=== PATIENT | female | born 1955 | race Caucasian/White ===

== ENCOUNTER 2017-03-05 11:36 | Emergency (ER) | payer OTHER ==
[2017-03-05 11:50] VITALS: BP 152/78; PULSE 91; TEMP 98.4; BMI 32.9
--- NOTE | 2017-03-05 11:51 | PDOC ---
Attending Attestation - Resident Resident Name: CaceresFei - ED Attending Attestation I have performed the following: I have examined & evaluated the patient, The case was reviewed & discussed with the resident, I agree w/resident's findings & plan, Exceptions are as noted - HPI HPI: 03/05/17 12:54 Painful sebaceous cyst in the mid back. Present several months but became inflamed the last few days. The patient has attempted to squeeze the cyst but it has not resolved. - Physicial Exam PE: 03/05/17 12:55 2 cm infected sebaceous cyst mid back, minimal erythema surrounding the cyst, also approximately 2 cm in diameter. Fluctuant. - Medical Decision Making 03/05/17 12:55 Impression is inflamed sebaceous cyst Resident performed I&D with 1% Xylocaine as local anesthesia. Patient tolerated the procedure well. A copious amount of cheesy white material was expressed from the cyst, the fluctuance resolved and the skin was flat after drainage. Iodoform gauze was inserted. Wound was dressed and wound care was discussed with the patient and her daughter.
[2017-03-05] MEDS ORDERED: LIDOCAINE HCL 1%, 10 MG/ML (20ML VIAL) ONE (12:12)
--- NOTE | 2017-03-05 12:59 | PDOC ---
History of Present Illness - General Chief Complaint: Pain, Acute Stated Complaint: PAINFUL CYST TO MID/LOWER BACK Time Seen by Provider: 03/05/17 12:09 History Source: Patient Exam Limitations: No Limitations - History of Present Illness Initial Comments: 03/05/17 12:54 61F with pmh of Dm2, HTN and HLC present with a cyst on the lower back for the past month. The cyst has been increasing in size and she tried to put ice on it and repeatedly tried to squeeze it but it made the pain worse. First time this happens.. No other lesions, Past History - Past Medical History Allergies/Adverse Reactions: Allergies Allergy/AdvReac Type Severity Reaction Status Date / Time Penicillins Allergy Verified 03/05/17 11:39 Home Medications: Ambulatory Orders Albuterol Sulfate Inhaler - [Ventolin Hfa Inhaler -] 1 - 2 inh PO QID PRN Enalapril Maleate 5 mg PO DAILY 04/06/16 Lovastatin 40 mg PO DAILY 04/06/16 Metformin HCl [Metformin HCl ER] 1,000 mg PO BID 04/06/16 Cholecalciferol (Vitamin D3) [Vitamin D3] 5,000 unit PO WEEKLY 03/05/17 Loratadine 10 mg PO DAILY 03/05/17 Salmeterol/Fluticasone [Advair 250Mcg/50Mcg -] 1 inhaler DAILY 03/05/17 Asthma: Yes COPD: (Emphysema) Diabetes: Yes HTN: Yes Hypercholesterolemia: Yes - Family Disease History Family Disease History: Diabetes: Mother - Immunization History Immunization Up to Date: Yes - Psycho/Social/Smoking Cessation Hx Anxiety: No Suicidal Ideation: No Smoking History: Never smoked Have you smoked in the past 12 months: No Information on smoking cessation initiated: No Hx Alcohol Use: Yes (SOCIAL) Drug/Substance Use Hx: No Substance Use Type: Alcohol *Physical Exam - Vital Signs Last Vital Signs Temp Pulse Resp BP Pulse Ox 98.4 F 91 H 16 152/78 99 03/05/17 11:38 03/05/17 11:38 03/05/17 11:38 03/05/17 11:38 03/05/17 11:38 *DC/Admit/Observation/Transfer Diagnosis at time of Disposition: Cyst - Discharge Dispostion Disposition: HOME Condition at time of disposition: Stable Admit: No - Patient Instructions Printed Discharge Instructions: DI for Epidermal Cyst Additional Instructions: Remove packing tomorrow by just pulling on it. Cover with gauze and tape. Come back if cyst comes back or if pain persists, or redness arounf incision gets larger. Acetaminophen or Ibuprofen for pain as needed.
[2017-03-05] MEDS ORDERED: LIDOCAINE HCL 1%, 10 MG/ML (50 mL VIAL) SQ ONE (13:10)
== END 2017-03-05 13:13 | disposition home or self-care (01) ==
LOC: FER 11:36
PROC: 0H96XZZ Drainage of Back Skin, External Approach (ICD-10-PCS; principal; 2017-03-05)
DX: L02.212 Cutaneous abscess of back [any part, except buttock and flank] (principal); E11.9 Type 2 diabetes mellitus without complications; I10 Essential (primary) hypertension; E78.00 Pure hypercholesterolemia, unspecified; J44.9 Chronic obstructive pulmonary disease, unspecified
CPT/HCPCS: 10060; 87070; 87205; 99281-25

== ENCOUNTER 2017-08-06 12:31 | Emergency (ER) | payer OTHER ==
[2017-08-06 12:38] VITALS: TEMP 98; BMI 32.9
[2017-08-06] MEDS ORDERED: ALBUTEROL SO4 2.5/IPRATROPIUM 0.5 INH SOL 3 ML VIAL.NEB. NEB ONE ×2 (13:40→14:37)
[2017-08-06] MEDS ORDERED: predniSONE 20 MG TABLET (UD) PO ONE (13:40)
[2017-08-06] MEDS ORDERED: AZITHROMYCIN 250 MG TABLET PO ONE (13:40)
[2017-08-06] MEDS ORDERED: predniSONE 20 MG TABLET (UD) ONE (13:45)
[2017-08-06] MEDS ORDERED: AZITHROMYCIN 250 MG TABLET ONE (13:46)
--- NOTE | 2017-08-06 13:51 | PDOC ---
Attending Attestation - Resident Resident Name: Fei Caceres - ED Attending Attestation I have performed the following: I have examined & evaluated the patient, The case was reviewed & discussed with the resident, I agree w/resident's findings & plan, Exceptions are as noted - HPI HPI: 08/06/17 13:48 61-year-old female with history of hypertension, diabetes, hyperlipidemia, asthma presents with 3 weeks of cough. The patient reports that she was developing a cough and wheeze though she was treated with prednisone several weeks ago. However, the patient's symptoms had improved but never resolved. Last 2 weeks, the patient's symptoms had persisted she was wheezing despite taking albuterol. States she is in having persistent cough but denies shortness of breath. States that she's been developing bilateral rib pains with coughing. 5 days ago, the patient had one-time temperature 100.4 degrees but the fever had broken sent. Patient has not been on steroids or antibiotics at this time. Came to the ED for further evaluation. - Physicial Exam PE: 08/06/17 13:48 GENERAL: Awake, alert, and fully oriented, in no acute distress. HEAD: No signs of trauma EYES: PERRLA, EOMI, sclera anicteric, conjunctiva clear ENT: Auricles normal inspection, hearing grossly normal, nares patent, oropharynx clear without exudates. NECK: Normal ROM, supple, no lymphadenopathy, JVD, or masses LUNGS: Expiratory wheezing bilaterally HEART: Regular rate and rhythm, normal S1 and S2, no murmurs, rubs or gallops ABDOMEN: Soft, nontender, normoactive bowel sounds. No guarding, no rebound. No masses EXTREMITIES: Normal range of motion, no edema. No clubbing or cyanosis. No cords, erythema, or tenderness NEUROLOGICAL: Cranial nerves II through XII grossly intact. Normal speech, normal gait SKIN: Warm, Dry, normal turgor, no rashes or lesions noted. - Medical Decision Making 08/06/17 13:48 Vital Signs Temp Pulse Resp BP Pulse Ox 98.0 F 98 H 20 170/106 98 08/06/17 12:34 08/06/17 12:34 08/06/17 12:34 08/06/17 12:34 08/06/17 12:34 The patient is mostly having asthma exacerbation. However, obtain a chest x-ray rule out pneumonia. I suspect that the very least, the patient has bronchitis. We'll initiate dual nebs, steroids and azithromycin. Given her fever 104 several days ago but now broke, we'll obtain blood work and blood cultures. If the patient is feeling better and her symptoms have improved, the patient is eligible for discharge.
[2017-08-06 14:09] LABS: EOS % 1.5 % (0-4.5); HEMATOCRIT 39.7 % (32.4-45.2); HEMOGLOBIN 12.6 GM/dL (10.7-15.3); MCH 27.4 pg (25.7-33.7); MCHC 31.9 g/dl (32.0-36.0); MEAN CELL VOLUME 86.1 fl (80-96); MEAN PLT VOLUME 7.1 fl (7.5-11.1); MONO % 5.6 % (3.8-10.2); NEUT % 58.9 % (42.8-82.8); PLATELET COUNT 451 K/MM3 (134-434); RBC 4.61 M/mm3 (3.60-5.2); RDW 13.4 % (11.6-15.6); WHITE BLOOD COUNT 7.7 K/mm3 (4.0-10.0)
[2017-08-06 14:37] LABS: ALBUMIN 3.4 g/dl (3.4-5.0); ALK PHOS 106 U/L (45-117); ANION GAP 9 (8-16); BILIRUBIN,TOTAL 0.3 mg/dL (0.2-1.0); BLOOD UREA NITROGEN 13 mg/dL (7-18); CALCIUM 9.1 mg/dL (8.5-10.1); CHLORIDE 104 mmol/L (98-107); CO2 31 mmol/L (21-32); CREATININE 0.7 mg/dL (0.55-1.02); GLUCOSE,RANDOM 97 mg/dL (74-106); MAGNESIUM 1.8 mg/dL (1.8-2.4); PHOSPHOROUS 3.6 mg/dL (2.5-4.9); POTASSIUM 3.9 mmol/L (3.5-5.1); SGOT/AST 15 U/L (15-37); SGPT/ALT 27 U/L (12-78); SODIUM 144 mmol/L (136-145); TOT PROT 7.2 g/dl (6.4-8.2)
--- NOTE | 2017-08-06 14:38 | PDOC ---
History of Present Illness - General Chief Complaint: Lightheaded Stated Complaint: ASTHMA/COUGHING Time Seen by Provider: 08/06/17 12:47 - History of Present Illness Initial Comments: 08/06/17 14:33 61F with h/o asthma presenting with 3 weeks on/off cold symptoms with increasing difficulty breathing last night to the point were she couldn't sleep. State she had a fever of 104 last tuesday that resolved. Asthma exacerbations around once a year. Never was intubated. Not on steroid for her asthma. 08/06/17 14:36 Past History - Past Medical History Allergies/Adverse Reactions: Allergies Allergy/AdvReac Type Severity Reaction Status Date / Time Penicillins Allergy Verified 08/06/17 12:38 Home Medications: Ambulatory Orders Albuterol Sulfate Inhaler - [Ventolin Hfa Inhaler -] 1 - 2 inh PO QID PRN Enalapril Maleate 5 mg PO DAILY 04/06/16 Lovastatin 40 mg PO DAILY 04/06/16 Metformin HCl [Metformin HCl ER] 1,000 mg PO BID 04/06/16 Cholecalciferol (Vitamin D3) [Vitamin D3] 5,000 unit PO WEEKLY 03/05/17 Loratadine 10 mg PO DAILY 03/05/17 Salmeterol/Fluticasone [Advair 250Mcg/50Mcg -] 1 inhaler DAILY 03/05/17 Albuterol 0.083% Nebulizer Peyton [Ventolin 0.083% Nebulizer Soln -] 1 neb NEB Q4H PRN #20 vial 08/06/17 Azithromycin 250 mg PO DAILY #4 tablet 08/06/17 Prednisone [Deltasone -] 60 mg PO DAILY #12 tablet 08/06/17 Asthma: Yes COPD: Yes (Emphysema) Diabetes: Yes HTN: Yes Hypercholesterolemia: Yes - Family Disease History Family Disease History: Diabetes: Mother - Immunization History Immunization Up to Date: Yes - Suicide/Smoking/Psychosocial Hx Smoking History: Former smoker Have you smoked in the past 12 months: No If you are a former smoker, when did you quit?: 14 YRS Information on smoking cessation initiated: No Hx Alcohol Use: No Drug/Substance Use Hx: No Substance Use Type: None Review of Systems - Review of Systems Is the patient limited Maldivian proficient: No Constitutional: Yes: Fever HEENTM: No: Symptoms Reported Respiratory: Yes: See HPI Cardiac (ROS): No: Symptoms Reported ABD/GI: No: Symptoms Reported : No: Symptoms Reported Musculoskeletal: No: Symptoms Reported Integumentary: No: Symptoms Reported Neurological: No: Symptoms reported All Other Systems: Reviewed and Negative *Physical Exam - Vital Signs Last Vital Signs Temp Pulse Resp BP Pulse Ox 98.0 F 98 H 20 170/106 98 08/06/17 12:34 08/06/17 12:34 08/06/17 12:34 08/06/17 12:34 08/06/17 12:34 - Physical Exam General Appearance: Yes: Moderate Distress HEENT: positive: Nasal Congestion Respiratory/Chest: positive: Wheezing (on expiration). negative: Chest Tender, Respiratory Distress Cardiovascular: positive: Regular Rhythm, Regular Rate, S1, S2 Gastrointestinal/Abdominal: positive: Normal Bowel Sounds ED Treatment Course - LABORATORY CBC & Chemistry Diagram: 08/06/17 13:44 08/06/17 13:44 - ADDITIONAL ORDERS Additional order review: Laboratory Results 08/06/17 13:44 Sodium 144 Potassium 3.9 Chloride 104 Carbon Dioxide 31 Anion Gap 9 BUN 13 Creatinine 0.7 Creat Clearance w eGFR > 60 Random Glucose 97 Calcium 9.1 Phosphorus 3.6 Magnesium 1.8 Total Bilirubin 0.3 AST 15 ALT 27 Alkaline Phosphatase 106 Total Protein 7.2 Albumin 3.4 08/06/17 13:44 Influenza Types A,B Antigen (YOVANA) - Final Nasopharyngeal Swab - Final 08/06/17 13:44 RBC 4.61 MCV 86.1 MCHC 31.9 L RDW 13.4 MPV 7.1 L Neutrophils % 58.9 Lymphocytes % 33.0 Monocytes % 5.6 Eosinophils % 1.5 Basophils % 1.0 - RADIOLOGY Radiology Studies Ordered: Category Date Time Status CHEST PA & LAT [RAD] Stat Radiology 08/06/17 13:08 Completed - Medications Given in the ED: ED Medications Discontinued Medications Generic Name Dose Route Start Last Admin Trade Name Freq PRN Reason Stop Dose Admin Albuterol/Ipratropium 1 amp 08/06/17 13:40 08/06/17 13:44 Duoneb - NEB 08/06/17 13:41 1 amp ONCE ONE Administration Albuterol/Ipratropium 1 amp 08/06/17 14:37 08/06/17 14:41 Duoneb - NEB 08/06/17 14:38 1 amp ONCE ONE Administration Azithromycin 500 mg 08/06/17 13:40 08/06/17 13:48 Zithromax - PO 08/06/17 13:41 500 mg ONCE ONE Administration Prednisone 60 mg 08/06/17 13:40 08/06/17 13:48 Deltasone - PO 08/06/17 13:41 60 mg ONCE ONE Administration Medical Decision Making - Medical Decision Making 08/06/17 14:38 Likely asthma exacerbation Duonebs 08/06/17 14:39 CXR no acute path. Flu swab negative 08/06/17 14:54 Repeat duoneb treatment and discharge *DC/Admit/Observation/Transfer Diagnosis at time of Disposition: Asthma exacerbation - Prescriptions Prescriptions: Albuterol 0.083% Nebulizer Peyton [Ventolin 0.083% Nebulizer Soln -] 1 neb NEB Q4H PRN #20 vial PRN Reason: Wheezing Azithromycin 250 mg PO DAILY #4 tablet Prednisone [Deltasone -] 60 mg PO DAILY #12 tablet - Referrals Referrals: Roseline Jackson MD [Primary Care Provider] - - Patient Instructions - Post Discharge Activity
--- NOTE | 2017-08-06 14:55 | PDOC ---
History of Present Illness - General Chief Complaint: Lightheaded Stated Complaint: ASTHMA/COUGHING Time Seen by Provider: 08/06/17 12:47 Past History - Past Medical History Allergies/Adverse Reactions: Allergies Allergy/AdvReac Type Severity Reaction Status Date / Time Penicillins Allergy Verified 08/06/17 12:38 Home Medications: Ambulatory Orders Albuterol Sulfate Inhaler - [Ventolin Hfa Inhaler -] 1 - 2 inh PO QID PRN Enalapril Maleate 5 mg PO DAILY 04/06/16 Lovastatin 40 mg PO DAILY 04/06/16 Metformin HCl [Metformin HCl ER] 1,000 mg PO BID 04/06/16 Cholecalciferol (Vitamin D3) [Vitamin D3] 5,000 unit PO WEEKLY 03/05/17 Loratadine 10 mg PO DAILY 03/05/17 Salmeterol/Fluticasone [Advair 250Mcg/50Mcg -] 1 inhaler DAILY 03/05/17 Albuterol 0.083% Nebulizer Peyton [Ventolin 0.083% Nebulizer Soln -] 1 neb NEB Q4H PRN #20 vial 08/06/17 Azithromycin 250 mg PO DAILY #4 tablet 08/06/17 Prednisone [Deltasone -] 60 mg PO DAILY #12 tablet 08/06/17 Asthma: Yes COPD: Yes (Emphysema) Diabetes: Yes HTN: Yes Hypercholesterolemia: Yes - Family Disease History Family Disease History: Diabetes: Mother - Immunization History Immunization Up to Date: Yes - Suicide/Smoking/Psychosocial Hx Smoking History: Former smoker Have you smoked in the past 12 months: No If you are a former smoker, when did you quit?: 14 YRS Information on smoking cessation initiated: No Hx Alcohol Use: No Drug/Substance Use Hx: No Substance Use Type: None Review of Systems - Review of Systems Is the patient limited Bhutanese proficient: No *Physical Exam - Vital Signs Last Vital Signs Temp Pulse Resp BP Pulse Ox 98.0 F 98 H 20 170/106 98 08/06/17 12:34 08/06/17 12:34 08/06/17 12:34 08/06/17 12:34 08/06/17 12:34 ED Treatment Course - LABORATORY CBC & Chemistry Diagram: 08/06/17 13:44 08/06/17 13:44 - ADDITIONAL ORDERS Additional order review: Laboratory Results 08/06/17 13:44 Sodium 144 Potassium 3.9 Chloride 104 Carbon Dioxide 31 Anion Gap 9 BUN 13 Creatinine 0.7 Creat Clearance w eGFR > 60 Random Glucose 97 Calcium 9.1 Phosphorus 3.6 Magnesium 1.8 Total Bilirubin 0.3 AST 15 ALT 27 Alkaline Phosphatase 106 Total Protein 7.2 Albumin 3.4 08/06/17 13:44 Influenza Types A,B Antigen (YOVANA) - Final Nasopharyngeal Swab - Final 08/06/17 13:44 RBC 4.61 MCV 86.1 MCHC 31.9 L RDW 13.4 MPV 7.1 L Neutrophils % 58.9 Lymphocytes % 33.0 Monocytes % 5.6 Eosinophils % 1.5 Basophils % 1.0 - Medications Given in the ED: ED Medications Discontinued Medications Generic Name Dose Route Start Last Admin Trade Name Freq PRN Reason Stop Dose Admin Albuterol/Ipratropium 1 amp 08/06/17 13:40 08/06/17 13:44 Duoneb - NEB 08/06/17 13:41 1 amp ONCE ONE Administration Albuterol/Ipratropium 1 amp 08/06/17 14:37 08/06/17 14:41 Duoneb - NEB 08/06/17 14:38 1 amp ONCE ONE Administration Azithromycin 500 mg 08/06/17 13:40 08/06/17 13:48 Zithromax - PO 08/06/17 13:41 500 mg ONCE ONE Administration Prednisone 60 mg 08/06/17 13:40 08/06/17 13:48 Deltasone - PO 08/06/17 13:41 60 mg ONCE ONE Administration Medical Decision Making - Medical Decision Making 08/06/17 14:51 CBC, BMP 08/06/17 13:44 08/06/17 13:44 CMP Sodium 144 mmol/L (136-145) 08/06/17 13:44 Potassium 3.9 mmol/L (3.5-5.1) 08/06/17 13:44 Chloride 104 mmol/L (98-107) 08/06/17 13:44 Carbon Dioxide 31 mmol/L (21-32) 08/06/17 13:44 Anion Gap 9 (8-16) 08/06/17 13:44 BUN 13 mg/dL (7-18) 08/06/17 13:44 Creatinine 0.7 mg/dL (0.55-1.02) 08/06/17 13:44 Creat Clearance w eGFR > 60 (>60) 08/06/17 13:44 Random Glucose 97 mg/dL (74-106) 08/06/17 13:44 Calcium 9.1 mg/dL (8.5-10.1) 08/06/17 13:44 Phosphorus 3.6 mg/dL (2.5-4.9) 08/06/17 13:44 Magnesium 1.8 mg/dL (1.8-2.4) 08/06/17 13:44 Total Bilirubin 0.3 mg/dL (0.2-1.0) 08/06/17 13:44 AST 15 U/L (15-37) 08/06/17 13:44 ALT 27 U/L (12-78) 08/06/17 13:44 Alkaline Phosphatase 106 U/L (45-117) 08/06/17 13:44 Total Protein 7.2 g/dl (6.4-8.2) 08/06/17 13:44 Albumin 3.4 g/dl (3.4-5.0) 08/06/17 13:44 Chest xray reviewed, no acute infiltrates. Patient is feeling better after treatment. I suspect this is asthma with bronchitis. We'll discharge with albuterol, prednisone and azithromycin. I discussed the physical exam findings, ancillary test results and final diagnoses with the patient. I answered all of the patient's questions. The patient was satisfied with the care received and felt comfortable with the discharge plan and treatment plan. The patient will call their primary care physician within 24 hours to arrange follow-up and will return to the Emergency Department with any new, persistant or worsening symptoms. *DC/Admit/Observation/Transfer Diagnosis at time of Disposition: Asthma exacerbation Qualifiers: Asthma severity: unspecified severity Asthma persistence: intermittent Qualified Code(s): J45.21 - Mild intermittent asthma with (acute) exacerbation - Discharge Dispostion Disposition: HOME Condition at time of disposition: Improved - Prescriptions Prescriptions: Albuterol 0.083% Nebulizer Peyton [Ventolin 0.083% Nebulizer Soln -] 1 neb NEB Q4H PRN #20 vial PRN Reason: Wheezing Azithromycin 250 mg PO DAILY #4 tablet Prednisone [Deltasone -] 60 mg PO DAILY #12 tablet - Referrals Referrals: Roseline Jackson MD [Primary Care Provider] - - Patient Instructions Printed Discharge Instructions: DI for Asthma -- Adult, DI for Acute Bronchitis Additional Instructions: Your chest xray and blood work is unremarkable. Please take the nebulizer, prednisone, and azithromycin (antibiotic) as prescribed. Follow up with your doctor. - Post Discharge Activity
[2017-08-06 15:08] VITALS: BP 134/78; PULSE 70
== END 2017-08-06 15:11 | disposition home or self-care (01) ==
LOC: JER 12:31
PROC: 3E0F7GC Introduction of Other Therapeutic Substance into Respiratory Tract, Via Natural or Artificial Opening (ICD-10-PCS; principal; 2017-08-06)
PROC: 3E0F7GC Introduction of Other Therapeutic Substance into Respiratory Tract, Via Natural or Artificial Opening (ICD-10-PCS; 2017-08-06)
DX: J45.901 Unspecified asthma with (acute) exacerbation (principal); I10 Essential (primary) hypertension; E78.00 Pure hypercholesterolemia, unspecified; E11.9 Type 2 diabetes mellitus without complications; Z79.84 Long term (current) use of oral hypoglycemic drugs; J43.8 Other emphysema
CPT/HCPCS: 36415; 71046-TC; 80053; 83735; 84100; 85025; 87040; 87804; 94640; 99283-25

== ENCOUNTER 2017-12-20 10:22 | Emergency (ER) | payer OTHER ==
[2017-12-20 10:46] VITALS: TEMP 98.5; BMI 31.8
--- NOTE | 2017-12-20 10:47 | PDOC ---
History of Present Illness - General History Source: Patient Exam Limitations: No Limitations - History of Present Illness Initial Comments: 12/20/17 11:08 The patient is a 62 year old female, with a significant PMH of hypertension, hyperlipidemia, diabetes and asthma who presents to the emergency department for evaluation s/p slip and fall. The patient presents complaining of left shoulder pain and left ankle pain. The patient states her left shoulder pain is made worse with movement. The patient denies any head strike/ injury or loss of consciousness. She denies any numbness, weakness or loss of sensation. She denies any neck or back pain. The patient denies chest pain, shortness of breath, headache and dizziness. Denies fever, chills, nausea, vomit, diarrhea and constipation. Denies dysuria, frequency, urgency and hematuria. Allergies: Penicillins <Jesus Alberto Wynne - Last Filed: 12/20/17 14:19> <Sheila Constantino - Last Filed: 12/20/17 14:28> - General Chief Complaint: Injury Stated Complaint: FALL Time Seen by Provider: 12/20/17 10:46 Past History <Jesus Alberto Wynne - Last Filed: 12/20/17 14:19> - Past Medical History Asthma: Yes COPD: Yes (Emphysema) Diabetes: Yes HTN: Yes Hypercholesterolemia: Yes - Family Disease History Family Disease History: Diabetes: Mother - Immunization History Immunization Up to Date: Yes - Suicide/Smoking/Psychosocial Hx Smoking History: Former smoker Have you smoked in the past 12 months: No If you are a former smoker, when did you quit?: 14 YRS Information on smoking cessation initiated: No Hx Alcohol Use: No Drug/Substance Use Hx: No Substance Use Type: None <Sheila Constantino - Last Filed: 12/20/17 14:28> - Past Medical History Allergies/Adverse Reactions: Allergies Allergy/AdvReac Type Severity Reaction Status Date / Time Penicillins Allergy Verified 08/06/17 12:38 Home Medications: Ambulatory Orders Albuterol Sulfate Inhaler - [Ventolin Hfa Inhaler -] 1 - 2 inh PO QID PRN Enalapril Maleate 5 mg PO DAILY 04/06/16 Metformin HCl [Metformin HCl ER] 1,000 mg PO BID 04/06/16 Salmeterol/Fluticasone [Advair 250Mcg/50Mcg -] 1 inhaler IH BID 03/05/17 Atorvastatin Ca [Lipitor] 0 mg PO HS 12/20/17 Review of Systems - Review of Systems Comments:: 12/20/17 11:11 GENERAL/CONSTITUTIONAL: No fever or chills. No weakness. HEAD, EYES, EARS, NOSE AND THROAT: No change in vision. No ear pain or discharge. No sore throat. CARDIOVASCULAR: No chest pain or shortness of breath. RESPIRATORY: No cough, wheezing, or hemoptysis. GASTROINTESTINAL: No nausea, vomiting, diarrhea or constipation. GENITOURINARY: No dysuria, frequency, or change in urination. MUSCULOSKELETAL: (+) Left shoulder pain. (+) Left ankle pain. No neck or back pain. SKIN: No rash NEUROLOGIC: No headache, vertigo, loss of consciousness, or change in strength/ sensation. ENDOCRINE: No increased thirst. No abnormal weight change. HEMATOLOGIC/LYMPHATIC: No anemia, easy bleeding, or history of blood clots. ALLERGIC/IMMUNOLOGIC: No hives or skin allergy. <Jesus Alberto Wynne - Last Filed: 12/20/17 14:19> *Physical Exam - Vital Signs Last Vital Signs Temp Pulse Resp BP Pulse Ox 98.5 F 94 H 20 150/100 96 12/20/17 10:43 12/20/17 10:43 12/20/17 10:43 12/20/17 10:43 12/20/17 10:43 - Physical Exam Comments: 12/20/17 11:11 GENERAL: Awake, alert, and fully oriented, in no acute distress HEAD: No signs of trauma EYES: PERRLA, EOMI, sclera anicteric, conjunctiva clear ENT: Auricles normal inspection, hearing grossly normal, nares patent, oropharynx clear without exudates. Moist mucosa NECK: No tenderness of the spinous processes. Normal ROM, supple, no lymphadenopathy, JVD, or masses LUNGS: Breath sounds equal, clear to auscultation bilaterally. No wheezes, and no crackles HEART: Regular rate and rhythm, normal S1 and S2, no murmurs, rubs or gallops ABDOMEN: Soft, nontender, normoactive bowel sounds. No guarding, no rebound. No masses EXTREMITIES: (+) Left shoulder deformity and tenderness with severely limited ROM. Intact radial pulses. Sensation intact throughout. Intact finger extension. (+) Left ankle tenderness over the lateral malleolus without deformity. Full range of motion. 2+ distal pulses throughout. NEUROLOGICAL: Cranial nerves II through XII grossly intact. Normal speech. SKIN: Warm, Dry, normal turgor, no rashes or lesions noted. <Jesus Alberto Wynne - Last Filed: 12/20/17 14:19> - Vital Signs Last Vital Signs Temp Pulse Resp BP Pulse Ox 98.5 F 94 H 20 150/100 96 12/20/17 10:43 12/20/17 10:43 12/20/17 10:43 12/20/17 10:43 12/20/17 10:43 <Sheila Constantino - Last Filed: 12/20/17 14:28> ED Treatment Course - RADIOLOGY Radiograph Interpretation: 12/20/17 14:19 EXAM#: TYPE/EXAM: RESULT: [id number] RAD/ANKLE FOOT-LEFT* HISTORY PROVIDED: Fall AP, oblique and lateral projections of the left foot and ankle reveals no evidence of fracture, dislocation or acute bone or joint abnormalities. Mild degenerative changes are noted about the small joints of the foot, most marked at the first metatarsophalangeal joint. There is also a small along the plantar surface of the calcaneus. IMPRESSION: Mild degenerative arthritis with no fracture or acute bone or joint abnormalities. Reported By: Aron Thorpe MD 12/20/17 14:20 EXAM#: TYPE/EXAM: RESULT: [id number] RAD/SHOULDER-LEFT HISTORY PROVIDED: Fall Internal/external rotation projections of the left shoulder reveals no evidence of fracture, dislocation or acute bone or joint abnormalities. Mild degenerative changes are noted about the acromioclavicular joint. IMPRESSION: Mild degenerative arthritis with no fracture or acute bone or joint abnormalities. Reported By: Aron Thorpe MD - Medications Given in the ED: ED Medications Discontinued Medications Generic Name Dose Route Start Last Admin Trade Name Freq PRN Reason Stop Dose Admin Oxycodone/Acetaminophen 2 combo 12/20/17 10:52 12/20/17 11:01 Percocet 5/325 - PO 12/20/17 10:53 2 combo ONCE ONE Administration <Jesus Alberto Wynne - Last Filed: 12/20/17 14:19> Medical Decision Making - Medical Decision Making 12/20/17 14:07 Pt presents to the ED complaining of L shoulder pain and L ankle pain after mechanical trip and fall. Denies LOC. Very limited ROM of shoulder, although patient is neurologically intact. Will check xrays of the foot, ankle and shoulder to rule out fx. <Sheila Constantino - Last Filed: 12/20/17 14:28> *DC/Admit/Observation/Transfer - Attestations Scribe Attestion: 12/20/17 11:58 Documentation prepared by Jesus Alberto Wynne, acting as medical esthetician for Sheila Constantino MD. <Jesus Alberto Wynne - Last Filed: 12/20/17 14:19> - Discharge Dispostion Decision to Admit order: No <Sheila Constantino - Last Filed: 12/20/17 14:28> Diagnosis at time of Disposition: Shoulder pain Qualifiers: Chronicity: acute Laterality: left Qualified Code(s): M25.512 - Pain in left shoulder Ankle sprain Qualifiers: Encounter type: initial encounter Involved ligament of ankle: unspecified ligament Laterality: left Qualified Code(s): S93.402A - Sprain of unspecified ligament of left ankle, initial encounter - Discharge Dispostion Disposition: HOME Condition at time of disposition: Good - Referrals Referrals: Roseline Jackson MD [Primary Care Provider] - - Patient Instructions Printed Discharge Instructions: DI for Ankle Sprain, DI for Shoulder Pain Additional Instructions: return to the ED for severe pain and swelling, other new or worsening symptoms. Make sure that you follow up with your doctor within three days. Take the motrin every 8 hours for the first three days, then take it as needed. Try to stay off of your ankle for the next three days. Keep it elevated and use ice. return for severely worsening pain or swelling or other new complaints. - Post Discharge Activity Forms/Work/School Notes: Back to Work
[2017-12-20 13:51] VITALS: BP 120/83; PULSE 79
[2017-12-20] MEDS ORDERED: IBUPROFEN 400 MG TABLET (FP) PO ONE ×2 (14:34→14:51)
== END 2017-12-20 15:58 | disposition home or self-care (01) ==
LOC: JER 10:22
DX: S93.402A Sprain of unspecified ligament of left ankle, initial encounter (principal); M25.512 Pain in left shoulder; W18.39XA Other fall on same level, initial encounter; Y93.89 Activity, other specified; Y92.69 Other specified industrial and construction area as the place of occurrence of the external cause; Y99.0 Civilian activity done for income or pay; I10 Essential (primary) hypertension; E78.5 Hyperlipidemia, unspecified; E11.9 Type 2 diabetes mellitus without complications; Z79.84 Long term (current) use of oral hypoglycemic drugs; J45.909 Unspecified asthma, uncomplicated; J43.8 Other emphysema
CPT/HCPCS: 73030-TC-LT-FY; 73060-TC-LT-FY; 73610-TC-LT-FY; 73630-TC-LT; 99281-25

== ENCOUNTER 2018-05-24 06:06 | Day surgery (SDC) | payer OTHER ==
[2018-05-22 16:04] VITALS: BMI 31.1
[2018-05-24] MEDS ORDERED: SUCCINYLCHOLINE CHLORIDE 200 MG/10 ML VIAL ONE (07:22)
[2018-05-24] MEDS ORDERED: PROPOFOL 20 ML ONE ×2 (07:22)
[2018-05-24] MEDS ORDERED: MIDAZOLAM HCL 2 MG/2 ML SINGLE DOSE VIAL ONE ×3 (07:22→07:33)
[2018-05-24] MEDS ORDERED: SODIUM CHLORIDE 0.9% P/F 10 ML VIAL IJ ONE ×2 (07:25→07:26)
[2018-05-24] MEDS ORDERED: ceFAZolin SODIUM 1 GM VIAL ONE (07:25)
[2018-05-24] MEDS ORDERED: ePHEDrine SULFATE 50 MG/1 ML AMPULE ONE (07:26)
[2018-05-24] MEDS ORDERED: ROPIVACAINE HCL 0.5% 30ML VIAL ONE (07:35)
--- NOTE | 2018-05-24 08:10 | HP ---
Satellite [facility] - Chief Complaint Chief Complaint: LEFT SHOULDER PAIN History Source: Patient - Past Medical History Allergies/Adverse Reactions: Allergies Allergy/AdvReac Type Severity Reaction Status Date / Time Penicillins Allergy Verified 05/24/18 06:30 - Current Medications Current Medications: Home Medications Medication Instructions Recorded Albuterol Sulfate Inhaler - 1 - 2 inh PO QID PRN 04/06/16 [Ventolin Hfa Inhaler -] Enalapril Maleate 10 mg PO DAILY 04/06/16 Metformin HCl [Metformin HCl ER] 1,000 mg PO BID 04/06/16 Atorvastatin Ca [Lipitor] 20 mg PO HS 12/20/17 Satellite Physical Exam - Physical Examination Vital Signs: Vital Signs Period Temp Pulse Resp BP Sys/Mason Pulse Ox Last 24 Hr 97.7 F 82 18 119/67 98 Extremities: Other (+ WEAKNESS WITH TDA) Satellite Impression/Plan - Impression/Plan Impression: LEFT RC TEAR Operative Procedure: LEFT RC REPAIR Date to be Performed: 05/24/18
[2018-05-24] MEDS ORDERED: ceFAZolin SODIUM 1 GM VIAL IVPB ONE ×2 (08:41)
[2018-05-24] MEDS ORDERED: ONDANSETRON 4 MG/2 ML VIAL IVPUSH PRN (09:39)
[2018-05-24] MEDS ORDERED: oxyCODONE HCL 5 MG TABLET PO PRN ×2 (09:39)
--- NOTE | 2018-05-24 09:42 | OP ---
Operative Note - Note: Operative Date: 05/24/18 ([facility]) Pre-Operative Diagnosis: left shoulder rct Operation: left shoulder arthroscopy with RCR Implants: arthrex speedbridge, 1 swivelock Post-Operative Diagnosis: Same as Pre-op Surgeon: Luis Menendez Typecasting Machine Operator: Luis Carlos Willson Anesthesiologist/DIRECTOR DATA ANALYTICS: Hardik Echeverria Anesthesia: Local, MAC Specimens Removed: shavings Estimated Blood Loss (mls): 5 Operative Report Dictated: Yes
[2018-05-24] MEDS ORDERED: LACTATED RINGERS SOLUTION 1,000 ML IV SCH (09:45)
--- NOTE | 2018-05-24 10:01 | OP ---
DATE OF OPERATION: 05/24/2018 PREOPERATIVE DIAGNOSIS: Left rotator cuff tear, acute on chronic. POSTOPERATIVE DIAGNOSIS: Left rotator cuff tear, acute on chronic. PROCEDURE: Arthroscopy, left shoulder, with subacromial debridement and arthroscopic rotator cuff repair. SURGICAL ATTENDING: Luis Menendez MD PROCUREMENT SERVICES MANAGER: JONATHAN Her ANESTHESIA: Regional and general. CLOSURE: SpeedBridge and a SwiveLock from [employer] and 3-0 nylon for skin. ESTIMATED BLOOD LOSS: Negligible. COMPLICATIONS: None. CONDITION: To recovery room in stable condition. DESCRIPTION OF OPERATIVE PROCEDURE: Patient taken to the operating room on May 24, 2018. Regional anesthesia was administered by the anesthesiologist. IV Kefzol was administered prophylactically prior to the case. Patient was placed in the beach-chair position with all prominences well padded. The left shoulder area was prepped and draped in the usual sterile fashion. The posterior portal was made 2 fingerbreadths below the acromion first with a 15 blade followed by a blunt trocar. Exam of the glenohumeral joint revealed the following: Intact glenoid and humeral head articular cartilage, intact labrum circumferentially. The biceps tendon was nowhere to be seen. No loose bodies in the axillary pouch. The subscapularis was intact to its insertion. Looking superior there was a large rotator cuff tear that was clearly visualized. The fluid was drained from the shoulder. The trocar was removed. The posterior trocar was redirected in the subacromial space. Accessory anterior and lateral portals were made with a 15 blade followed by a blunt trocar. The lateral portal was the working portal. We used that to introduce an ArthroCare device and a shaver to clean out all fibrous tissue in and around the undersurface of the acromion. This exposed the rotator cuff tear and the displacement and the exposed greater tuberosity. There was no real subacromial spur. There was plenty of space. This area was just cleaned and smoothened with the shaver and the bur. The greater tuberosity landing area was also stimulated to remove all fibrous tissue and to have a good bleeding surface for reimplantation. As suspected the most superior part of the supraspinatus was not fixable and was displaced posteriorly medially and had no excursion. However, the posterior part of the rotator cuff was able to be mobilized and with the graspers was able to be reduced to the greater tuberosity. Two medial row anchors with preloaded FiberTape suture were malleted in the articular margin, 1 more anteriorly and 1 more posteriorly. They were placed in a fanned-out position of all 4 limbs through the rotator cuff. Each stitch was docked anteriorly. We then pulled 1 limb of the anterior and 1 limb of the posterior anchor through the lateral portal. These sutures were placed through the eyelet holes of the lateral row anchor. The rotator cuff was reduced and then it was malleted into place in the greater tuberosity and screwed home. This was then repeated with the remaining 2 limbs in the more anterior position achieving excellent reduction of the rotator cuff to the greater tuberosity with no undue stress. There was some anterior tissue that was also to be repaired. This was grasped with the [employer] device and horizontal mattress suture through an independent SwiveLock was used to repair that portion of the rotator cuff/subscapularis tendon. This left a bare area somewhat at around the supraspinatus region that was not repaired, but there was no exposed articular cartilage. I did not use an augmentation device at this time. The shoulder was taken through a range of motion and found to have good stability of the repair with excellent clearance. Fluid was drained from the shoulder. The trocars were removed. Portals were closed using 3-0 nylon. A sterile pressure dressing was applied followed by a shoulder immobilizer. Patient awakened from anesthesia and transferred to recovery in stable condition. No complications. Estimated blood loss negligible. Ching [id number]
[2018-05-24 12:28] VITALS: BP 114/62; PULSE 84; TEMP 98
--- NOTE | 2018-05-25 16:24 | PATH ---
Surgical Pathology Report Patient Name: MAVIS ANDRES Med. Rec. #: [id number] /Age/Gender: 1955 (Age: 62) / F Account: [id number] Location: [facility] Taken: 05/24/2018 Received: 05/24/2018 Reported: 05/25/2018 Physicians: Luis Menendez M.D. Specimen(s) Received LEFT SHOULDER SHAVINGS Clinical History Left shoulder tear Final Diagnosis LEFT SHOULDER SHAVINGS: FIBROCARTILAGINOUS AND SYNOVIAL TISSUE WITH REACTIVE AND DEGENERATIVE CHANGE. SEPARATE SKELETAL MUSCLE WITH NO DIAGNOSTIC ABNORMALITIES. Electronically Signed Corazon Connell M.D. Gross Description Received in formalin labeled "left shoulder shavings", is a 1.5 x 1.5 x 0.3 cm aggregate of lew-yellow soft tissue fragments. Software Installer tissue submitted in one cassette. BUDDY/05/24/2018 rufina/05/24/2018
== END 2018-05-24 12:25 | disposition home or self-care (01) ==
LOC: JASU-SURG 06:06
PROVIDERS: ATTEND Orthopaedic Surgery
PROC: 0LQ24ZZ Repair Left Shoulder Tendon, Percutaneous Endoscopic Approach (ICD-10-PCS; 2018-05-24)
PROC: 0RBK4ZZ Excision of Left Shoulder Joint, Percutaneous Endoscopic Approach (ICD-10-PCS; principal; 2018-05-24 08:00)
DX: M75.102 Unspecified rotator cuff tear or rupture of left shoulder, not specified as traumatic (principal)
CPT/HCPCS: 82962; 94760

== ENCOUNTER 2018-09-16 13:15 | Emergency (ER) | payer OTHER ==
--- NOTE | 2018-09-16 13:31 | PDOC ---
History of Present Illness - General Chief Complaint: Pain Stated Complaint: RIGHT KNEE PAIN Time Seen by Provider: 09/16/18 13:29 History Source: Patient Exam Limitations: No Limitations - History of Present Illness Initial Comments: 09/16/18 13:31 The patient is a 62 year old female, with a significant PMH of hypertension, hyperlipidemia, diabetes and asthma who presents to the emergency department for evaluation of right knee pain. Pt denies any recent trauma She has noted several weeks of right knee pain which was bearable Over the past 3 days, she noted increasing pain No fevers or chills No knee redness (+) knee swelling Pt is ambulatory but this is painful Pain located in the medial knee, and now radiates to the calf. Pain rated 8/10 with walking Pt did not take any pain medications today for her pain No prior history of gout PMH: HTN, HLD, DM, Asthma PSH: Left shoulder surgery Meds: please see MAR ALL: PCN --> ? Social: denies drug or tobacco use FH: non contributory ROS: GENERAL/CONSTITUTIONAL: No: fever, chills HEAD, EYES, EARS, NOSE AND THROAT: No: change in vision, ear pain, discharge, sore throat, throat swelling. CARDIOVASCULAR: No: chest pain, lightheadedness, palpitations, syncope RESPIRATORY: No: cough, shortness of breath, wheezing, hemoptysis, stridor. GASTROINTESTINAL: No: nausea, vomiting, diarrhea, abdominal pain GENITOURINARY: No: dysuria, hematuria, MUSCULOSKELETAL: YES: right knee pain, Chronic Left should pain No: back pain, neck pain SKIN AND BREASTS: No: lesions, pallor, rash or easy bruising. NEUROLOGIC: No: weakness ENDOCRINE: No: unexplained weight gain or loss PE: GENERAL: The patient is in no acute distress. HEAD: Normal EYES: PERRLA, EOMI, sclera anicteric, conjunctiva clear. ENT: Ears normal, nares patent, oropharynx clear without exudates. Moist mucous membranes. NECK: Normal range of motion, supple no midline tenderness to palpation LUNGS: Breath sounds equal, clear to auscultation bilaterally. No wheezes, and no crackles. HEART:Regular rate and rhythm, normal S1 and S2 without murmur, rub or gallop. ABDOMEN: Soft, nontender, normoactive bowel sounds. EXTREMITIES: Normal range of motion, no edema. NEUROLOGICAL: Cranial nerves II through XII grossly intact. Normal speech. The patient is awake, alert, oriented x3. Gross motor and sensory exam is found to be intact. Sensation of distal lower extremities intact. MUSCULOSKELETAL: No deformities, ecchymosis of the lower extremities bilaterally. Skin is NOT red, NOT warm Tenderness noted with flexion of the right knee Tenderness to palpation of the medial knee joint, proximal tibia, calf Range of motion limited by pain with flexion No laxity of the MCL, LCL, ACL, PCL appreciated bilaterally. Patient limited ability to bear weight. Antalgic gait Dorsalis pedis and posterior tibialis pulses 2+ and equal bilaterally. Capillary refill less than 2 seconds bilaterally. SKIN: NO erythema, no wounds, no drainage 09/16/18 13:39 09/16/18 13:52 Timing/Duration: unsure Past History - Past Medical History Allergies/Adverse Reactions: Allergies Allergy/AdvReac Type Severity Reaction Status Date / Time Penicillins Allergy Verified 05/24/18 06:30 Home Medications: Ambulatory Orders Albuterol Sulfate Inhaler - [Ventolin HFA Inhaler -] 1 - 2 inh PO QID PRN Enalapril Maleate 10 mg PO DAILY 04/06/16 metFORMIN HCL [Metformin ER Osmotic] 1,000 mg PO BID 04/06/16 Atorvastatin Ca [Lipitor] 20 mg PO HS 12/20/17 Fluticasone Prop 0.05% Nasal [Flonase -] 1 - 2 spray NS BID 09/16/18 Lidocaine 5% Patch [Lidoderm Patch -] 1 patch TP DAILY PRN #30 patch 09/16/18 Loratadine [Claritin] 10 mg PO DAILY 09/16/18 Montelukast Sodium [Singulair] 10 mg PO HS 09/16/18 Naproxen Sodium 220 mg PO BID PRN #30 tablet 09/16/18 traMADol HCL [Ultram] 50 mg PO BID #6 tablet MDD 2 09/16/18 Asthma: Yes COPD: Yes (Emphysema) Diabetes: Yes HTN: Yes Hypercholesterolemia: Yes - Family Disease History Family Disease History: Diabetes: Mother - Immunization History Immunization Up to Date: Yes - Suicide/Smoking/Psychosocial Hx Smoking History: Former smoker Have you smoked in the past 12 months: No If you are a former smoker, when did you quit?: 2002 Hx Alcohol Use: No Drug/Substance Use Hx: No Substance Use Type: None Medical Decision Making - Medical Decision Making 09/16/18 13:57 Knee pain likely the result of arthritis possible meniscus tear, joint effusion Will do X ray to r/o fracture Unlikely gout Unlikely septic joint (no erythema, pt able to flex) Will do duplex to r/o Serna's cyst Will give motrin for pain 09/16/18 15:48 Xray negative Duplex negative Will: Piyush wrap Give cane Follow up with Ortho *DC/Admit/Observation/Transfer Diagnosis at time of Disposition: Knee pain, right Qualifiers: Chronicity: acute Qualified Code(s): M25.561 - Pain in right knee - Discharge Dispostion Disposition: HOME Condition at time of disposition: Stable Decision to Admit order: No - Prescriptions Prescriptions: Lidocaine 5% Patch [Lidoderm Patch -] 1 patch TP DAILY PRN #30 patch PRN Reason: Pain Naproxen Sodium 220 mg PO BID PRN #30 tablet PRN Reason: Pain traMADol HCL [Ultram] 50 mg PO BID #6 tablet MDD 2 - Referrals Referrals: Roseline Jacksno MD [Primary Care Provider] - Tommy Dominique MD [Staff Physician] - Hardik Persaud MD [Staff Physician] - - Patient Instructions Printed Discharge Instructions: DI for Knee Pain Additional Instructions: Ms Bui Thank you for coming in to the ER today Please review your xray and ultrasound results. Return to the emergency department immediately with ANY new, persistent or worsening symptoms. Continue any medications as previously prescribed by your physician. Please take medications as prescribed today You can use an piyush wrap or any over the counter knee brace that is comfortable for you. Please avoid re traumatizing your knee. You should follow up with an orthopedist as soon as possible regarding today's emergency department visit. Please make sure your doctor reviews the results of your emergency evaluation. Thank you for coming to the [facility] today for your care. It was a pleasure to see you today. Please note that your evaluation is INCOMPLETE until you follow-up with your doctor. - Post Discharge Activity Forms/Work/School Notes: Back to Work
[2018-09-16 13:36] VITALS: BP 152/47; PULSE 89; TEMP 98.3; BMI 31.1
[2018-09-16] MEDS ORDERED: IBUPROFEN 600 MG TABLET (FP) PO ONE ×2 (13:38→13:42)
== END 2018-09-16 16:03 | disposition home or self-care (01) ==
LOC: FER 13:15
DX: M25.561 Pain in right knee (principal); Z87.891 Personal history of nicotine dependence; I10 Essential (primary) hypertension; E78.5 Hyperlipidemia, unspecified; E11.9 Type 2 diabetes mellitus without complications; J45.909 Unspecified asthma, uncomplicated
CPT/HCPCS: 73562-TC-RT-FY; 93971-TC; 99282-25

== ENCOUNTER 2018-11-22 09:18 | Day surgery (SDC) | payer OTHER ==
[2018-11-21 09:03] VITALS: BMI 31.1
[2018-11-22 10:30] LABS: EPI CELLS 1.7 /HPF (0-5/HPF); URINE APPEARANCE CLEAR; URINE BACTERIA 1.9 /hpf (NEGATIVE); URINE BILIRUBIN NEGATIVE (NEGATIVE); URINE CASTS 2 /lpf (0-8); URINE COLOR YELLOW; URINE GLUCOSE (UA) NEGATIVE (NEGATIVE); URINE KETONE NEGATIVE (NEGATIVE); URINE LEUK ESTERASE NEGATIVE (NEGATIVE); URINE NITRITE NEGATIVE (NEGATIVE); URINE PROTEIN NEGATIVE (NEGATIVE); URINE RBC 5 /hpf (0-4); URINE UROBILINOGEN 0.2 mg/dL (0.2-1.0); URINE WBC 1 /hpf (0-5)
[2018-11-22] MEDS ORDERED: BUPIVACAINE LIPOSOME/PF (EXPAREL) 266 MG/20 ML VIAL ONE (10:46)
[2018-11-22] MEDS ORDERED: BUPIVACAINE HCL/PF 0.5% (5MG/ML) 10 ML VIAL ONE (10:46)
[2018-11-22 10:49] VITALS: BP 133/75; PULSE 87; TEMP 97.9
== END 2018-11-22 11:30 | disposition home or self-care (01) ==
LOC: UNDOADMIN 09:18 → JSAMEDAYSX 09:18 → JASUSAT 09:18 → EDSTATUS 09:30 → UNDODISIN 11:30 → JASUSAT 11:30
PROVIDERS: ATTEND Orthopaedic Surgery
DX: Z53.8 Procedure and treatment not carried out for other reasons (principal)
CPT/HCPCS: 81003

== ENCOUNTER 2018-12-06 09:13 | Inpatient (IN) | payer OTHER ==
[2018-12-05 14:51] VITALS: BMI 31.1
--- NOTE | 2018-12-06 09:23 | HP ---
Satellite H - Chief Complaint Chief Complaint: left shoulder pain - Past Medical History Allergies/Adverse Reactions: Allergies Allergy/AdvReac Type Severity Reaction Status Date / Time Penicillins Allergy "mother Verified 12/05/18 14:59 told as a child" - Current Medications Current Medications: Home Medications Medication Instructions Recorded Albuterol Sulfate Inhaler - 1 - 2 inh PO QID PRN 04/06/16 [Ventolin HFA Inhaler -] metFORMIN HCL [Metformin ER 1,000 mg PO BID 04/06/16 Osmotic] Atorvastatin Ca [Lipitor] 20 mg PO HS 12/20/17 Montelukast Sodium [Singulair] 10 mg PO HS 09/16/18 Aspirin 81 mg PO DAILY 11/22/18 Lisinopril 10 mg PO DAILY 12/05/18 Hydrocodone/Acetaminophen 1 each PO Q6H #40 tablet MDD 4 12/06/18 [Hydrocodone-Acetamin 5-325 mg] Satellite Physical Exam - Physical Examination General Appearance: Well Nourished, Well Developed, Alert & Oriented x3 ENT: Clear Lung: Normal air movement Heart: Regular rate & rhythm Extremities: Other (left shoulder- + ttp, decr rom, nvi, MRI + chronic RC arthropathy, GH djd) Neurological: Intact, Alert, Oriented Satellite Impression/Plan - Impression/Plan Impression: left shoulder chronic RC arthropathy Operative Procedure: left reverse TSA Date to be Performed: 12/06/18
[2018-12-06 09:46] LABS: EPI CELLS 2.7 /HPF (0-5/HPF); PH,URINE 5.5 (5.0-8.0); URINE APPEARANCE CLEAR; URINE BACTERIA 1.9 /hpf (NEGATIVE); URINE BILIRUBIN NEGATIVE (NEGATIVE); URINE CASTS 3 /lpf (0-8); URINE COLOR YELLOW; URINE GLUCOSE (UA) NEGATIVE (NEGATIVE); URINE KETONE NEGATIVE (NEGATIVE); URINE LEUK ESTERASE TRACE (NEGATIVE); URINE NITRITE NEGATIVE (NEGATIVE); URINE PROTEIN NEGATIVE (NEGATIVE); URINE RBC 2 /hpf (0-4); URINE UROBILINOGEN 0.2 mg/dL (0.2-1.0); URINE WBC 2 /hpf (0-5)
[2018-12-06] MEDS ORDERED: PATIENT'S OWN MEDICATION (NON-FORMULARY) (Metformin Hcl [Metformin Er Osmotic] 1,000 MG) PO SCH (10:00)
[2018-12-06] MEDS ORDERED: BUPIVACAINE HCL/PF 0.5% (5MG/ML) 10 ML VIAL ONE (10:23)
[2018-12-06] MEDS ORDERED: MIDAZOLAM HCL 2 MG/2 ML SINGLE DOSE VIAL ONE ×2 (10:24)
[2018-12-06] MEDS ORDERED: BUPIVACAINE LIPOSOME/PF (EXPAREL) 266 MG/20 ML VIAL ONE (10:33)
[2018-12-06] MEDS ORDERED: ceFAZolin SODIUM 1 GM VIAL IVPB ONE (12:35)
--- NOTE | 2018-12-06 14:25 | OP ---
Operative Note - Note: Operative Date: 12/06/18 ([facility]) Pre-Operative Diagnosis: left shoulder chronic rotator cuff arthropathy Operation: left reverse TSA Post-Operative Diagnosis: Same as Pre-op Surgeon: Milind Buchanan Photographic Reproduction Technician: Luis Carlos Willson Anesthesiologist/FIBRE CEMENT MOULDER: Rik Borjas Anesthesia: General, Local Specimens Removed: humeral head Estimated Blood Loss (mls): 50 Operative Report Dictated: Yes
[2018-12-06] MEDS ORDERED: oxyCODONE HCL 5 MG TABLET PO PRN ×2 (14:57)
--- NOTE | 2018-12-06 17:12 | CON.CARD ---
Consult Consult Specialty:: Cardiologu Referred by:: Dr. Menendez/Dewayne Reason for Consultation:: Post op chest pain - History of Present Illness Chief Complaint: substernal CP History of Present Illness: 62F DM, HTN, HLD and COPD s/p Left shoulder replacement. Post op in PACU c/o left shoulder and substernal chest pain. Sharp, no associated SOB. No N/V or diaphoresis. Denies palpitations, PND, orthopnea or syncope. No prior NM or cardiac hx. Reports having normal nuclear stress 3 years ago at [facility]. Apart from chronic mild BOB, no exertional CP or anginal sx. ECG done in PACU reviewed and compared to previous: No acute ST changes, slight decrease in R wave progression which may be due to lead position. She is in no distress with O2 sat of 100% on RA - History Source History Provided By: Patient Limitations to Obtaining History: No Limitations - Past Medical History PATIENT RELATIONS LIAISON: No: Alzheimer's, CVA, Dementia, Migraine, Multiple Sclerosis, Peripheral Neuropathy, Parkinson's, Seizure, Syncope, TIA, Vertigo, Other Cardio/Vascular: Yes: HTN, Hyperlipdemia Pulmonary: Yes: COPD Gastrointestinal: No: Ascites, Cancer, Constipation, Crohn's Disease, Diverticulitis, Diverticulosis, Esophageal Varices, Gastritis, GERD, GI Bleed, Hemorrhoids, Hiatal Hernia, Inflamatory Bowel Disease, Irritable Bowel Disease, Pancreatitis, Peptic Ulcer Disease, Ulcerative Colitis, Other Hepatobiliary: No: Cirrhosis, Cholelithiasis, Cholecystitis, Choledocholithiasis , Hepatitis A, Hepatitis B, Hepatitis C, Other Renal/: No: Renal Failure, Renal Inusuff, BPH, Cancer, Hematuria, Hemodialysis , Neurogenic Bladder, Renal Calculi, UTI, Other Reproductive: No: Ectopic , Endometriosis, Fibroids, PID, Polycystic Ovary Syndrome, Postmenopausal, Other Heme/Onc: No: Anemia, B12 Deficiency, Bleeding Disorder, Cancer, Current Chemotherapy, Current Radiation Therapy, Hemochromatosis, Hypercoaguable State, Myeloproliferative Synd, Sickle Cell Disease, Sickle Cell Trait, Thrombocytopenia, Other Infectious Disease: No: AIDS, C-Diff, Herpes Zoster, HIV, MRSA, STD's, Tuberculosis, VREF, Other Psych: No: Addictions, Anxiety, Bipolar, Depression, Panic, Psychosis, Schizophrenia, Other Musculoskeletal: No: Bursitis, Chronic low back pain, Hemiparesis, Hemiplegia, Osteoarthritis, Paraplegia, Other Rheumatology: No: Fibromyalgia, Gout, Lupus, Rheumatoid Arthritis, Sarcoidosis, Vasculitis, Other ENT: No: Allergic Rhinitis, Sinusitis, Other Endocrine: Yes: Diabetes Mellitus Dermatology: No: Basal Cell, Cellulitis, Eczema, Melanoma, Psoriasis, Squamous Cell, Other - Alcohol/Substance Use Hx Alcohol Use: Yes (socially) - Smoking History Smoking history: Former smoker Have you smoked in the past 12 months: No If you are a former smoker, when did you quit?: 2002 - Social History History of Recent Travel: No Home Medications - Allergies Allergies/Adverse Reactions: Allergies Allergy/AdvReac Type Severity Reaction Status Date / Time Penicillins Allergy "mother Verified 12/06/18 10:01 told as a child" - Home Medications Home Medications: Ambulatory Orders Albuterol Sulfate Inhaler - [Ventolin HFA Inhaler -] 1 - 2 inh PO QID PRN metFORMIN HCL [Metformin ER Osmotic] 1,000 mg PO BID 04/06/16 Atorvastatin Ca [Lipitor] 20 mg PO HS 12/20/17 Montelukast Sodium [Singulair] 10 mg PO HS 09/16/18 Aspirin 81 mg PO DAILY 11/22/18 Lisinopril 10 mg PO DAILY 12/05/18 Hydrocodone/Acetaminophen [Hydrocodone-Acetamin 5-325 mg] 1 each PO Q6H #40 tablet MDD 4 12/06/18 Family Disease History - Family Disease History Family History: Unremarkable (not pertinent to this presentation) Review of Systems Findings/Remarks: see HPI - Review of Systems Constitutional: denies: No Symptoms, Chills, Diaphoresis, Fever, Lethargy, Loss of Appetite, Malaise, Night Sweats, Unintentional Wgt. Loss, Weakness, Other Eyes: denies: No Symptoms, Blind Spots, Blurred Vision, Double Vision, Eye Pain , Floaters, Photophobia, Recent Change in Vision, Other HENT: denies: No Symptoms, Difficult Swallowing, Ear Discharge, Ear Pain, Epistaxis, Gingival Bleeding, Hearing Loss, Mouth Swelling, Nasal Congestion, Ocular Prosthesis, Throat Pain, Toothache, Ringing in Ears, Other Neck: denies: No Symptoms, Decreased ROM, Lumps, Pain on Movement, Stiffness, Swollen Glands, Tenderness, Other Cardiovascular: reports: Chest Pain Respiratory: reports: SOB on Exertion (chronic) Gastrointestinal: denies: No Symptoms, Abdominal Pain, Bloating, Constipation, Diarrhea, Dysphagia, Indigestion, Melena, Nausea, Rectal Bleeding, Vomiting, Vomiting Blood, Other Genitourinary: denies: No Symptoms, Burning, Discharge, Dysuria, Flank Pain, Frequency, Hematuria, Incontinence, Lesions, Menses, Pain, Testicular Mass, Testicular Pain, Testicular Swelling, Urgency, Vaginal Bleeding, Other Breasts: denies: No Symptoms Reported, See HPI, Breast Implants, Discharge from Nipple, Lumps, Pain, Skin Changes, Other Musculoskeletal: denies: No Symptoms, Back Pain, Crepitus, Decreased ROM, Extremity Pain, Joint Pain, Joint Swelling, Muscle Pain, Muscle Cramps, Muscle Weakness, Other Integumentary: denies: No Symptoms, Blister, Bruising, Change in Color, Eczema, Erythema, Incision, Lesions, Lump, Pallor, Pruritis, Rash, Wound, Other Neurological: denies: No Symptoms, Change in LOC, Change in Speech, Confusion, Dizziness, Headache, Incoordination, Numbness, Parasthesia, Pre-Existing Deficit , Seizure, Syncope, Tremors, Unsteady Gait, Weakness, Other Endocrine: denies: No Symptoms, Excessive Sweating, Flushing, Increased Hunger, Increased Thirst, Intolerance to Cold, Intolerance to Heat, Unexplained Weight Gain, Unexplained Weight Loss, Other Hematology/Lymphatic: denies: No Symptoms, Easily Bruised, Excessive Bleeding, Swollen Glands, Other Psychiatric: denies: No Symptoms, Altered Sleep Pattern, Anxiety, Depression, Hallucinations, Panic, Paranoia, Suicidal, Other - Risk Factors Known Risk Factors: Yes: Diabetes Mellitus, Hypercholesterolemia, Hypertension, Smoking Vital Signs: Vital Signs Temperature 97.6 F 12/06/18 14:32 Pulse Rate 76 12/06/18 15:15 Respiratory Rate 18 12/06/18 15:15 Blood Pressure 131/83 12/06/18 15:15 O2 Sat by Pulse Oximetry (%) 98 12/06/18 15:15 Constitutional: Yes: No Distress, Calm Eyes: Yes: Conjunctiva Clear, EOM Intact HENT: Yes: Atraumatic, Normocephalic Neck: Yes: Supple, Trachea Midline Respiratory: Yes: CTA Bilaterally Gastrointestinal: Yes: Soft, Abdomen, Obese Cardiovascular: Yes: Regular Rate and Rhythm JVD: No Carotid Bruit: No PMI: Non-Displaced Heart Sounds: Yes: S1, S2 (RRR, No M/R/G) Edema: No Peripheral Pulses WNL: Yes Neurological: Yes: Alert, Oriented ...Motor Strength: WNL Psychiatric: Yes: WNL - Other Data NSR with poor R wave progression could be due to lead position or body habitus. No sig ST changes c/w preop ECG in chart Echo: Pending Imaging - Results EKG: Image Reviewed Assessment/Plan IMP: 1. S/p left shoulder replacement 2. Atypical CP, likely musculoskeletal and related to surgical procedure 3. H/o DM 4. H/o HTN 5. H/o HLD 6. Chronic mild COPD 7. Abnl ECG: poor R wave progression likely due to body habitus/ lead position REC: 1. Serial cardiac enzymes on tele observation 2. Echo in AM 3. If enzymes ok, ECG stable and echo wnl, can plan for d/c home tomorrow with outpatient cardiac f/u for outpt stress test. 4. Continue home meds in AM Thank you. Will follow.
[2018-12-06 17:14] LABS: BASO % 0.1 % (0-2.0); EOS % 0.2 % (0-4.5); HEMATOCRIT 40.3 % (32.4-45.2); HEMOGLOBIN 12.7 GM/dL (10.7-15.3); LYMPH % 8.1 % (8-40); MCH 28.1 pg (25.7-33.7); MCHC 31.6 g/dl (32.0-36.0); MEAN CELL VOLUME 88.9 fl (80-96); MEAN PLT VOLUME 7.6 fl (7.5-11.1); MONO % 1.1 % (3.8-10.2); NEUT % 90.5 % (42.8-82.8); PLATELET COUNT 333 K/MM3 (134-434); RBC 4.53 M/mm3 (3.60-5.2); RDW 14.8 % (11.6-15.6); WHITE BLOOD COUNT 10.1 K/mm3 (4.0-10.0)
[2018-12-06 17:34] LABS: ALBUMIN 3.3 g/dl (3.4-5.0); ALK PHOS 107 U/L (45-117); ANION GAP 4 MMOL/L (8-16); BILIRUBIN,TOTAL 0.2 mg/dL (0.2-1); BLOOD UREA NITROGEN 13 mg/dL (7-18); CALCIUM 8.7 mg/dL (8.5-10.1); CHLORIDE 102 mmol/L (98-107); CO2 33 mmol/L (21-32); CREATININE 0.7 mg/dL (0.55-1.3); GLUCOSE,RANDOM 177 mg/dL (74-106); POTASSIUM 4.9 mmol/L (3.5-5.1); SGOT/AST 14 U/L (15-37); SGPT/ALT 25 U/L (13-61); SODIUM 140 mmol/L (136-145); TOT PROT 6.4 g/dl (6.4-8.2)
[2018-12-06] MEDS: LACTATED RINGERS SOLUTION 1,000 ML IV SCH (18:20)
--- NOTE | 2018-12-06 20:12 | OP ---
DATE OF OPERATION: 12/06/2018 PREOPERATIVE DIAGNOSIS: Left shoulder glenohumeral osteoarthritis/rotator cuff arthropathy. POSTOPERATIVE DIAGNOSIS: Left shoulder glenohumeral osteoarthritis/rotator cuff arthropathy. PROCEDURE: Left reverse total shoulder replacement. SURGEON: Milind Buchanan M.D. SYRUP MAKER COOK: Gloria Her ANESTHESIOLOGIST: Rik Borjas CRNA ANESTHESIA: Left interscalene block with LMA anesthesia. DRAINS: None. COMPLICATIONS: None. BLOOD LOSS: 100 mL. BLOOD GIVEN: None. FLUID REPLACEMENT: 1000 mL Plasmalyte. TOTAL OPERATIVE TIME: 1 hour and 10 minutes. INDICATION: This patient is a 62-year-old female with a preoperative diagnosis of left shoulder rotator cuff and glenohumeral osteoarthritis. After understanding the potential risks, complications, alternatives, benefits to surgery versus nonsurgical treatment, the patient elected to undergo this procedure. Specifically, the patient understands she may never be able to lift above 90 degrees/the plane of the shoulder she may have pain and she certainly is not expected to regain full function. DESCRIPTION OF PROCEDURE: A left interscalene block was performed. LMA anesthesia was induced. She was placed into the beach-chair position with ample padding throughout. The left upper extremity was prepped and draped in a sterile fashion. A deltopectoral approach incision was marked out using the coracoid and mid aspect of the proximal humerus as landmarks. The incision was made with the No. 15 scalpel blade. Subcutaneous hemostasis was achieved with a Bovie cautery. Dissection was done through the superficial fascia. Blunt dissection was done with my finger in the deltopectoral interval. The cephalic vein was retracted medially. The Gelpi self-retaining retractors were placed into the wound. I found the conjoined tendon off the coracoid and used the Bovie to incise lateral to it. I was then able to cut down to bone and preserve the medial and lateral capsular flaps. The rotator cuff subscapularis was very deficient. I then peeled the soft tissues, including the anterior aspect of the deltoid insertion off the humerus. The biceps tendon was seen to be frayed, degenerated out of its groove, and therefore I did a biceps tenolysis. Appropriate Fukuda and pickle-fork retractors were placed into the wound, exposing the proximal humerus. I was able to easily dislocate it anteriorly. It was extremely arthritic. Next, using the external guide and a broach, I used the oscillating saw to do a cut at the articular margin. Osteophytes were removed with the rongeur. Some soft tissue was removed with the Bovie. I was able to expose the proximal humerus quite well. Next, using the standard technique, using the [employer]test Reverse Total Shoulder Replacement System, we used first the starting awl and then the sequential hand broaches until we had cortical chatter. Then we used the humeral stem-shape broaches and mallet. We eventually seated a 9-mm stem that had excellent cortical contact and was very stable throughout. We did not need to use the calcar reamer as the humeral cut was at the left angle. Next, our attention was turned to the glenoid. The Bovie was used to remove soft tissue, including some capsular attachments and the labrum. Retractors were placed into the wound to retract the humerus and expose the glenoid. With excellent direct visualization, we then put on the glenoid glenosphere, lining it up appropriately and put in the 3.2-mm guidewire. We went through 2 cortices. We then used the guidewire to do the glenoid reamer. We were able to ream the glenoid until we got bleeding subchondral bone. More bone was taken inferiorly than superiorly, but it was concentric. The guidewire was then removed, and we put on the actual 28-mm glenoid baseplate, held it in place with a 28-mm central screw. Then using the typical standard technique, we put in superior, inferior, and posterior screws, which were 28, 28, and 16 mm in length, respectively. We had excellent compression of the glenoid baseplate against the glenoid and overall concentric fit. Next, we put on a 32-mm glenosphere plus 2. This was the actual implant, impacted in place, and it was quite stable. Next, our attention was turned to the humerus. We cleaned up the humeral shaft, put in an actual size-9 humeral press-fit porous-coated stem and used the mallet to put it down to the appropriate level. We then trialed the size of the humeral glenosphere, and it ended up being a 32-mm implant. It was extremely stable. In fact, it was very difficult to dislocate. Next, this trial was removed, and the actual 32-mm humeral glenosphere plus 2 was placed on, it was reduced, and was extremely stable throughout. The area was copiously irrigated and washed out. The capsule was closed anteriorly with several No. 1 Ti-Cron sutures, the deep fascial layer closed with No. 1 Ti-Cron, and the superficial deltoid fascia closed with 0 Vicryl suture. A 2-0 Vicryl was used to close the deep dermal layer, and final skin reapproximation was done with a running subcuticular 3-0 V-Loc suture. The area was then washed and dried, covered with a 10-inch Aquacel dressing. The patient was extubated. There was total blood loss of 75 mL. There were no complications during the case. The shoulder immobilizer was placed in the operating room, and she was brought to the regular recovery room in stable condition. Ching [id number]
[2018-12-06] MEDS: ASPIRIN 81 MG CHEWABLE TABLETS PO SCH (21:05)
[2018-12-06] MEDS: INSULIN SLIDING SCALE (NOVOLOG) 1 VIAL SQ SCH ×3 (21:05→21:30)
[2018-12-06] MEDS: LISINOPRIL 10 MG TABLET (FP) PO SCH (21:05)
[2018-12-06] MEDS: ACETAMINOPHEN 325 MG TABLET (FP) PO SCH ×2 (21:06→21:32)
[2018-12-06] MEDS ORDERED: INSULIN SLIDING SCALE (NOVOLOG) 1 VIAL SQ ONE (21:09)
[2018-12-06] MEDS: CEFAZOLIN 2 GM/D5W 2 GM/50 ML ML IVPB SCH (21:27)
[2018-12-06] MEDS: ATORVASTATIN CA 20 MG TABLET (FP) PO SCH (21:31)
[2018-12-06] MEDS: MONTELUKAST NA 10 MG TABLET PO SCH (21:31)
[2018-12-06] MEDS: oxyCODONE HCL 10 MG SUSTAINED ACTING TABLET PO SCH (21:33)
[2018-12-07] MEDS: ONDANSETRON 4 MG/2 ML VIAL IVPUSH PRN ×2 (01:25→08:58)
[2018-12-07] MEDS: ACETAMINOPHEN 325 MG TABLET (FP) PO SCH ×4 (02:32→21:24)
[2018-12-07] MEDS: LACTATED RINGERS SOLUTION 1,000 ML IV SCH ×2 (02:33→16:43)
[2018-12-07] MEDS: CEFAZOLIN 2 GM/D5W 2 GM/50 ML ML IVPB SCH ×2 (06:53→12:16)
[2018-12-07] MEDS: INSULIN SLIDING SCALE (NOVOLOG) 1 VIAL SQ SCH ×4 (06:53→21:29)
[2018-12-07] MEDS ORDERED: PT OWN MED DRAWER 7, Y5N ONE (10:31)
[2018-12-07] MEDS: ASPIRIN 81 MG CHEWABLE TABLETS PO SCH (10:34)
[2018-12-07] MEDS: LISINOPRIL 10 MG TABLET (FP) PO SCH (10:34)
[2018-12-07] MEDS: oxyCODONE HCL 10 MG SUSTAINED ACTING TABLET PO SCH ×2 (10:34→21:23)
[2018-12-07] MEDS: ALBUTEROL SO4 8 GM HFA INHALER IH PRN (10:36)
--- NOTE | 2018-12-07 11:36 | PN ---
Progress Note (short form) - Note Progress Note: s: no cp sob palps dizzy o: Vital Signs Period Temp Pulse Resp BP Sys/Mason Pulse Ox Last 24 Hr 97.6 F-97.8 F 71-95 16-18 109-154/51-87 96-100 Constitutional: Yes: No Distress, Calm Eyes: Yes: Conjunctiva Clear Neck: Yes: Supple, Trachea Midline Respiratory: Yes: CTA Bilaterally Gastrointestinal: Yes: Soft, Abdomen, Obese Cardiovascular: Yes: Regular Rate and Rhythm JVD: No Heart Sounds: Yes: S1, S2 (RRR, No M/R/G) Edema: No Peripheral Pulses WNL: Yes Neurological: Yes: Alert, Oriented no jaundice diaphoresis Current Medications Generic Name Dose Route Start Last Admin Trade Name Freq PRN Reason Stop Dose Admin Acetaminophen 650 mg 12/06/18 15:00 12/07/18 10:33 Tylenol - PO 12/09/18 14:59 650 mg Q6H KATHIE Administration Albuterol Sulfate 2 puff 12/06/18 09:17 12/07/18 10:36 Ventolin Hfa Inhaler - IH 2 puff QID PRN Administration ASTHMA Aspirin 81 mg 12/06/18 10:00 12/07/18 10:34 Asa - PO 81 mg DAILY KATHIE Administration Atorvastatin Calcium 20 mg 12/06/18 22:00 12/06/18 21:31 Lipitor - PO 20 mg HS KATHIE Administration Cefazolin Sodium/Dextrose 2 gm in 50 mls @ 200 mls/hr 12/06/18 21:00 06:53 Ancef 2 Gm Premixed Ivpb - IVPB 12/07/18 20:59 200 mls/hr Q8H KATHIE Administration Lactated Ringer's 1,000 mls @ 125 mls/hr 12/06/18 15:00 12/07/18 02:33 Lactated Ringers Solution IV 125 mls/hr ASDIR KATHIE Administration Insulin Aspart 0 vial 12/06/18 11:00 12/07/18 11:23 Novolog Vial Sliding Scale - SQ Not Given ACHS KATHIE Protocol Lisinopril 10 mg 12/06/18 10:00 12/07/18 10:34 Prinivil PO 10 mg DAILY KATHIE Administration Montelukast Sodium 10 mg 12/06/18 22:00 12/06/18 21:31 Singulair - PO 10 mg HS KATHIE Administration Non-Formulary Medication 1,000 mg 12/06/18 10:00 Metformin Hcl [Metformin Er Osmotic] PO BID KATHIE Oxycodone HCl 5 mg 12/06/18 14:57 Roxicodone - PO Q3H PRN PAIN LEVEL 1-5 Oxycodone HCl 10 mg 12/06/18 14:57 Roxicodone - PO Q3H PRN PAIN LEVEL 6-10 Oxycodone HCl 10 mg 12/06/18 22:00 12/07/18 10:34 Oxycontin - PO 12/09/18 14:58 10 mg BID KATHIE Administration Laboratory Last Values WBC 10.1 K/mm3 (4.0-10.0) H 12/06/18 16:35 RBC 4.53 M/mm3 (3.60-5.2) 12/06/18 16:35 Hgb 12.7 GM/dL (10.7-15.3) 12/06/18 16:35 Hct 40.3 % (32.4-45.2) 12/06/18 16:35 MCV 88.9 fl (80-96) 12/06/18 16:35 MCH 28.1 pg (25.7-33.7) 12/06/18 16:35 MCHC 31.6 g/dl (32.0-36.0) L 12/06/18 16:35 RDW 14.8 % (11.6-15.6) D 12/06/18 16:35 Plt Count 333 K/MM3 (134-434) D 12/06/18 16:35 MPV 7.6 fl (7.5-11.1) 12/06/18 16:35 Absolute Neuts (auto) 9.1 K/mm3 (1.5-8.0) H 12/06/18 16:35 Neutrophils % 90.5 % (42.8-82.8) H 12/06/18 16:35 Lymphocytes % 8.1 % (8-40) D 12/06/18 16:35 Monocytes % 1.1 % (3.8-10.2) L D 12/06/18 16:35 Eosinophils % 0.2 % (0-4.5) D 12/06/18 16:35 Basophils % 0.1 % (0-2.0) 05/15/19 16:35 Nucleated RBC % 0 % (0-0) 12/06/18 16:35 PTT (Actin FS) 30.5 SECONDS (25.2-36.5) 12/06/18 16:35 Sodium 140 mmol/L (136-145) 12/06/18 16:35 Potassium 4.9 mmol/L (3.5-5.1) 12/06/18 16:35 Chloride 102 mmol/L (98-107) 12/06/18 16:35 Carbon Dioxide 33 mmol/L (21-32) H 12/06/18 16:35 Anion Gap 4 MMOL/L (8-16) L 12/06/18 16:35 BUN 13 mg/dL (7-18) 12/06/18 16:35 Creatinine 0.7 mg/dL (0.55-1.3) 12/06/18 16:35 Est GFR (CKD-EPI)AfAm 106.12 12/06/18 16:35 Est GFR (CKD-EPI)NonAf 91.56 12/06/18 16:35 POC Glucometer 147 UNITS (80-120) 12/07/18 11:05 Random Glucose 177 mg/dL (74-106) H 12/06/18 16:35 Calcium 8.7 mg/dL (8.5-10.1) 12/06/18 16:35 Total Bilirubin 0.2 mg/dL (0.2-1) 12/06/18 16:35 AST 14 U/L (15-37) L 12/06/18 16:35 ALT 25 U/L (13-61) 12/06/18 16:35 Alkaline Phosphatase 107 U/L (45-117) 12/06/18 16:35 Creatine Kinase 423 U/L (26-192) H 12/07/18 08:05 Creatine Kinase Index 1.5 % (0.0-5.0) 12/07/18 08:05 CK-MB (CK-2) 6.5 ng/mL (0.5-3.6) H 12/07/18 08:05 Troponin I < 0.02 ng/ml (0.00-0.05) 12/07/18 08:05 Total Protein 6.4 g/dl (6.4-8.2) 12/06/18 16:35 Albumin 3.3 g/dl (3.4-5.0) L 12/06/18 16:35 Urine Color Yellow 12/06/18 09:25 Urine Appearance Clear 12/06/18 09:25 Urine pH 5.5 (5.0-8.0) 12/06/18 09:25 Ur Specific [place] 1.018 (1.010-1.035) 12/06/18 09:25 Urine Protein Negative (NEGATIVE) 12/06/18 09:25 Urine Glucose (UA) Negative (NEGATIVE) 12/06/18 09:25 Urine Ketones Negative (NEGATIVE) 12/06/18 09:25 Urine Blood Trace (NEGATIVE) 12/06/18 09:25 Urine Nitrite Negative (NEGATIVE) 12/06/18 09:25 Urine Bilirubin Negative (NEGATIVE) 12/06/18 09:25 Urine Urobilinogen 0.2 mg/dL (0.2-1.0) 12/06/18 09:25 Ur Leukocyte Esterase Trace (NEGATIVE) 12/06/18 09:25 Urine WBC (Auto) 2 /hpf (0-5) 12/06/18 09:25 Urine RBC (Auto) 2 /hpf (0-4) 12/06/18 09:25 Urine Casts (Auto) 3 /lpf (0-8) 12/06/18 09:25 U Epithel Cells (Auto) 2.7 /HPF (0-5/HPF) 12/06/18 09:25 Urine Bacteria (Auto) 1.9 /hpf (NEGATIVE) 12/06/18 09:25 NSR with poor R wave progression could be due to lead position or body habitus. No sig ST changes c/w preop ECG in chart tele: sr, sinus tachy Imaging - Results EKG: Image Reviewed Assessment/Plan IMP: 1. S/p left shoulder replacement 2. Atypical CP, likely musculoskeletal and related to surgical procedure 3. H/o DM 4. H/o HTN 5. H/o HLD 6. Chronic mild COPD 7. Abnl ECG: poor R wave progression likely due to body habitus/ lead position REC: 1. Trops neg x3. Tele benign 2. Echo pending. 3. If echo benign, ok for dc from cardia pov with outpatient cardiac f/u for outpt stress test. 4. Continue home meds.
--- NOTE | 2018-12-07 14:25 | EKG ---
Test Reason : Blood Pressure : / mmHG Vent. Rate : 072 BPM Atrial Rate : 072 BPM P-R Int : 148 ms QRS Dur : 074 ms QT Int : 386 ms P-R-T Axes : 058 009 030 degrees QTc Int : 422 ms POOR DATA QUALITY, INTERPRETATION MAY BE ADVERSELY AFFECTED NORMAL SINUS RHYTHM MINIMAL VOLTAGE CRITERIA FOR LVH, MAY BE NORMAL VARIANT CANNOT RULE OUT ANTERIOR INFARCT , AGE UNDETERMINED ABNORMAL ECG WHEN COMPARED WITH ECG OF 06-APR-2016 12:09, NO SIGNIFICANT CHANGE WAS FOUND Confirmed by WAI RAMESH MD ([id number]) on 12/07/2018 2:25:00 PM Referred By: Milind Buchanan Confirmed By:WAI RAMESH MD
--- NOTE | 2018-12-07 15:35 | ECHO ---
Name: MAVIS ADNRES Exam:Adult Echocardiogram Study Date: 12/07/2018 11:29 AM Age: 62 yrs Reason For Study: Chest pain Height: 62 in Weight: 170 lb BSA: 1.8 m2 MMode/2D Measurements & Calculations IVSd: 0.91 cm Ao root diam: 2.4 cm LVIDd: 4.2 cm LA dimension: 3.9 cm LVIDs: 3.0 cm LVPWd: 0.78 cm EDV(Teich): 77.8 ml LVOT diam: 2.0 cm ESV(Teich): 34.2 ml Doppler Measurements & Calculations MV E max homer: 103.0 cm/sec Ao V2 max: 234.8 cm/sec MV A max homer: 134.5 cm/sec Ao max P.1 mmHg MV E/A: 0.77 Ao V2 mean: 164.2 cm/sec MV dec time: 0.18 sec Ao mean P.3 mmHg Ao V2 VTI: 43.9 cm FRANNY(V,D): 1.7 cm2 LV V1 max P.8 mmHg TR max homer: 264.6 cm/sec LV V1 max: 130.5 cm/sec TR max P.2 mmHg Med Peak E' Homer: 12.5 cm/sec Med E/e': 8.2 Lat Peak E' Homer: 10.4 cm/sec Lat E/e': 9.9 Procedure A complete two-dimensional transthoracic echocardiogram was performed (2D, M-mode, Doppler and color flow Doppler). Left Ventricle The left ventricular size, thickness and function are normal. The left ventricular ejection fraction is normal. Ejection Fraction = 60-65%. The left ventricular wall motion is normal. Right Ventricle The right ventricle is normal in size and function. Atria Normal left and right atrial size and function. Mitral Valve There is no mitral regurgitation noted. Tricuspid Valve There is trace tricuspid regurgitation. Right ventricular systolic pressure is normal. Aortic Valve Mild valvular aortic stenosis. No aortic regurgitation is present. Pulmonic Valve There is no pulmonic valvular regurgitation. Great Vessels The aortic root is normal size. Pericardium/Pleura There is no pericardial effusion. Interpretation Summary The left ventricular size, thickness and function are normal The right ventricle is normal in size and function. There is trace tricuspid regurgitation. Mild valvular aortic stenosis. MD Dheeraj Darling 12/07/2018 03:35 PM
--- NOTE | 2018-12-07 18:25 | PN ---
Progress Note, Physician Chief Complaint: s/p total shoulder replacement under general anesthesia and PNB post op day one - Current Medication List Current Medications: Active Medications Acetaminophen (Tylenol -) 650 mg PO Q6H [facility] Stop: 12/09/18 14:59 Last Admin: 12/07/18 15:20 Dose: 650 mg Albuterol Sulfate (Ventolin Hfa Inhaler -) 2 puff IH QID PRN PRN Reason: ASTHMA Last Admin: 12/07/18 10:36 Dose: 2 puff Aspirin (Asa -) 81 mg PO DAILY [facility] Last Admin: 12/07/18 10:34 Dose: 81 mg Atorvastatin Calcium (Lipitor -) 20 mg PO [facility] Last Admin: 12/06/18 21:31 Dose: 20 mg Cefazolin Sodium/Dextrose (Ancef 2 Gm Premixed Ivpb -) 2 gm in 50 mls @ 200 mls /hr IVPB Q8H [facility] Stop: 12/07/18 20:59 Last Admin: 12/07/18 12:16 Dose: 200 mls/hr Lactated Ringer's (Lactated Ringers Solution) 1,000 mls @ 125 mls/hr IV ASDIR [facility] Last Admin: 12/07/18 16:43 Dose: Not Given Insulin Aspart (Novolog Vial Sliding Scale -) 1 vial SQ ACHS [facility]; Protocol Last Admin: 12/07/18 16:30 Dose: 4 unit Lisinopril (Prinivil) 10 mg PO DAILY [facility] Last Admin: 12/07/18 10:34 Dose: 10 mg Montelukast Sodium (Singulair -) 10 mg PO [facility] Last Admin: 12/06/18 21:31 Dose: 10 mg Non-Formulary Medication (Metformin Hcl [Metformin Er Osmotic]) 1,000 mg PO BID [facility] Oxycodone HCl (Roxicodone -) 5 mg PO Q3H PRN PRN Reason: PAIN LEVEL 1-5 Oxycodone HCl (Roxicodone -) 10 mg PO Q3H PRN PRN Reason: PAIN LEVEL 6-10 Oxycodone HCl (Oxycontin -) 10 mg PO BID [facility] Stop: 12/09/18 14:58 Last Admin: 12/07/18 10:34 Dose: 10 mg - Objective Vital Signs: Vital Signs Temperature 98 F 12/07/18 17:33 Pulse Rate 86 12/07/18 17:33 Respiratory Rate 18 12/07/18 17:33 Blood Pressure 120/66 12/07/18 17:33 O2 Sat by Pulse Oximetry (%) 96 12/07/18 09:00 Constitutional: Yes: Well Nourished, Mild Distress Cardiovascular: Yes: WNL Respiratory: Yes: WNL Gastrointestinal: Yes: WNL Labs: CBC, BMP 12/06/18 16:35 12/06/18 16:35 Assessment/Plan Pain controlled overnight, patient in mild pain currently, advised to ask for pain medication. no adverse effects, will sign off care at this time
[2018-12-07] MEDS ORDERED: ONDANSETRON 4 MG/2 ML VIAL IVPUSH PRN (20:28)
[2018-12-07] MEDS ORDERED: morphine CARPU-JECT 4 MG/1 ML DISP.SYRIN IVPUSH PRN (20:30)
[2018-12-07] MEDS ORDERED: morphine SULFATE 4 MG/ML VIAL IVPUSH PRN (20:31)
[2018-12-07] MEDS: ATORVASTATIN CA 20 MG TABLET (FP) PO SCH (21:23)
[2018-12-07] MEDS: MONTELUKAST NA 10 MG TABLET PO SCH (21:24)
[2018-12-07] MEDS: metFORMIN HCL 500 MG TABLET (FP) PO SCH (21:25)
[2018-12-08] MEDS ORDERED: KETOROLAC TROMETHAMINE 30 MG/1 ML VIAL IM ONE (01:42)
[2018-12-08] MEDS: ACETAMINOPHEN 325 MG TABLET (FP) PO SCH ×2 (03:24→08:59)
[2018-12-08] MEDS: ALBUTEROL SO4 8 GM HFA INHALER IH PRN (05:40)
[2018-12-08] MEDS: INSULIN SLIDING SCALE (NOVOLOG) 1 VIAL SQ SCH ×2 (06:24→11:35)
[2018-12-08] MEDS: ASPIRIN 81 MG CHEWABLE TABLETS PO SCH (08:59)
[2018-12-08] MEDS: oxyCODONE HCL 10 MG SUSTAINED ACTING TABLET PO SCH ×2 (09:00→12:29)
[2018-12-08] MEDS: LISINOPRIL 10 MG TABLET (FP) PO SCH (09:00)
[2018-12-08] MEDS: metFORMIN HCL 500 MG TABLET (FP) PO SCH (09:00)
--- NOTE | 2018-12-08 10:12 | PN ---
Progress Note, Physician Chief Complaint: no distress TELE: NSR - Current Medication List Current Medications: Active Medications Acetaminophen (Tylenol -) 650 mg PO Q6H [facility] Stop: 12/09/18 14:59 Last Admin: 12/08/18 08:59 Dose: 650 mg Albuterol Sulfate (Ventolin Hfa Inhaler -) 2 puff IH QID PRN PRN Reason: ASTHMA Last Admin: 12/08/18 05:40 Dose: 2 puff Aspirin (Asa -) 81 mg PO DAILY [facility] Last Admin: 12/08/18 08:59 Dose: 81 mg Atorvastatin Calcium (Lipitor -) 20 mg PO HS [facility] Last Admin: 12/07/18 21:23 Dose: 20 mg Lactated Ringer's (Lactated Ringers Solution) 1,000 mls @ 125 mls/hr IV ASDIR [facility] Last Admin: 12/07/18 16:43 Dose: Not Given Insulin Aspart (Novolog Vial Sliding Scale -) 1 vial SQ [facility]; Protocol Last Admin: 12/08/18 06:24 Dose: Not Given Lisinopril (Prinivil) 10 mg PO DAILY [facility] Last Admin: 12/08/18 09:00 Dose: 10 mg Metformin HCl (Glucophage -) 1,000 mg PO BID [facility] Last Admin: 12/08/18 09:00 Dose: 1,000 mg Montelukast Sodium (Singulair -) 10 mg PO [facility] Last Admin: 12/07/18 21:24 Dose: 10 mg Morphine Sulfate (Morphine Sulfate) 4 mg IVPUSH Q4H PRN PRN Reason: PAIN LEVEL 6-10 Last Admin: 12/07/18 22:34 Dose: 4 mg Ondansetron HCl (Zofran Injection) 4 mg IVPUSH Q8H PRN PRN Reason: NAUSEA AND/OR VOMITING Last Admin: 12/07/18 21:25 Dose: 4 mg Oxycodone HCl (Oxycontin -) 10 mg PO BID [facility] Stop: 12/09/18 14:58 Last Admin: 12/08/18 09:00 Dose: Not Given - Objective Vital Signs: Vital Signs Temperature 98.2 F 12/08/18 06:10 Pulse Rate 69 12/08/18 06:10 Respiratory Rate 18 12/08/18 06:10 Blood Pressure 138/55 L 12/08/18 06:10 O2 Sat by Pulse Oximetry (%) 95 12/07/18 21:00 Constitutional: Yes: Calm Cardiovascular: Yes: Regular Rate and Rhythm Respiratory: Yes: CTA Bilaterally Gastrointestinal: Yes: Soft Edema: No Neurological: Yes: Alert, Oriented Labs: CBC, BMP 12/06/18 16:35 12/06/18 16:35 - ....Imaging EKG: Image Reviewed Assessment/Plan IMP: 1. S/p left shoulder replacement 2. Atypical CP, likely musculoskeletal and related to surgical procedure 3. H/o DM 4. H/o HTN 5. H/o HLD 6. Chronic mild COPD 7. Abnl ECG: poor R wave progression likely due to body habitus/ lead position REC: 1. Trops neg x3. Tele benign 2. Echo w/ nl LV fx and mild can be followed as outpatient. 3. D/ C tele 4. Continue home meds.
--- NOTE | 2018-12-08 11:00 | PN ---
Progress Note (short form) - Note Progress Note: Ortho Pt seen and examined s/p left reverse TSA pod #2- improving- N/V much better Selected Entries 12/08/18 06:10 Temperature 98.2 F Pulse Rate 69 Respiratory 18 Rate Blood Pressure 138/55 L Laboratory Tests 12/06/18 16:35 WBC 10.1 H Hgb 12.7 Hct 40.3 Plt Count 333 D aquacel c/d/i, good ROM of elbow wrist and hand, nvi a/p Cardio work-up neg ok to d/c home today f/u next week in the office call for appt
--- NOTE | 2018-12-08 11:01 | DS ---
Physical Examination Vital Signs: Vital Signs Temperature 98.2 F 12/08/18 06:10 Pulse Rate 69 12/08/18 06:10 Respiratory Rate 18 12/08/18 06:10 Blood Pressure 138/55 L 12/08/18 06:10 O2 Sat by Pulse Oximetry (%) 95 12/07/18 21:00 Labs: CBC, BMP 12/06/18 16:35 12/06/18 16:35 Discharge Summary Reason For Visit: TEAR/OSTEOARTHRITIS Procedures: Principal: left reverse TSA Hospital Course: admitted for elective left reverse TSA, had chest pain s/p procedure, cardiology was consulted, full work-up was neg, cleared for d/c from cardio, stable for d/c Condition: Good - Instructions Diet, Activity, Other Instructions: Post -op Instruction Sheet - Shoulder Surgery - Sling/Immobilizer : You have been placed in a sling or shoulder immobilizer. As long as you are wearing this, your shoulder is well protected. You may come out of the sling to dress , or do exercises as directed. You may bend and straighten the elbow, and move your wrist and fingers, but DO NOT use your own muscles to move your elbow away from your side until directed to do so. Please sleep with the sling on. You may find it more comfortable to sleep with a small pillow behind your elbow, or in a recliner. To wash your armpit, you may lean slightly forward and let your arm dangle slightly away from your side and wash with a washcloth. - Use an ice bag/pack on the shoulder for 15 minutes every 2 hours. - Pain medication was sent to your Pharmacy. - Keep your dressing clean and dry. Please call the office to make an appointment for 1 week after surgery. Your dressing will be removed at that time. - No Lifting. - Starting 1-2 days after surgery, you may take your arm out of the sling 3 times a day to bend and straighten your elbow and wrist to prevent stiffness. If only an arthroscopy was performed and NO repairs, you may move your shoulder as tolerated. If a rotator cuff/labral repair was performed, DO NOT move your shoulder until instructed by surgeon. - Please call the office at [phone] if there are any questions or concerns. Referrals: Milind Buchanan MD [Staff Physician] - Disposition: HOME - Home Medications Comprehensive Discharge Medication List: Ambulatory Orders Albuterol Sulfate Inhaler - [Ventolin HFA Inhaler -] 1 - 2 inh PO QID PRN metFORMIN HCL [Metformin ER Osmotic] 1,000 mg PO BID 04/06/16 Atorvastatin Ca [Lipitor] 20 mg PO HS 12/20/17 Montelukast Sodium [Singulair] 10 mg PO HS 09/16/18 Aspirin 81 mg PO DAILY 11/22/18 Lisinopril 10 mg PO DAILY 12/05/18 Hydrocodone/Acetaminophen [Hydrocodone-Acetamin 5-325 mg] 1 each PO Q6H #40 tablet MDD 4 12/06/18
[2018-12-08 14:54] VITALS: BP 134/61; PULSE 95; TEMP 97.6
[2018-12-08] MEDS ORDERED: PT OWN MED DRAWER 7, Y5N ONE (15:12)
--- NOTE | 2018-12-11 19:10 | PATH ---
Surgical Pathology Report Patient Name: MAVIS ANDRES [facility] [place]. Rec. #: [id number] /Age/Gender: 1955 (Age: 62) / F Account: [id number] Location: [facility] PEDS/ADOL Taken: 12/06/2018 Received: 12/07/2018 Reported: 12/11/2018 Physicians: Milind Buchanan M.D. Specimen(s) Received HUMERAL HEAD, LEFT Clinical History Left shoulder tear/osteoarthritis Final Diagnosis HUMERAL HEAD, LEFT, REVERSE TOTAL SHOULDER REPLACEMENT: BONE WITH DEGENERATIVE JOINT DISEASE. Electronically Signed Debby Holder M.D. Gross Description Received in formalin, labeled "humeral head, left" is a 4.5 x 4 x 2 cm humeral head. The articular surface is granular and shows areas of eburnation. The resection margin appears ragged. Also received are two additional portions of bone each up to 4.0 cm in greatest dimension. Treater tissue is submitted in one cassette after decalcification. AE/12/08/2018 ebram/12/08/2018
== END 2018-12-08 18:02 | disposition home or self-care (01) | DRG 315 ==
LOC: JSAMEDAYSX 09:13 → J4S 17:55
PROVIDERS: ADMIT Orthopaedic Surgery; ATTEND Orthopaedic Surgery
PROC: 0RRK00Z Replacement of Left Shoulder Joint with Reverse Ball and Socket Synthetic Substitute, Open Approach (ICD-10-PCS; principal; 2018-12-06 12:00)
DX: M19.012 Primary osteoarthritis, left shoulder (principal); I10 Essential (primary) hypertension; R07.89 Other chest pain; E78.5 Hyperlipidemia, unspecified; J44.9 Chronic obstructive pulmonary disease, unspecified; Z87.891 Personal history of nicotine dependence; E11.9 Type 2 diabetes mellitus without complications; Z79.84 Long term (current) use of oral hypoglycemic drugs
CPT/HCPCS: 36415; 80053; 81003; 82550; 82553; 82962; 84484; 85025; 85730; 88304-TC; 88311-TC; 93005; 93010; 93306-TC; 94760

== ENCOUNTER 2019-03-10 10:55 | Inpatient (IN) | payer OTHER ==
[2019-03-10] MEDS ORDERED: ALBUTEROL SO4 2.5/IPRATROPIUM 0.5 INH SOL 3 ML VIAL.NEB. NEB ONE ×2 (11:03→11:09)
--- NOTE | 2019-03-10 11:08 | PDOC ---
History of Present Illness - General Chief Complaint: Shortness of Breath Stated Complaint: ASTHMA Time Seen by Provider: 03/10/19 11:06 - History of Present Illness Initial Comments: 03/10/19 12:14 The patient is a 63 year old female with a history of HTN, HLD, DM, Asthma, Emphasyma who presents for evaluation of shortness of breath. The patient reports a 6 day history of progressively worsening shortness of breath typical of her asthma exacerbations. She noted worsening symptoms today despite her home albuterol prompting her presentation to the ED for further evaluation. She notes an associated non-productive cough as well, but otherwise denies fevers, chills, chest pain, nausea, vomiting, abdominal pain, or changes with urination or bowel movements. Past History - Past Medical History Allergies/Adverse Reactions: Allergies Allergy/AdvReac Type Severity Reaction Status Date / Time Penicillins Allergy "mother Verified 03/10/19 10:57 told as a child" Home Medications: Ambulatory Orders Albuterol Sulfate Inhaler - [Ventolin HFA Inhaler -] 1 - 2 inh PO QID PRN metFORMIN HCL [Metformin ER Osmotic] 1,000 mg PO BID 04/06/16 Atorvastatin Ca [Lipitor] 20 mg PO HS 12/20/17 Montelukast Sodium [Singulair] 10 mg PO HS 09/16/18 Aspirin 81 mg PO DAILY 11/22/18 Lisinopril 10 mg PO DAILY 12/05/18 Clindamycin [Cleocin -] 600 mg PO Q6H 03/10/19 Fluticasone Prop 0.05% Nasal [Flonase -] 1 - 2 spray NS DAILY 03/10/19 Loratadine [Claritin -] 10 mg PO DAILY 03/10/19 Anemia: No Asthma: Yes ("no recent attack") Cancer: No Cardiac Disorders: No CVA: No COPD: Yes (Emphysema) CHF: No Dementia: No Diabetes: Yes GI Disorders: No Disorders: No HTN: Yes Hypercholesterolemia: Yes Liver Disease: No Seizures: No Thyroid Disease: No - Surgical History Orthopedic Surgery: Yes (left shoulder pins) - Family Disease History Family Disease History: Diabetes: Mother - Immunization History Immunization Up to Date: Yes - Suicide/Smoking/Psychosocial Hx Smoking History: Former smoker Have you smoked in the past 12 months: No If you are a former smoker, when did you quit?: 2002 Information on smoking cessation initiated: No Hx Alcohol Use: No Drug/Substance Use Hx: No Substance Use Type: Alcohol Hx Substance Use Treatment: No Review of Systems - Review of Systems Comments:: 03/10/19 12:16 Constitutional: No fevers, chills, fatigue, malaise HEENT: No Rhinorrhea, nasal congestion, visual changes Cardiovascular: No chest pain, syncope, palpitations, lightheadedness Respiratory: Cough, SOB. No Hemoptysis, Gastrointestinal: No Abdominal pain, Nausea, Vomiting, Constipation, Diarrhea, Melena Genitourinary: No Dysuria, Frequency, Urgency, Hesitancy, Hematuria, Flank pain Musculoskeletal: No Myalgia, arthralgia Skin: No rashes, itching, bruising, pallor Neurologic: No Headache, Dizziness, Numbness, Weakness, or Tingling Psychiatric: No Hallucinations. No SI or HI *Physical Exam - Vital Signs Last Vital Signs Temp Pulse Resp BP Pulse Ox 99.0 F 101 H 30 H 160/99 98 03/10/19 10:55 03/10/19 10:55 03/10/19 10:55 03/10/19 10:55 03/10/19 10:55 - Physical Exam Comments: 03/10/19 12:17 General Appearance: Nourished. Diaphoretic In Moderate Apparent Distress HEENT: No Pharyngeal Erythema, Tonsillar Exudate, Tonsillar Erythema Neck: No Cervical Lymphadenopathy Respiratory/Chest:Course breath sounds bilaterally with inspiratory and expiratory wheezing on exam. Tachypenic. No Crackles, Rales, Rhonchi, Cardiovascular: Regular Rhythm, Regular Rate. No Murmur, Gallops, Rubs Gastrointestinal/Abdominal: Normal Bowel Sounds, Soft. No Guarding, Rebound, Tenderness Musculoskeletal: No CVA Tenderness Extremity: Normal Capillary Refill Integumentary: Normal Color, Dry, Warm Neurologic: Fully Oriented, Alert, Normal Mood/Affect, Normal Response, Heart Score/ECG Review #1 ECG reviewed & interpreted by me at: 12:18 03/10/19 12:18 HR 82 TN 140 QRS 72 QTc 425 Normal Sinus Rhythm Normal Intervals No Acute ST changes ED Treatment Course - LABORATORY CBC & Chemistry Diagram: 03/13/19 07:41 03/13/19 07:41 Medical Decision Making - Medical Decision Making 03/10/19 12:19 The patient is a 63 year old female with a history of HTN, HLD, DM, Asthma, Emphasyma who presents for evaluation of shortness of breath. Differential includes but is not limited to: Asthma Exacerbation, COPD exacerbation, ACS, Infectious, Metabolic Derangement. Given the patient's history and physical exam, we will obtain a cbc, cmp, troponin, bnp, ekg, chest plain film to evaluate further. We will treat with solumedrol, duonebs and continue to monitor and reassess while here in the ED. 03/10/19 19:38 CBC, cmp, troponin, bnp are unremarkable. Chest plain film is unremarkable as read by our radiologist. The patient continues to remain symptomatic on exam. We believe he requires admission for further monitoring and management. We discussed the case with the admitting team who accepted the patient for admission. *DC/Admit/Observation/Transfer Diagnosis at time of Disposition: Asthma exacerbation, COPD exacerbation - Discharge Dispostion Condition at time of disposition: Stable Decision to Admit order: Yes - Referrals - Patient Instructions - Post Discharge Activity
[2019-03-10] MEDS ORDERED: methylPREDNISolone NA SUCC 125 MG/2 ML VIAL IVPUSH ONE (11:09)
[2019-03-10] MEDS ORDERED: methylPREDNISolone NA SUCC 125 MG/2 ML VIAL ONE (11:16)
--- NOTE | 2019-03-10 11:27 | PDOC ---
Attending Attestation - Resident Resident Name: Andriy Zavala - ED Attending Attestation I have performed the following: I have examined & evaluated the patient, The case was reviewed & discussed with the resident, I agree w/resident's findings & plan, Exceptions are as noted - HPI HPI: 03/10/19 11:24 63y F hx of asthma (no intubations/last hospitalization ~5 yr ago), copd, dm, htn, hl, presents with cough and sob. Pt endorses having increased cough productive of yellowish sputum since last tuesday, and her brething/sob has gotten worse. pt has been using her home neb and albuterol w/o significant improvement. pt endorses b/l cp when she coughs alot. denies any fever/chills, hemoptysis, leg swelling, abd pain, back pain. PMD: Dr. Baird - Physicial Exam PE: 03/10/19 11:25 GENERAL: The patient is awake, alert, in moderate respiratory distress HEAD: Normocephalic, atraumatic. EYES: extraocular movements intact, sclera anicteric, conjunctiva clear. ENT: Normal voice, Moist mucous membranes. NECK: Normal range of motion, supple LUNGS: wheezing diffusely, moderate distress, speaking in short segments, tachypneic HEART: Regular rate and rhythm, normal S1 and S2 without murmur, rub or gallop. ABDOMEN: Soft, nontender, No guarding, no rebound. No CVA tenderness EXTREMITIES: Normal range of motion, no edema. No calf tenderness NEUROLOGICAL: No facial assymetry, Normal speech, PSYCH: Normal mood, normal affect. SKIN: Warm, Dry, normal turgor, - Medical Decision Making 03/10/19 11:27 suspect asthma exacerbation will r/o pna, will obtain ekg to screen for card etiology duo nebs, solumedrol will erassess low threshold for admission based on pts resp distress Heart Score/ECG Review - ECG Impressions Comment:: 03/10/19 11:39 Twelve-lead EKG was performed and reviewed by me. There is normal sinus rhythm with a normal rate. rate of 82 normal axis abnormal r wave pgroession
[2019-03-10 11:34] LABS: BASO % 0.8 % (0-2.0); EOS % 2.8 % (0-4.5); HEMATOCRIT 42.2 % (32.4-45.2); HEMOGLOBIN 13.8 GM/dL (10.7-15.3); LYMPH % 38.1 % (8-40); MCH 28.2 pg (25.7-33.7); MCHC 32.7 g/dl (32.0-36.0); MEAN PLT VOLUME 7.5 fl (7.5-11.1); MONO % 8.4 % (3.8-10.2); NEUT % 49.9 % (42.8-82.8); PLATELET COUNT 420 K/MM3 (134-434); RBC 4.91 M/mm3 (3.60-5.2); RDW 15.6 % (11.6-15.6); WHITE BLOOD COUNT 5.7 K/mm3 (4.0-10.0)
[2019-03-10] MEDS ORDERED: ALBUTEROL SO4 0.083% IH SOL 2.5 MG/3 ML VIAL.NEB. NEB ONE ×2 (11:45→11:46)
[2019-03-10 12:05] LABS: ALBUMIN 3.8 g/dl (3.4-5.0); BILIRUBIN,TOTAL 0.4 mg/dL (0.2-1); BLOOD UREA NITROGEN 12.4 mg/dL (7-18); CALCIUM 9.4 mg/dL (8.5-10.1); CREATININE 0.7 mg/dL (0.55-1.3); N-TERMINAL BNP 36.3 pg/ml (5-125); POTASSIUM 4.1 mmol/L (3.5-5.1); TOT PROT 7.3 g/dl (6.4-8.2)
[2019-03-10] MEDS ORDERED: MAGNESIUM SULF 50% (8.12 MEQ/2 ML-1 GM VIAL) IVPB ONE (12:23)
[2019-03-10] MEDS ORDERED: MAGNESIUM SULF 50% (8.12 MEQ/2 ML-1 GM VIAL) ONE (12:30)
[2019-03-10] MEDS ORDERED: ACETAMINOPHEN 1000 MG/100 ML VIAL (NON FORMULARY) IVPB ONE ×2 (13:03→16:40)
[2019-03-10] MEDS ORDERED: ACETAMINOPHEN INJECTION 100 ML IVPB ONE (13:03)
--- NOTE | 2019-03-10 13:28 | HP ---
Admitting History and Physical - Primary Care Physician PCP: Jason Agee - Admission History of Present Illness: 63y F hx of asthma (no intubations/last hospitalization ~5 yr ago), COPD, DM,HTN , HLD presents with cough and SOB Pt endorses having increased cough productive of yellowish sputum since last tuesday, and her breathing /sob has gotten wors. pt has been using her home neb and albuterol w/o significant improvement. pt endorses b/l cp when she coughs alot. denies any fever/chills, hemoptysis, leg swelling, abd pain, back pain. History Source: Patient Limitations to Obtaining History: No Limitations - Past Medical History Cardiovascular: Yes: HTN, Hyperlipdemia Pulmonary: Yes: Asthma, COPD Endocrine: Yes: Diabetes Mellitus - Past Surgical History Past Surgical History: Yes: Joint Replacement Additional Past Surgical History: TSR 12/10 - Smoking History Smoking history: Former smoker Have you smoked in the past 12 months: No If you are a former smoker, when did you quit?: 2002 - Alcohol/Substance Use Hx Alcohol Use: No - Social History Usual Living Arrangement: Yes: Other (with sister) Occupation: high school social studies teacher-on disability History of Recent Travel: No Home Medications - Allergies Allergies/Adverse Reactions: Allergies Allergy/AdvReac Type Severity Reaction Status Date / Time Penicillins Allergy "mother Verified 03/10/19 10:57 told as a child" - Home Medications Home Medications: Ambulatory Orders Albuterol Sulfate Inhaler - [Ventolin HFA Inhaler -] 1 - 2 inh PO QID PRN metFORMIN HCL [Metformin ER Osmotic] 1,000 mg PO BID 04/06/16 Atorvastatin Ca [Lipitor] 20 mg PO HS 12/20/17 Montelukast Sodium [Singulair] 10 mg PO HS 09/16/18 Aspirin 81 mg PO DAILY 11/22/18 Lisinopril 10 mg PO DAILY 12/05/18 Clindamycin [Cleocin -] 600 mg PO Q6H 03/10/19 Fluticasone Prop 0.05% Nasal [Flonase -] 1 - 2 spray NS DAILY 03/10/19 Loratadine [Claritin -] 10 mg PO DAILY 03/10/19 Family Disease History - Family Disease History Family History: Unremarkable Review of Systems - Review of Systems Constitutional: reports: No Symptoms Eyes: reports: No Symptoms HENT: reports: No Symptoms, Difficult Swallowing Neck: reports: No Symptoms Cardiovascular: reports: Shortness of Breath Respiratory: reports: Cough, Exercise Intolerance, SOB on Exertion, Wheezing Gastrointestinal: reports: Bloating, Indigestion Breasts: reports: Other (frequent fungal/mositure related rash) Musculoskeletal: reports: Joint Pain (left shoulder), Other Neurological: reports: No Symptoms Endocrine: reports: Flushing Hematology/Lymphatic: reports: No Symptoms Psychiatric: reports: No Symptoms Physical Examination Vital Signs: Vital Signs Temperature 98 F 03/10/19 13:11 Pulse Rate 90 03/10/19 13:11 Respiratory Rate 22 H 03/10/19 13:11 Blood Pressure 150/89 03/10/19 13:11 O2 Sat by Pulse Oximetry (%) 95 03/10/19 13:11 Constitutional: Yes: Well Nourished, No Distress, Calm Eyes: Yes: WNL, Conjunctiva Clear, EOM Intact HENT: Yes: WNL, Atraumatic, Normocephalic Neck: Yes: WNL, Supple, Trachea Midline Cardiovascular: Yes: WNL, Regular Rate and Rhythm Respiratory: Yes: Regular, Poor Air Entry, Wheezes Gastrointestinal: Yes: WNL, Normal Bowel Sounds, Soft ...Rectal Exam: Yes: Deferred Renal/: Yes: WNL Breast(s): Yes: WNL Musculoskeletal: Yes: Other (pain to left shoulder) Edema: No Peripheral Pulses WNL: Yes Integumentary: Yes: Other (fungal rash under breast/right underarm) Neurological: Yes: WNL, Alert, Oriented ...Motor Strength: WNL Psychiatric: Yes: WNL, Alert, Oriented Labs: CBC, BMP 03/10/19 11:18 03/10/19 11:18 Imaging - Results Chest X-ray: Report Reviewed, Image Reviewed (no effusions/infiltartes) EKG: Report Reviewed, Image Reviewed (03/10/19 12:18 HR 82 SD 140 QRS 72 QTc 425 Normal Sinus Rhythm Normal Intervals No Acute ST changes) Problem List - Problems (1) COPD exacerbation Assessment/Plan: soleumedrol 125mg given in ED will c/w solumedrol 40mg q6h pulmonary consult in am requested maintain O2% > 92% supplemental O2 As needed Code(s): J44.1 - CHRONIC OBSTRUCTIVE PULMONARY DISEASE W (ACUTE) EXACERBATION (2) Diabetes Assessment/Plan: BGM AC/HS with novolog sliding scale hold metformin until discharge may need increase sliding scale given steroids will send HgbA1C in am Code(s): E11.9 - TYPE 2 DIABETES MELLITUS WITHOUT COMPLICATIONS (3) HLD (hyperlipidemia) Assessment/Plan: c/w atrovastatin Code(s): E78.5 - HYPERLIPIDEMIA, UNSPECIFIED (4) HTN (hypertension) Assessment/Plan: hertensive at this time c/w lisinipril with dose now Code(s): I10 - ESSENTIAL (PRIMARY) HYPERTENSION (5) Prophylactic measure Assessment/Plan: FEN diabetic diet monitor electrolytes K>4, Mg >2.0 no additional IVF needed DVT heparin sq Dispo admit to med surg bed full code discharge planning Code(s): Z29.9 - ENCOUNTER FOR PROPHYLACTIC MEASURES, UNSPECIFIED (6) Shoulder pain Assessment/Plan: s/p reverse TSR pt stating left shoulder with decreased ROm and pain shoulder xray requested will consult Ortho if any abnormal findingd tylenol prn pain Code(s): M25.519 - PAIN IN UNSPECIFIED SHOULDER Qualifiers: Chronicity: acute Laterality: left Qualified Code(s): M25.512 - Pain in left shoulder Visit type - Emergency Visit Emergency Visit: Yes ED Registration Date: 03/10/19 Care time: The patient presented to the Emergency Department on the above date and was hospitalized for further evaluation of their emergent condition. - New Patient This patient is new to me today: Yes Date on this admission: 03/10/19 - Critical Care Critical Care patient: No
[2019-03-10] MEDS ORDERED: methylPREDNISolone NA SUCC 40 MG/1 ML VIAL IVPUSH SCH (15:00)
[2019-03-10] MEDS ORDERED: ALBUTEROL SO4 2.5/IPRATROPIUM 0.5 INH SOL 3 ML VIAL.NEB. NEB PRN (16:39)
[2019-03-10] MEDS ORDERED: ATORVASTATIN CA 20 MG TABLET (FP) PO ONE (16:59)
[2019-03-10] MEDS ORDERED: LISINOPRIL 10 MG TABLET (FP) PO ONE (16:59)
[2019-03-10] MEDS ORDERED: ASPIRIN 81 MG CHEWABLE TABLETS PO ONE (17:00)
[2019-03-10] MEDS ORDERED: ONDANSETRON 4 MG/2 ML VIAL IVPUSH ONE (17:02)
[2019-03-10] MEDS ORDERED: PANTOPRAZOLE 40 MG TABLET (FP) PO ONE (17:04)
[2019-03-10] MEDS: INSULIN SLIDING SCALE (NOVOLOG) 1 VIAL SQ SCH ×2 (17:21→23:22)
[2019-03-10] MEDS: methylPREDNISolone NA SUCC 40 MG/1 ML VIAL IVPUSH SCH ×2 (18:32→21:45)
[2019-03-10] MEDS: HEPARIN NA (PORCINE) 5,000 UNITS/ML 1ML VIAL SQ SCH (21:45)
[2019-03-10] MEDS: NYSTATIN 100000 UNIT/GM TOPICAL OINTMENT 15 GM TUBE TP SCH (21:46)
[2019-03-11] MEDS ORDERED: ONDANSETRON 4 MG/2 ML VIAL IVPUSH ONE (02:51)
[2019-03-11] MEDS: methylPREDNISolone NA SUCC 40 MG/1 ML VIAL IVPUSH SCH ×4 (03:34→22:08)
[2019-03-11] MEDS: INSULIN SLIDING SCALE (NOVOLOG) 1 VIAL SQ SCH ×4 (06:37→22:08)
[2019-03-11] MEDS: ACETAMINOPHEN 325 MG TABLET (FP) PO PRN ×2 (06:37→15:27)
[2019-03-11] MEDS: NYSTATIN 100000 UNIT/GM TOPICAL OINTMENT 15 GM TUBE TP SCH (09:05)
[2019-03-11] MEDS: HEPARIN NA (PORCINE) 5,000 UNITS/ML 1ML VIAL SQ SCH ×2 (09:05→22:08)
[2019-03-11] MEDS: LISINOPRIL 10 MG TABLET (FP) PO SCH (09:05)
[2019-03-11] MEDS: PANTOPRAZOLE 40 MG TABLET (FP) PO SCH (09:05)
[2019-03-11] MEDS: ASPIRIN 81 MG CHEWABLE TABLETS PO SCH (09:06)
[2019-03-11 09:31] LABS: BASO % 0.1 % (0-2.0); HEMATOCRIT 41.5 % (32.4-45.2); HEMOGLOBIN 13.5 GM/dL (10.7-15.3); LYMPH % 13.4 % (8-40); MCH 27.9 pg (25.7-33.7); MCHC 32.6 g/dl (32.0-36.0); MEAN CELL VOLUME 85.7 fl (80-96); MEAN PLT VOLUME 7.5 fl (7.5-11.1); MONO % 3.1 % (3.8-10.2); NEUT % 83.4 % (42.8-82.8); PLATELET COUNT 470 K/MM3 (134-434); RBC 4.84 M/mm3 (3.60-5.2); RDW 15.7 % (11.6-15.6); WHITE BLOOD COUNT 8.4 K/mm3 (4.0-10.0)
[2019-03-11 10:02] LABS: ALBUMIN 3.8 g/dl (3.4-5.0); BILIRUBIN,TOTAL 0.3 mg/dL (0.2-1); BLOOD UREA NITROGEN 15.4 mg/dL (7-18); CALCIUM 9.8 mg/dL (8.5-10.1); CREATININE 0.7 mg/dL (0.55-1.3); MAGNESIUM 2.4 mg/dL (1.8-2.4); TOT PROT 7.4 g/dl (6.4-8.2)
[2019-03-11] MEDS ORDERED: MAG HYDROX/AL HYDROX/SIMETH 30 ML UNIT-DOSE CUP PO PRN (11:25)
--- NOTE | 2019-03-11 11:31 | PN ---
Physical Exam: SUBJECTIVE: Patient seen and examined she is better today and has less wheezing but still have it no fever or chills she is c/o more heart villarreal even she is on protonox her shoulder pain is better and x rays are ok OBJECTIVE: Vital Signs Period Temp Pulse Resp BP Sys/Mason Pulse Ox Last 24 Hr 97.9 F-98.7 F 77-104 22-26 147-160/69-89 92-95 GENERAL: The patient is awake, alert, and fully oriented, in no acute distress. HEAD: Normal with no signs of trauma. EYES: PERRL, extraocular movements intact, sclera anicteric, conjunctiva clear. No ptosis. ENT: Ears normal, nares patent, oropharynx clear without exudates, moist mucous membranes. NECK: Trachea midline, full range of motion, supple. LUNGS: sudhakar wheezing exp and inspi HEART: Regular rate and rhythm, S1, S2 without murmur, rub or gallop. ABDOMEN: Soft, nontender, nondistended, normoactive bowel sounds, no guarding, no rebound, no hepatosplenomegaly, no masses. EXTREMITIES: 2+ pulses, warm, well-perfused, no edema. NEUROLOGICAL: Cranial nerves II through XII grossly intact. Normal speech, gait not observed. PSYCH: Normal mood, normal affect. SKIN: Warm, dry, normal turgor, no rashes or lesions noted Laboratory Results - last 24 hr 03/10/19 03/10/19 03/10/19 11:18 11:18 11:18 WBC 5.7 RBC 4.91 Hgb 13.8 Hct 42.2 MCV 86.0 MCH 28.2 MCHC 32.7 RDW 15.6 Plt Count 420 D MPV 7.5 Absolute Neuts (auto) 2.9 Neutrophils % 49.9 D Lymphocytes % 38.1 D Monocytes % 8.4 D Eosinophils % 2.8 D Basophils % 0.8 D Nucleated RBC % 0 Sodium 141 Potassium 4.1 Chloride 104 Carbon Dioxide 32 Anion Gap 5 L BUN 12.4 Creatinine 0.7 Est GFR (CKD-EPI)AfAm 105.38 Est GFR (CKD-EPI)NonAf 90.92 POC Glucometer Random Glucose 119 H Hemoglobin A1c % Calcium 9.4 Magnesium Total Bilirubin 0.4 AST 33 ALT 47 Alkaline Phosphatase 129 H Creatine Kinase 164 Creatine Kinase Index 1.7 CK-MB (CK-2) 2.8 Troponin I < 0.02 B-Natriuretic Peptide 36.3 Total Protein 7.3 Albumin 3.8 03/10/19 03/10/19 03/11/19 17:19 23:21 06:35 WBC RBC Hgb Hct MCV MCH MCHC RDW Plt Count MPV Absolute Neuts (auto) Neutrophils % Lymphocytes % Monocytes % Eosinophils % Basophils % Nucleated RBC % Sodium Potassium Chloride Carbon Dioxide Anion Gap BUN Creatinine Est GFR (CKD-EPI)AfAm Est GFR (CKD-EPI)NonAf POC Glucometer 282 239 207 Random Glucose Hemoglobin A1c % Calcium Magnesium Total Bilirubin AST ALT Alkaline Phosphatase Creatine Kinase Creatine Kinase Index CK-MB (CK-2) Troponin I B-Natriuretic Peptide Total Protein Albumin 03/11/19 03/11/19 03/11/19 08:47 08:47 08:47 WBC 8.4 RBC 4.84 Hgb 13.5 Hct 41.5 MCV 85.7 MCH 27.9 MCHC 32.6 RDW 15.7 H Plt Count 470 H MPV 7.5 Absolute Neuts (auto) 7.0 Neutrophils % 83.4 H D Lymphocytes % 13.4 D Monocytes % 3.1 L Eosinophils % 0.0 D Basophils % 0.1 Nucleated RBC % 0 Sodium 140 Potassium 5.0 Chloride 103 Carbon Dioxide 30 Anion Gap 7 L BUN 15.4 Creatinine 0.7 Est GFR (CKD-EPI)AfAm 105.38 Est GFR (CKD-EPI)NonAf 90.92 POC Glucometer Random Glucose 157 H Hemoglobin A1c % 7.0 H Calcium 9.8 Magnesium 2.4 Total Bilirubin 0.3 AST 23 ALT 42 Alkaline Phosphatase 125 H Creatine Kinase Creatine Kinase Index CK-MB (CK-2) Troponin I B-Natriuretic Peptide Total Protein 7.4 Albumin 3.8 Active Medications Generic Name Dose Route Start Last Admin Trade Name Freq PRN Reason Stop Dose Admin Acetaminophen 650 mg 03/10/19 19:36 03/11/19 06:37 Tylenol - PO 650 mg Q6H PRN Administration Fever Or Pain Al Hydroxide/Mg Hydroxide 30 ml 03/11/19 11:25 Mylanta Oral Suspension - PO Q6H PRN DYSPEPSIA Albuterol/Ipratropium 1 amp 03/10/19 16:39 Duoneb - NEB Q4H PRN SHORTNESS OF BREATH Aspirin 81 mg 03/11/19 10:00 03/11/19 09:06 Asa - PO 81 mg DAILY KATHIE Administration Atorvastatin Calcium 20 mg 03/11/19 22:00 Lipitor - PO HS KATHIE Heparin Sodium (Porcine) 5,000 unit 03/10/19 22:00 03/11/19 09:05 Heparin - SQ 5,000 unit BID KATHIE Administration Insulin Aspart 1 vial 03/10/19 16:30 03/11/19 06:37 Novolog Vial Sliding Scale - SQ 4 units ACHS KATHIE Administration Protocol Lisinopril 10 mg 03/11/19 10:00 03/11/19 09:05 Prinivil PO 10 mg DAILY KATHIE Administration Methylprednisolone Sodium Succinate 40 mg 03/10/19 18:00 03/11/19 09:05 Solu-Medrol - IVPUSH 40 mg Q6H-IV KATHIE Administration Nystatin 1 applic 03/10/19 22:00 03/11/19 09:05 Mycostatin Ointment - TP 1 applic BID KATHIE Administration Pantoprazole Sodium 40 mg 03/11/19 10:00 03/11/19 09:05 Protonix - PO 40 mg DAILY KATHIE Administration ASSESSMENT/PLAN: 63y F hx of asthma (no intubations/last hospitalization ~5 yr ago), COPD, DM,HTN , HLD presents with cough and SOB Pt endorses having increased cough productive of yellowish sputum since last tuesday, and her breathing /sob has gotten wors. pt has been using her home neb and albuterol w/o significant improvement. pt endorses b/l cp when she coughs alot. denies any fever/chills, hemoptysis, leg swelling, abd pain, back pain. 1 Acute copd and asthma continue solumderol and nebulizer and oxygen pulmonary consult ambulation, 2 gerd she is already on protonox and will add maalox prn 3 dm she is on sliding scale and her sugar is better at this time. 4 htn stable continue lisinopril 5 highlipids atorvastatin 5 shoulder pains her x rays are ok and continue prn tylenol activity as tolerated and she may shower . Problem List - Problems (1) Asthma exacerbation Code(s): J45.901 - UNSPECIFIED ASTHMA WITH (ACUTE) EXACERBATION (2) COPD exacerbation Code(s): J44.1 - CHRONIC OBSTRUCTIVE PULMONARY DISEASE W (ACUTE) EXACERBATION (3) Diabetes Code(s): E11.9 - TYPE 2 DIABETES MELLITUS WITHOUT COMPLICATIONS (4) HLD (hyperlipidemia) Code(s): E78.5 - HYPERLIPIDEMIA, UNSPECIFIED (5) HTN (hypertension) Code(s): I10 - ESSENTIAL (PRIMARY) HYPERTENSION (6) Shoulder pain Code(s): M25.519 - PAIN IN UNSPECIFIED SHOULDER Qualifiers: Chronicity: acute Laterality: left Qualified Code(s): M25.512 - Pain in left shoulder Visit type - Emergency Visit Emergency Visit: Yes ED Registration Date: 03/10/19 Care time: The patient presented to the Emergency Department on the above date and was hospitalized for further evaluation of their emergent condition. - New Patient This patient is new to me today: Yes Date on this admission: 03/11/19 - Critical Care Critical Care patient: No - Discharge Referral Referred to [facility] No
--- NOTE | 2019-03-11 11:36 | EKG ---
Test Reason : Blood Pressure : / mmHG Vent. Rate : 082 BPM Atrial Rate : 082 BPM P-R Int : 140 ms QRS Dur : 072 ms QT Int : 364 ms P-R-T Axes : 054 022 047 degrees QTc Int : 425 ms NORMAL SINUS RHYTHM CANNOT RULE OUT ANTERIOR INFARCT (CITED ON OR BEFORE 06-DEC-2018) ABNORMAL ECG WHEN COMPARED WITH ECG OF 06-DEC-2018 16:12, NO SIGNIFICANT CHANGE WAS FOUND Confirmed by JAILYN SABILLON MD ([id number]) on 03/11/2019 11:36:07 AM Referred By: Confirmed By:JAILYN SABILLON MD
--- NOTE | 2019-03-11 13:30 | CON.PULM ---
Consult Consult Specialty:: PULM/CCM Referred by:: Hospitalist Reason for Consultation:: SOB - History of Present Illness Chief Complaint: SOB History of Present Illness: 63 F,previous smoker, quit about 15 years ago. Has been diagnosed with "Mild" emphysema by her PMD (likely with Spirometry). No previous screening chest CT imaging. No history of intubations or being steroid dependent. Additional history of DM, HTN, and HLD. Partner is at the bedside that confirms snoring and witnessed apneas. Admitted via the ER due to progressive cough productive of yellowish sputum and SOB for the past 1 week. No travel history or sick contacts. No hemoptysis or night sweats. CXR: No acute process. - History Source History Provided By: Patient Limitations to Obtaining History: No Limitations - Past Medical History Cardio/Vascular: Yes: HTN, Hyperlipdemia Pulmonary: Yes: Asthma, Bronchitis, COPD, Pneumonia. No: O2 Dependent, Previously Intubated, Pulmonary Embolus, Pulmonary Fibrosis, Sleep Apnea ...: No Endocrine: Yes: Diabetes Mellitus - Past Surgical History Past Surgical History: Yes: Joint Replacement - Alcohol/Substance Use Hx Alcohol Use: No - Smoking History Smoking history: Former smoker Have you smoked in the past 12 months: No Aproximately how many cigarettes per day: 10 If you are a former smoker, when did you quit?: 2002 - Social History Occupation: middle school resource teacher-on disability History of Recent Travel: No Home Medications - Allergies Allergies/Adverse Reactions: Allergies Allergy/AdvReac Type Severity Reaction Status Date / Time Penicillins Allergy "mother Verified 03/10/19 10:57 told as a child" - Home Medications Home Medications: Ambulatory Orders Albuterol Sulfate Inhaler - [Ventolin HFA Inhaler -] 1 - 2 inh PO QID PRN metFORMIN HCL [Metformin ER Osmotic] 1,000 mg PO BID 04/06/16 Atorvastatin Ca [Lipitor] 20 mg PO HS 12/20/17 Montelukast Sodium [Singulair] 10 mg PO HS 09/16/18 Aspirin 81 mg PO DAILY 11/22/18 Lisinopril 10 mg PO DAILY 12/05/18 Clindamycin [Cleocin -] 600 mg PO Q6H 03/10/19 Fluticasone Prop 0.05% Nasal [Flonase -] 1 - 2 spray NS DAILY 03/10/19 Loratadine [Claritin -] 10 mg PO DAILY 03/10/19 Review of Systems - Review of Systems Constitutional: reports: Loss of Appetite, Malaise. denies: Chills, Fever, Night Sweats Eyes: reports: No Symptoms HENT: reports: No Symptoms Neck: reports: No Symptoms Cardiovascular: reports: Shortness of Breath. denies: Chest Pain, Edema, Palpitations Respiratory: reports: Cough, Orthopnea, Snoring, SOB, SOB on Exertion, Wheezing. denies: Hemoptysis Gastrointestinal: reports: No Symptoms Genitourinary: reports: No Symptoms Breasts: reports: No Symptoms Reported Musculoskeletal: reports: No Symptoms Integumentary: reports: No Symptoms Neurological: reports: No Symptoms Endocrine: reports: No Symptoms Hematology/Lymphatic: reports: No Symptoms Psychiatric: reports: No Symptoms Physical Exam Vital Sings: Vital Signs Temperature 98.1 F 03/11/19 09:00 Pulse Rate 88 03/11/19 09:00 Respiratory Rate 18 03/11/19 09:00 Blood Pressure 163/96 03/11/19 09:00 O2 Sat by Pulse Oximetry (%) 94 L 03/11/19 09:01 Constitutional: Yes: No Distress, Obese Eyes: Yes: WNL, Conjunctiva Clear, EOM Intact HENT: Yes: Atraumatic, Normocephalic Neck: Yes: Supple, Trachea Midline Cardiovascular: Yes: Regular Rate and Rhythm Respiratory: Yes: Cough, Diminished, On Nasal O2, Poor Air Entry, Rhonchi, SOB, SOB on Exertion, Tachypnea, Wheezes. No: Accessory Muscle Use, Rales, Stridor ...Inspection: Yes: WNL ...Clubbing: No Gastrointestinal: Yes: Normal Bowel Sounds, Soft, Abdomen, Obese Renal/: Yes: WNL Musculoskeletal: Yes: WNL Extremities: Yes: WNL Edema: No Peripheral Pulses WNL: Yes Integumentary: Yes: WNL Neurological: Yes: WNL, Alert, Oriented ...Motor Strength: WNL Psychiatric: Yes: WNL, Alert, Oriented Labs: CBC, BMP 03/11/19 08:47 03/11/19 08:47 Imaging - Results Chest X-ray: Report Reviewed, Image Reviewed Problem List - Problems (1) Asthma exacerbation Code(s): J45.901 - UNSPECIFIED ASTHMA WITH (ACUTE) EXACERBATION (2) COPD exacerbation Code(s): J44.1 - CHRONIC OBSTRUCTIVE PULMONARY DISEASE W (ACUTE) EXACERBATION (3) Diabetes Code(s): E11.9 - TYPE 2 DIABETES MELLITUS WITHOUT COMPLICATIONS (4) HLD (hyperlipidemia) Code(s): E78.5 - HYPERLIPIDEMIA, UNSPECIFIED (5) HTN (hypertension) Code(s): I10 - ESSENTIAL (PRIMARY) HYPERTENSION (6) Shoulder pain Code(s): M25.519 - PAIN IN UNSPECIFIED SHOULDER Qualifiers: Chronicity: acute Laterality: left Qualified Code(s): M25.512 - Pain in left shoulder Assessment/Plan Medrol BD TX standing an PRN Will need OSAS screening after discharge Will need LDCT chest after discharge Continued smoking abstinence discussed O2 as needed VTE prophylaxis Continue Singulair Check IgE after discharge Monitor off ABX Will follow Thank you. Dr Tran
[2019-03-11] MEDS ORDERED: ALBUTEROL SO4 0.083% IH SOL 2.5 MG/3 ML VIAL.NEB. NEB PRN (13:35)
[2019-03-11] MEDS: oxyCODONE HCL 5 MG TABLET PO PRN (15:26)
[2019-03-11] MEDS: ALBUTEROL SO4 2.5/IPRATROPIUM 0.5 INH SOL 3 ML VIAL.NEB. NEB SCH ×2 (15:26→20:35)
[2019-03-11] MEDS ORDERED: oxyCODONE/APAP 1 EACH - MUST ORDER COMBO PRODUCT NR ONE (18:25)
[2019-03-11] MEDS ORDERED: ACETAMINOPHEN 325 MG TABLET (FP) PO ONE (18:30)
[2019-03-11] MEDS ORDERED: oxyCODONE HCL 5 MG TABLET PO ONE (18:30)
[2019-03-11] MEDS: ATORVASTATIN CA 20 MG TABLET (FP) PO SCH (22:08)
[2019-03-11] MEDS: MONTELUKAST NA 10 MG TABLET PO SCH (22:09)
[2019-03-12] MEDS: NYSTATIN 100000 UNIT/GM TOPICAL OINTMENT 15 GM TUBE TP SCH ×3 (02:31→22:40)
[2019-03-12] MEDS: methylPREDNISolone NA SUCC 40 MG/1 ML VIAL IVPUSH SCH ×3 (02:32→22:24)
[2019-03-12] MEDS: oxyCODONE HCL 5 MG TABLET PO PRN ×2 (06:57→22:25)
[2019-03-12] MEDS: INSULIN SLIDING SCALE (NOVOLOG) 1 VIAL SQ SCH ×4 (06:58→22:40)
[2019-03-12 07:19] LABS: BASO % 0.5 % (0-2.0); HEMATOCRIT 42.1 % (32.4-45.2); HEMOGLOBIN 13.6 GM/dL (10.7-15.3); LYMPH % 10.7 % (8-40); MCH 28.1 pg (25.7-33.7); MCHC 32.3 g/dl (32.0-36.0); MEAN CELL VOLUME 87.1 fl (80-96); MEAN PLT VOLUME 7.6 fl (7.5-11.1); MONO % 1.7 % (3.8-10.2); NEUT % 87.1 % (42.8-82.8); PLATELET COUNT 462 K/MM3 (134-434); RBC 4.83 M/mm3 (3.60-5.2); RDW 15.7 % (11.6-15.6); WHITE BLOOD COUNT 11.6 K/mm3 (4.0-10.0)
[2019-03-12] MEDS: ALBUTEROL SO4 2.5/IPRATROPIUM 0.5 INH SOL 3 ML VIAL.NEB. NEB SCH ×4 (07:20→20:15)
--- NOTE | 2019-03-12 07:47 | PN ---
Progress Note, Physician Chief Complaint: cough, SOB History of Present Illness: 63y F hx of asthma (no intubations/last hospitalization ~5 yr ago), COPD, DM,HTN , HLD presents with cough and SOB Pt endorses having increased cough productive of yellowish sputum since last tuesday, and her breathing /sob has gotten wors. pt has been using her home neb and albuterol w/o significant improvement. pt endorses b/l cp when she coughs alot. denies any fever/chills, hemoptysis, leg swelling, abd pain, back pain. - Current Medication List Current Medications: Active Medications Acetaminophen (Tylenol -) 650 mg PO Q6H PRN PRN Reason: Fever Or Pain Last Admin: 03/12/19 00:00 Dose: 650 mg Acetaminophen (Tylenol -) 325 mg PO Q12H PRN PRN Reason: PAIN 6-10 Last Admin: 03/11/19 15:27 Dose: 325 mg Al Hydroxide/Mg Hydroxide (Mylanta Oral Suspension -) 30 ml PO Q6H PRN PRN Reason: DYSPEPSIA Last Admin: 03/11/19 15:26 Dose: 30 ml Albuterol Sulfate (Ventolin 0.083% Nebulizer Soln -) 1 amp NEB Q4H PRN PRN Reason: SHORT OF BREATH/WHEEZING Albuterol/Ipratropium (Duoneb -) 1 amp NEB RQID [facility] Last Admin: 03/11/19 20:35 Dose: 1 amp Aspirin (Asa -) 81 mg PO DAILY [facility] Last Admin: 03/11/19 09:06 Dose: 81 mg Atorvastatin Calcium (Lipitor -) 20 mg PO HS [facility] Last Admin: 03/11/19 22:08 Dose: 20 mg Heparin Sodium (Porcine) (Heparin -) 5,000 unit SQ BID [facility] Last Admin: 03/11/19 22:08 Dose: 5,000 unit Insulin Aspart (Novolog Vial Sliding Scale -) 1 vial SQ ACHS [facility]; Protocol Last Admin: 03/12/19 06:58 Dose: 2 units Lisinopril (Prinivil) 10 mg PO DAILY [facility] Last Admin: 03/11/19 09:05 Dose: 10 mg Methylprednisolone Sodium Succinate (Solu-Medrol -) 40 mg IVPUSH Q6H-IV [facility] Last Admin: 03/12/19 02:32 Dose: 40 mg Montelukast Sodium (Singulair -) 10 mg PO HS [facility] Last Admin: 03/11/19 22:09 Dose: 10 mg Nystatin (Mycostatin Ointment -) 1 applic TP BID [facility] Last Admin: 03/12/19 02:31 Dose: 1 applic Oxycodone HCl (Roxicodone -) 5 mg PO Q12H PRN PRN Reason: PAIN 6-10 Last Admin: 03/12/19 06:57 Dose: 5 mg Pantoprazole Sodium (Protonix -) 40 mg PO DAILY [facility] Last Admin: 03/11/19 09:05 Dose: 40 mg - Objective Vital Signs: Vital Signs Temperature 97.5 F L 03/12/19 02:00 Pulse Rate 67 03/12/19 02:00 Respiratory Rate 20 03/12/19 02:00 Blood Pressure 136/74 03/12/19 02:00 O2 Sat by Pulse Oximetry (%) 96 03/11/19 21:00 Constitutional: Yes: Well Nourished, No Distress, Calm Eyes: Yes: WNL, Conjunctiva Clear, EOM Intact HENT: Yes: WNL, Atraumatic, Normocephalic Neck: Yes: WNL, Supple, Trachea Midline Cardiovascular: Yes: WNL, Regular Rate and Rhythm Respiratory: Yes: WNL, Regular, CTA Bilaterally Gastrointestinal: Yes: WNL, Normal Bowel Sounds, Soft ...Rectal Exam: Yes: Deferred Genitourinary: Yes: WNL Breast(s): Yes: Other (fungral rash remain unrder breasts BL) Musculoskeletal: Yes: Joint Stiffness, Joint Swelling, Muscle Pain, Other (s/p left TSR, pain upon adbuction of shoulder, sling in place) Extremities: Yes: WNL Edema: No Peripheral Pulses WNL: Yes Integumentary: Yes: Other (fungal rash under breast/right underarm-less than on admission) Neurological: Yes: WNL, Alert, Oriented ...Motor Strength: LUE (limited ROM, sling in place) Psychiatric: Yes: WNL, Alert, Oriented Problem List - Problems (1) COPD exacerbation Assessment/Plan: soleumedrol 125mg given in ED start to taper solumedrol, BID today pulmonary consultation appreciated maintain O2% > 92% supplemental O2 As needed c/w duonebs Code(s): J44.1 - CHRONIC OBSTRUCTIVE PULMONARY DISEASE W (ACUTE) EXACERBATION (2) Diabetes Assessment/Plan: BGM AC/HS with novolog sliding scale hold metformin until discharge c/w sliding scale Hgb A1C 7.0 Code(s): E11.9 - TYPE 2 DIABETES MELLITUS WITHOUT COMPLICATIONS (3) HLD (hyperlipidemia) Assessment/Plan: c/w atrovastatin Code(s): E78.5 - HYPERLIPIDEMIA, UNSPECIFIED (4) HTN (hypertension) Assessment/Plan: remains hypertensive r/t pain of left shoulder c/w lisinipril with dose now Code(s): I10 - ESSENTIAL (PRIMARY) HYPERTENSION (5) Shoulder pain Assessment/Plan: s/p reverse TSR left shoulder with decreased ROm and pain remains, sling applied shoulder xray shows intact hardware Dr Menendez/Dewayne to see patient tramadol prn pain Code(s): M25.519 - PAIN IN UNSPECIFIED SHOULDER Qualifiers: Chronicity: acute Laterality: left Qualified Code(s): M25.512 - Pain in left shoulder (6) Prophylactic measure Assessment/Plan: FEN diabetic diet monitor electrolytes K>4, Mg >2.0 no additional IVF needed DVT heparin sq Dispo maintain med surg bed full code discharge planning Code(s): Z29.9 - ENCOUNTER FOR PROPHYLACTIC MEASURES, UNSPECIFIED (7) Dysphagia Assessment/Plan: seen by speech therapist As per therapist Angi-->Pt reports food sticking in her throat x 25 years, needing to drink to clear it. No cough response/vomiting/ but reports reflux. No overt signs of aspiration. will recommend patient nilesjoannas with her GI upon dc (colonscopy done last year & was negative, doesnt recall Upper endoscopy) Code(s): R13.10 - DYSPHAGIA, UNSPECIFIED Visit type - Emergency Visit Emergency Visit: Yes ED Registration Date: 03/10/19 Care time: The patient presented to the Emergency Department on the above date and was hospitalized for further evaluation of their emergent condition. - New Patient This patient is new to me today: No - Critical Care Critical Care patient: No - Discharge Referral Referred to [facility] No
[2019-03-12 07:48] LABS: ALBUMIN 3.9 g/dl (3.4-5.0); BILIRUBIN,TOTAL 0.3 mg/dL (0.2-1); BLOOD UREA NITROGEN 18.8 mg/dL (7-18); CALCIUM 9.4 mg/dL (8.5-10.1); CREATININE 0.6 mg/dL (0.55-1.3); MAGNESIUM 2.4 mg/dL (1.8-2.4); POTASSIUM 5.1 mmol/L (3.5-5.1); TOT PROT 7.6 g/dl (6.4-8.2)
[2019-03-12] MEDS: ACETAMINOPHEN 325 MG TABLET (FP) PO PRN ×3 (10:27→22:25)
[2019-03-12] MEDS: LISINOPRIL 10 MG TABLET (FP) PO SCH (10:28)
[2019-03-12] MEDS: PANTOPRAZOLE 40 MG TABLET (FP) PO SCH (10:28)
[2019-03-12] MEDS: ASPIRIN 81 MG CHEWABLE TABLETS PO SCH (10:28)
[2019-03-12] MEDS: HEPARIN NA (PORCINE) 5,000 UNITS/ML 1ML VIAL SQ SCH ×2 (10:28→22:24)
[2019-03-12] MEDS ORDERED: traMADol HCL 50 MG TABLET PO PRN (10:30)
[2019-03-12] MEDS ORDERED: POLYETHYLENE GLYCOL 3350 119 GM BTL PO ONE (10:46)
--- NOTE | 2019-03-12 11:28 | CON.ORTH ---
Consult Reason for Consultation:: left shoulder pain - Past Medical History Cardio/Vascular: Yes: HTN, Hyperlipdemia Pulmonary: Yes: Asthma, Bronchitis, COPD, Pneumonia. 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 History of Recent Travel: No Home Medications - Allergies Allergies/Adverse Reactions: Allergies Allergy/AdvReac Type Severity Reaction Status Date / Time Penicillins Allergy "mother Verified 03/10/19 10:57 told as a child" - Home Medications Home Medications: Ambulatory Orders Albuterol Sulfate Inhaler - [Ventolin HFA Inhaler -] 1 - 2 inh PO QID PRN metFORMIN HCL [Metformin ER Osmotic] 1,000 mg PO BID 04/06/16 Atorvastatin Ca [Lipitor] 20 mg PO HS 12/20/17 Montelukast Sodium [Singulair] 10 mg PO HS 09/16/18 Aspirin 81 mg PO DAILY 11/22/18 Lisinopril 10 mg PO DAILY 12/05/18 Clindamycin [Cleocin -] 600 mg PO Q6H 03/10/19 Fluticasone Prop 0.05% Nasal [Flonase -] 1 - 2 spray NS DAILY 03/10/19 Loratadine [Claritin -] 10 mg PO DAILY 03/10/19 Physical Exam for Ortho Vital Signs: Vital Signs Temperature 98.4 F 03/12/19 10:00 Pulse Rate 78 03/12/19 10:00 Respiratory Rate 22 H 03/12/19 10:00 Blood Pressure 159/80 03/12/19 10:00 O2 Sat by Pulse Oximetry (%) 96 03/11/19 21:00 Labs: CBC, BMP 03/12/19 06:43 03/12/19 06:43 - Upper Extremity Shoulder: Yes: Left, Other (well healed incision, + ttp, no deformity, rom ff- 30, er- 5, minimal IR, nvi) Imaging - Results X-ray: Report Reviewed, Image Reviewed Assessment/Plan 63y F hx of asthma (no intubations/last hospitalization ~5 yr ago), COPD, DM,HTN , HLD presents with cough and SOB Pt endorses having increased cough productive of yellowish sputum since last tuesday, and her breathing /sob has gotten worse. She is also 3 months s/p left reverse TSA. She had been doing well but she fels that during PT they were too aggressive and since then has been having more pain. Xrays were neg. Denies any numbness/tingling. a/p- 3 months s/p left reverse TSA PT for gentle ROM receiving steroids for pulmonary issue which will help shoulder as well pain control will follow d/w Dr. Menendez
--- NOTE | 2019-03-12 11:49 | CONSULT ---
Admitting History and Physical - Primary Care Physician PCP: Nghia Trujillo - Admission History of Present Illness: 63y F hx of asthma (no intubations/last hospitalization ~5 yr ago), copd, dm, htn, hl, presents with cough and sob. Selected Entries 03/10/19 03/10/19 03/10/19 10:55 13:11 14:16 Breakfast Lunch Supper Temperature 99.0 F 98 F 97.9 F 03/10/19 03/10/19 03/11/19 18:29 21:44 02:00 Breakfast Lunch Supper 100% Temperature 98.0 F 98.7 F 98.5 F 03/11/19 03/11/19 03/11/19 06:33 09:00 15:08 Breakfast 25% Lunch 50% Supper Temperature 98.0 F 98.1 F 98.1 F 03/11/19 03/11/19 03/11/19 18:32 18:33 22:00 Breakfast Lunch Supper 50% Temperature 97.7 F 97.4 F L 03/12/19 03/12/19 03/12/19 02:00 06:00 10:00 Breakfast Lunch Supper Temperature 97.5 F L 97.8 F 98.4 F Laboratory Tests 03/10/19 03/11/19 03/12/19 11:18 08:47 06:43 WBC 5.7 8.4 11.6 H History Source: Patient, Medical Record Limitations to Obtaining History: No Limitations - Past Medical History Cardiovascular: Yes: HTN, Hyperlipdemia Pulmonary: Yes: Asthma, Bronchitis, COPD, Pneumonia. No: O2 Dependent, Previously Intubated, Pulmonary Embolus, Pulmonary Fibrosis, Sleep Apnea ...: No Endocrine: Yes: Diabetes Mellitus - Past Surgical History Past Surgical History: Yes: Joint Replacement Additional Past Surgical History: TSR 12/10 - Smoking History Smoking history: Former smoker Have you smoked in the past 12 months: No Aproximately how many cigarettes per day: 10 If you are a former smoker, when did you quit?: 2002 - Alcohol/Substance Use Hx Alcohol Use: No - Social History Occupation: preschool special education teacher-on disability History of Recent Travel: No History - Admission Reason For Visit: EXACERBATION OF ASTHMA/OBSTRUCTIVE CHRONIC - Diagnostics X-ray: Report Reviewed - General Mental Status: Alert and Oriented, Awake and Alert, Able to Follow Commands Attention: Intact Ability to Follow Directions: Excellent Head/Neck Control: WFL - Hearing Hearing: Normal Hearing Aide: No With Patient: No Speech Evaluation - Communication Primary Language: SWISS Secondary Language: ITALIAN (fluent) Communication: Yes: Within Normal Limits Oral Expression Ability: Yes: No Impairment - Speech Production Able to Make Needs Known: Yes: WNL Intelligibility: Yes: WNL - Speech Characteristics Voice Loudness: Normal Voice Pitch: Yes: Normal Voice Phonatory-based Quality: Yes: Normal Speech Pattern: Normal Speech Clarity: < 100% Nasal Resonance: Normal Articulation: Yes: Precise - Language/Auditory Comprehension Follows: Yes: 2 Stage Simple Commands - Language/Verbal Expression Able to Respond to Simple Queries: Yes: WNL Able to Communicate Wants and Needs: Yes: WNL Functional Communication Status: Yes: WNL - 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 Memory: Yes: WNL Short Term Memory: Yes: WNL - Swallow Evaluation/Bedside Assessment Current Nutritional Intake: Regular, Thin Liquids Oral Secretions: Yes: WFL Facial Symmetry at Rest: Symmetrical Facial Symmetry on Retraction: Symmetrical Against Resistance Opening: Normal Against Resistance Closing: Normal Pucker Lips: Normal Smile: Normal Lingual Movement: Normal, Symmetric Lingual Speed of Movement: Normal Lingual Movement Strgth Against Opposition: Normal Lingual Movement Characteristics: Normal Velopharyngeal Movement: Normal Laryngeal Elevation: WFL Laryngeal Movement: Able to Palpate Rate of Intake: WFL Bolus Size: WFL Labial Seal: WFL Chewing: WFL Oral Prep Time: WFL A-P Transit: WFL Pocketing: None Timing of Swallow: WFL Coughing/Throat Clear: No Change in Voice: No Recommendations - Speech Evaluation, Impression/Plan Impression: Pt reports food sticking in her throat x 25 years, needing to drink to clear it. No cough response/vomiting/ but reports reflux. No overt signs of aspiration. Pt would benefit from GI consult and out pt ENT to r/o GERD/LPR. Upon review, pt does not recline after eating but enjoys caffienated coffee/tea/ spicy foods/tomatoes, etc. - Dysphagia Impressions/Plan *Silent aspiration: cannot be R/O at bedside Dysphagia Treatment Plan: OOB for meals, OOB for 1 h. after meals, Other (GERD/ LPR precautions) Recommendations: MBS w Esophagus (can be done as out pt.)
--- NOTE | 2019-03-12 12:45 | PN ---
Progress Note, Physician History of Present Illness: PULMONARY ALERT,SITTING UP IN BED,LESS DYSPNEIC,LESS COUGH - Current Medication List Current Medications: Active Medications Acetaminophen (Tylenol -) 650 mg PO Q6H PRN PRN Reason: Fever Or Pain Last Admin: 03/12/19 10:27 Dose: 650 mg Acetaminophen (Tylenol -) 325 mg PO Q12H PRN PRN Reason: PAIN 6-10 Last Admin: 03/11/19 15:27 Dose: 325 mg Al Hydroxide/Mg Hydroxide (Mylanta Oral Suspension -) 30 ml PO Q6H PRN PRN Reason: DYSPEPSIA Last Admin: 03/11/19 15:26 Dose: 30 ml Albuterol Sulfate (Ventolin 0.083% Nebulizer Soln -) 1 amp NEB Q4H PRN PRN Reason: SHORT OF BREATH/WHEEZING Albuterol/Ipratropium (Duoneb -) 1 amp NEB RQID [facility] Last Admin: 03/12/19 11:05 Dose: 1 amp Aspirin (Asa -) 81 mg PO DAILY [facility] Last Admin: 03/12/19 10:28 Dose: 81 mg Atorvastatin Calcium (Lipitor -) 20 mg PO HS [facility] Last Admin: 03/11/19 22:08 Dose: 20 mg Heparin Sodium (Porcine) (Heparin -) 5,000 unit SQ BID [facility] Last Admin: 03/12/19 10:28 Dose: 5,000 unit Insulin Aspart (Novolog Vial Sliding Scale -) 1 vial SQ [facility]; Protocol Last Admin: 03/12/19 06:58 Dose: 2 units Lisinopril (Prinivil) 10 mg PO DAILY [facility] Last Admin: 03/12/19 10:28 Dose: 10 mg Methylprednisolone Sodium Succinate (Solu-Medrol -) 40 mg IVPUSH BID [facility] Montelukast Sodium (Singulair -) 10 mg PO HS [facility] Last Admin: 03/11/19 22:09 Dose: 10 mg Nystatin (Mycostatin Ointment -) 1 applic TP BID [facility] Last Admin: 03/12/19 10:29 Dose: 1 applic Oxycodone HCl (Roxicodone -) 5 mg PO Q12H PRN PRN Reason: PAIN LEVEL 7 - 10 Pantoprazole Sodium (Protonix -) 40 mg PO DAILY [facility] Last Admin: 03/12/19 10:28 Dose: 40 mg Polyethylene Glycol (Miralax (For Daily Use) -) 17 gm PO DAILY [facility] Tramadol HCl (Ultram -) 50 mg PO Q6H PRN PRN Reason: PAIN LEVEL 4 - 6 - Objective Vital Signs: Vital Signs Temperature 98.4 F 03/12/19 10:00 Pulse Rate 78 03/12/19 10:00 Respiratory Rate 22 H 03/12/19 10:00 Blood Pressure 159/80 03/12/19 10:00 O2 Sat by Pulse Oximetry (%) 96 03/11/19 21:00 Constitutional: Yes: Well Nourished, Calm Eyes: Yes: WNL HENT: Yes: WNL Neck: Yes: WNL Cardiovascular: Yes: Regular Rate and Rhythm, S1, S2 Respiratory: Yes: Rhonchi (FEW SCATTERED RHONCHI) Gastrointestinal: Yes: Normal Bowel Sounds, Soft Extremities: Yes: WNL Edema: No Labs: CBC, BMP 03/12/19 06:43 03/12/19 06:43 Assessment/Plan Problem List - Problems (1) Asthma exacerbation Code(s): J45.901 - UNSPECIFIED ASTHMA WITH (ACUTE) EXACERBATION (2) COPD exacerbation Code(s): J44.1 - CHRONIC OBSTRUCTIVE PULMONARY DISEASE W (ACUTE) EXACERBATION (3) Diabetes Code(s): E11.9 - TYPE 2 DIABETES MELLITUS WITHOUT COMPLICATIONS (4) HLD (hyperlipidemia) Code(s): E78.5 - HYPERLIPIDEMIA, UNSPECIFIED (5) HTN (hypertension) Code(s): I10 - ESSENTIAL (PRIMARY) HYPERTENSION (6) Shoulder pain Code(s): M25.519 - PAIN IN UNSPECIFIED SHOULDER Qualifiers: Chronicity: acute Laterality: left Qualified Code(s): M25.512 - Pain in left shoulder Assessment/Plan Medrol taper BD TX standing an PRN sleep screen Will need LDCT chest after discharge O2 as needed VTE prophylaxis Continue Singulair Check IgE, Alplha -1-Antitrypsin level after discharge Pfts outpatient DR HAYES
[2019-03-12] MEDS: traMADol HCL 50 MG TABLET PO PRN (16:30)
[2019-03-12] MEDS: ATORVASTATIN CA 20 MG TABLET (FP) PO SCH (22:24)
[2019-03-12] MEDS: MONTELUKAST NA 10 MG TABLET PO SCH (22:24)
[2019-03-13] MEDS: INSULIN SLIDING SCALE (NOVOLOG) 1 VIAL SQ SCH ×4 (06:27→21:39)
[2019-03-13] MEDS: traMADol HCL 50 MG TABLET PO PRN ×2 (06:27→12:54)
[2019-03-13] MEDS: ALBUTEROL SO4 2.5/IPRATROPIUM 0.5 INH SOL 3 ML VIAL.NEB. NEB SCH ×4 (08:00→20:30)
[2019-03-13 08:07] LABS: BASO % 0.1 % (0-2.0); HEMATOCRIT 37.1 % (32.4-45.2); HEMOGLOBIN 12.3 GM/dL (10.7-15.3); MCH 28.4 pg (25.7-33.7); MCHC 33.2 g/dl (32.0-36.0); MEAN CELL VOLUME 85.5 fl (80-96); MEAN PLT VOLUME 7.4 fl (7.5-11.1); MONO % 4.6 % (3.8-10.2); NEUT % 73.3 % (42.8-82.8); PLATELET COUNT 402 K/MM3 (134-434); RBC 4.33 M/mm3 (3.60-5.2); RDW 15.6 % (11.6-15.6); WHITE BLOOD COUNT 8.3 K/mm3 (4.0-10.0)
[2019-03-13 08:34] LABS: ALBUMIN 3.3 g/dl (3.4-5.0); BILIRUBIN,TOTAL 0.3 mg/dL (0.2-1); BLOOD UREA NITROGEN 20.7 mg/dL (7-18); CALCIUM 8.9 mg/dL (8.5-10.1); CREATININE 0.7 mg/dL (0.55-1.3); MAGNESIUM 2.1 mg/dL (1.8-2.4); POTASSIUM 4.7 mmol/L (3.5-5.1); TOT PROT 6.3 g/dl (6.4-8.2)
[2019-03-13] MEDS: ASPIRIN 81 MG CHEWABLE TABLETS PO SCH (09:05)
[2019-03-13] MEDS: PANTOPRAZOLE 40 MG TABLET (FP) PO SCH (09:05)
[2019-03-13] MEDS: HEPARIN NA (PORCINE) 5,000 UNITS/ML 1ML VIAL SQ SCH ×2 (09:05→21:22)
[2019-03-13] MEDS: LISINOPRIL 10 MG TABLET (FP) PO SCH (09:05)
[2019-03-13] MEDS: methylPREDNISolone NA SUCC 40 MG/1 ML VIAL IVPUSH SCH ×2 (09:06→21:22)
[2019-03-13] MEDS: POLYETHYLENE GLYCOL 3350 119 GM BTL PO SCH (09:07)
[2019-03-13] MEDS: NYSTATIN 100000 UNIT/GM TOPICAL OINTMENT 15 GM TUBE TP SCH ×2 (09:08→21:23)
[2019-03-13] MEDS: oxyCODONE HCL 5 MG TABLET PO PRN ×2 (09:18→15:57)
--- NOTE | 2019-03-13 09:50 | PN ---
Progress Note (short form) - Note Progress Note: Pt stable from an orthopedic point of view. She is refusing to wear the shoulder sling. I would prefer her to use it but it is not absolutely necessary. I reviewed the left shoulder x-rays done recently. They look good, the reverse total shoulder prosthesis is in a good position. No evidence of loosening. NTD orthopedically. Will follow.
--- NOTE | 2019-03-13 12:05 | PN ---
Progress Note, Physician Chief Complaint: left shoulder pain, coughing breathing still not at baseline. History of Present Illness: Patient is a 63 year old female with a significant past medical history of diabetes, asthma COPD, DM, HTN, HLD presents with cough and SOB Pt endorses having increased cough productive of yellowish sputum since last Tuesday. Admitted for acute COPD exacerbation. - Current Medication List Current Medications: Active Medications Acetaminophen (Tylenol -) 650 mg PO Q6H PRN PRN Reason: Fever Or Pain Last Admin: 03/12/19 22:25 Dose: 650 mg Acetaminophen (Tylenol -) 325 mg PO Q12H PRN PRN Reason: PAIN 6-10 Last Admin: 03/11/19 15:27 Dose: 325 mg Al Hydroxide/Mg Hydroxide (Mylanta Oral Suspension -) 30 ml PO Q6H PRN PRN Reason: DYSPEPSIA Last Admin: 03/11/19 15:26 Dose: 30 ml Albuterol Sulfate (Ventolin 0.083% Nebulizer Soln -) 1 amp NEB Q4H PRN PRN Reason: SHORT OF BREATH/WHEEZING Albuterol/Ipratropium (Duoneb -) 1 amp NEB RQID [facility] Last Admin: 03/13/19 11:44 Dose: 1 amp Aspirin (Asa -) 81 mg PO DAILY [facility] Last Admin: 03/13/19 09:05 Dose: 81 mg Atorvastatin Calcium (Lipitor -) 20 mg PO HS [facility] Last Admin: 03/12/19 22:24 Dose: 20 mg Heparin Sodium (Porcine) (Heparin -) 5,000 unit SQ BID [facility] Last Admin: 03/13/19 09:05 Dose: 5,000 unit Insulin Aspart (Novolog Vial Sliding Scale -) 1 vial SQ ACHS [facility]; Protocol Last Admin: 03/13/19 06:27 Dose: 4 units Lisinopril (Prinivil) 10 mg PO DAILY [facility] Last Admin: 03/13/19 09:05 Dose: 10 mg Methylprednisolone Sodium Succinate (Solu-Medrol -) 40 mg IVPUSH BID [facility] Last Admin: 03/13/19 09:06 Dose: 40 mg Montelukast Sodium (Singulair -) 10 mg PO HS [facility] Last Admin: 03/12/19 22:24 Dose: 10 mg Nystatin (Mycostatin Ointment -) 1 applic TP BID [facility] Last Admin: 03/13/19 09:08 Dose: 1 applic Oxycodone HCl (Roxicodone -) 5 mg PO Q12H PRN PRN Reason: PAIN LEVEL 7 - 10 Last Admin: 03/13/19 09:18 Dose: 5 mg Pantoprazole Sodium (Protonix -) 40 mg PO DAILY [facility] Last Admin: 03/13/19 09:05 Dose: 40 mg Polyethylene Glycol (Miralax (For Daily Use) -) 17 gm PO DAILY [facility] Last Admin: 03/13/19 09:07 Dose: 17 gm Tramadol HCl (Ultram -) 50 mg PO Q6H PRN PRN Reason: PAIN LEVEL 4 - 6 Last Admin: 03/13/19 06:27 Dose: 50 mg - Objective Vital Signs: Vital Signs Temperature 98.7 F 03/13/19 10:00 Pulse Rate 82 03/13/19 10:00 Respiratory Rate 20 03/13/19 10:00 Blood Pressure 150/83 03/13/19 10:00 O2 Sat by Pulse Oximetry (%) 97 03/13/19 09:00 Constitutional: Yes: Calm Eyes: Yes: WNL HENT: Yes: Atraumatic Neck: Yes: Supple Cardiovascular: Yes: Regular Rate and Rhythm Respiratory: Yes: Accessory Muscle Use, Cough, On Nasal O2, Poor Air Entry, Rales, SOB, SOB on Exertion, Tachypnea Gastrointestinal: Yes: Normal Bowel Sounds, Soft ...Rectal Exam: Yes: Deferred Labs: CBC, BMP 03/13/19 07:41 03/13/19 07:41 Problem List - Problems (1) COPD exacerbation Assessment/Plan: on solumedrol taper pulmonary following improving with stable oxygen saturations Code(s): J44.1 - CHRONIC OBSTRUCTIVE PULMONARY DISEASE W (ACUTE) EXACERBATION (2) Dysphagia Assessment/Plan: seen by speech therapist No overt signs of aspiration. patient to follow with her GI upon dc Code(s): R13.10 - DYSPHAGIA, UNSPECIFIED (3) Diabetes Code(s): E11.9 - TYPE 2 DIABETES MELLITUS WITHOUT COMPLICATIONS (4) HLD (hyperlipidemia) Assessment/Plan: on statin therapy Code(s): E78.5 - HYPERLIPIDEMIA, UNSPECIFIED (5) HTN (hypertension) Assessment/Plan: controlled Code(s): I10 - ESSENTIAL (PRIMARY) HYPERTENSION (6) Shoulder pain Assessment/Plan: followed by ortho, on a sling pain managed with oxycodone Code(s): M25.519 - PAIN IN UNSPECIFIED SHOULDER Qualifiers: Chronicity: acute Laterality: left Qualified Code(s): M25.512 - Pain in left shoulder (7) Prophylactic measure Assessment/Plan: fen tolerating po monitor electrolytes ambulation protonix Code(s): Z29.9 - ENCOUNTER FOR PROPHYLACTIC MEASURES, UNSPECIFIED Visit type - Emergency Visit Emergency Visit: Yes ED Registration Date: 03/10/19 Care time: The patient presented to the Emergency Department on the above date and was hospitalized for further evaluation of their emergent condition. - New Patient This patient is new to me today: Yes Date on this admission: 03/13/19 - Critical Care Critical Care patient: No - Discharge Referral Referred to [facility] No
[2019-03-13] MEDS: LIDOCAINE 5% TOPICAL PATCH TP SCH (12:55)
[2019-03-13] MEDS: FLUTICASONE PROP 0.05% 16 GM NASAL SPRAY NS SCH ×2 (14:04→21:23)
--- NOTE | 2019-03-13 16:16 | PN ---
Progress Note, Physician History of Present Illness: pulmonary alert,less dyspneic c/o back and shoulder pain - Current Medication List Current Medications: Active Medications Acetaminophen (Tylenol -) 650 mg PO Q6H PRN PRN Reason: Fever Or Pain Last Admin: 03/12/19 22:25 Dose: 650 mg Acetaminophen (Tylenol -) 325 mg PO Q12H PRN PRN Reason: PAIN 6-10 Last Admin: 03/11/19 15:27 Dose: 325 mg Al Hydroxide/Mg Hydroxide (Mylanta Oral Suspension -) 30 ml PO Q6H PRN PRN Reason: DYSPEPSIA Last Admin: 03/11/19 15:26 Dose: 30 ml Albuterol Sulfate (Ventolin 0.083% Nebulizer Soln -) 1 amp NEB Q4H PRN PRN Reason: SHORT OF BREATH/WHEEZING Albuterol/Ipratropium (Duoneb -) 1 amp NEB RQID [facility] Last Admin: 03/13/19 16:09 Dose: 1 amp Aspirin (Asa -) 81 mg PO DAILY [facility] Last Admin: 03/13/19 09:05 Dose: 81 mg Atorvastatin Calcium (Lipitor -) 20 mg PO HS [facility] Last Admin: 03/12/19 22:24 Dose: 20 mg Fluticasone Propionate (Flonase -) 1 spray NS BID [facility] Last Admin: 03/13/19 14:04 Dose: 1 spray Heparin Sodium (Porcine) (Heparin -) 5,000 unit SQ BID [facility] Last Admin: 03/13/19 09:05 Dose: 5,000 unit Insulin Aspart (Novolog Vial Sliding Scale -) 1 vial SQ [facility]; Protocol Last Admin: 03/13/19 12:18 Dose: 4 units Insulin Detemir (Levemir Vial) 5 units SQ [facility] Lidocaine (Lidoderm Patch -) 1 patch TP DAILY [facility] Last Admin: 03/13/19 12:55 Dose: 1 patch Lisinopril (Prinivil) 10 mg PO DAILY [facility] Last Admin: 03/13/19 09:05 Dose: 10 mg Methylprednisolone Sodium Succinate (Solu-Medrol -) 40 mg IVPUSH BID [facility] Last Admin: 03/13/19 09:06 Dose: 40 mg Miscellaneous (Lidoderm Patch Removal) 1 each MC DAILY@2200 [facility] Montelukast Sodium (Singulair -) 10 mg PO [facility] Last Admin: 03/12/19 22:24 Dose: 10 mg Nystatin (Mycostatin Ointment -) 1 applic TP BID [facility] Last Admin: 03/13/19 09:08 Dose: 1 applic Oxycodone HCl (Roxicodone -) 10 mg PO Q12H PRN PRN Reason: PAIN LEVEL 7 - 10 Last Admin: 03/13/19 15:57 Dose: 10 mg Pantoprazole Sodium (Protonix -) 40 mg PO DAILY [facility] Last Admin: 03/13/19 09:05 Dose: 40 mg Polyethylene Glycol (Miralax (For Daily Use) -) 17 gm PO DAILY [facility] Last Admin: 03/13/19 09:07 Dose: 17 gm Tramadol HCl (Ultram -) 50 mg PO Q6H PRN PRN Reason: PAIN LEVEL 4 - 6 Last Admin: 03/13/19 12:54 Dose: 50 mg - Objective Vital Signs: Vital Signs Temperature 97.8 F 03/13/19 14:19 Pulse Rate 85 03/13/19 14:19 Respiratory Rate 20 03/13/19 14:19 Blood Pressure 161/97 03/13/19 14:19 O2 Sat by Pulse Oximetry (%) 97 03/13/19 09:00 Constitutional: Yes: Well Nourished, Mild Distress (mild distress secondary pain ) Eyes: Yes: WNL HENT: Yes: WNL Neck: Yes: WNL Cardiovascular: Yes: Regular Rate and Rhythm, S1, S2 Respiratory: Yes: Wheezes (scattered sudhakar wheezes) Gastrointestinal: Yes: Normal Bowel Sounds, Soft Extremities: Yes: WNL Edema: No Labs: CBC, BMP 03/13/19 07:41 03/13/19 07:41 Assessment/Plan Problem List - Problems (1) Asthma exacerbation Code(s): J45.901 - UNSPECIFIED ASTHMA WITH (ACUTE) EXACERBATION (2) COPD exacerbation Code(s): J44.1 - CHRONIC OBSTRUCTIVE PULMONARY DISEASE W (ACUTE) EXACERBATION (3) Diabetes Code(s): E11.9 - TYPE 2 DIABETES MELLITUS WITHOUT COMPLICATIONS (4) HLD (hyperlipidemia) Code(s): E78.5 - HYPERLIPIDEMIA, UNSPECIFIED (5) HTN (hypertension) Code(s): I10 - ESSENTIAL (PRIMARY) HYPERTENSION (6) Shoulder pain Code(s): M25.519 - PAIN IN UNSPECIFIED SHOULDER Qualifiers: Chronicity: acute Laterality: left Qualified Code(s): M25.512 - Pain in left shoulder Assessment/Plan Medrol same dose BD TX standing an PRN sleep screen Will need LDCT chest after discharge O2 as needed VTE prophylaxis Singulair Check IgE, Alplha -1-Antitrypsin level after discharge Pfts outpatient analgesics for back and shoulder pain DR HAYES
[2019-03-13] MEDS ORDERED: INSULIN (NOVOLOG) ASPART 100 UNITS/ML 10ML VIAL ONE (20:48)
[2019-03-13] MEDS: ATORVASTATIN CA 20 MG TABLET (FP) PO SCH (21:22)
[2019-03-13] MEDS: MONTELUKAST NA 10 MG TABLET PO SCH (21:22)
[2019-03-13] MEDS: LIDOCAINE PATCH REMOVAL MC SCH (21:23)
[2019-03-13] MEDS: INSULIN (LEVEMIR) 100 UNITS/ML UNITS SQ SCH (21:24)
[2019-03-14] MEDS: oxyCODONE HCL 5 MG TABLET PO PRN ×2 (05:51→21:50)
[2019-03-14] MEDS: INSULIN SLIDING SCALE (NOVOLOG) 1 VIAL SQ SCH ×4 (06:12→21:42)
[2019-03-14] MEDS: ALBUTEROL SO4 2.5/IPRATROPIUM 0.5 INH SOL 3 ML VIAL.NEB. NEB SCH ×4 (08:00→20:17)
[2019-03-14] MEDS: ACETAMINOPHEN 325 MG TABLET (FP) PO PRN ×2 (08:50→21:52)
[2019-03-14] MEDS ORDERED: PT OWN MED DRAWER 7, Y5N ONE (09:20)
[2019-03-14 09:30] LABS: BASO % 0.3 % (0-2.0); HEMATOCRIT 41.6 % (32.4-45.2); HEMOGLOBIN 13.3 GM/dL (10.7-15.3); LYMPH % 30.7 % (8-40); MCH 27.6 pg (25.7-33.7); MCHC 31.9 g/dl (32.0-36.0); MEAN CELL VOLUME 86.6 fl (80-96); MEAN PLT VOLUME 7.4 fl (7.5-11.1); MONO % 6.4 % (3.8-10.2); NEUT % 62.6 % (42.8-82.8); PLATELET COUNT 442 K/MM3 (134-434); RBC 4.81 M/mm3 (3.60-5.2); RDW 15.5 % (11.6-15.6); WHITE BLOOD COUNT 9.5 K/mm3 (4.0-10.0)
[2019-03-14] MEDS: methylPREDNISolone NA SUCC 40 MG/1 ML VIAL IVPUSH SCH ×2 (09:33→22:05)
[2019-03-14] MEDS: LISINOPRIL 10 MG TABLET (FP) PO SCH (09:33)
[2019-03-14] MEDS: ASPIRIN 81 MG CHEWABLE TABLETS PO SCH (09:33)
[2019-03-14] MEDS: HEPARIN NA (PORCINE) 5,000 UNITS/ML 1ML VIAL SQ SCH ×2 (09:33→21:41)
[2019-03-14] MEDS: LIDOCAINE 5% TOPICAL PATCH TP SCH (09:34)
[2019-03-14] MEDS: POLYETHYLENE GLYCOL 3350 119 GM BTL PO SCH (09:35)
[2019-03-14] MEDS: FLUTICASONE PROP 0.05% 16 GM NASAL SPRAY NS SCH ×2 (09:35→21:41)
[2019-03-14] MEDS: NYSTATIN 100000 UNIT/GM TOPICAL OINTMENT 15 GM TUBE TP SCH ×2 (09:36→21:44)
[2019-03-14 09:56] LABS: ALBUMIN 3.7 g/dl (3.4-5.0); BILIRUBIN,TOTAL 0.4 mg/dL (0.2-1); BLOOD UREA NITROGEN 19.2 mg/dL (7-18); CALCIUM 9.5 mg/dL (8.5-10.1); CREATININE 0.6 mg/dL (0.55-1.3); MAGNESIUM 2.3 mg/dL (1.8-2.4); POTASSIUM 4.7 mmol/L (3.5-5.1); TOT PROT 6.7 g/dl (6.4-8.2)
--- NOTE | 2019-03-14 10:46 | PN ---
Progress Note, Physician Chief Complaint: left shoulder pain, coughing - now with green sputum breathing still not at baseline, but improved from yesterday start levaquin PO History of Present Illness: Patient is a 63 year old female with a significant past medical history of diabetes, asthma COPD, DM, HTN, HLD presents with cough and SOB Pt endorses having increased cough productive of yellowish sputum since last Tuesday. Admitted for acute COPD exacerbation. - Current Medication List Current Medications: Active Medications Acetaminophen (Tylenol -) 650 mg PO Q6H PRN PRN Reason: Fever Or Pain Last Admin: 03/14/19 08:50 Dose: 650 mg Acetaminophen (Tylenol -) 325 mg PO Q12H PRN PRN Reason: PAIN 6-10 Last Admin: 03/11/19 15:27 Dose: 325 mg Al Hydroxide/Mg Hydroxide (Mylanta Oral Suspension -) 30 ml PO Q6H PRN PRN Reason: DYSPEPSIA Last Admin: 03/11/19 15:26 Dose: 30 ml Albuterol Sulfate (Ventolin 0.083% Nebulizer Soln -) 1 amp NEB Q4H PRN PRN Reason: SHORT OF BREATH/WHEEZING Albuterol/Ipratropium (Duoneb -) 1 amp NEB RQID [facility] Last Admin: 03/14/19 08:00 Dose: 1 amp Aspirin (Asa -) 81 mg PO DAILY [facility] Last Admin: 03/14/19 09:33 Dose: 81 mg Atorvastatin Calcium (Lipitor -) 20 mg PO HS [facility] Last Admin: 03/13/19 21:22 Dose: 20 mg Fluticasone Propionate (Flonase -) 1 spray NS BID [facility] Last Admin: 03/14/19 09:35 Dose: 1 spray Heparin Sodium (Porcine) (Heparin -) 5,000 unit SQ BID [facility] Last Admin: 03/14/19 09:33 Dose: 5,000 unit Insulin Aspart (Novolog Vial Sliding Scale -) 1 vial SQ ACHS [facility]; Protocol Last Admin: 03/14/19 06:12 Dose: 2 units Insulin Detemir (Levemir Vial) 5 units SQ HS [facility] Last Admin: 03/13/19 21:24 Dose: 5 units Lidocaine (Lidoderm Patch -) 1 patch TP DAILY [facility] Last Admin: 03/14/19 09:34 Dose: 1 patch Lisinopril (Prinivil) 10 mg PO DAILY [facility] Last Admin: 03/14/19 09:33 Dose: 10 mg Methylprednisolone Sodium Succinate (Solu-Medrol -) 40 mg IVPUSH BID [facility] Last Admin: 03/14/19 09:33 Dose: 40 mg Miscellaneous (Lidoderm Patch Removal) 1 each MC DAILY@2200 [facility] Last Admin: 03/13/19 21:23 Dose: 1 each Montelukast Sodium (Singulair -) 10 mg PO HS [facility] Last Admin: 03/13/19 21:22 Dose: 10 mg Nystatin (Mycostatin Ointment -) 1 applic TP BID [facility] Last Admin: 03/14/19 09:36 Dose: 1 applic Oxycodone HCl (Roxicodone -) 10 mg PO Q12H PRN PRN Reason: PAIN LEVEL 7 - 10 Last Admin: 03/14/19 05:51 Dose: 10 mg Pantoprazole Sodium (Protonix -) 40 mg PO DAILY [facility] Last Admin: 03/13/19 09:05 Dose: 40 mg Polyethylene Glycol (Miralax (For Daily Use) -) 17 gm PO DAILY [facility] Last Admin: 03/14/19 09:35 Dose: 17 gm Tramadol HCl (Ultram -) 50 mg PO Q6H PRN PRN Reason: PAIN LEVEL 4 - 6 Last Admin: 03/13/19 12:54 Dose: 50 mg - Objective Vital Signs: Vital Signs Temperature 98.3 F 03/14/19 06:00 Pulse Rate 75 03/14/19 06:00 Respiratory Rate 20 03/14/19 06:00 Blood Pressure 142/75 03/14/19 06:00 O2 Sat by Pulse Oximetry (%) 97 03/13/19 21:00 Constitutional: Yes: Well Nourished, No Distress HENT: Yes: WNL Neck: Yes: WNL Cardiovascular: Yes: Regular Rate and Rhythm Respiratory: Yes: Accessory Muscle Use, On Nasal O2, Orthopnea, Poor Air Entry, SOB, SOB on Exertion Gastrointestinal: Yes: Normal Bowel Sounds ...Rectal Exam: Yes: Deferred Edema: No Labs: CBC, BMP 03/14/19 09:08 03/14/19 09:08 Problem List - Problems (1) COPD exacerbation Assessment/Plan: on solumedrol taper pulmonary following improving with stable oxygen saturations, but still on nasal cannula support at 2 liters. having some green sputum will send sputum culture start on levaquin 500 Code(s): J44.1 - CHRONIC OBSTRUCTIVE PULMONARY DISEASE W (ACUTE) EXACERBATION (2) Dysphagia Assessment/Plan: seen by speech therapist No overt signs of aspiration. patient to follow with her GI upon dc Code(s): R13.10 - DYSPHAGIA, UNSPECIFIED (3) Diabetes Assessment/Plan: novolog ss, bgms ac/hs Code(s): E11.9 - TYPE 2 DIABETES MELLITUS WITHOUT COMPLICATIONS (4) HLD (hyperlipidemia) Assessment/Plan: on statin therapy Code(s): E78.5 - HYPERLIPIDEMIA, UNSPECIFIED (5) HTN (hypertension) Assessment/Plan: controlled Code(s): I10 - ESSENTIAL (PRIMARY) HYPERTENSION (6) Shoulder pain Assessment/Plan: followed by ortho, on a sling pain managed with oxycodone Code(s): M25.519 - PAIN IN UNSPECIFIED SHOULDER Qualifiers: Chronicity: acute Laterality: left Qualified Code(s): M25.512 - Pain in left shoulder (7) Prophylactic measure Assessment/Plan: fen tolerating po monitor electrolytes ambulation protonix Code(s): Z29.9 - ENCOUNTER FOR PROPHYLACTIC MEASURES, UNSPECIFIED Visit type - Emergency Visit Emergency Visit: Yes ED Registration Date: 03/10/19 Care time: The patient presented to the Emergency Department on the above date and was hospitalized for further evaluation of their emergent condition. - New Patient This patient is new to me today: No - Critical Care Critical Care patient: No - Discharge Referral Referred to [facility] No
[2019-03-14] MEDS ORDERED: INSULIN (NOVOLOG) ASPART 100 UNITS/ML 10ML VIAL ONE ×2 (11:48→21:31)
[2019-03-14] MEDS: PANTOPRAZOLE 40 MG TABLET (FP) PO SCH (11:50)
--- NOTE | 2019-03-14 12:39 | PN ---
Progress Note, Physician History of Present Illness: pulmonary alert,feeling better,less dyspneic,less cough - Current Medication List Current Medications: Active Medications Acetaminophen (Tylenol -) 650 mg PO Q6H PRN PRN Reason: Fever Or Pain Last Admin: 03/14/19 08:50 Dose: 650 mg Acetaminophen (Tylenol -) 325 mg PO Q12H PRN PRN Reason: PAIN 6-10 Last Admin: 03/11/19 15:27 Dose: 325 mg Al Hydroxide/Mg Hydroxide (Mylanta Oral Suspension -) 30 ml PO Q6H PRN PRN Reason: DYSPEPSIA Last Admin: 03/11/19 15:26 Dose: 30 ml Albuterol Sulfate (Ventolin 0.083% Nebulizer Soln -) 1 amp NEB Q4H PRN PRN Reason: SHORT OF BREATH/WHEEZING Albuterol/Ipratropium (Duoneb -) 1 amp NEB RQID [facility] Last Admin: 03/14/19 08:00 Dose: 1 amp Aspirin (Asa -) 81 mg PO DAILY [facility] Last Admin: 03/14/19 09:33 Dose: 81 mg Atorvastatin Calcium (Lipitor -) 20 mg PO HS [facility] Last Admin: 03/13/19 21:22 Dose: 20 mg Fluticasone Propionate (Flonase -) 1 spray NS BID [facility] Last Admin: 03/14/19 09:35 Dose: 1 spray Heparin Sodium (Porcine) (Heparin -) 5,000 unit SQ BID [facility] Last Admin: 03/14/19 09:33 Dose: 5,000 unit Insulin Aspart (Novolog Vial Sliding Scale -) 1 vial SQ [facility]; Protocol Last Admin: 03/14/19 11:50 Dose: 10 units Insulin Detemir (Levemir Vial) 5 units SQ [facility] Last Admin: 03/13/19 21:24 Dose: 5 units Levofloxacin (Levaquin -) 500 mg PO DAILY@0600 [facility] Last Admin: 03/14/19 11:51 Dose: 500 mg Lidocaine (Lidoderm Patch -) 1 patch TP DAILY [facility] Last Admin: 03/14/19 09:34 Dose: 1 patch Lisinopril (Prinivil) 10 mg PO DAILY [facility] Last Admin: 03/14/19 09:33 Dose: 10 mg Methylprednisolone Sodium Succinate (Solu-Medrol -) 40 mg IVPUSH BID [facility] Last Admin: 03/14/19 09:33 Dose: 40 mg Miscellaneous (Lidoderm Patch Removal) 1 each MC DAILY@2200 [facility] Last Admin: 03/13/19 21:23 Dose: 1 each Montelukast Sodium (Singulair -) 10 mg PO HS [facility] Last Admin: 03/13/19 21:22 Dose: 10 mg Nystatin (Mycostatin Ointment -) 1 applic TP BID [facility] Last Admin: 03/14/19 09:36 Dose: 1 applic Oxycodone HCl (Roxicodone -) 10 mg PO Q12H PRN PRN Reason: PAIN LEVEL 7 - 10 Last Admin: 03/14/19 05:51 Dose: 10 mg Pantoprazole Sodium (Protonix -) 40 mg PO DAILY [facility] Last Admin: 03/14/19 11:50 Dose: 40 mg Polyethylene Glycol (Miralax (For Daily Use) -) 17 gm PO DAILY [facility] Last Admin: 03/14/19 09:35 Dose: 17 gm Tramadol HCl (Ultram -) 50 mg PO Q6H PRN PRN Reason: PAIN LEVEL 4 - 6 Last Admin: 03/13/19 12:54 Dose: 50 mg - Objective Vital Signs: Vital Signs Temperature 98.3 F 03/14/19 06:00 Pulse Rate 75 03/14/19 06:00 Respiratory Rate 20 03/14/19 06:00 Blood Pressure 142/75 03/14/19 06:00 O2 Sat by Pulse Oximetry (%) 97 03/13/19 21:00 Constitutional: Yes: Well Nourished, Calm Eyes: Yes: WNL HENT: Yes: WNL Neck: Yes: WNL Cardiovascular: Yes: Regular Rate and Rhythm, S1, S2 Respiratory: Yes: Wheezes (scattered sudhakar wheezes) Gastrointestinal: Yes: Normal Bowel Sounds, Soft Extremities: Yes: WNL Edema: No Labs: CBC, BMP 03/14/19 09:08 03/14/19 09:08 Assessment/Plan Problem List - Problems (1) Asthma exacerbation Code(s): J45.901 - UNSPECIFIED ASTHMA WITH (ACUTE) EXACERBATION (2) COPD exacerbation Code(s): J44.1 - CHRONIC OBSTRUCTIVE PULMONARY DISEASE W (ACUTE) EXACERBATION (3) Diabetes Code(s): E11.9 - TYPE 2 DIABETES MELLITUS WITHOUT COMPLICATIONS (4) HLD (hyperlipidemia) Code(s): E78.5 - HYPERLIPIDEMIA, UNSPECIFIED (5) HTN (hypertension) Code(s): I10 - ESSENTIAL (PRIMARY) HYPERTENSION (6) Shoulder pain Code(s): M25.519 - PAIN IN UNSPECIFIED SHOULDER Qualifiers: Chronicity: acute Laterality: left Qualified Code(s): M25.512 - Pain in left shoulder Assessment/Plan continue Medrol same dose BD TX standing an PRN sleep screen Will need chest after discharge O2 as needed VTE prophylaxis Singulair Check IgE, Alplha -1-Antitrypsin level after discharge Pfts outpatient analgesics for back and shoulder pain DR HAYES
[2019-03-14] MEDS: traMADol HCL 50 MG TABLET PO PRN (16:38)
[2019-03-14] MEDS: INSULIN (LEVEMIR) 100 UNITS/ML UNITS SQ SCH (21:40)
[2019-03-14] MEDS: LIDOCAINE PATCH REMOVAL MC SCH (21:41)
[2019-03-14] MEDS: ATORVASTATIN CA 20 MG TABLET (FP) PO SCH (21:42)
[2019-03-14] MEDS: MONTELUKAST NA 10 MG TABLET PO SCH (21:42)
[2019-03-15] MEDS: traMADol HCL 50 MG TABLET PO PRN (05:10)
[2019-03-15] MEDS ORDERED: INSULIN (NOVOLOG) ASPART 100 UNITS/ML 10ML VIAL ONE ×2 (06:39→07:00)
[2019-03-15] MEDS: INSULIN SLIDING SCALE (NOVOLOG) 1 VIAL SQ SCH ×4 (06:40→21:39)
[2019-03-15] MEDS: ALBUTEROL SO4 2.5/IPRATROPIUM 0.5 INH SOL 3 ML VIAL.NEB. NEB SCH ×4 (08:30→21:36)
[2019-03-15 08:58] LABS: BASO % 0.2 % (0-2.0); HEMATOCRIT 41.6 % (32.4-45.2); HEMOGLOBIN 13.6 GM/dL (10.7-15.3); LYMPH % 31.3 % (8-40); MCH 27.9 pg (25.7-33.7); MCHC 32.6 g/dl (32.0-36.0); MEAN CELL VOLUME 85.7 fl (80-96); MEAN PLT VOLUME 7.8 fl (7.5-11.1); MONO % 5.1 % (3.8-10.2); NEUT % 63.4 % (42.8-82.8); PLATELET COUNT 470 K/MM3 (134-434); RBC 4.86 M/mm3 (3.60-5.2); RDW 15.8 % (11.6-15.6)
[2019-03-15 09:30] LABS: ALBUMIN 3.7 g/dl (3.4-5.0); BILIRUBIN,TOTAL 0.3 mg/dL (0.2-1); BLOOD UREA NITROGEN 18.7 mg/dL (7-18); CALCIUM 9.4 mg/dL (8.5-10.1); CREATININE 0.7 mg/dL (0.55-1.3); MAGNESIUM 2.4 mg/dL (1.8-2.4); POTASSIUM 4.8 mmol/L (3.5-5.1); TOT PROT 6.8 g/dl (6.4-8.2)
[2019-03-15] MEDS: ASPIRIN 81 MG CHEWABLE TABLETS PO SCH (09:45)
[2019-03-15] MEDS: PANTOPRAZOLE 40 MG TABLET (FP) PO SCH (09:46)
[2019-03-15] MEDS: LISINOPRIL 10 MG TABLET (FP) PO SCH (09:46)
[2019-03-15] MEDS: methylPREDNISolone NA SUCC 40 MG/1 ML VIAL IVPUSH SCH ×2 (09:46→21:38)
[2019-03-15] MEDS: HEPARIN NA (PORCINE) 5,000 UNITS/ML 1ML VIAL SQ SCH ×2 (09:46→21:38)
[2019-03-15] MEDS: LIDOCAINE 5% TOPICAL PATCH TP SCH (09:51)
[2019-03-15] MEDS: FLUTICASONE PROP 0.05% 16 GM NASAL SPRAY NS SCH ×2 (09:57→21:37)
[2019-03-15] MEDS: POLYETHYLENE GLYCOL 3350 119 GM BTL PO SCH (12:07)
[2019-03-15] MEDS: NYSTATIN 100000 UNIT/GM TOPICAL OINTMENT 15 GM TUBE TP SCH ×2 (12:10→21:39)
[2019-03-15] MEDS ORDERED: ONDANSETRON 4 MG/2 ML VIAL IVPUSH PRN (13:18)
[2019-03-15 13:56] LABS: ANISOCYTOSIS 0; MACROCYTOSIS 0; PLATELET ESTIMATE NORMAL
[2019-03-15 14:21] VITALS: BMI 30.9
[2019-03-15] MEDS: KETOROLAC TROMETHAMINE 10 MG TABLET PO SCH ×2 (15:21→21:52)
--- NOTE | 2019-03-15 17:14 | PN ---
Progress Note (short form) - Note Progress Note: PULMONARY Still with shortness of breath, cough and wheezing. Vital Signs Period Temp Pulse Resp BP Sys/Mason Pulse Ox Last 24 Hr 98.4 F-98.7 F 73-83 18-20 141-152/66-76 98 Gen: mildly tachypneic at rest Heart: RRR Lung: scattered rhonchi, wheezes Abd: soft, nontender Ext: no edema CBC, BMP 03/15/19 07:45 03/15/19 07:45 Active Medications Acetaminophen (Tylenol -) 650 mg PO Q6H PRN PRN Reason: Fever Or Pain Last Admin: 03/14/19 08:50 Dose: 650 mg Acetaminophen (Tylenol -) 325 mg PO Q12H PRN PRN Reason: PAIN 6-10 Last Admin: 03/14/19 21:52 Dose: 325 mg Al Hydroxide/Mg Hydroxide (Mylanta Oral Suspension -) 30 ml PO Q6H PRN PRN Reason: DYSPEPSIA Last Admin: 03/11/19 15:26 Dose: 30 ml Albuterol Sulfate (Ventolin 0.083% Nebulizer Soln -) 1 amp NEB Q4H PRN PRN Reason: SHORT OF BREATH/WHEEZING Albuterol/Ipratropium (Duoneb -) 1 amp NEB RQID [facility] Last Admin: 03/15/19 12:10 Dose: 1 amp Aspirin (Asa -) 81 mg PO DAILY [facility] Last Admin: 03/15/19 09:45 Dose: 81 mg Atorvastatin Calcium (Lipitor -) 20 mg PO HS [facility] Last Admin: 03/14/19 21:42 Dose: 20 mg Fluticasone Propionate (Flonase -) 1 spray NS BID [facility] Last Admin: 03/15/19 09:57 Dose: 1 spray Heparin Sodium (Porcine) (Heparin -) 5,000 unit SQ BID [facility] Last Admin: 03/15/19 09:46 Dose: 5,000 unit Insulin Aspart (Novolog Vial Sliding Scale -) 1 vial SQ [facility]; Protocol Last Admin: 03/15/19 12:05 Dose: 2 units Insulin Detemir (Levemir Vial) 5 units SQ HS [facility] Last Admin: 03/14/19 21:40 Dose: 5 units Ketorolac Tromethamine (Toradol) 10 mg PO TID [facility] Stop: 03/20/19 13:59 Last Admin: 03/15/19 15:21 Dose: 10 mg Levofloxacin (Levaquin -) 500 mg PO DAILY@0600 [facility] Last Admin: 03/15/19 06:40 Dose: 500 mg Lidocaine (Lidoderm Patch -) 1 patch TP DAILY [facility] Last Admin: 03/15/19 09:51 Dose: 1 patch Lisinopril (Prinivil) 10 mg PO DAILY [facility] Last Admin: 03/15/19 09:46 Dose: 10 mg Methylprednisolone Sodium Succinate (Solu-Medrol -) 40 mg IVPUSH BID [facility] Last Admin: 03/15/19 09:46 Dose: 40 mg Miscellaneous (Lidoderm Patch Removal) 1 each MC DAILY@2200 [facility] Last Admin: 03/14/19 21:41 Dose: 1 each Montelukast Sodium (Singulair -) 10 mg PO HS [facility] Last Admin: 03/14/19 21:42 Dose: 10 mg Nystatin (Mycostatin Ointment -) 1 applic TP BID [facility] Last Admin: 03/15/19 12:10 Dose: 1 applic Ondansetron HCl (Zofran Injection) 4 mg IVPUSH Q6H PRN PRN Reason: NAUSEA AND/OR VOMITING Last Admin: 03/15/19 13:41 Dose: 4 mg Pantoprazole Sodium (Protonix -) 40 mg PO DAILY [facility] Last Admin: 03/15/19 09:46 Dose: 40 mg Polyethylene Glycol (Miralax (For Daily Use) -) 17 gm PO DAILY [facility] Last Admin: 03/15/19 12:07 Dose: 17 gm Tramadol HCl (Ultram -) 50 mg PO Q6H PRN PRN Reason: PAIN LEVEL 4 - 6 Last Admin: 03/15/19 05:10 Dose: 50 mg A/P Acute Asthma Exacerbation HTN DM Hyperlipidemia - continue medrol at current dose - inhaled bronchodilators - singulair - O2 to keep SpO2 >905 - outpt PFTs - DVT prophylaxis
--- NOTE | 2019-03-15 20:41 | PN ---
Progress Note, Physician Chief Complaint: left shoulder pain, coughing breathing still not at baseline, slowly improving History of Present Illness: Patient is a 63 year old female with a significant past medical history of diabetes, asthma COPD, DM, HTN, HLD presents with cough and SOB Pt endorses having increased cough productive of yellowish sputum since last Tuesday. Admitted for acute COPD exacerbation. - Current Medication List Current Medications: Active Medications Acetaminophen (Tylenol -) 650 mg PO Q6H PRN PRN Reason: Fever Or Pain Last Admin: 03/14/19 08:50 Dose: 650 mg Acetaminophen (Tylenol -) 325 mg PO Q12H PRN PRN Reason: PAIN 6-10 Last Admin: 03/14/19 21:52 Dose: 325 mg Al Hydroxide/Mg Hydroxide (Mylanta Oral Suspension -) 30 ml PO Q6H PRN PRN Reason: DYSPEPSIA Last Admin: 03/11/19 15:26 Dose: 30 ml Albuterol Sulfate (Ventolin 0.083% Nebulizer Soln -) 1 amp NEB Q4H PRN PRN Reason: SHORT OF BREATH/WHEEZING Albuterol/Ipratropium (Duoneb -) 1 amp NEB RQID [facility] Last Admin: 03/15/19 19:15 Dose: 1 amp Aspirin (Asa -) 81 mg PO DAILY [facility] Last Admin: 03/15/19 09:45 Dose: 81 mg Atorvastatin Calcium (Lipitor -) 20 mg PO HS [facility] Last Admin: 03/14/19 21:42 Dose: 20 mg Fluticasone Propionate (Flonase -) 1 spray NS BID [facility] Last Admin: 03/15/19 09:57 Dose: 1 spray Heparin Sodium (Porcine) (Heparin -) 5,000 unit SQ BID [facility] Last Admin: 03/15/19 09:46 Dose: 5,000 unit Insulin Aspart (Novolog Vial Sliding Scale -) 1 vial SQ [facility]; Protocol Last Admin: 03/15/19 17:46 Dose: 2 units Insulin Detemir (Levemir Vial) 5 units SQ [facility] Last Admin: 03/14/19 21:40 Dose: 5 units Ketorolac Tromethamine (Toradol) 10 mg PO TID [facility] Stop: 03/20/19 13:59 Last Admin: 03/15/19 15:21 Dose: 10 mg Levofloxacin (Levaquin -) 500 mg PO DAILY@0600 [facility] Last Admin: 03/15/19 06:40 Dose: 500 mg Lidocaine (Lidoderm Patch -) 1 patch TP DAILY [facility] Last Admin: 03/15/19 09:51 Dose: 1 patch Lisinopril (Prinivil) 10 mg PO DAILY [facility] Last Admin: 03/15/19 09:46 Dose: 10 mg Methylprednisolone Sodium Succinate (Solu-Medrol -) 40 mg IVPUSH BID [facility] Last Admin: 03/15/19 09:46 Dose: 40 mg Miscellaneous (Lidoderm Patch Removal) 1 each MC DAILY@2200 [facility] Last Admin: 03/14/19 21:41 Dose: 1 each Montelukast Sodium (Singulair -) 10 mg PO HS [facility] Last Admin: 03/14/19 21:42 Dose: 10 mg Nystatin (Mycostatin Ointment -) 1 applic TP BID [facility] Last Admin: 03/15/19 12:10 Dose: 1 applic Ondansetron HCl (Zofran Injection) 4 mg IVPUSH Q6H PRN PRN Reason: NAUSEA AND/OR VOMITING Last Admin: 03/15/19 13:41 Dose: 4 mg Pantoprazole Sodium (Protonix -) 40 mg PO DAILY [facility] Last Admin: 03/15/19 09:46 Dose: 40 mg Polyethylene Glycol (Miralax (For Daily Use) -) 17 gm PO DAILY [facility] Last Admin: 03/15/19 12:07 Dose: 17 gm Tramadol HCl (Ultram -) 50 mg PO Q6H PRN PRN Reason: PAIN LEVEL 4 - 6 Last Admin: 03/15/19 05:10 Dose: 50 mg - Objective Vital Signs: Vital Signs Temperature 98.8 F 03/15/19 18:37 Pulse Rate 76 03/15/19 18:37 Respiratory Rate 20 03/15/19 18:37 Blood Pressure 154/81 03/15/19 18:37 O2 Sat by Pulse Oximetry (%) 96 03/15/19 09:00 Constitutional: Yes: Calm Eyes: Yes: WNL HENT: Yes: Atraumatic Neck: Yes: Supple Cardiovascular: Yes: Regular Rate and Rhythm Respiratory: Yes: Regular Gastrointestinal: Yes: Soft ...Rectal Exam: Yes: Deferred Genitourinary: Yes: WNL Musculoskeletal: Yes: WNL Extremities: Yes: WNL Integumentary: Yes: WNL (left shoulder scar) Neurological: Yes: Alert, Oriented Labs: CBC, BMP 03/15/19 07:45 03/15/19 07:45 Problem List - Problems (1) COPD exacerbation Assessment/Plan: on solumedrol taper pulmonary following improving with stable oxygen saturations, but still on nasal cannula support at 2 liters. having some green sputum and started on levaquin 500 will send sputum culture Code(s): J44.1 - CHRONIC OBSTRUCTIVE PULMONARY DISEASE W (ACUTE) EXACERBATION (2) Dysphagia Assessment/Plan: seen by speech therapist No overt signs of aspiration. patient to follow with her GI upon dc Code(s): R13.10 - DYSPHAGIA, UNSPECIFIED (3) Diabetes Assessment/Plan: novolog , [place] [facility] [place] ac/hs Code(s): E11.9 - TYPE 2 DIABETES MELLITUS WITHOUT COMPLICATIONS (4) HLD (hyperlipidemia) Assessment/Plan: on statin therapy Code(s): E78.5 - HYPERLIPIDEMIA, UNSPECIFIED (5) HTN (hypertension) Assessment/Plan: controlled Code(s): I10 - ESSENTIAL (PRIMARY) HYPERTENSION (6) Shoulder pain Assessment/Plan: followed by ortho, on a sling pain managed with toradol Code(s): M25.519 - PAIN IN UNSPECIFIED SHOULDER Qualifiers: Chronicity: acute Laterality: left Qualified Code(s): M25.512 - Pain in left shoulder (7) Prophylactic measure Assessment/Plan: fen tolerating po monitor electrolytes ambulation protonix Code(s): Z29.9 - ENCOUNTER FOR PROPHYLACTIC MEASURES, UNSPECIFIED Visit type - Emergency Visit Emergency Visit: Yes ED Registration Date: 03/10/19 Care time: The patient presented to the Emergency Department on the above date and was hospitalized for further evaluation of their emergent condition. - New Patient This patient is new to me today: No - Critical Care Critical Care patient: No - Discharge Referral Referred to [facility] Med P.C.: No
[2019-03-15] MEDS: ATORVASTATIN CA 20 MG TABLET (FP) PO SCH (21:38)
[2019-03-15] MEDS: MONTELUKAST NA 10 MG TABLET PO SCH (21:38)
[2019-03-15] MEDS: INSULIN (LEVEMIR) 100 UNITS/ML UNITS SQ SCH (21:39)
[2019-03-15] MEDS: LIDOCAINE PATCH REMOVAL MC SCH (21:40)
[2019-03-15] MEDS ORDERED: PT OWN MED DRAWER 7, Y5N ONE (21:51)
[2019-03-16] MEDS ORDERED: INSULIN (NOVOLOG) ASPART 100 UNITS/ML 10ML VIAL ONE (06:35)
[2019-03-16] MEDS: KETOROLAC TROMETHAMINE 10 MG TABLET PO SCH ×2 (06:45→15:28)
[2019-03-16] MEDS: INSULIN SLIDING SCALE (NOVOLOG) 1 VIAL SQ SCH ×2 (06:49→12:19)
[2019-03-16 08:17] LABS: BASO % 0.9 % (0-2.0); HEMOGLOBIN 13.4 GM/dL (10.7-15.3); LYMPH % 25.8 % (8-40); MCH 27.9 pg (25.7-33.7); MCHC 32.7 g/dl (32.0-36.0); MEAN CELL VOLUME 85.4 fl (80-96); MEAN PLT VOLUME 7.8 fl (7.5-11.1); MONO % 4.2 % (3.8-10.2); NEUT % 69.1 % (42.8-82.8); PLATELET COUNT 428 K/MM3 (134-434); RDW 15.6 % (11.6-15.6); WHITE BLOOD COUNT 9.3 K/mm3 (4.0-10.0)
[2019-03-16] MEDS ORDERED: PT OWN MED DRAWER 7, Y5N ONE ×2 (08:45→13:56)
[2019-03-16 08:49] LABS: ALBUMIN 3.5 g/dl (3.4-5.0); BILIRUBIN,TOTAL 0.4 mg/dL (0.2-1); BLOOD UREA NITROGEN 24.4 mg/dL (7-18); CALCIUM 9.5 mg/dL (8.5-10.1); CREATININE 0.7 mg/dL (0.55-1.3); MAGNESIUM 2.2 mg/dL (1.8-2.4); POTASSIUM 4.6 mmol/L (3.5-5.1); TOT PROT 6.5 g/dl (6.4-8.2)
[2019-03-16] MEDS: ALBUTEROL SO4 2.5/IPRATROPIUM 0.5 INH SOL 3 ML VIAL.NEB. NEB SCH ×3 (08:57→15:28)
[2019-03-16] MEDS: methylPREDNISolone NA SUCC 40 MG/1 ML VIAL IVPUSH SCH (09:21)
[2019-03-16] MEDS: FLUTICASONE PROP 0.05% 16 GM NASAL SPRAY NS SCH (09:24)
[2019-03-16] MEDS: ASPIRIN 81 MG CHEWABLE TABLETS PO SCH (09:24)
[2019-03-16] MEDS: HEPARIN NA (PORCINE) 5,000 UNITS/ML 1ML VIAL SQ SCH (09:25)
[2019-03-16] MEDS: LIDOCAINE 5% TOPICAL PATCH TP SCH (09:27)
[2019-03-16] MEDS: POLYETHYLENE GLYCOL 3350 119 GM BTL PO SCH (09:27)
[2019-03-16] MEDS: NYSTATIN 100000 UNIT/GM TOPICAL OINTMENT 15 GM TUBE TP SCH (09:30)
[2019-03-16] MEDS: LISINOPRIL 10 MG TABLET (FP) PO SCH (09:30)
[2019-03-16] MEDS: PANTOPRAZOLE 40 MG TABLET (FP) PO SCH (09:31)
[2019-03-16 11:53] LABS: ANISOCYTOSIS 2+; MACROCYTOSIS 0; PLATELET ESTIMATE NORMAL; TARGET CELLS 1+; TEAR DROP CELLS 1+
--- NOTE | 2019-03-16 12:56 | PN ---
Progress Note, Physician History of Present Illness: pulmonary alert,feeling better,comfortable,sob improved. - Current Medication List Current Medications: Active Medications Acetaminophen (Tylenol -) 650 mg PO Q6H PRN PRN Reason: Fever Or Pain Last Admin: 03/14/19 08:50 Dose: 650 mg Acetaminophen (Tylenol -) 325 mg PO Q12H PRN PRN Reason: PAIN 6-10 Last Admin: 03/14/19 21:52 Dose: 325 mg Al Hydroxide/Mg Hydroxide (Mylanta Oral Suspension -) 30 ml PO Q6H PRN PRN Reason: DYSPEPSIA Last Admin: 03/11/19 15:26 Dose: 30 ml Albuterol Sulfate (Ventolin 0.083% Nebulizer Soln -) 1 amp NEB Q4H PRN PRN Reason: SHORT OF BREATH/WHEEZING Albuterol/Ipratropium (Duoneb -) 1 amp NEB RQID [facility] Last Admin: 03/16/19 12:09 Dose: 1 amp Aspirin (Asa -) 81 mg PO DAILY [facility] Last Admin: 03/16/19 09:24 Dose: 81 mg Atorvastatin Calcium (Lipitor -) 20 mg PO HS [facility] Last Admin: 03/15/19 21:38 Dose: 20 mg Fluticasone Propionate (Flonase -) 1 spray NS BID [facility] Last Admin: 03/16/19 09:24 Dose: 1 spray Heparin Sodium (Porcine) (Heparin -) 5,000 unit SQ BID [facility] Last Admin: 03/16/19 09:25 Dose: 5,000 unit Insulin Aspart (Novolog Vial Sliding Scale -) 1 vial SQ [facility]; Protocol Last Admin: 03/16/19 12:19 Dose: 2 units Insulin Detemir (Levemir Vial) 5 units SQ [facility] Last Admin: 03/15/19 21:39 Dose: 5 units Ketorolac Tromethamine (Toradol) 10 mg PO TID [facility] Stop: 03/20/19 13:59 Last Admin: 03/16/19 06:45 Dose: 10 mg Levofloxacin (Levaquin -) 500 mg PO DAILY@0600 [facility] Last Admin: 03/16/19 06:46 Dose: 500 mg Lidocaine (Lidoderm Patch -) 1 patch TP DAILY [facility] Last Admin: 03/16/19 09:27 Dose: 1 patch Lisinopril (Prinivil) 10 mg PO DAILY [facility] Last Admin: 03/16/19 09:30 Dose: 10 mg Methylprednisolone Sodium Succinate (Solu-Medrol -) 40 mg IVPUSH BID [facility] Last Admin: 03/16/19 09:21 Dose: 40 mg Miscellaneous (Lidoderm Patch Removal) 1 each MC DAILY@2200 [facility] Last Admin: 03/15/19 21:40 Dose: 1 each Montelukast Sodium (Singulair -) 10 mg PO HS [facility] Last Admin: 03/15/19 21:38 Dose: 10 mg Nystatin (Mycostatin Ointment -) 1 applic TP BID [facility] Last Admin: 03/16/19 09:30 Dose: 1 applic Ondansetron HCl (Zofran Injection) 4 mg IVPUSH Q6H PRN PRN Reason: NAUSEA AND/OR VOMITING Last Admin: 03/15/19 13:41 Dose: 4 mg Pantoprazole Sodium (Protonix -) 40 mg PO DAILY [facility] Last Admin: 03/16/19 09:31 Dose: 40 mg Polyethylene Glycol (Miralax (For Daily Use) -) 17 gm PO DAILY [facility] Last Admin: 03/16/19 09:27 Dose: 17 gm Fluticasone/Salmeterol (Advair 100mcg/50mcg -) 1 puff IH BID [facility] Tramadol HCl (Ultram -) 50 mg PO Q6H PRN PRN Reason: PAIN LEVEL 4 - 6 Last Admin: 03/15/19 05:10 Dose: 50 mg - Objective Vital Signs: Vital Signs Temperature 97.8 F 03/16/19 06:00 Pulse Rate 89 03/16/19 09:18 Respiratory Rate 20 03/16/19 09:18 Blood Pressure 156/76 03/16/19 09:18 O2 Sat by Pulse Oximetry (%) 96 03/15/19 21:00 Constitutional: Yes: Well Nourished, Calm Eyes: Yes: WNL HENT: Yes: WNL Neck: Yes: WNL Cardiovascular: Yes: Regular Rate and Rhythm, S1, S2 Respiratory: Yes: Wheezes (few scattered wheezes) Gastrointestinal: Yes: Normal Bowel Sounds, Soft Extremities: Yes: WNL Edema: No Labs: CBC, BMP 03/16/19 07:20 03/16/19 07:20 Assessment/Plan Problem List - Problems (1) Asthma exacerbation Code(s): J45.901 - UNSPECIFIED ASTHMA WITH (ACUTE) EXACERBATION (2) COPD exacerbation Code(s): J44.1 - CHRONIC OBSTRUCTIVE PULMONARY DISEASE W (ACUTE) EXACERBATION (3) Diabetes Code(s): E11.9 - TYPE 2 DIABETES MELLITUS WITHOUT COMPLICATIONS (4) HLD (hyperlipidemia) Code(s): E78.5 - HYPERLIPIDEMIA, UNSPECIFIED (5) HTN (hypertension) Code(s): I10 - ESSENTIAL (PRIMARY) HYPERTENSION (6) Shoulder pain Code(s): M25.519 - PAIN IN UNSPECIFIED SHOULDER Qualifiers: Chronicity: acute Laterality: left Qualified Code(s): M25.512 - Pain in left shoulder Assessment/PlaN prednisone 60mg po daily symbicort 160/4.5 2puffs bid spiriva 2 puffs bid O2 as needed VTE prophylaxis Singulair Check IgE, Alplha -1-Antitrypsin level after discharge Pfts outpatient analgesics for back and shoulder pain low dose chest ct outpatient for lung cancer screening DR HAYES
--- NOTE | 2019-03-16 14:49 | DS ---
Physical Exam: SUBJECTIVE: Patient seen and examined OBJECTIVE: Vital Signs Period Temp Pulse Resp BP Sys/Mason Pulse Ox Last 24 Hr 97.7 F-98.8 F 73-100 20-20 141-159/66-81 95-98 PHYSICAL EXAM GENERAL: The patient is awake, alert, and fully oriented, in no acute distress. HEAD: Normal with no signs of trauma. EYES: PERRL, extraocular movements intact, sclera anicteric, conjunctiva clear. ENT: Ears normal, nares patent, oropharynx clear without exudates, moist mucous membranes. NECK: Trachea midline, full range of motion, supple. LUNGS: Breath sounds equal, clear to auscultation bilaterally, no wheezes, no crackles, no accessory muscle use. HEART: Regular rate and rhythm, S1, S2 without murmur, rub or gallop. ABDOMEN: Soft, nontender, nondistended, normoactive bowel sounds, no guarding, no rebound, no hepatosplenomegaly, no masses. EXTREMITIES: 2+ pulses, warm, well-perfused, no edema. NEUROLOGICAL: Cranial nerves II through XII grossly intact. Normal speech, gait not observed. PSYCH: Normal mood, normal affect. SKIN: Warm, dry, normal turgor, no rashes or lesions noted. LABS Laboratory Results - last 24 hr 03/15/19 03/15/19 03/16/19 17:43 21:18 06:25 WBC RBC Hgb Hct MCV MCH MCHC RDW Plt Count MPV Absolute Neuts (auto) Neutrophils % Neutrophils % (Manual) Band Neutrophils % Lymphocytes % Lymphocytes % (Manual) Monocytes % Monocytes % (Manual) Eosinophils % Eosinophils % (Manual) Basophils % Basophils % (Manual) Myelocytes % (Man) Promyelocytes % (Man) Blast Cells % (Manual) Nucleated RBC % Metamyelocytes Hypochromia Platelet Estimate Platelet Comment Polychromasia Poikilocytosis Anisocytosis Microcytosis Macrocytosis Spherocytes Target Cells Tear Drop Cells Stomatocytes Acanthocytes (Spur) Sodium Potassium Chloride Carbon Dioxide Anion Gap BUN Creatinine Est GFR (CKD-EPI)AfAm Est GFR (CKD-EPI)NonAf POC Glucometer 155 213 220 Random Glucose Calcium Magnesium Total Bilirubin AST ALT Alkaline Phosphatase Total Protein Albumin 03/16/19 03/16/19 03/16/19 07:20 07:20 12:09 WBC 9.3 RBC 4.80 Hgb 13.4 Hct 41.0 MCV 85.4 MCH 27.9 MCHC 32.7 RDW 15.6 Plt Count 428 MPV 7.8 Absolute Neuts (auto) 6.4 Neutrophils % 69.1 Neutrophils % (Manual) 69.6 Band Neutrophils % 0.0 Lymphocytes % 25.8 Lymphocytes % (Manual) 18.6 D Monocytes % 4.2 Monocytes % (Manual) 3 L Eosinophils % 0.0 Eosinophils % (Manual) 0.0 Basophils % 0.9 D Basophils % (Manual) 0.0 Myelocytes % (Man) 0 Promyelocytes % (Man) 0 Blast Cells % (Manual) 0 Nucleated RBC % 0 Metamyelocytes 0 Hypochromia 0 Platelet Estimate Normal Platelet Comment Present Polychromasia 0 Poikilocytosis 1+ Anisocytosis 2+ Microcytosis 1+ Macrocytosis 0 Spherocytes 1+ Target Cells 1+ Tear Drop Cells 1+ Stomatocytes 1+ Acanthocytes (Spur) 1+ Sodium 141 Potassium 4.6 Chloride 100 Carbon Dioxide 32 Anion Gap 8 BUN 24.4 H Creatinine 0.7 Est GFR (CKD-EPI)AfAm 105.38 Est GFR (CKD-EPI)NonAf 90.92 POC Glucometer 191 Random Glucose 181 H Calcium 9.5 Magnesium 2.2 Total Bilirubin 0.4 AST 25 ALT 47 Alkaline Phosphatase 95 Total Protein 6.5 Albumin 3.5 HOSPITAL COURSE: Date of Admission:03/10/19 Date of Discharge: 03/16/19 Discharge Summary Reason For Visit: EXACERBATION OF ASTHMA/OBSTRUCTIVE CHRONIC Current Active Problems Asthma exacerbation (Acute) COPD exacerbation (Acute) Dysphagia (Acute) Condition: Improved - Instructions Diet, Activity, Other Instructions: Taper off prednisone a follows prednisone 60mg once per day for 3 days prednisone 50mg once per day for 3 days prednisone 40mg once per day for 3 days prednisone 30mg once per day for 3 days prednisone 20mg once per day for 2 days prednisone 10mg once per day for 1 day - then stop continue taking Levaquin 500mg once per day for more days Symbicort has been called into your pharmacy - twice per day Sprivia 2 puffs twice per day Please follow up with Dr. Lehman for further workup including a CT of your chest as an outpatient. Referrals: Hung Lehman MD [Staff Physician] - Disposition: HOME - Home Medications Comprehensive Discharge Medication List: Ambulatory Orders Albuterol Sulfate Inhaler - [Ventolin HFA Inhaler -] 1 - 2 inh PO QID PRN metFORMIN HCL [Metformin ER Osmotic] 1,000 mg PO BID 04/06/16 Atorvastatin Ca [Lipitor] 20 mg PO HS 12/20/17 Aspirin 81 mg PO DAILY 11/22/18 Lisinopril 10 mg PO DAILY 12/05/18 Fluticasone Prop 0.05% Nasal [Flonase -] 1 - 2 spray NS DAILY 03/10/19 Loratadine [Claritin -] 10 mg PO DAILY 03/10/19 Budesonide/Formeterol Fumarate [SYMBICORT 160/4.5mcg -] 1 inh PO BID #1 cannister 03/16/19 Montelukast Na [Singulair -] 10 mg PO HS #30 tablet 03/16/19 Pantoprazole Sodium [Protonix -] 40 mg PO DAILY #30 tablet.ec 03/16/19 Prednisone [Deltasone] 20 mg PO DAILY #60 tablet 03/16/19 Tiotropium Bronson [Spiriva] 1 inh IH DAILY #1 cap.w.dev 03/16/19 levoFLOXacin [Levaquin -] 500 mg PO DAILY@0600 #5 tablet 03/16/19 Problem List - Problems (1) COPD exacerbation Code(s): J44.1 - CHRONIC OBSTRUCTIVE PULMONARY DISEASE W (ACUTE) EXACERBATION (2) Dysphagia Code(s): R13.10 - DYSPHAGIA, UNSPECIFIED (3) Diabetes Code(s): E11.9 - TYPE 2 DIABETES MELLITUS WITHOUT COMPLICATIONS (4) HLD (hyperlipidemia) Code(s): E78.5 - HYPERLIPIDEMIA, UNSPECIFIED (5) HTN (hypertension) Code(s): I10 - ESSENTIAL (PRIMARY) HYPERTENSION (6) Shoulder pain Code(s): M25.519 - PAIN IN UNSPECIFIED SHOULDER Qualifiers: Chronicity: acute Laterality: left Qualified Code(s): M25.512 - Pain in left shoulder (7) Prophylactic measure Code(s): Z29.9 - ENCOUNTER FOR PROPHYLACTIC MEASURES, UNSPECIFIED - Discharge Referral Referred to [facility] Med P.C.: No
[2019-03-16 15:44] VITALS: BP 138/76; PULSE 88; TEMP 98.3
[2019-03-16] MEDS ORDERED: BUDESONIDE/FORMETEROL FUMARATE 160/4.5 mcg INHALER IH SCH (22:00)
[2019-03-16] MEDS ORDERED: FLUTICASONE/SALMETEROL 100 MCG/50 MCG DISKUS IH SCH (22:00)
== END 2019-03-16 15:52 | disposition home or self-care (01) | DRG 140 ==
LOC: JER 10:55 → JERBED 12:44 → J5S 13:28
PROVIDERS: ATTEND Nurse Practitioner Family
DX: J44.1 Chronic obstructive pulmonary disease with (acute) exacerbation (principal); I10 Essential (primary) hypertension; E78.5 Hyperlipidemia, unspecified; E11.9 Type 2 diabetes mellitus without complications; J45.901 Unspecified asthma with (acute) exacerbation; R13.10 Dysphagia, unspecified; M25.512 Pain in left shoulder
CPT/HCPCS: 36415; 71045-TC-FY; 73030-TC-LT-FY; 80053; 82550; 82553; 82962; 83036; 83735; 83880; 84484; 85025; 93005; 93010; 94640; 94761; 97116-GP; 99284-25; J0131; J1644

== ENCOUNTER 2019-07-15 12:36 | Emergency (ER) | payer OTHER ==
--- NOTE | 2019-07-15 12:48 | PDOC ---
History of Present Illness - General Chief Complaint: Abscess Boil Stated Complaint: ABSCESS ON BACK Time Seen by Provider: 07/15/19 12:41 History Source: Patient Exam Limitations: No Limitations - History of Present Illness Initial Comments: 07/15/19 12:45 63 y/o female with infected lesion on back for several days. Getting bigger and more painful. No fever. Had this removed last year but returned. No weakness. Took Ibuprofen. Is this a multiple visit Asthma Patient?: No Past History - Past Medical History Allergies/Adverse Reactions: Allergies Allergy/AdvReac Type Severity Reaction Status Date / Time Penicillins Allergy "mother Verified 07/15/19 12:37 told as a child" Home Medications: Ambulatory Orders Albuterol Sulfate Inhaler - [Ventolin HFA Inhaler -] 1 - 2 inh PO QID PRN metFORMIN HCL [Metformin ER Osmotic] 1,000 mg PO BID 04/06/16 Atorvastatin Ca [Lipitor] 20 mg PO HS 12/20/17 Aspirin 81 mg PO DAILY 11/22/18 Lisinopril 10 mg PO DAILY 12/05/18 Fluticasone Prop 0.05% Nasal [Flonase -] 1 - 2 spray NS DAILY 03/10/19 Loratadine [Claritin -] 10 mg PO DAILY 03/10/19 Budesonide/Formeterol Fumarate [SYMBICORT 160/4.5mcg -] 1 inh PO BID #1 cannister 03/16/19 Montelukast Na [Singulair -] 10 mg PO HS #30 tablet 03/16/19 Pantoprazole Sodium [Protonix -] 40 mg PO DAILY #30 tablet.ec 03/16/19 Tiotropium Lawrence [Spiriva] 1 inh IH DAILY #1 cap.w.dev 03/16/19 levoFLOXacin [Levaquin -] 500 mg PO DAILY@0600 #5 tablet 03/16/19 predniSONE [Deltasone] 20 mg PO DAILY #60 tablet 03/16/19 Clindamycin [Cleocin -] 150 mg PO Q8H #21 capsule 07/15/19 Anemia: No Asthma: Yes ("no recent attack") Cancer: No Cardiac Disorders: No CVA: No COPD: Yes (Emphysema) CHF: No Dementia: No Diabetes: Yes GI Disorders: No Disorders: No HTN: Yes Hypercholesterolemia: Yes Liver Disease: No Seizures: No Thyroid Disease: No - Surgical History Orthopedic Surgery: Yes (left shoulder pins) - Immunization History Immunization Up to Date: Yes - Psycho Social/Smoking Cessation Hx Smoking History: Former smoker Have you smoked in the past 12 months: No Number of Cigarettes Smoked Daily: 10 If you are a former smoker, when did you quit?: 2002 Cigars Per Day: 0 Information on smoking cessation initiated: No Hx Alcohol Use: Yes (socially) Drug/Substance Use Hx: No Substance Use Type: Alcohol Hx Substance Use Treatment: No Review of Systems - Review of Systems Able to Perform ROS?: Yes Is the patient limited Vietnamese proficient: No Constitutional: No: Chills, Fever Respiratory: No: Cough, Shortness of Breath Cardiac (ROS): No: Chest Pain Musculoskeletal: No: Back Pain Integumentary: Yes: Erythema All Other Systems: Reviewed and Negative *Physical Exam - Vital Signs Last Vital Signs Temp Pulse Resp BP Pulse Ox 98 F 83 17 152/88 100 07/15/19 12:37 07/15/19 12:37 07/15/19 12:37 07/15/19 12:37 07/15/19 12:37 - Physical Exam General Appearance: Yes: Nourished, Appropriately Dressed. No: Apparent Distress HEENT: positive: Normal ENT Inspection Neck: positive: Trachea midline, Normal Thyroid, Supple. negative: Tender, Rigid Respiratory/Chest: positive: Lungs Clear, Normal Breath Sounds. negative: Chest Tender Cardiovascular: positive: Regular Rhythm, Regular Rate, S1, S2. negative: Edema , JVD, Murmur Vascular Pulses: Femoral (R): 4+, Femoral (L): 4+, Carotid (R): 4+, Carotid (L) : 4+, Dorsalis-Pedis (R): 4+, Doralis-Pedis (L): 4+ Gastrointestinal/Abdominal: positive: Normal Bowel Sounds, Flat, Soft. negative : Tender, Organomegaly Lymphatic: negative: Adenopathy, Tenderness, Other Musculoskeletal: positive: Normal Inspection. negative: CVA Tenderness Extremity: positive: Normal Capillary Refill, Normal Inspection, Normal Range of Motion Integumentary: positive: Normal Color, Dry, Warm, Swelling (large non fluctuant tender abscess to lower midline back, erythema) Neurologic: positive: singer and unloader II-XII NML intact, Fully Oriented, Alert, Normal Mood/ Affect, Normal Response, Motor Strength 11/26 ED Treatment Course - ADDITIONAL ORDERS Additional order review: 07/15/19 12:48 Abscess on back Will I&D area and place on antibiotics 07/15/19 13:00 Area not fluctuant, red and tender Using a #11 blade, area cleaned, no drainage noted Will place dressing Pt needs surgeon to remove lining Infected sebaceous cyst Discharge - Discharge Information Problems reviewed: Yes Clinical Impression/Diagnosis: Abscess Condition: Stable Disposition: HOME - Admission No - Follow up/Referral - Patient Discharge Instructions Patient Printed Discharge Instructions: DI for Incision and Drainage of a Skin Abscess Additional Instructions: Warm compress to area 3x/day for 10-15 minutes Motrin, rest Clindamycin 150 mg 3x/day for 7 days Follow up with Surgeon for removal - Post Discharge Activity
[2019-07-15 13:01] VITALS: BP 152/88; PULSE 83; TEMP 98; BMI 30.6
== END 2019-07-15 13:11 | disposition home or self-care (01) ==
LOC: FER 12:36
PROC: 0H96XZZ Drainage of Back Skin, External Approach (ICD-10-PCS; principal; 2019-07-15)
DX: L02.212 Cutaneous abscess of back [any part, except buttock and flank] (principal); J45.909 Unspecified asthma, uncomplicated; E11.9 Type 2 diabetes mellitus without complications; I10 Essential (primary) hypertension; E78.00 Pure hypercholesterolemia, unspecified; Z88.0 Allergy status to penicillin; Z79.82 Long term (current) use of aspirin; Z79.84 Long term (current) use of oral hypoglycemic drugs; Z87.891 Personal history of nicotine dependence
CPT/HCPCS: 99282-25

== ENCOUNTER 2019-09-03 05:31 | Day surgery (SDC) | payer OTHER ==
[2019-08-31 16:41] VITALS: BMI 27.6
[2019-09-03] MEDS ORDERED: ONDANSETRON 4 MG/2 ML VIAL IVPUSH PRN ×2 (09:42→12:00)
[2019-09-03] MEDS ORDERED: oxyCODONE HCL 5 MG TABLET PO PRN ×2 (09:42→12:00)
[2019-09-03] MEDS ORDERED: LACTATED RINGERS SOLUTION 1,000 ML IV SCH ×2 (09:45→12:00)
[2019-09-03] MEDS ORDERED: LIDOCAINE HCL 1%, 10 MG/ML (20ML VIAL) ONE (10:00)
[2019-09-03] MEDS ORDERED: BENZOIN/ALOE VERA/STORAX/TOLU 58 ML BOTTLE ONE (10:01)
[2019-09-03] MEDS ORDERED: ceFAZolin SODIUM 1 GM VIAL ONE (10:04)
[2019-09-03] MEDS ORDERED: LIDOCAINE HCL/PF 2% SDV 5ML VIAL ONE (10:04)
[2019-09-03] MEDS ORDERED: PROPOFOL 20 ML ONE ×2 (10:04→11:19)
[2019-09-03] MEDS ORDERED: MIDAZOLAM HCL 2 MG/2 ML SINGLE DOSE VIAL ONE (10:05)
--- NOTE | 2019-09-03 10:26 | HP ---
History & Physical Update - History History: No Change - Physical Physical: No Change - Assessment Assessment: No Change - Plan Plan: No Change (for excision of lesion of the anterior chest wall and back; r/b /t/a's d/w the patient in the office and informed consent obtained.)
[2019-09-03] MEDS ORDERED: ceFAZolin SODIUM 1 GM VIAL IVPB ONE ×2 (10:36→10:38)
[2019-09-03] MEDS ORDERED: LIDOCAINE HCL 1%, 10 MG/ML (20ML VIAL) INF ONE ×3 (10:38→10:48)
[2019-09-03] MEDS ORDERED: BUPIVACAINE HCL/PF 0.5% (5MG/ML) 10 ML VIAL IJ ONE ×3 (10:38→10:48)
[2019-09-03] MEDS ORDERED: KETOROLAC TROMETHAMINE 30 MG/1 ML VIAL ONE (10:51)
--- NOTE | 2019-09-03 11:53 | OP ---
Operative Note - Note: Operative Date: 09/03/19 Pre-Operative Diagnosis: sebaceous cyst of the anterior chest wall and posterior back Operation: excision of sebaceous cysts Findings: 1.5 cm. anterior sebaceous cyst and 2.5 cm. posterior recurrent sebaceous cyst. Surgeon: Tommy Chino Anesthesiologist/AREA ATTENDANT: Li Pederson Anesthesia: MAC Specimens Removed: sebaceous cysts Estimated Blood Loss (mls): 5
[2019-09-03 13:37] VITALS: TEMP 97.4
[2019-09-03 14:00] VITALS: BP 128/60; PULSE 78
--- NOTE | 2019-09-04 14:47 | PATH ---
Surgical Pathology Report Patient Name: MAVIS ANDRES Med. Rec. #: [id number] /Age/Gender: 1955 (Age: 63) / F Account: [id number] Location: [facility] Taken: 09/03/2019 Received: 09/03/2019 Reported: 09/04/2019 Physicians: Tommy Chino MD Specimen(s) Received SEBACEOUS CYST Clinical History Cyst of the back Final Diagnosis SEBACEOUS CYST, EXCISION: PORTIONS OF SKIN SHOWING EPIDERMAL INCLUSION CYSTS, FOCALLY RUPTURED, WITH ASSOCIATED REACTIVE CHANGES. Electronically Signed Corazon Connell M.D. Gross Description Received in formalin labeled "sebaceous cyst," are 2 lew, elliptical, unoriented portions of skin measuring 1.8 x 0.8 cm (excised to depth of 1.1 cm) and 3.4 x 1.6 cm (excised to depth of 1.8 cm). Sectioning of the smaller portion displays a cystic structure. Sectioning of the larger portion displays a possible cyst or abscess cavity. [employer] Prospect[employer] sections are submitted in one cassette. /09/03/2019 saudi/09/03/2019
--- NOTE | 2019-09-06 13:54 | OP ---
DATE OF OPERATION: 09/03/2019 PREOPERATIVE DIAGNOSIS: Sebaceous cysts in the anterior chest wall and posterior back. POSTOPERATIVE DIAGNOSIS: Sebaceous cysts in the anterior chest wall and posterior back. PROCEDURE: Excision of sebaceous cysts. SURGEON: Tommy Chino MD ANESTHESIA: Local with IV sedation. OPERATIVE FINDINGS: There was a 1.5-cm anterior chest wall sebaceous cyst and a 2.5-cm posterior, recurrent sebaceous cyst of the back. The rest of the findings were unremarkable. DESCRIPTION OF PROCEDURE: Patient was placed on the operating table in supine position, and the area over the sebaceous cyst on the anterior trunk was prepped with ChloraPrep in draped in sterile fashion. A timeout was taken, and then, a purvi-shaped excision was mapped out around the cyst and the area infiltrated with 1% Xylocaine and 0.5% Marcaine in equal quantities. Incision was made with a scalpel and taken down through skin and subcutaneous tissue, and the mass and overlying skin were excised intact and sent for pathological examination. Hemostasis was secured with electrocautery and the wound closed with interrupted 3-0 Vicryl for the deep dermis and 4-0 Monocryl in a subcuticular fashion to reapproximate the skin edges. Dry sterile dressings were placed, and then, the patient was turned to the prone position where the exact same procedure was repeated to excise the sebaceous cyst of the back. Once completed, the patient was transferred to the postanesthesia care unit in stable condition, awake and alert. ESTIMATED BLOOD LOSS: 5 mL. REPLACEMENTS: Crystalloid. DRAINS: None. SPECIMEN: Sebaceous cysts to Pathology. I, Tommy Chino, was physically present in the operating room from the time the patient was placed on the operating table until she was transferred to the postanesthesia care unit in my accompaniment. MD HIGINIO Lucas/[id number] MTDD
== END 2019-09-03 14:01 | disposition home or self-care (01) ==
LOC: JASU-SURG 05:31
PROVIDERS: ATTEND Surgery
PROC: 0HB5XZX Excision of Chest Skin, External Approach, Diagnostic (ICD-10-PCS; 2019-09-03)
PROC: 0HQ6XZZ Repair Back Skin, External Approach (ICD-10-PCS; 2019-09-03)
PROC: 0HB6XZX Excision of Back Skin, External Approach, Diagnostic (ICD-10-PCS; 2019-09-03)
PROC: 0HQ5XZZ Repair Chest Skin, External Approach (ICD-10-PCS; principal; 2019-09-03 10:00)
DX: L72.3 Sebaceous cyst (principal); I10 Essential (primary) hypertension; E78.5 Hyperlipidemia, unspecified; E11.9 Type 2 diabetes mellitus without complications; J45.909 Unspecified asthma, uncomplicated
CPT/HCPCS: 82962; 88304-TC; 94760

== ENCOUNTER 2019-09-28 05:53 | Day surgery (SDC) | payer OTHER ==
[2019-09-20 11:30] VITALS: BMI 28.5
[2019-09-28] MEDS ORDERED: MIDAZOLAM HCL 2 MG/2 ML SINGLE DOSE VIAL ONE ×2 (07:00→07:25)
[2019-09-28] MEDS ORDERED: ROPIVACAINE HCL 0.5% 30ML VIAL ONE (07:01)
[2019-09-28] MEDS ORDERED: ROCURONIUM BROMIDE 50 MG/5 ML SYRINGE ONE (07:08)
[2019-09-28] MEDS ORDERED: PROPOFOL 20 ML ONE ×2 (07:08→09:13)
--- NOTE | 2019-09-28 07:16 | HP ---
History & Physical Update - Physical Physical: No Change - Assessment Assessment: No Change - Plan Plan: No Change
[2019-09-28] MEDS ORDERED: BUPIVACAINE HCL 0.25% 125 MG/50 ML VIAL ONE (07:44)
[2019-09-28] MEDS ORDERED: EPINEPHrine 1:1,000 1 MG/1 ML - 30ML VIAL (INJECTION) ONE (07:44)
[2019-09-28] MEDS ORDERED: ceFAZolin SODIUM 1 GM VIAL ONE (08:12)
[2019-09-28] MEDS ORDERED: ePHEDrine SULFATE 50 MG/1 ML AMPULE ONE (08:17)
[2019-09-28] MEDS ORDERED: oxyCODONE HCL 5 MG TABLET PO PRN (09:02)
[2019-09-28] MEDS ORDERED: ONDANSETRON 4 MG/2 ML VIAL IVPUSH PRN (09:02)
[2019-09-28] MEDS ORDERED: LACTATED RINGERS SOLUTION 1,000 ML IV SCH (09:15)
[2019-09-28] MEDS ORDERED: SUCCINYLCHOLINE CHLORIDE 200 MG/10 ML SYRINGE ONE (09:18)
[2019-09-28] MEDS ORDERED: ALBUTEROL SO4 8 GM HFA INHALER IH ONE (10:24)
[2019-09-28 10:57] VITALS: TEMP 97.4
--- NOTE | 2019-09-28 11:34 | OPR ---
Date of Procedure: 09/28/2019 Procedure: Right Shoulder- 1. Diagnostic arthroscopy. 2. Arthroscopic extensive debridement of glenohumeral joint (69749). 3. Arthroscopic subacromial decompression (69603). 4. Arthroscopic rotator cuff repair: Supraspinatus (32786). 5. Distal clavicle resection (47118, append 51 modifier). Preoperative Diagnoses: 1. Rotator cuff tear-Supraspinatus. 2. Biceps tendon degeneration. 3. Bursitis. 4. AC joint arthrosis Postoperative Diagnoses: 1. Rotator cuff tear- Supraspinatus. 2. Biceps tendon degeneration and tear. 3. Labral degeneration and fraying; SLAP tear. 4. Chondromalacia of the glenohumeral joint. 5. Glenohumeral synovitis. 6. Subacromial bursitis and adhesions. Surgeon: Dheeraj Black DO Assistants: Aries Roth DO Anesthesia: General anesthesia, IV regional with interscalene nerve block Estimated Blood Loss: Minimal Drains: None Total IV Fluids: Per anesthesia record Specimens: None Implants: Isaacs [employer] Nephew (2) 5.5mm Healicoil PEEK Anchors, double loaded; (2) 4.5m FootPrint PEEK [place]. Complications: None Disposition: PACU Condition: Hemodynamically stable Indications: Larissa Otero presented to us with chronic right shoulder pain that failed conservative measures. Her symptoms, signs, and imaging were consistent with the above noted diagnoses. She ultimately elected to proceed with surgical intervention after discussion of the risks, benefits, alternatives. We discussed risks including but not limited to, bleeding, pain, infection, scarring, damage to neurovascular structures, blood clots, pulmonary embolus, need for additional surgery, incomplete relief of pain, and incomplete return of function. She expressed understanding and wished to proceed. She underwent preoperative medical evaluation clearance and optimization prior to surgery. Procedure Details: She was identified in the preoperative area. The right shoulder was marked as the operative site and consent was completed and confirmed. An interscalene block was performed by a member of the anesthesia team. She was later transferred to the operating room and placed in supine position the operating room. General anesthesia was induced without difficulty. She was repositioned into beach chair with all bony prominences appropriately padded. The neck was in neutral alignment. A surgical time-out was performed identifying the correct patient, procedure, and site. Antibiotics were given within 1 hour prior to surgical incision. The upper extremity was prepped and draped in standard sterile fashion. Examination under anesthesia: Passive range of motion of the right shoulder showed forward elevation of 170, abduction 100, external rotation at side 30, SABER 80, SABIR 30. This was compared to her contralateral shoulder which shows forward elevation of 170, abduction 100 external rotation at side 60, SABER 90, SABIR 30, and internal rotation to her mid thoracic spine. Diagnostic arthroscopy: We began the procedure with the standard posterolateral portal, entered the glenohumeral joint, and an anterior portal was made within the rotator cuff interval under direct visualization with the assistance of a spinal needle. A probe was used to assist with diagnostic arthroscopy and we visualized from both posteriorly and anteriorly. Evaluation of the glenohumeral joint showed mild to moderate synovitis anteriorly,superiorly, and superiorly. The superior labrum had a degenerative tear that was debrided back to a stable base. The anterior labrum was probed and found to be intact. The posterior labrum was probed and found to be intact. There were no loose bodies in the inferior pouch. There was no HAGL lesion. The biceps tendon was torn from its insertion onto the superior labrum and there was fraying of the residual stump. The rotator cuff interval was scarred. The axillary recess was empty. The subscapularis was probed and found to be frayed, but intact. The rotator cuff was found to be torn from the greater tuberosity. The articular surface of the infraspinatus and teres minor tendons were intact. The glenoid and humeral head showed grade I chondromalacia with no significant chondral defects. Evaluation of the subacromial space showed moderate bursitis and adhesions. There was an acromial spur anteriorly. There was fraying of the CA ligament. The AC joint was arthritic with spurs and loss of joint space. The rotator cuff was found to be torn from the tuberosity. Arthroscopic extensive debridement of the glenohumeral joint: We used a combination of the arthroscopic motorized shaver and radiofrequency device to perform an extensive debridement inside the glenohumeral joint anteriorly and posteriorly. The hyperemia, erythema, and synovitis of the joint and joint capsule was aggressively debrided both anteriorly and posteriorly. Synovitic fronds were thermally ablated. Labral fraying and degeneration was also resected and debrided to a stable edge anteriorly. The biceps tendon was torn at it inserted into the superior labral complex. Visualizing from posteriorly, we used the radiofrequency device to ablate and remove the scar tissue starting with the rotator cuff interval. We stayed lateral to the labrum, released the scar to the lateral surface of the coracoid, and then proceeded more laterally across the rotator interval, ablating the scar tissue all the way to the biceps hardik region. The subscapularis tendon was identified and carefully protected. The scar above it including the ligaments and capsular tissue was ablated just lateral to the labral margin and the scar tissue was resected. Arthroscopic subacromial decompression: The subacromial space was entered from posteriorly. A separate anterior-lateral portal and posterior-lateral portal were made for additional instrumentation and visualization. We then visualized the rotator cuff pattern as noted above, and performed our subacromial decompression in a systematic fashion from anterior to posterior and from lateral to medial, removing the bursal tissue carefully. This was done with a radiofrequency device and motorized shaver. The undersurface of the acromion was skeletonized and gently debrided to a flat smooth undersurface. There was a significant anterior inferior acromial spur that was resected. Arthroscopic rotator cuff repair: We turned our attention to rotator cuff repair of the supraspinatus and infraspinatus. We debrided the remnant tissue over the bicipital groove and greater tuberosity and debrided frayed tissue from the rotator cuff tendon edge. We debrided the greater tuberosity with a motorized bur to slightly decorticate it, preparing a bony bed to receive the rotator cuff tendon. We used two 5.5 mm Isaacs and Nephew PEEK helicoil anchors for repair of the rotator cuff and they were placed just lateral to the articular margin, one anteriorly and one posteriorly. These had excellent fixation within the bone. The sutures from each anchor were then passed through the supraspinatus and infraspinatus with the tissue-piercing Firstpass, approximately 1.5 cm from its torn edge in a crescentic pattern. Sutures were then shuttled appropriately through the cannulas and arthroscopic knots were tied with a knot pusher. Two ultratape sutures from the medial anchor knots were passed through the lateral row Footprint PEEK anchor and this was impacted into the lateral aspect of the greater tuberosity, one anteriorly and one posteriorly. This achieved good fixation of the rotator cuff into the greater tuberosity with good compression of the rotator cuff into the the tuberosity footprint from medial to lateral. We promoted some localized bone bleeding and marrow elements with an awl in the lateral aspect of the greater tuberosity. Arthroscopic AC joint resection: The AC joint space was narrowed, with arthritic changes including regulo-articular osteophytes and sclerosis. We used the anterior and lateral portals for instrumentation. Soft tissue within the AC joint was removed with a motorized shaver and radiofrequency device. We resected the joint by using a barrel gonzález 4 mm in diameter. 2-3 mm of the medial aspect of the acromion was burred to a flat surface and about 6-7 mm of the lateral end of the clavicle was similarly resected with the gonzález. The surrounding osteophytes were also resected. The AC joint was stable upon completion of the distal clavicle excision. Approximately 1 cm of space was present between the acromion and clavicle after the resection. We thoroughly irrigated the subacromial space and we removed the arthroscopic equipment. Wound closure: The arthroscopic portal incisions were closed with 3-0 Monocryl subcuticular stitch with Steri strips. The shoulder was sterilely dressed and placed in a shoulder immobilizer. Post-operative Details: I spoke with the family regarding the operation after surgery. Postoperative rehabilitation: Arthroscopic rotator cuff repair protocol. The patient will remain in a shoulder immobilizer for 6 weeks. Early passive range of motion okay with no limits and advance as tolerated; no pendulums. No strengthening for at least 5 months. Attestation for grants assistant: Dr. Aries Roth acted as the grants assistant. There was no qualified resident or physician bioinformatics assistant available to do so.
[2019-09-28 13:58] VITALS: BP 130/78; PULSE 78
--- NOTE | 2019-10-02 18:17 | PATH ---
Surgical Pathology Report Patient Name: MAVIS ALFRED Med. Rec. #: [id number] /Age/Gender: 1955 (Age: 63) / F Account: [id number] Location: [facility] AMBULATORY Taken: 09/28/2019 Received: 09/28/2019 Reported: 10/02/2019 Physicians: Dheeraj Black DO Specimen(s) Received RIGHT SHOULDER SHAVINGS Clinical History Right shoulder rotator cuff tear, bursitis, tendinitis Final Diagnosis RIGHT SHOULDER SHAVINGS: PORTIONS OF FIBROADIPOSE TISSUE AND SYNOVIAL TISSUE WITH FOCAL FIBROSIS. Electronically Signed Corazon Connell M.D. Gross Description Received in formalin, labeled "right shoulder shavings," is a 4.3 x 4.0 x 0.4 cm. aggregate of lew-yellow soft tissue fragments. A door to door sales representative portion is submitted in one cassette. /10/01/2019 [facility]10/01/2019
== END 2019-09-28 13:50 | disposition home or self-care (01) ==
LOC: FASU 05:53
PROVIDERS: ATTEND Orthopaedic Surgery
PROC: 0PB94ZZ Excision of Right Clavicle, Percutaneous Endoscopic Approach (ICD-10-PCS; 2019-09-28)
PROC: 0RBJ4ZZ Excision of Right Shoulder Joint, Percutaneous Endoscopic Approach (ICD-10-PCS; 2019-09-28)
PROC: 0LQ14ZZ Repair Right Shoulder Tendon, Percutaneous Endoscopic Approach (ICD-10-PCS; principal; 2019-09-28 08:32)
PROC: 0RNJ4ZZ Release Right Shoulder Joint, Percutaneous Endoscopic Approach (ICD-10-PCS; 2019-09-28 08:32)
DX: M75.111 Incomplete rotator cuff tear or rupture of right shoulder, not specified as traumatic (principal); M66.821 Spontaneous rupture of other tendons, right upper arm; S43.431A Superior glenoid labrum lesion of right shoulder, initial encounter; X58.XXXA Exposure to other specified factors, initial encounter; Y93.9 Activity, unspecified; Y92.9 Unspecified place or not applicable; M94.211 Chondromalacia, right shoulder; M65.811 Other synovitis and tenosynovitis, right shoulder; M19.011 Primary osteoarthritis, right shoulder
CPT/HCPCS: 82962; 88304-TC; 94760

== ENCOUNTER 2020-02-21 05:25 | Day surgery (SDC) | payer OTHER ==
[2020-02-18 10:32] VITALS: BMI 27.4
[2020-02-21 10:02] LABS: INR 0.9 (0.83-1.09); PROTHROMBIN TIME (PATIENT) 10.6 SEC (9.7-13.0)
[2020-02-21 10:05] LABS: ACTIVATED PTT 28.4 SECONDS (25.2-36.5)
[2020-02-21 11:15] VITALS: TEMP 97.1
--- NOTE | 2020-02-21 11:27 | EKG ---
Test Reason : Blood Pressure : / mmHG Vent. Rate : 075 BPM Atrial Rate : 075 BPM P-R Int : 156 ms QRS Dur : 066 ms QT Int : 370 ms P-R-T Axes : 046 014 022 degrees QTc Int : 413 ms NORMAL SINUS RHYTHM NORMAL ECG WHEN COMPARED WITH ECG OF 10-MAR-2019 11:27, NO SIGNIFICANT CHANGE WAS FOUND Confirmed by WAI RAMESH MD ([id number]) on 02/21/2020 11:26:31 AM Referred By: Familia Jacobsen Confirmed By:WAI RAMESH MD
[2020-02-21 12:54] VITALS: BP 124/82; PULSE 64
--- NOTE | 2020-02-22 17:55 | PATH ---
Surgical Pathology Report Patient Name: MAVIS ALFRED [facility]. Rec. #: [id number] /Age/Gender: 1955 (Age: 64) / F Account: [id number] Location: [facility]-ENDOSCOPY Taken: 02/21/2020 Received: 02/21/2020 Reported: 02/22/2020 Physicians: Ronnie Jacobsen D.O. Specimen(s) Received A: ANTRAL EROSION B: BODY/ANTRUM Clinical History Dysphagia, nausea, abnormal CT scan Postoperative diagnosis: Distal esophageal spasm, gastritis Final Diagnosis A. STOMACH, ANTRAL EROSION, BIOPSY: GASTRIC ANTRAL MUCOSA WITH SEVERE CHRONIC ACTIVE GASTRITIS. IMMUNOHISTOCHEMICAL STAIN FOR H. PYLORI IS POSITIVE (FEW). B. STOMACH, BODY/ANTRUM, BIOPSY: GASTRIC ANTRAL AND BODY MUCOSA WITH MODERATE CHRONIC ACTIVE GASTRITIS AND INTESTINAL METAPLASIA. NO DYSPLASIA IDENTIFIED. IMMUNOHISTOCHEMICAL STAIN FOR H. PYLORI IS POSITIVE (MANY). Positive and negative controls (internal if applicable) show appropriate results. Electronically Signed Debby Holder M.D. Gross Description A. Received in formalin, labeled "antral erosion" are 2 lew, irregular portions of soft tissue measuring 0.2 and 0.3 cm. in greatest dimension. The specimens are submitted in toto in one cassette. B. Received in formalin, labeled "body/antrum" are 6 lew, irregular portions of soft tissue ranging in size from 0.1-0.4 cm. in greatest dimension. The specimens are submitted in toto in one cassette. MLSZ/02/21/2020 sanyaritza/02/21/2020
== END 2020-02-21 12:35 | disposition home or self-care (01) ==
LOC: JASU-ENDO 05:25
PROVIDERS: ATTEND Internal Medicine Gastroenterology
PROC: 0D738ZZ Dilation of Lower Esophagus, Via Natural or Artificial Opening Endoscopic (ICD-10-PCS; 2020-02-21)
PROC: 0DB68ZX Excision of Stomach, Via Natural or Artificial Opening Endoscopic, Diagnostic (ICD-10-PCS; principal; 2020-02-21 11:00)
DX: K29.50 Unspecified chronic gastritis without bleeding (principal); K31.9 Disease of stomach and duodenum, unspecified; B96.81 Helicobacter pylori [H. pylori] as the cause of diseases classified elsewhere; I10 Essential (primary) hypertension; E78.9 Disorder of lipoprotein metabolism, unspecified; J43.9 Emphysema, unspecified; K44.9 Diaphragmatic hernia without obstruction or gangrene
CPT/HCPCS: 36415; 85610; 85730; 88305-TC; 88342-TC; 93005; 93010

== ENCOUNTER 2020-03-16 12:18 | Emergency (ER) | payer OTHER ==
[2020-03-16] MEDS ORDERED: IBUPROFEN 600 MG TABLET (FP) PO ONE ×2 (12:32→12:37)
--- NOTE | 2020-03-16 12:35 | PDOC ---
History of Present Illness - General Chief Complaint: Pain, Acute Stated Complaint: RIGHT CALF PAIN Time Seen by Provider: 03/16/20 12:24 - History of Present Illness Initial Comments: 03/16/20 12:36 64 F with HTN, HLD, DM, COPD/asthma presenting to ED with R calf pain. Pt states she was running up a hill yesterday when she suddenly felt pain in her R calf. Denies any falls or injuries. Endorses mild swelling to the calf last night. Reports pain with dorsiflexion and plantarflexion of the foot. No recent travel/immobilization. No h/o DVT. Past History - Medical History Allergies/Adverse Reactions: Allergies Allergy/AdvReac Type Severity Reaction Status Date / Time Penicillins Allergy "mother Verified 03/16/20 12:26 told as a child" Home Medications: Ambulatory Orders Albuterol Sulfate Inhaler - [Ventolin HFA Inhaler -] 1 - 2 inh PO QID PRN 04/06/16 metFORMIN HCL [Metformin ER Osmotic] 1,000 mg PO BID 04/06/16 Atorvastatin Ca [Lipitor] 20 mg PO HS 12/20/17 Aspirin 81 mg PO DAILY 11/22/18 Lisinopril 10 mg PO DAILY 12/05/18 Montelukast Na [Singulair -] 10 mg PO HS #30 tablet 03/16/19 Fluticasone Propion/Salmeterol [Fluticasone-Salmeterol 250-50] 1 each IH PRN 02/18/20 Cyclobenzaprine HCl 5 mg PO BID PRN 03/16/20 Fluticasone/Salmeterol [Advair 250-50 Diskus] 1 each IH DAILY 03/16/20 Loratadine [Claritin] 10 mg PO HS 03/16/20 Anemia: No Asthma: Yes Cancer: No Cardiac Disorders: No CVA: No COPD: Yes CHF: No Dementia: No Diabetes: Yes GI Disorders: No (OCCASIONAL DIARRHEA) Disorders: No HTN: Yes Hypercholesterolemia: Yes Liver Disease: No Seizures: No Thyroid Disease: No - Surgical History Abdominal Surgery: No Appendectomy: No Cardiac Surgery: No Cholecystectomy: No Lung Surgery: No Neurologic Surgery: No Orthopedic Surgery: Yes (LEFT SHOULDER SX X2 ) - Reproductive History Is Patient Now?: No - Immunization History Immunization Up to Date: Yes - Psycho-Social/Smoking History Smoking History: Former smoker Have you smoked in the past 12 months: No Number of Cigarettes Smoked Daily: 10 If you are a former smoker, when did you quit?: 2000 Cigars Per Day: 0 Information on smoking cessation initiated: No - Substance Abuse Hx (Audit-C & DAST Scrn) How often the patient has a drink containing alcohol: 2-4 times / month How often the patient has six or more drinks on one occasion: Never Score: In Men: 4 or > Positive; In Women: 3 or > Positive: 2 Screen Result (Pos requires Nsg. Audit-10AR): Negative In the last yr the pt used illegal drug/Rx for NonMed reason: No Score: Yes response is considered Positive: 0 Screen Result (Positive result requires Nsg. DAST-10): Negative Review of Systems - Review of Systems Comments:: 03/16/20 12:37 "GENERAL/CONSTITUTIONAL: No fever or chills. No weakness. HEAD, EYES, EARS, NOSE AND THROAT: No change in vision. No ear pain or discharge. No sore throat. CARDIOVASCULAR: No chest pain, no shortness of breath, no loss of consciousness RESPIRATORY: No cough, wheezing, or hemoptysis. GASTROINTESTINAL: No nausea, vomiting, diarrhea or constipation. GENITOURINARY: No dysuria, frequency, or change in urination. MUSCULOSKELETAL: + R calf pain SKIN: No rash NEUROLOGIC: No vertigo, no change in strength/sensation. ENDOCRINE: No increased thirst. No abnormal weight change. HEMATOLOGIC/LYMPHATIC: No anemia, easy bleeding, or history of blood clots. ALLERGIC/IMMUNOLOGIC: No hives or skin allergy. *Physical Exam - Vital Signs Last Vital Signs Temp Pulse Resp BP Pulse Ox 97.7 F 89 16 119/53 L 96 03/16/20 12:20 03/16/20 12:20 03/16/20 12:20 03/16/20 12:20 03/16/20 12:20 - Physical Exam 03/16/20 12:38 "GENERAL: Awake, alert, and fully oriented, in no acute distress. HEAD: No signs of trauma EYES: PERRLA, EOMI, sclera anicteric, conjunctiva clear ENT: Auricles normal inspection, hearing grossly normal, nares patent, oropharynx clear without exudates. Moist mucosa NECK: Nontender, no stepoffs, Normal ROM, supple, no lymphadenopathy, JVD, or masses LUNGS: Breath sounds equal, clear to auscultation bilaterally. No wheezes, and no crackles HEART: Regular rate and rhythm, normal S1 and S2, no murmurs, rubs or gallops ABDOMEN: Soft, nontender, normoactive bowel sounds. No guarding, no rebound. No masses EXTREMITIES: + TTP over R calf, no palpable cords, no tenderness over achilles tendon NEUROLOGICAL: Cranial nerves II through XII intact. 5/5 strength and sensation in all extremities, Normal speech, normal gait, normal cerebellar function SKIN: Warm, Dry, normal turgor, no rashes or lesions noted. ED Treatment Course - RADIOLOGY Radiology Studies Ordered: Category Date Time Status LEG TIB/FIB-RIGHT [RAD] Stat Radiology 03/16/20 12:31 Ordered DUPLEX VASCUL US-1 LEG [US] Stat Ultrasound 03/16/20 12:31 Ordered Medical Decision Making - Medical Decision Making 03/16/20 12:41 64 F with R calf pain after running. Suspect gastroc tear vs achilles tear. Possible martinez's cyst - XR to r/o fx - US to r/o DVT and evaluate achilles - Motrin 03/16/20 15:20 XR negative on my read US shows no evidence of achilles injury Possible gastroc injury vs martinez's cyst Will DC with ortho f/u Pt is well appearing, with normal vitals. Clinically stable for DC at this time. I discussed the physical exam findings, ancillary test results and final diagnoses with the patient. I answered all of the patient's questions. The patient was satisfied with the care received and felt comfortable with the discharge plan and treatment plan. The patient agrees to follow up with the primary care physician within 24-72 hours. Discharge - Discharge Information Problems reviewed: Yes Clinical Impression/Diagnosis: Calf pain, Calf swelling, Injury of calf Condition: Good Disposition: HOME - Follow up/Referral Referrals: Estuardo Javier II, DO [Primary Care Provider] - - Patient Discharge Instructions Patient Printed Discharge Instructions: DI for Calf Muscle Strain Additional Instructions: Avoid bearing weight on your leg until the pain has resolved. Keep it elevated and apply ice to reduce swelling. You must follow up with an orthopedic surgeon as soon as possible. Call Dr. Black TOMORROW to make an appointment. You may need a MRI to further evaluate your injury. If you experience worsening pain, swelling, or any other concerning symptoms, return to the ER immediately. - Post Discharge Activity
[2020-03-16 12:41] VITALS: BP 119/53; PULSE 89; TEMP 97.7; BMI 26.3
== END 2020-03-16 16:30 | disposition home or self-care (01) ==
LOC: FER 12:18
DX: M79.661 Pain in right lower leg (principal)
CPT/HCPCS: 73590-TC-RT-FY; 76882-TC-RT-FY; 93971-TC; 99284-25

== ENCOUNTER 2020-04-11 04:54 | Day surgery (SDC) | payer OTHER ==
[2020-04-10 15:06] VITALS: BMI 25.7
--- OUTSIDE RECORDS SUMMARY | 2020-04-11 05:02 | XMS ---
:1955 Author Organization [facility] Care Team Providers Name Role Phone Chumaceiro Unavailable Unavailable Chumaceiro Unavailable Unavailable Chumaceiro Unavailable Unavailable Chumaceiro Unavailable Unavailable Chumaceiro Unavailable Unavailable Chumaceiro Unavailable Unavailable Chumaceiro Unavailable Unavailable Chumaceiro Unavailable Unavailable Erosa Unavailable Erosa Unavailable DiGiorno Unavailable [phone] DiGiorno Unavailable [phone] DiGiorno Unavailable [phone] Re-disclosure Warning The records that you are about to access may contain information from federally- assisted alcohol or drug abuse programs. If such information is present, then the following federally mandated warning applies: This information has been disclosed to you from records protected by federal confidentiality rules (42 CFR part 2). The federal rules prohibit you from making any further disclosure of this information unless further disclosure is expressly permitted by the written consent of the person to whom it pertains or as otherwise permitted by 42 CFR part 2. A general authorization for the release of medical or other information is NOT sufficient for this purpose. The Federal rules restrict any use of the information to criminally investigate or prosecute any alcohol or drug abuse patient.The records that you are about to access may contain highly sensitive health information, the redisclosure of which is protected by Article 27-F of the [facility] Public Health law. If you continue you may haveaccess to information: Regarding HIV / AIDS; Provided by facilities licensed or operated by the [facility] Office of Mental Health; or Provided by the [facility] Office for People With Developmental Disabilities. If such information is present, then the following [facility] mandated warning applies: This information has been disclosed to you from confidential records which are protected by state law. State law prohibits you from making any further disclosure of this information without the specific written consent of the person to whom it pertains, or as otherwise permitted by law. Any unauthorized further disclosure in violation of state law may result in a fine or senior living sentence or both. A general authorization for the release of medical or other information is NOT sufficient authorization for further disclosure. Allergies and Adverse Reactions Type Description Substance Reaction Status Data Source(s ) Drug allergy penicillin Penicillin G Active [facility] ([facility], ) Drug allergy penicillin Penicillin G Active [facility]) Drug allergy penicillin Penicillin G Active [facility] ([facility], ) Drug allergy penicillin Penicillin G Active [facility] ([facility], ) Drug allergy Penicillin Drug allergy anaphylaxis Active eCW3 ([facility]) Drug allergy Penicillin Drug allergy anaphylaxis Active eCW3 ([facility]) Drug allergy Penicillin Drug allergy anaphylaxis Active eCW3 ([facility]) Drug allergy Penicillin Drug allergy anaphylaxis Active eCW3 ([facility]) Drug allergy Penicillin Drug allergy anaphylaxis Active eCW3 ([facility]) Drug allergy Penicillin Drug allergy anaphylaxis Active eCW3 ([facility]) Encounters Encounter Providers Location Date Indications Data Source(s ) Attender: Augustine 04/01/2020 [facility] Office Attender: Augustine Owen 04/01/2020 12:00:00 AM EDT [facility] Office Attender: Augustine Owen 04/01/2020 12:00:00 AM EDT [facility] ([facility] Office Attender: Ronnie 03/26/2020 12:00:00 AM ED T [facility] ([facility] ) Office Attender: Ronnie 03/26/2020 12:00:00 AM ED T [facility] ([facility] Office Attender: Ronnie 03/26/2020 12:00:00 AM ED T [facility] ([facility] Office Attender: Ronnie 03/26/2020 12:00:00 AM ED T [facility] ([facility] Office Attender: Ronnie 03/26/2020 12:00:00 AM ED T [facility] ([facility] Office Attender: Ronnie 03/26/2020 12:00:00 AM ED T [facility] ([facility] Office Attender: Anant 03/19/2020 12:00:00 AM EDT [facility] ([facility] Office Attender: Anant 03/19/2020 12:00:00 AM EDT [facility] ([facility] Office Attender: Anant 03/19/2020 12:00:00 AM EDT [facility] ([facility] Office Attender: Anant 03/19/2020 12:00:00 AM EDT [facility] ([facility] Office Attender: Ronnie 02/13/2020 12:00:00 AM ED T [facility] ([facility] Office Attender: Ronnie 02/13/2020 12:00:00 AM ED T [facility] ([facility] Office Attender: Ronnie 02/13/2020 12:00:00 AM ED T [facility] ([facility] Office Attender: Ronnie 02/13/2020 12:00:00 AM ED T [facility] ([facility] Office Attender: Ronnie 02/13/2020 12:00:00 AM ED T [facility] ([facility] Office Attender: Ronnie 02/13/2020 12:00:00 AM ED T [facility] ([facility]) Office Attender: Ronnie 02/13/2020 12:00:00 AM ED T [facility] ([facility], ) Office Attender: Ronnie 02/13/2020 12:00:00 AM ED T MED[facility] ([facility], ) Office Outpatient 06/05/2019 02:00:00 NETSM ART ([facility]) A28-Est Therapy, [facility] 05/15/2019 12:00:00 eCW3 ([facility] A28 AM EDT - 05/15/2019 Health Care) 12:00:00 AM EDT A28-Est Psych [facility] 04/30/2019 12:00:00 eCW3 ([facility] A28 AM EDT - 04/30/2019 Health Care) 12:00:00 AM EDT A28-Est Therapy, [facility] 04/24/2019 12:00:00 eCW3 ([facility] A28 AM EDT - 04/24/2019 Health Care) 12:00:00 AM EDT A28-New Therapy, 30 [facility] 03/28/2019 12:00:00 eCW3 ([facility] A28 AM EDT - 03/28/2019 Health Care) 12:00:00 AM EDT Outpatient [facility] 02/13/2019 12:00:00 e CW3 ([facility] A28 AM EDT - 02/13/2019 Health Care) 12:00:00 AM EDT Outpatient [facility] 11/07/2018 12:00:00 e CW3 ([facility] A28 AM EDT - 11/07/2018 Health Care) 12:00:00 AM EDT Immunizations Vaccine Date Status Description Data Source(s) New in 2011. IIV4 05/25/2019 completed eCW3 ([place] 10:27:00 AM EDT [facility] Care) New in 2011. IIV4 05/25/2019 completed eCW3 ([facility] 10:27:00 AM EDT [facility] Care) New in 2011. IIV4 05/25/2019 completed eCW3 ([facility] 10:27:00 AM EDT [facility] Care) New in 2011. IIV4 05/15/2018 completed eCW3 ([facility] 10:15:00 AM EDT [facility] Care) New in 2011. IIV4 05/15/2018 completed eCW3 ([place] [facility] 10:15:00 AM EDT Health Care) New in 2011. IIV4 05/15/2018 completed eCW3 ([facility] [place] [facility] 10:15:00 AM EDT Health Care) New in 2011. IIV4 06/27/2017 completed eCW3 ([place] [facility] 09:54:00 AM EST Health Care) New in 2011. IIV4 06/27/2017 completed eCW3 ([facility] 09:54:00 AM EST Health Care) New in 2011. IIV4 06/27/2017 completed eCW3 ([facility] 09:54:00 AM EST Health Care) Pneumococcal conjugate PCV 05/13/2016 completed e CW3 ([place] 13 10:18:00 AM EDT Health Care) Pneumococcal conjugate PCV 05/13/2016 completed e CW3 ([place] 13 10:18:00 AM EDT Health Care) Pneumococcal conjugate PCV 05/13/2016 completed e CW3 ([place] 13 10:18:00 AM EDT Health Care) IIV3. This vaccine code is 03/27/2016 completed e CW3 ([place] one of two which replace 11:05:00 AM EDT Health Care) CVX 15, influenza, split virus. IIV3. This vaccine code is 03/27/2016 completed e CW3 ([place] one of two which replace 11:05:00 AM EDT Health Care) CVX 15, influenza, split virus. IIV3. This vaccine code is 03/27/2016 completed e CW3 ([place] one of two which replace 11:05:00 AM EDT Health Care) CVX 15, influenza, split virus. Tdap 11/10/2015 completed eCW3 ([facility] 10:28:00 AM EDT [facility]) Tdap 11/10/2015 completed eCW3 ([facility] 10:28:00 AM EDT [facility]) Tdap 11/10/2015 completed eCW3 ([facility] 10:28:00 AM EDT [facility]) pneumococcal 07/08/2015 completed eCW3 ([place] polysaccharide PPV23 10:55:00 AM EST Heal Care) pneumococcal 07/08/2015 completed eCW3 ([facility] [facility] polysaccharide PPV23 10:55:00 AM EST [facility]) pneumococcal 07/08/2015 completed eCW3 ([facility] polysaccharide PPV23 10:55:00 AM EST [facility]) New in 2011. IIV4 05/12/2015 completed eCW3 ([place] 10:13:00 AM ED [facility]) New in 2011. IIV4 05/12/2015 completed eCW3 ([place] [facility] 10:13:00 AM ED [facility] Care) New in 2011. IIV4 05/12/2015 completed eCW3 ([place] [facility] 10:13:00 AM ED Health Care) IIV3. This vaccine code is 06/13/2014 completed e CW3 ([place] one of two which replace 10:30:00 AM EST Health Care) CVX 15, influenza, split virus. IIV3. This vaccine code is 06/13/2014 completed e CW3 ([place] one of two which replace 10:30:00 AM EST Health Care) CVX 15, influenza, split virus. IIV3. This vaccine code is 06/13/2014 completed e CW3 ([place] one of two which replace 10:30:00 AM EST Health Care) CVX 15, influenza, split virus. IIV3. This is one of two 06/19/2013 completed eCW 3 ([place] codes replacing CVX 15, 09:24:20 AM EST H [facility] Care) which is being retired. IIV3. This is one of two 06/19/2013 completed eCW 3 ([place] codes replacing CVX 15, 09:24:20 AM EST [facility]) which is being retired. IIV3. This is one of two 06/19/2013 completed eCW 3 ([place] codes replacing CVX 15, 09:24:20 AM EST H [facility]) which is being retired. IIV3. This vaccine code is 06/06/2012 completed e CW3 ([place] one of two which replace 02:28:22 PM EST Health Care) CVX 15, influenza, split virus. IIV3. This vaccine code is 06/06/2012 completed e CW3 ([facility] one of two which replace 02:28:22 PM [facility]) CVX 15, influenza, split virus. IIV3. This vaccine code is 06/06/2012 completed e CW3 ([facility] one of two which replace 02:28:22 PM [facility]) CVX 15, influenza, split virus. IIV3. This is one of two 03/18/2011 completed eCW 3 ([facility] codes replacing CVX 15, 11:12:20 AM EDT [facility]) which is being retired. IIV3. This is one of two 03/18/2011 completed eCW 3 ([facility] codes replacing CVX 15, [facility]12:[facility] which is [facility]. IIV3. This is one of two 03/18/2011 completed eCW 3 ([facility] codes replacing CVX 15, 11:12:20 AM EDT [facility]) which is being retired. Novel [id number] completed eCW3 ([facility]) Novel [id number] completed eCW3 ([facility]) Novel [id number] completed eCW3 ([facility]) Medications Medication Brand Start Product Dose Route Administrative Pharm[facility] Indications Reaction Description Data Name Date Form Instructions Instructions Source(s) pantoprazol PANTOP 02/12/ DELAYED 30 complet SEGURA TOPRAZOLE [facility] (St e 40 MG RAZOLE 2020 RELEASE ed [facility] Delayed :23214 12:00: TABLET Medica l, Release 0 00 AM PC) Oral Tablet EDT PANTOPRAZOL E:[id number] pantoprazol PANTOP 02/12/ DELAYED 30 complet SEGURA TOPRAZOLE [facility] (St e 40 MG RAZOLE 2020 RELEASE ed [facility] Delayed :48634 12:00: TABLET Medica l, Release 0 00 AM PC) Oral Tablet EDT PANTOPRAZOL E:[id number] pantoprazol PANTOP 02/12/ DELAYED 30 complet SEGURA TOPRAZOLE [facility] (St e 40 MG RAZOLE 2020 RELEASE ed [facility] Delayed :71647 12:00: TABLET Medica l, Release 0 00 AM PC) Oral Tablet EDT PANTOPRAZOL E:[id number] pantoprazol PANTOP 02/12/ DELAYED 30 complet SEGURA TOPRAZOLE [facility] (St e 40 MG RAZOLE 2019 RELEASE ed [facility] Delayed :95281 12:00: TABLET Medica l, Release 0 00 AM PC) Oral Tablet EDT PANTOPRAZOL E:[id number] pantoprazol PANTOP 02/12/ DELAYED 30 complet SEGURA TOPRAZOLE [facility] (St e 40 MG RAZOLE 2019 RELEASE ed [facility] Delayed :98280 12:00: TABLET Medica l, Release 0 00 AM PC) Oral Tablet EDT PANTOPRAZOL E:[id number] pantoprazol PANTOP 02/12/ DELAYED 30 complet SEGURA TOPRAZOLE [facility] (St e 40 MG RAZOLE 2019 RELEASE ed [facility] Delayed :68248 12:00: TABLET Medica l, Release 0 00 AM PC) Oral Tablet EDT PANTOPRAZOL E:387734 ciclopirox CICLOP 08/13/ SOLUTION 0 complet CIC LOPIROX [facility] (St 80 MG/ML IROX 2019 ed TOPICAL [facility] Topical TOPICA 12:00: Medical, Solution L:3092 00 AM PC) CICLOPIROX 91 EST TOPICAL:309 291 atorvastati LIPITO 08/13/ complet LIPITO R [facility] (St n 20 MG R:6173 2019 ed [facility] Oral Tablet 18 12:00: Medica l, [Lipitor] 00 AM PC) LIPITOR:617 EST 318 Metformin METFOR 08/13/ TABLET 0 complet METFOR MIN [facility] (St hydrochlori MIN:86 2019 ed [facility] de 1000 MG 1004 12:00: Medical , Oral Tablet 00 AM PC) METFORMIN:8 EST 43128 ammonium AMMONI 08/13/ CREAM 0 complet AMMONIUM [facility] (St lactate 120 UM 2019 ed LACTATE [facility] MG/ML LACTAT 12:00: TOPICAL Medical , Topical E 00 AM PC) Cream TOPICA EST AMMONIUM L:5434 LACTATE 60 TOPICAL:543 460 FLONASE:179 08/13/ complet FLONASE [facility] (St 7933 2019 ed [facility] 12:00: Medical, 00 AM PC) EST montelukast ARIEL 08/13/ TABLET 0 complet MICHEL ELUKAST [facility] (St 10 MG Oral UKAST: 2020 ed [facility] Tablet [id number] 12:00: Medical, MONTELUKAST 00 AM PC) :[id number] EST meloxicam MELOXI 08/13/ TABLET 0 complet MELOXI CAM [facility] (St 15 MG Oral CAM:15 2019 ed [facility] Tablet 2695 12:00: Medical, MELOXICAM:1 00 AM PC) 87117 EST atorvastati ATORVA 08/13/ TABLET 0 complet ATOR VASTATIN [facility] (St n 20 MG STATIN 2019 ed [facility] Oral Tablet :60896 12:00: Medi talha, ATORVASTATI 0 00 AM PC) N:914499 EST Famotidine FAMOTI 08/13/ TABLET 0 complet FAMOT IDINE [facility] (St 20 MG Oral DINE:2019 ed [facility] Tablet 10154 12:00: Medical, FAMOTIDINE: 00 AM PC) 869753 EST 120 ACTUAT SYMBIC 08/13/ AEROSOL 0 complet SYMB ICORT [facility] (St Budesonide ORT:2019 ed [facility] 0.16 26477 12:00: Medical, MG/ACTUAT / 00 AM PC) formoterol EST fumarate 0.0045 MG/ACTUAT Metered Dose Inhaler [Symbicort] SYMBICORT:1 859515 Loratadine LORATA 08/13/ complet LORATAD INE [facility] (St 10 MG Oral DINE:2019 ed [facility] Tablet 61939 12:00: Medical, LORATADINE: 00 AM PC) [id number] EST 14 ACTUAT BREO 08/13/ POWDER 0 complet BREO ELL IPTA [facility] (St fluticasone ELLIPT 2019 ed [facility] furoate 0.2 A:1648 12:00: Medi talha, MG/ACTUAT / 785 00 AM PC) vilanterol EST 0.025 MG/ACTUAT Dry Powder Inhaler [Breo] BREO ELLIPTA:164 8785 Cyclobenzap CYCLOB 08/13/ TABLET 0 complet CYCL OBENZAPR [facility] (St rine ENZAPR 2019 ed INE [facility] hydrochlori INE:82 12:00: Medi talha, de 10 MG 8348 00 AM PC) Oral Tablet EST CYCLOBENZAP RINE:011019 Lisinopril LISINO 08/13/ complet LISINOP RIL [facility] (St 10 MG Oral PRIL:2019 ed [facility] Tablet 26252 12:00: Medical, LISINOPRIL: 00 AM PC) 113511 EST ciclopirox CICLOP 08/13/ SOLUTION 0 complet CIC LOPIROX [facility] (St 80 MG/ML IROX 2019 ed TOPICAL [facility] Topical TOPICA 12:00: Medical, Solution L:3092 00 AM PC) CICLOPIROX 91 EST TOPICAL:309 291 Clindamycin CLINDA 08/13/ CAPSULE 0 complet CLI NDAMYCIN [facility] (St 150 MG Oral MYCIN: 2019 ed [facility] Capsule [id number] 12:00: Medical, CLINDAMYCIN 00 AM PC) :[id number] EST Cyclobenzap CYCLOB 08/13/ TABLET 0 complet CYCL OBENZAPR [facility] (St rine ENZAPR 2019 ed INE [facility] hydrochlori INE:82 12:00: [facility], de 10 MG 8348 00 AM PC) Oral Tablet EST CYCLOBENZAP RINE:791423 Famotidine FAMOTI 08/13/ TABLET 0 complet FAMOT IDINE [facility] (St 20 MG Oral DINE:3 2019 ed [facility] Tablet 04701 12:00: Medical, FAMOTIDINE: 00 AM PC) 421108 EST FLUTICASONE 08/13/ SPRAY 0 complet FLUTICA SONE [facility] (St NASAL:93674 2019 ed NASAL [facility] 07 12:00: Medical, 00 AM PC) EST atorvastati ATORVA 08/13/ TABLET 0 complet ATOR VASTATIN [facility] (St n 20 MG STATIN 2019 ed [facility] Oral Tablet :61076 12:00: [facility], ATORVASTATI 0 00 AM PC) N:[id number] EST FLUTICASONE 08/13/ POWDER 0 complet FLUTIC ASONE- [facility] (St -SALMETEROL 2019 ed SALMETEROL [facility] :[id number] 12:00: Medical, 00 AM PC) EST FLONASE:179 08/13/ complet FLONASE [facility] (St 7933 2019 ed [facility] 12:00: Medical, 00 AM PC) EST 14 ACTUAT BREO 08/13/ POWDER 0 complet BREO ELL IPTA [facility] (St fluticasone ELLIPT 2019 ed [facility] furoate 0.2 A:1648 12:00: Medi talha, MG/ACTUAT / 785 00 AM PC) vilanterol EST 0.025 MG/ACTUAT Dry Powder Inhaler [Breo] BREO ELLIPTA:551 8769 Hydrochloro HYDROC 08/13/ TABLET 0 complet HYDR OCHLOROT [facility] (St thiazide 25 HLOROT 2020 ed HIAZIDE-LIS I [facility] MG / HIAZID 12:00: NOPRIL Medical, Lisinopril E-JAMA 00 AM PC) 20 MG Oral NOPRIL EST Tablet : HYDROCHLORO 7 THIAZIDE-LI SINOPRIL:19 7887 30 ACTUAT INCRUS 08/13/ POWDER 1 complet INCRUS E [facility] (St umeclidiniu E 2019 ed ELLIPTA [facility] m 0.0625 ELLIPT 12:00: Medical , MG/ACTUAT A:1539 00 AM PC) Dry Powder 885 EST Inhaler [Incruse] INCRUSE ELLIPTA:153 9885 Fluticasone ADVAIR 08/13/ complet ADVAIR [facility] (St propionate DISKUS 2019 ed DISKUS [facility] 0.25 :72879 12:00: Medical, MG/ACTUAT / 14 00 AM PC) salmeterol EST 0.05 MG/ACTUAT Dry Powder Inhaler [Advair] ADVAIR DISKUS:1359 714 FLONASE:179 08/13/ complet FLONASE [facility] (St 7933 2019 ed [facility] 12:00: Medical, 00 AM PC) EST FLUTICASONE 08/13/ POWDER 0 complet FLUTIC ASONE- [facility] (St -SALMETEROL 2019 ed SALMETEROL [facility] :[id number] 12:00: Medical, 00 AM PC) EST ammonium AMMONI 08/13/ CREAM 0 complet AMMONIUM [facility] (St lactate 120 UM 2019 ed LACTATE [facility] MG/ML LACTAT 12:00: TOPICAL Medical , Topical E 00 AM PC) Cream TOPICA EST AMMONIUM L:5434 LACTATE 60 TOPICAL:543 460 FLUTICASONE 08/13/ SPRAY 0 complet FLUTICA SONE [facility] (St NASAL:33358 2019 ed NASAL [facility] 07 12:00: Medical, 00 AM PC) EST 30 ACTUAT INCRUS 08/13/ POWDER 1 complet INCRUS E [facility] (St umeclidiniu E 2019 ed ELLIPTA [facility] m 0.0625 ELLIPT 12:00: Medical , MG/ACTUAT A:1539 00 AM PC) Dry Powder 885 EST Inhaler [Incruse] INCRUSE ELLIPTA:153 9885 atorvastati LIPITO 08/13/ complet LIPITO R [facility] (St n 20 MG R:6173 2019 ed [facility] Oral Tablet 18 12:00: Medica l, [Lipitor] 00 AM PC) LIPITOR:617 EST 318 Famotidine FAMOTI 08/13/ TABLET 0 complet FAMOT IDINE [facility] (St 20 MG Oral DINE:3 2019 ed [facility] Tablet 83708 12:00: Medical, FAMOTIDINE: 00 AM PC) 971883 EST ciclopirox CICLOP 08/13/ SOLUTION 0 complet CIC LOPIROX [facility] (St 80 MG/ML IROX 2019 ed TOPICAL [facility] Topical TOPICA 12:00: Medical, Solution L:3092 00 AM PC) CICLOPIROX 91 EST TOPICAL:309 291 meloxicam MELOXI 08/13/ TABLET 0 complet MELOXI CAM [facility] (St 15 MG Oral CAM:15 2019 ed [facility] Tablet 2695 12:00: Medical, MELOXICAM:1 00 AM PC) 82353 EST FLONASE:179 08/13/ complet FLONASE [facility] (St 7933 2019 ed [facility] 12:00: Medical, 00 AM PC) EST 14 ACTUAT BREO 08/13/ POWDER 0 complet BREO ELL IPTA [facility] (St fluticasone ELLIPT 2019 ed [facility] furoate 0.2 A:1648 12:00: Medi talha, MG/ACTUAT / 785 00 AM PC) vilanterol EST 0.025 MG/ACTUAT Dry Powder Inhaler [Breo] BREO ELLIPTA:164 8785 Metformin METFOR 08/13/ TABLET 0 complet METFOR MIN [facility] (St hydrochlori MIN:86 2019 ed [facility] de 1000 MG 1004 12:00: Medical , Oral Tablet 00 AM PC) METFORMIN:8 EST 14554 Cyclobenzap CYCLOB 08/13/ TABLET 0 complet CYCL OBENZAPR [facility] (St rine ENZAPR 2019 ed INE [facility] hydrochlori INE:82 12:00: Medi talha, de 10 MG 8348 00 AM PC) Oral Tablet EST CYCLOBENZAP RINE:552075 Lisinopril LISINO 08/13/ complet LISINOP RIL [facility] (St 10 MG Oral PRIL:3 2019 ed [facility] Tablet 34074 12:00: Medical, LISINOPRIL: 00 AM PC) 613646 EST Clindamycin CLINDA 08/13/ CAPSULE 0 complet CLI NDAMYCIN [facility] (St 150 MG Oral MYCIN: 2019 ed [facility] Capsule [id number] 12:00: Medical, CLINDAMYCIN 00 AM PC) :[id number] EST Loratadine LORATA 08/13/ complet LORATAD INE [facility] (St 10 MG Oral DINE:2019 ed [facility] Tablet 28081 12:00: Medical, LORATADINE: 00 AM PC) 696206 EST 30 ACTUAT INCRUS 08/13/ POWDER 1 complet INCRUS E [facility] (St umeclidiniu E 2019 ed ELLIPTA [facility] m 0.0625 ELLIPT 12:00: Medical , MG/ACTUAT A:1539 00 AM PC) Dry Powder 885 EST Inhaler [Incruse] INCRUSE ELLIPTA:153 9885 Famotidine FAMOTI 08/13/ TABLET 0 complet FAMOT IDINE [facility] (St 20 MG Oral DINE:2019 ed [facility] Tablet 44250 12:00: Medical, FAMOTIDINE: 00 AM PC) 431226 EST FLUTICASONE 08/13/ SPRAY 0 complet FLUTICA SONE [facility] (St NASAL:66377 2019 ed NASAL [facility] 07 12:00: Medical, 00 AM PC) EST FLUTICASONE 08/13/ POWDER 0 complet FLUTIC ASONE- [facility] (St -SALMETEROL 2019 ed SALMETEROL [facility] :[id number] 12:00: Medical, 00 AM PC) EST 120 ACTUAT SYMBIC 08/13/ AEROSOL 0 complet SYMB ICORT [facility] (St Budesonide ORT:12 2019 ed [facility] 0.16 73441 12:00: Medical, MG/ACTUAT / 00 AM PC) formoterol EST fumarate 0.0045 MG/ACTUAT Metered Dose Inhaler [Symbicort] SYMBICORT:1 987981 montelukast ARIEL 08/13/ TABLET 0 complet MICHEL ELUKAST [facility] (St 10 MG Oral UKAST: 2019 ed [facility] Tablet [id number] 12:00: Medical, MONTELUKAST 00 AM PC) :[id number] EST Lisinopril LISINO 08/13/ complet LISINOP RIL [facility] (St 10 MG Oral PRIL:2019 ed [facility] Tablet 33175 12:00: Medical, LISINOPRIL: 00 AM PC) 673877 EST atorvastati LIPITO 08/13/ complet LIPITO R [facility] (St n 20 MG R:6173 2019 ed [facility] Oral Tablet 18 12:00: Medica l, [Lipitor] 00 AM PC) LIPITOR:617 EST 318 Fluticasone ADVAIR 08/13/ complet ADVAIR [facility] (St propionate DISKUS 2019 ed DISKUS [facility] 0.25 :67899 12:00: Medical, MG/ACTUAT / 14 00 AM PC) salmeterol EST 0.05 MG/ACTUAT Dry Powder Inhaler [Advair] ADVAIR DISKUS:1359 714 ammonium AMMONI 08/13/ CREAM 0 complet AMMONIUM [facility] (St lactate 120 UM 2019 ed LACTATE [facility] MG/ML LACTAT 12:00: TOPICAL Medical , Topical E 00 AM PC) Cream TOPICA EST AMMONIUM L:5434 LACTATE 60 TOPICAL:543 460 Metformin METFOR 08/13/ TABLET 0 complet METFOR MIN [facility] (St hydrochlori MIN:86 2019 ed [facility] de 1000 MG 1004 12:00: Medical , Oral Tablet 00 AM PC) METFORMIN:8 EST 47679 atorvastati ATORVA 08/13/ TABLET 0 complet ATOR VASTATIN [facility] (St n 20 MG STATIN 2019 ed [facility] Oral Tablet :60530 12:00: Medi talha, ATORVASTATI 0 00 AM PC) N:843992 EST meloxicam MELOXI 08/13/ TABLET 0 complet MELOXI CAM [facility] (St 15 MG Oral CAM:15 2019 ed [facility] Tablet 2695 12:00: Medical, MELOXICAM:1 00 AM PC) 76429 EST Loratadine LORATA 08/13/ complet LORATAD INE [facility] (St 10 MG Oral DINE:3 2019 ed [facility] Tablet 30367 12:00: Medical, LORATADINE: 00 AM PC) 886068 EST FLUTICASONE 08/13/ SPRAY 0 complet FLUTICA SONE [facility] (St NASAL:31693 2019 ed NASAL [facility] 07 12:00: Medical, 00 AM PC) EST FLONASE:179 08/13/ complet FLONASE [facility] (St 7933 2019 ed [facility] 12:00: Medical, 00 AM PC) EST 30 ACTUAT INCRUS 08/13/ POWDER 1 complet INCRUS E [facility] (St umeclidiniu E 2020 ed ELLIPTA [facility] m 0.0625 ELLIPT 12:00: Medical , MG/ACTUAT A:1539 00 AM PC) Dry Powder 885 EST Inhaler [Incruse] INCRUSE ELLIPTA:153 9885 FLUTICASONE 08/13/ POWDER 0 complet FLUTIC ASONE- [facility] (St -SALMETEROL 2019 ed SALMETEROL [facility] :[id number] 12:00: Medical, 00 AM PC) EST Fluticasone ADVAIR 08/13/ complet ADVAIR [facility] (St propionate DISKUS 2019 ed DISKUS [facility] 0.25 :49677 12:00: Medical, MG/ACTUAT / 14 00 AM PC) salmeterol EST 0.05 MG/ACTUAT Dry Powder Inhaler [Advair] ADVAIR DISKUS:1359 714 atorvastati LIPITO 08/13/ complet LIPITO R [facility] (St n 20 MG R:6173 2019 ed [facility] Oral Tablet 18 12:00: Medica l, [Lipitor] 00 AM PC) LIPITOR:617 EST 318 Lisinopril LISINO 08/13/ complet LISINOP RIL [facility] (St 10 MG Oral PRIL:3 2019 ed [facility] Tablet 25529 12:00: Medical, LISINOPRIL: 00 AM PC) 244527 EST Loratadine LORATA 08/13/ complet LORATAD INE [facility] (St 10 MG Oral DINE:3 2019 ed [facility] Tablet 82978 12:00: Medical, LORATADINE: 00 AM PC) 647361 EST 14 ACTUAT BREO 08/13/ POWDER 0 complet BREO ELL IPTA [facility] (St fluticasone ELLIPT 2019 ed [facility] furoate 0.2 A:1648 12:00: Medi talha, MG/ACTUAT / 785 00 AM PC) vilanterol EST 0.025 MG/ACTUAT Dry Powder Inhaler [Breo] BREO ELLIPTA:164 8785 meloxicam MELOXI 08/13/ TABLET 0 complet MELOXI CAM MEDGEN (St 15 MG Oral CAM:15 2019 ed [facility] Tablet 2695 12:00: Medical, MELOXICAM:1 00 AM PC) 79014 EST atorvastati ATORVA 08/13/ TABLET 0 complet ATOR VASTATIN MEDGEN (St n 20 MG STATIN 2020 ed [facility] Oral Tablet :84006 12:00: Medi talha, ATORVASTATI 0 00 AM PC) N:[id number] EST Metformin METFOR 08/13/ TABLET 0 complet METFOR MIN MEDGEN (St hydrochlori MIN:86 2019 ed [facility] de 1000 MG 1004 12:00: Medical , Oral Tablet 00 AM PC) METFORMIN:8 EST 33502 Cyclobenzap CYCLOB 08/13/ TABLET 0 complet CYCL OBENZAPR MEDGEN (St rine ENZAPR 2019 ed INE [facility] hydrochlori INE:82 12:00: Medi talha, de 10 MG 8348 00 AM PC) Oral Tablet EST CYCLOBENZAP RINE:565101 montelukast ARIEL 08/13/ TABLET 0 complet MICHEL ELUKAST MEDGEN (St 10 MG Oral UKAST: 2020 ed [facility] Tablet [id number] 12:00: Medical, MONTELUKAST 00 AM PC) :[id number] EST ciclopirox CICLOP 08/13/ SOLUTION 0 complet CIC LOPIROX MEDGEN (St 80 MG/ML IROX 2019 ed TOPICAL [facility] Topical TOPICA 12:00: Medical, Solution L:3092 00 AM PC) CICLOPIROX 91 EST TOPICAL:309 291 ammonium AMMONI 08/13/ CREAM 0 complet AMMONIUM MEDGEN (St lactate 120 UM 2019 ed LACTATE [facility] MG/ML LACTAT 12:00: TOPICAL Medical , Topical E 00 AM PC) Cream TOPICA EST AMMONIUM L:5434 LACTATE 60 TOPICAL:543 460 atorvastati ATORVA 08/13/ TABLET 0 complet ATOR VASTATIN MEDGEN (St n 20 MG STATIN 2020 ed [facility] Oral Tablet :14637 12:00: Medi talha, ATORVASTATI 0 00 AM PC) N:[id number] EST Cyclobenzap CYCLOB 08/13/ TABLET 0 complet CYCL OBENZAPR MEDGEN (St rine ENZAPR 2019 ed INE [facility] hydrochlori INE:82 12:00: Medi talha, de 10 MG 8348 00 AM PC) Oral Tablet EST CYCLOBENZAP RINE:904795 Famotidine FAMOTI 08/13/ TABLET 0 complet FAMOT IDINE MEDGEN (St 20 MG Oral DINE:3 2019 ed [facility] Tablet 25706 12:00: Medical, FAMOTIDINE: 00 AM PC) [id number] EST 14 ACTUAT BREO 08/13/ POWDER 0 complet BREO ELL IPTA MEDGEN (St fluticasone ELLIPT 2019 ed [facility] furoate 0.2 A:1648 12:00: Medi talha, MG/ACTUAT / 785 00 AM PC) vilanterol EST 0.025 MG/ACTUAT Dry Powder Inhaler [Breo] BREO ELLIPTA:164 8785 ciclopirox CICLOP 08/13/ SOLUTION 0 complet CIC LOPIROX MEDGEN (St 80 MG/ML IROX 2019 ed TOPICAL [facility] Topical TOPICA 12:00: Medical, Solution L:3092 00 AM PC) CICLOPIROX 91 EST TOPICAL:309 291 Metformin METFOR 08/13/ TABLET 0 complet METFOR MIN MEDGEN (St hydrochlori MIN:86 2019 ed [facility] de 1000 MG 1004 12:00: Medical , Oral Tablet 00 AM PC) METFORMIN:8 EST 60698 meloxicam MELOXI 08/13/ TABLET 0 complet MELOXI CAM MEDGEN (St 15 MG Oral CAM:15 2019 ed [facility] Tablet 2695 12:00: Medical, MELOXICAM:1 00 AM PC) 20583 EST Loratadine LORATA 08/13/ complet LORATAD INE MEDGEN (St 10 MG Oral DINE:3 2019 ed [facility] Tablet 68788 12:00: Medical, LORATADINE: 00 AM PC) 857518 EST Lisinopril LISINO 08/13/ complet LISINOP RIL MEDGEN (St 10 MG Oral PRIL:3 2019 ed [facility] Tablet 00008 12:00: Medical, LISINOPRIL: 00 AM PC) 559250 EST atorvastati LIPITO 08/13/ complet LIPITO R MEDGEN (St n 20 MG R:6173 2019 ed [facility] Oral Tablet 18 12:00: Medica l, [Lipitor] 00 AM PC) LIPITOR:617 EST 318 montelukast ARIEL 08/13/ TABLET 0 complet MICHEL ELUKAST MEDGEN (St 10 MG Oral UKAST: 2020 ed [facility] Tablet [id number] 12:00: Medical, MONTELUKAST 00 AM PC) :[id number] EST 120 ACTUAT SYMBIC 08/13/ AEROSOL 0 complet SYMB ICORT MEDGEN (St Budesonide ORT:12 2019 ed [facility] 0.16 43523 12:00: Medical, MG/ACTUAT / 00 AM PC) formoterol EST fumarate 0.0045 MG/ACTUAT Metered Dose Inhaler [Symbicort] SYMBICORT:1 540763 Cyclobenzap CYCLOB 08/13/ TABLET 0 complet CYCL OBENZAPR MEDGEN (St rine ENZAPR 2019 ed INE [facility] hydrochlori INE:82 12:00: Medi talha, de 10 MG 8348 00 AM PC) Oral Tablet EST CYCLOBENZAP RINE:836406 ciclopirox CICLOP 08/13/ SOLUTION 0 complet CIC LOPIROX MEDGEN (St 80 MG/ML IROX 2019 ed TOPICAL [facility] Topical TOPICA 12:00: Medical, Solution L:3092 00 AM PC) CICLOPIROX 91 EST TOPICAL:309 291 FLONASE:179 08/13/ complet FLONASE MEDGEN (St 7933 2019 ed [facility] 12:00: Medical, 00 AM PC) EST Famotidine FAMOTI 08/13/ TABLET 0 complet FAMOT IDINE MEDGEN (St 20 MG Oral DINE:3 2019 ed [facility] Tablet 51093 12:00: Medical, FAMOTIDINE: 00 AM PC) 049146 EST 14 ACTUAT BREO 08/13/ POWDER 0 complet BREO ELL IPTA MEDGEN (St fluticasone ELLIPT 2019 ed [facility] furoate 0.2 A:1648 12:00: Medi talha, MG/ACTUAT / 785 00 AM PC) vilanterol EST 0.025 MG/ACTUAT Dry Powder Inhaler [Breo] BREO ELLIPTA:164 8785 Fluticasone ADVAIR 08/13/ complet ADVAIR MEDGEN (St propionate DISKUS 2019 ed DISKUS [facility] 0.25 :10877 12:00: Medical, MG/ACTUAT / 14 00 AM PC) salmeterol EST 0.05 MG/ACTUAT Dry Powder Inhaler [Advair] ADVAIR DISKUS:1359 714 ammonium AMMONI 08/13/ CREAM 0 complet AMMONIUM MEDGEN (St lactate 120 UM 2019 ed LACTATE [facility] MG/ML LACTAT 12:00: TOPICAL Medical , Topical E 00 AM PC) Cream TOPICA EST AMMONIUM L:5434 LACTATE 60 TOPICAL:543 460 atorvastati ATORVA 08/13/ TABLET 0 complet ATOR VASTATIN MEDGEN (St n 20 MG STATIN 2019 ed [facility] Oral Tablet :01616 12:00: Medi talha, ATORVASTATI 0 00 AM PC) N:[id number] EST 120 ACTUAT SYMBIC 08/13/ AEROSOL 0 complet SYMB ICORT MEDGEN (St Budesonide ORT:2019 ed [facility] 0.16 66759 12:00: Medical, MG/ACTUAT / 00 AM PC) formoterol EST fumarate 0.0045 MG/ACTUAT Metered Dose Inhaler [Symbicort] SYMBICORT:1 287804 meloxicam MELOXI 08/13/ TABLET 0 complet MELOXI CAM MEDGEN (St 15 MG Oral CAM:15 2019 ed [facility] Tablet 2695 12:00: Medical, MELOXICAM:1 00 AM PC) 99190 EST Fluticasone ADVAIR 08/13/ complet ADVAIR MEDGEN (St propionate DISKUS 2019 ed DISKUS [facility] 0.25 :08061 12:00: Medical, MG/ACTUAT / 14 00 AM PC) salmeterol EST 0.05 MG/ACTUAT Dry Powder Inhaler [Advair] ADVAIR DISKUS:1359 714 ammonium AMMONI 08/13/ CREAM 0 complet AMMONIUM MEDGEN (St lactate 120 UM 2019 ed LACTATE [facility] MG/ML LACTAT 12:00: TOPICAL Medical , Topical E 00 AM PC) Cream TOPICA EST AMMONIUM L:5434 LACTATE 60 TOPICAL:543 460 120 ACTUAT SYMBIC 08/13/ AEROSOL 0 complet SYMB ICORT MEDGEN (St Budesonide ORT:2019 ed [facility] 0.16 96010 12:00: Medical, MG/ACTUAT / 00 AM PC) formoterol EST fumarate 0.0045 MG/ACTUAT Metered Dose Inhaler [Symbicort] SYMBICORT:1 094666 montelukast ARIEL 08/13/ TABLET 0 complet MICHEL ELUKAST MEDGEN (St 10 MG Oral UKAST: 2020 ed [facility] Tablet [id number] 12:00: Medical, MONTELUKAST 00 AM PC) :[id number] EST Metformin METFOR 08/13/ TABLET 0 complet METFOR MIN MEDGEN (St hydrochlori MIN:86 2019 ed [facility] de 1000 MG 1004 12:00: Medical , Oral Tablet 00 AM PC) METFORMIN:8 EST 56691 120 ACTUAT SYMBIC 08/13/ AEROSOL 0 complet SYMB ICORT MEDGEN (St Budesonide ORT:12 2019 ed [facility] 0.16 17919 12:00: Medical, MG/ACTUAT / 00 AM PC) formoterol EST fumarate 0.0045 MG/ACTUAT Metered Dose Inhaler [Symbicort] SYMBICORT:1 135360 atorvastati ATORVA 08/13/ TABLET 0 complet ATOR VASTATIN MEDGEN (St n 20 MG STATIN 2019 ed [facility] Oral Tablet :25583 12:00: Medi talha, ATORVASTATI 0 00 AM PC) N:[id number] EST FLUTICASONE 08/13/ POWDER 0 complet FLUTIC ASONE- MEDGEN (St -SALMETEROL 2019 ed SALMETEROL [facility]n's :[id number] 12:00: Medical, 00 AM PC) EST Fluticasone ADVAIR 08/13/ complet ADVAIR MEDGEN (St propionate DISKUS 2019 ed DISKUS [facility] 0.25 :28073 12:00: Medical, MG/ACTUAT / 14 00 AM PC) salmeterol EST 0.05 MG/ACTUAT Dry Powder Inhaler [Advair] ADVAIR DISKUS:1359 714 ammonium AMMONI 08/13/ CREAM 0 complet AMMONIUM MEDGEN (St lactate 120 UM 2019 ed LACTATE [facility] MG/ML LACTAT 12:00: TOPICAL Medical , Topical E 00 AM PC) Cream TOPICA EST AMMONIUM L:5434 LACTATE 60 TOPICAL:543 460 Lisinopril LISINO 08/13/ complet LISINOP RIL MEDGEN (St 10 MG Oral PRIL:3 2019 ed [facility] Tablet 61023 12:00: Medical, LISINOPRIL: 00 AM PC) 296326 EST Loratadine LORATA 08/13/ complet LORATAD INE MEDGEN (St 10 MG Oral DINE:3 2019 ed [facility] Tablet 82348 12:00: Medical, LORATADINE: 00 AM PC) 538328 EST 30 ACTUAT INCRUS 08/13/ POWDER 1 complet INCRUS E MEDGEN (St umeclidiniu E 2019 ed ELLIPTA [facility] m 0.0625 ELLIPT 12:00: Medical , MG/ACTUAT A:1539 00 AM PC) Dry Powder 885 EST Inhaler [Incruse] INCRUSE ELLIPTA:153 9885 atorvastati LIPITO 08/13/ complet LIPITO R MEDGEN (St n 20 MG R:6173 2019 ed [facility] Oral Tablet 18 12:00: Medica l, [Lipitor] 00 AM PC) LIPITOR:617 EST 318 FLUTICASONE 08/13/ SPRAY 0 complet FLUTICA SONE MEDGEN (St NASAL:11955 2019 ed NASAL [facility] 07 12:00: Medical, 00 AM PC) EST Cyclobenzap CYCLOB 08/13/ TABLET 0 complet CYCL OBENZAPR MEDGEN (St rine ENZAPR 2019 ed INE [facility] hydrochlori INE:82 12:00: Medi talha, de 10 MG 8348 00 AM PC) Oral Tablet EST CYCLOBENZAP RINE:517567 Clindamycin CLINDA 08/13/ CAPSULE 0 complet CLI NDAMYCIN MEDGEN (St 150 MG Oral MYCIN: 2019 ed [facility] Capsule [id number] 12:00: Medical, CLINDAMYCIN 00 AM PC) :[id number] EST Famotidine FAMOTI 08/13/ TABLET 0 complet FAMOT IDINE MEDGEN (St 20 MG Oral DINE:3 2019 ed [facility] Tablet 56564 12:00: Medical, FAMOTIDINE: 00 AM PC) 535955 EST atorvastati LIPITO 08/13/ complet LIPITO R MEDGEN (St n 20 MG R:6173 2019 ed [facility] Oral Tablet 18 12:00: Medica l, [Lipitor] 00 AM PC) LIPITOR:617 EST 318 30 ACTUAT INCRUS 08/13/ POWDER 1 complet INCRUS E MEDGEN (St umeclidiniu E 2019 ed ELLIPTA [facility] m 0.0625 ELLIPT 12:00: Medical , MG/ACTUAT A:1539 00 AM PC) Dry Powder 885 EST Inhaler [Incruse] INCRUSE ELLIPTA:153 9885 120 ACTUAT SYMBIC 08/13/ AEROSOL 0 complet SYMB ICORT MEDGEN (St Budesonide ORT:12 2019 ed [facility] 0.16 77667 12:00: Medical, MG/ACTUAT / 00 AM PC) formoterol EST fumarate 0.0045 MG/ACTUAT Metered Dose Inhaler [Symbicort] SYMBICORT:1 421025 Hydrochloro HYDROC 08/13/ TABLET 0 complet HYDR [place]OT MEDGEN (St thiazide 25 HLOROT 2019 ed HIAZIDE-LIS I [facility] MG / HIAZID 12:00: NOPRIL Medical, Lisinopril E-JAMA 00 AM PC) 20 MG Oral NOPRIL EST Tablet : HYDROCHLORO 7 THIAZIDE-LI SINOPRIL:19 7887 FLUTICASONE 08/13/ POWDER 0 complet FLUTIC ASONE- MEDGEN (St -SALMETEROL 2019 ed SALMETEROL [facility] :[id number] 12:00: Medical, 00 AM PC) EST montelukast ARIEL 08/13/ TABLET 0 complet MICHEL ELUKAST MEDGEN (St 10 MG Oral UKAST: 2019 ed [facility] Tablet [id number] 12:00: Medical, MONTELUKAST 00 AM PC) :[id number] EST FLUTICASONE 08/13/ SPRAY 0 complet FLUTICA SONE MEDGEN (St NASAL:76192 2019 ed NASAL s 07 12:00: Medical, 00 AM PC) EST ciclopirox CICLOP 08/13/ SOLUTION 0 complet CIC LOPIROX MEDGEN (St 80 MG/ML IROX 2019 ed TOPICAL [facility] Topical TOPICA 12:00: Medical, Solution L:3092 00 AM PC) CICLOPIROX 91 EST TOPICAL:309 291 14 ACTUAT BREO 08/13/ POWDER 0 complet BREO ELL IPTA MEDGEN (St fluticasone ELLIPT 2019 ed [facility] furoate 0.2 A:1648 12:00: Medi talha, MG/ACTUAT / 785 00 AM PC) vilanterol EST 0.025 MG/ACTUAT Dry Powder Inhaler [Breo] BREO ELLIPTA:164 8785 Hydrochloro HYDROC 08/13/ TABLET 0 complet HYDR [place] MEDGEN (St thiazide 25 HLOROT 2019 ed HIAZIDE-LIS I [facility] MG / HIAZID 12:00: NOPRIL Medical, Lisinopril E-JAMA 00 AM PC) 20 MG Oral NOPRIL EST Tablet : HYDROCHLORO 7 THIAZIDE-LI SINOPRIL:19 7087 30 ACTUAT INCRUS 08/13/ POWDER 1 complet INCRUS E MEDGEN (St umeclidiniu E 2019 ed ELLIPTA [facility] m 0.0625 ELLIPT 12:00: Medical , MG/ACTUAT A:1539 00 AM PC) Dry Powder 885 EST Inhaler [Incruse] INCRUSE ELLIPTA:153 9885 Fluticasone ADVAIR 08/13/ complet ADVAIR MEDGEN (St propionate DISKUS 2019 ed DISKUS [facility] 0.25 :14574 12:00: Medical, MG/ACTUAT / 14 00 AM PC) salmeterol EST 0.05 MG/ACTUAT Dry Powder Inhaler [Advair] ADVAIR DISKUS:1359 714 montelukast ARIEL 08/13/ TABLET 0 complet MICHEL ELUKAST MEDGEN (St 10 MG Oral UKAST: 2020 ed [facility] Tablet [id number] 12:00: Medical, MONTELUKAST 00 AM PC) :[id number] EST meloxicam MELOXI 08/13/ TABLET 0 complet MELOXI CAM MEDGEN (St 15 MG Oral CAM:15 2019 ed [facility] Tablet 269 12:00: Medical, MELOXICAM:1 00 AM PC) 67979 EST Metformin METFOR 08/13/ TABLET 0 complet METFOR MIN MEDGEN (St hydrochlori MIN:86 2019 ed [facility] de 1000 MG 1004 12:00: Medical , Oral Tablet 00 AM PC) METFORMIN:8 EST 92695 Lisinopril LISINO 08/13/ complet LISINOP RIL MEDGEN (St 10 MG Oral PRIL:3 2019 ed [facility] Tablet 73083 12:00: Medical, LISINOPRIL: 00 AM PC) 138354 EST Loratadine LORATA 08/13/ complet LORATAD INE MEDGEN (St 10 MG Oral DINE:3 2019 ed [facility] Tablet 38389 12:00: Medical, LORATADINE: 00 AM PC) 497336 EST FLONASE:179 08/13/ complet FLONASE MEDGEN (St 7933 2019 ed [facility] 12:00: Medical, 00 AM PC) EST FLUTICASONE 08/13/ SPRAY 0 complet FLUTICA SONE MEDGEN (St NASAL:90041 2019 ed NASAL [facility] 07 12:00: Medical, 00 AM PC) EST FLUTICASONE 08/13/ POWDER 0 complet FLUTIC ASONE- MEDGEN (St -SALMETEROL 2019 ed SALMETEROL [facility]n's :[id number] 12:00: Medical, 00 AM PC) EST Hydrochloro Lisino .0 active Lisinop ril-H eCW3 thiazide 25 pril-H 2020 {tabl ydrochloro th ([facility] MG / ydroch 12:00: et} iazide 20-25 [place] [facility] Lisinopril loroth 00 AM MG Health 20 MG Oral iazide EST Care) Tablet 20-25 Lisinopril- MG Hydrochloro thiazide 20-25 MG Hydrochloro Lisino .0 active Lisinop ril-H eCW3 thiazide 25 pril-H 2019 {tabl ydrochloro th ([facility] MG / ydroch 12:00: et} iazide 20-25 [place] Lisinopril loroth 00 AM MG Health 20 MG Oral iazide EST Care) Tablet 20-25 Lisinopril- MG Hydrochloro thiazide 20-25 MG Hydrochloro Lisino .0 active Lisinop ril-H eCW3 thiazide 25 pril-H 2019 {tabl ydrochloro th ([facility] MG / ydroch 12:00: et} iazide 20-25 [place] Lisinopril loroth 00 AM MG Health 20 MG Oral iazide EST Care) Tablet 20-25 Lisinopril- MG Hydrochloro thiazide 20-25 MG Hydrochloro Lisino .0 active Lisinop ril-H eCW3 thiazide 25 pril-H 2019 {tabl ydrochloro th ([facility] MG / ydroch 12:00: et} iazide 20-25 [place] Lisinopril loroth 00 AM MG Health 20 MG Oral iazide EST Care) Tablet 20-25 Lisinopril- MG Hydrochloro thiazide 20-25 MG Hydrochloro Lisino .0 active Lisinop ril-H eCW3 thiazide 25 pril-H 2019 {tabl ydrochloro th ([facility] MG / ydroch 12:00: et} iazide 20-25 [place] Lisinopril loroth 00 AM MG Health 20 MG Oral iazide EST Care) Tablet 20-25 Lisinopril- MG Hydrochloro thiazide 20-25 MG Famotidine Famoti .0 active Famotidi ne eCW3 20 MG Oral dine 2019 {tabl 20 MG ([facility] Tablet 20 MG 12:00: et_at [facility] 00 AM [facility] EDT [place]} Care) 60 ACTUAT Advair .0 active Advair eC W3 Fluticasone Diskus 2019 {puff Diskus (Hu dson propionate 250-50 12:00: } 250-50 [place] [facility] 0.25 MCG/DO 00 AM MCG/DOSE Health MG/ACTUAT / SE EDT Care) salmeterol 0.05 MG/ACTUAT Dry Powder Inhaler [Advair] Advair Diskus 250-50 MCG/DOSE Famotidine Famoti .0 active Famotidi ne eCW3 20 MG Oral dine 2018 {tabl 20 MG ([facility] Tablet 20 MG 12:00: et_at [facility] 00 AM _[facility] EDT [place]} Care) Famotidine Famoti .0 active Famotidi ne eCW3 20 MG Oral dine 2018 {tabl 20 MG ([facility] Tablet 20 MG 12:00: et_at [facility] 00 AM _[facility] EDT [place]} Care) Cyclobenzap Cyclob .0 active Cyclobe nzapr eCW3 rine enzapr 2019 {tabl ine HCl 10 ([facility] hydrochlori ine 12:00: et} mg [facility] de 10 MG HCl 10 00 AM Health Oral Tablet mg EDT Care) Cyclobenzap rine HCl 10 mg Cyclobenzap Cyclob .0 active Cyclobe nzapr eCW3 rine enzapr 2019 {tabl ine HCl 10 ([place] [facility] hydrochlori ine 12:00: et} mg [facility] de 10 MG HCl 10 00 AM Health Oral Tablet mg EDT Care) Cyclobenzap rine HCl 10 mg 60 ACTUAT Advair .0 active Advair eC W3 Fluticasone Diskus 2019 {puff Diskus (Hu dson propionate 250-50 12:00: } 250-50 [place] [facility] 0.25 MCG/DO 00 AM MCG/DOSE Health MG/ACTUAT / SE EDT Care) salmeterol 0.05 MG/ACTUAT Dry Powder Inhaler [Advair] Advair Diskus 250-50 MCG/DOSE 60 ACTUAT Advair .0 active Advair eC W3 Fluticasone Diskus 2019 {puff Diskus (Hu dson propionate 250-50 12:00: } 250-50 [place] [facility] 0.25 MCG/DO 00 AM MCG/DOSE Health MG/ACTUAT / SE EDT Care) salmeterol 0.05 MG/ACTUAT Dry Powder Inhaler [Advair] Advair Diskus 250-50 MCG/DOSE Cyclobenzap Cyclob .0 active Cyclobe nzapr eCW3 rine enzapr 2018 {tabl ine HCl 10 ([place] [facility] hydrochlori ine 12:00: et} mg [facility] de 10 MG HCl 10 00 AM Health Oral Tablet mg EDT Care) Cyclobenzap rine HCl 10 mg Famotidine Famoti .0 active Famotidi ne eCW3 20 MG Oral dine 2018 {tabl 20 MG ([facility] Tablet 20 MG 12:00: et_at [facility] 00 AM _bedt [facility] EDT [place]} Care) Famotidine Famoti .0 active Famotidi ne eCW3 20 MG Oral dine 2018 {tabl 20 MG ([facility] Tablet 20 MG 12:00: et_at [place] 00 AM _bedt [facility] EDT [place]} Care) Cyclobenzap Cyclob .0 active Cyclobe nzapr eCW3 rine enzapr 2019 {tabl ine HCl 10 ([place] [facility] hydrochlori ine 12:00: et} mg [place] de 10 MG HCl 10 00 AM Health Oral Tablet mg EDT Care) Cyclobenzap rine HCl 10 mg Cyclobenzap Cyclob .0 active Cyclobe nzapr eCW3 rine enzapr 2018 {tabl ine HCl 10 ([place] [facility] hydrochlori ine 12:00: et} mg [place] de 10 MG HCl 10 00 AM Health Oral Tablet mg EDT Care) Cyclobenzap rine HCl 10 mg 60 ACTUAT Advair .0 active Advair eC W3 Fluticasone Diskus 2019 {puff Diskus (Hu dson propionate 250-50 12:00: } 250-50 [place] [facility] 0.25 MCG/DO 00 AM MCG/DOSE Health MG/ACTUAT / SE EDT Care) salmeterol 0.05 MG/ACTUAT Dry Powder Inhaler [Advair] Advair Diskus 250-50 MCG/DOSE Cyclobenzap Cyclob .0 active Cyclobe nzapr eCW3 rine enzapr 2018 {tabl ine HCl 10 ([place] [facility] hydrochlori ine 12:00: et} mg [place] de 10 MG HCl 10 00 AM Health Oral Tablet mg EDT Care) Cyclobenzap rine HCl 10 mg 60 ACTUAT Advair .0 active Advair eC W3 Fluticasone Diskus 2019 {puff Diskus (Hu dson propionate 250-50 12:00: } 250-50 [place] 0.25 MCG/DO 00 AM MCG/DOSE Health MG/ACTUAT / SE EDT Care) salmeterol 0.05 MG/ACTUAT Dry Powder Inhaler [Advair] Advair Diskus 250-50 MCG/DOSE Famotidine Famoti 0 active Famotidi ne eCW3 20 MG Oral dine 2018 {tabl 20 MG ([facility] Tablet 20 MG 12:00: et_at [place] 00 AM _bedt Health EDT [place]} Care) 60 ACTUAT Advair .0 active Advair eC W3 Fluticasone Diskus 2018 {puff Diskus (Hu dson propionate 250-50 12:00: } 250-50 [place] 0.25 MCG/DO 00 AM MCG/DOSE Health MG/ACTUAT / SE EDT Care) salmeterol 0.05 MG/ACTUAT Dry Powder Inhaler [Advair] Advair Diskus 250-50 MCG/DOSE Acetaminoph Acetam 11/07/ suspend Acetam inophe eCW3 en 500 MG inophe 2019 ed n 500 mg ([facility] Oral Tablet n 500 12:00: [facility] Acetaminoph mg 00 AM Health en 500 mg EDT Care) montelukast Singul .0 active Singula ir 10 eCW3 10 MG Oral air 2018 {tabl mg ([place] [facility] Tablet mg 12:00: et} [facility] [Singulair] 00 AM Health Singulair EST Care) 10 mg montelukast Singul .0 active Singula ir 10 eCW3 10 MG Oral air 2018 {tabl mg ([place] Tablet mg 12:00: et} [facility] [Singulair] 00 AM Health Singulair EST Care) 10 mg montelukast Singul .0 active Singula ir 10 eCW3 10 MG Oral air 10 2018 {tabl mg ([place] Tablet mg 12:00: et} [place] [Singulair] 00 AM Health Singulair EST Care) 10 mg montelukast Singul .0 active Singula ir 10 eCW3 10 MG Oral air 10 2018 {tabl mg ([place] Tablet mg 12:00: et} [place] [Singulair] 00 AM Health Singulair EST Care) 10 mg montelukast Singul .0 active Singula ir 10 eCW3 10 MG Oral air 10 2018 {tabl mg ([place] Tablet mg 12:00: et} [place] [Singulair] 00 AM [facility] Singula EST Care) 10 mg montelukast Singul .0 active Singula ir 10 eCW3 10 MG Oral air 10 2018 {tabl mg ([place] Tablet mg 12:00: et} [place] [Singulair] 00 AM [facility] Singula EST Care) 10 mg Lisinopril Lisino .0 active Lisinopr il eCW3 20 MG Oral pril 2017 {tabl 20 MG ([place] Tablet 20 MG 12:00: et} [place] 00 AM [facility] EDT Care) Prednisone Predni 2.0 suspend PredniS ONE eCW3 20 MG Oral SONE 2016 {tabl ed 20 mg ([place] Tablet 20 mg 12:00: ets} [place] PredniSONE 00 AM Health 20 EST Care) OneTouch UNK 06/21/ suspend OneTouch eC W3 UltraSoft 2017 ed UltraSoft ([place] Lancets 1 12:00: Lancets 1 [place] machine 00 AM [facility] Health EST Care) OneTouch UNK 06/21/ suspend OneTouch eC W3 UltraSoft 2017 ed UltraSoft ([place] on Lancets 12:00: Lancets test Ri luz test strips 00 AM strips Healt EST Care) Flonase 50 Flonas 1.0 active Flonase 50 eCW3 MCG/ACT e 50 2015 {spra MCG/ACT ([place] MCG/AC 12:00: y_in_ [place] T 00 AM each_ Health EDT nostr Care) il} Flonase 50 Flonas .0 active Flonase 50 eCW3 MCG/ACT e 50 2015 {spra MCG/ACT ([place] MCG/AC 12:00: y_in_ [place] T 00 AM each_ Health EDT nostr Care) il} Flonase 50 Flonas .0 suspend Flonase 50 eCW3 MCG/ACT e 50 2015 {spra ed MCG/ACT ([place] MCG/AC 12:00: y_in_ [place] T 00 AM each_ Health EDT nostr Care) il} Flonase 50 Flonas .0 active Flonase 50 eCW3 MCG/ACT e 50 2015 {spra MCG/ACT ([place] MCG/AC 12:00: y_in_ [place] T 00 AM each_ Health EDT nostr Care) il} Flonase 50 Flonas .0 active Flonase 50 eCW3 MCG/ACT e 50 2015 {spra MCG/ACT ([place] MCG/AC 12:00: y_in_ [place] T 00 AM each_ Health EDT nostr Care) il} Flonase 50 Flonas .0 active Flonase 50 eCW3 MCG/ACT e 50 2015 {spra MCG/ACT ([place] MCG/AC 12:00: y_in_ [place] T 00 AM each_ Health EDT nostr Care) il} Melatonin 3 Melato .0 active Melaton in 3 eCW3 MG johanny 2015 {tabl MG ([place] MG 12:00: et_at [place] 00 AM _bedt Health EDT ime_a Care) s_nee ded_w ith_f ood} Melatonin 3 Melato .0 active Melaton in 3 eCW3 MG johanny 3 2015 {tabl MG ([place] MG 12:00: et_at [place] 00 AM _bedt Health EDT ime_a Care) s_nee ded_w ith_f ood} Melatonin 3 Melato 1.0 suspend Melato johanny 3 eCW3 MG Oral johanny 2015 {tabl ed MG ([place] Tablet MG 12:00: et_at [place] 00 AM _bedt Health EDT ime_a Care) s_nee ded_w ith_f ood} Melatonin 3 Melato 1.0 active Melaton in 3 eCW3 MG johanny 2015 {tabl MG ([place] MG 12:00: et_at [place] 00 AM _bedt Health EDT ime_a Care) s_nee ded_w ith_f ood} Melatonin 3 Melato .0 active Melaton in 3 eCW3 MG johanny 3 2015 {tabl MG ([place] MG 12:00: et_at [place] 00 AM _bedt Health EDT ime_a Care) s_nee ded_w ith_f ood} Melatonin 3 Melato .0 active Melaton in 3 eCW3 MG johanny 3 2015 {tabl MG ([place] MG 12:00: et_at [place] 00 AM _bedt Health EDT ime_a Care) s_nee ded_w ith_f ood} Zithromax Zithro 11/09/ suspend Zithroma x eCW3 [facility] 500 max 2016 ed [facility] 500 ( [place] mg [facility] 12:00: mg [place] k 500 00 AM Health mg EDT Care) atorvastati Lipito .0 active Lipitor 20 eCW3 n 20 MG r 2014 {tabl mg ([facility] Oral Tablet mg 12:00: et} [facility] [Lipitor] 00 AM Health Lipitor 20 EDT Care) mg atorvastati Lipito .0 active Lipitor 20 eCW3 n 20 MG r 2014 {tabl mg ([facility] Oral Tablet mg 12:00: et} [facility] [Lipitor] 00 AM Health Lipitor 20 EDT Care) mg atorvastati Lipito .0 active Lipitor 20 eCW3 n 20 MG r 20 2014 {tabl mg ([facility] Oral Tablet mg 12:00: et} [facility] [Lipitor] 00 AM Health Lipitor 20 EDT Care) mg atorvastati Lipito .0 active Lipitor 20 eCW3 n 20 MG r 20 2014 {tabl mg ([facility] Oral Tablet mg 12:00: et} [facility] [Lipitor] 00 AM Health Lipitor 20 EDT Care) mg atorvastati Lipito .0 active Lipitor 20 eCW3 n 20 MG r 20 2014 {tabl mg ([facility] Oral Tablet mg 12:00: et} [facility] [Lipitor] 00 AM Health Lipitor 20 EDT Care) mg atorvastati Lipito .0 active Lipitor 20 eCW3 n 20 MG r 20 2014 {tabl mg ([facility] Oral Tablet mg 12:00: et} [facility] [Lipitor] 00 AM Health Lipitor 20 EDT Care) mg Metformin Metfor .0 active Metformin eCW3 hydrochlori min 2013 {tabl HCl 1000 MG ([place] de 1000 MG HCl 12:00: et_wi [place] Oral Tablet 1000 00 AM th_me Health Metformin MG EDT als} Care) HCl 1000 MG Metformin Metfor .0 active Metformin eCW3 hydrochlori min 2013 {tabl HCl 1000 MG ([facility] de 1000 MG HCl 12:00: et_wi [place] Oral Tablet 1000 00 AM th_fl Health Metformin MG EDT als} Care) HCl 1000 MG Metformin Metfor 1.0 active Metformin eCW3 hydrochlori min 2013 {tabl HCl 1000 MG ([place] de 1000 MG HCl 12:00: et_wi [place] Oral Tablet 1000 00 AM th_me Health Metformin MG EDT als} Care) HCl 1000 MG Metformin Metfor 1.0 active Metformin eCW3 hydrochlori min 2013 {tabl HCl 1000 MG ([place] de 1000 MG HCl 12:00: et_wi [place] Oral Tablet 1000 00 AM th_fl Health Metformin MG EDT als} Care) HCl 1000 MG Metformin Metfor 1.0 active Metformin eCW3 hydrochlori min 2013 {tabl HCl 1000 MG ([place] de 1000 MG HCl 12:00: et_wi [place] Oral Tablet 1000 00 AM th_fl Health Metformin MG EDT als} Care) HCl 1000 MG Metformin Metfor .0 active Metformin eCW3 hydrochlori min 2013 {tabl HCl 1000 MG ([place] de 1000 MG HCl 12:00: et_wi [place] Oral Tablet 1000 00 AM th_fl Health Metformin MG EDT als} Care) HCl 1000 MG Loratadine Clarit 1.0 active Claritin 1 0 eCW3 10 MG Oral in 10 {tabl MG ([place] Tablet MG et} [facility] [facility] Claritin 10 Care) MG 200 ACTUAT Ventol 2.0 active Ventolin H FA eCW3 Albuterol in HFA {puff 108 (90 (Hud son 0.09 108 s} Base) River MG/ACTUAT (90 MCG/ACT Health Metered Base) Care) Dose MCG/AC Inhaler T [Ventolin] Ventolin HFA 108 (90 Base) MCG/ACT Loratadine Clarit 1.0 active Claritin 1 0 eCW3 10 MG Oral in 10 {tabl MG (Palmer Tablet MG et} River [Claritin] [facility] Claritin 10 Care) MG 200 ACTUAT Ventol 2.0 active Ventolin H FA eCW3 Albuterol in HFA {puff 108 (90 (Hud son 0.09 108 s} Base) River MG/ACTUAT (90 MCG/ACT Health Metered Base) Care) Dose MCG/AC Inhaler T [Ventolin] Ventolin HFA 108 (90 Base) MCG/ACT Loratadine Clarit 1.0 active Claritin 1 0 eCW3 10 MG Oral in 10 {tabl MG (Palmer Tablet MG et} River [Claritin] [facility] MG Loratadine Clarit 1.0 active Claritin 1 0 eCW3 10 MG Oral in 10 {tabl MG (Palmer Tablet MG et} River [Claritin] [facility] Claritin 10 Care) MG Loratadine Clarit 1.0 active Claritin 1 0 eCW3 10 MG Oral in 10 {tabl MG (Palmer Tablet MG et} River [Claritin] [facility] Claritin 10 Care) MG 200 ACTUAT Ventol 2.0 active Ventolin H FA eCW3 Albuterol in HFA {puff 108 (90 (Hud son 0.09 108 s} Base) River MG/ACTUAT (90 MCG/ACT Health Metered Base) Care) Dose MCG/AC Inhaler T [Ventolin] Ventolin HFA 108 (90 Base) MCG/ACT 200 ACTUAT Ventol 2.0 active Ventolin H FA eCW3 Albuterol in HFA {puff 108 (90 (Hud son 0.09 108 s} Base) River MG/ACTUAT (90 MCG/ACT Health Metered Base) Care) Dose MCG/AC Inhaler T [Ventolin] Ventolin HFA 108 (90 Base) MCG/ACT 200 ACTUAT Ventol 2.0 active Ventolin H FA eCW3 Albuterol in HFA {puff 108 (90 (Hud son 0.09 108 s} Base) River MG/ACTUAT (90 MCG/ACT Health Metered Base) Care) Dose MCG/AC Inhaler T [Ventolin] Ventolin HFA 108 (90 Base) MCG/ACT Loratadine Clarit 1.0 active Claritin 1 0 eCW3 10 MG Oral in 10 {tabl MG (Palmer Tablet MG et} [place] [Claritin] Health Claritin 10 Care) MG 200 ACTUAT Ventol 2.0 active Ventolin H FA eCW3 Albuterol in HFA {puff 108 (90 (Hud son 0.09 108 s} Base) River MG/ACTUAT (90 MCG/ACT Health Metered Base) Care) Dose MCG/AC Inhaler T [Ventolin] Ventolin HFA 108 (90 Base) MCG/ACT Insurance Providers Payer name Policy type Policy ID Covered Covered republican's Policy P landon / Coverage republican ID relationship to Johnson Inf ormation type johnson [facility] [id number] SP [id number] COMPLETE MEDICAID [id number] SP [id number] MEDICAID OF [id number] [facility] [id number] HEALTHCARE COMMUNITY PLAN [place] MEDIC[place] [id number] [place] [id number] SP [id number] HEALTHCARE (MEDICARE) [facility] [id number] SP [id number] COMPLETE FORMERLY [facility] MEDICAID [id number] SP [id number] COMM PLAN [facility] [id number] SP [id number] COMPLETE [place] [id number] SP [id number] [facility] [id number] WC 01 WC 0 1 Affinity [id number] S [id number] INN Dep25 Dental [id number] S [id number] [employer] MKD FORMERLY [facility], [facility] MEDICAID [id number] SP [id number] COMM PLAN Problems, Conditions, and Diagnoses Code Display Name Description Problem Effective Data Type Dates Source(s) M47.812 Spondylosis without SPONDYLOSIS WITHOUT Problem 020 MEDGEN (St myelopathy or MYELOPATHY OR 12:00:00 Ernesto's radiculopathy, RADICULOPATHY, AM EDT Medica l, cervical region CERVICAL REGION PC) M25.512 Pain in left shoulder PAIN IN LEFT SHOULDER Problem 02/2020 MED[facility] (St 12:00:00 Ernesto's EDT Medical, ) M25.511 Pain in right shoulder PAIN IN RIGHT SHOULDER Problem 0 04/01/2020 MED[facility] (St 12:00:00 Ernesto's EDT Medical, PC) B96.81 Helicobacter pylori HELICOBACTER PYLORI Problem MEDGEN (St [H. pylori] as the [H. PYLORI] THE 12:00:00 Ernesto's cause of diseases CAUSE OF DISEASES EDT Medical, classified elsewhere CLASSIFIED ELSEWHERE PC) B96.81 Helicobacter pylori HELICOBACTER PYLORI Problem MEDGEN (St [H. pylori] as the [H. PYLORI] THE 12:00:00 Ernesto's cause of diseases CAUSE OF DISEASES EDT Medical, classified elsewhere CLASSIFIED ELSEWHERE PC) B96.81 Helicobacter pylori HELICOBACTER PYLORI Problem MEDGEN (St [H. pylori] as the [H. PYLORI] THE 12:00:00 Ernesto's cause of diseases CAUSE OF DISEASES EDT Medical, classified elsewhere CLASSIFIED ELSEWHERE PC) E78.5 Hyperlipidemia, HYPERLIPIDEMIA, Problem 03/19/2020 MEDG EN (St unspecified UNSPECIFIED 12:00:00 [facility]'s EDT Medical, ) I10 Essential (primary) ESSENTIAL (PRIMARY) Problem MEDGEN (St hypertension HYPERTENSION 12:00:00 Ernesto's EDT Medical, PC) E11.69 Type 2 diabetes TYPE 2 DIABETES Problem 03/19/2020 MEDG EN (St mellitus with other MELLITUS WITH OTHER 12:00:0 0 Ernesto's specified complication SPECIFIED COMPLICATION A M EDT Medical, PC) Z00.00 Encounter for general ENCOUNTER FOR GENERAL Problem MEDGEN (St adult medical ADULT MEDICAL 12:00:00 Ernesto's examination without EXAMINATION WITHOUT EDT Medical, abnormal findings ABNORMAL FINDINGS ) E78.5 Hyperlipidemia, HYPERLIPIDEMIA, Problem 03/19/2020 MEDG EN (St unspecified UNSPECIFIED 12:00:00 Ernesto's EDT Medical, ) I10 Essential (primary) ESSENTIAL (PRIMARY) Problem 020 MEDGEN (St hypertension HYPERTENSION 12:00:00 Ernesto's AM EDT Medical, PC) E11.69 Type 2 diabetes TYPE 2 DIABETES Problem 03/19/2020 MEDG EN (St mellitus with other MELLITUS WITH OTHER 12:00:0 0 Ernesto's specified complication SPECIFIED COMPLICATION A EDT Medical, PC) Z00.00 Encounter for general ENCOUNTER FOR GENERAL Problem MEDGEN (St adult medical ADULT MEDICAL 12:00:00 Ernesto's examination without EXAMINATION WITHOUT AM EDT Medical, abnormal findings ABNORMAL FINDINGS PC) E78.5 Hyperlipidemia, HYPERLIPIDEMIA, Problem 03/19/2020 MEDG EN (St unspecified UNSPECIFIED 12:00:00 Ernesto's AM EDT Medical, PC) I10 Essential (primary) ESSENTIAL (PRIMARY) Problem MEDGEN (St hypertension HYPERTENSION 12:00:00 Ernesto's EDT Medical, PC) E11.69 Type 2 diabetes TYPE 2 DIABETES Problem 03/19/2020 MEDG EN (St mellitus with other MELLITUS WITH OTHER 12:00:0 0 Ernesto's specified complication SPECIFIED COMPLICATION A EDT Medical, PC) Z00.00 Encounter for general ENCOUNTER FOR GENERAL Problem MEDGEN (St adult medical ADULT MEDICAL 12:00:00 Ernesot's examination without EXAMINATION WITHOUT AM EDT Medical, abnormal findings ABNORMAL FINDINGS PC) E78.5 Hyperlipidemia, HYPERLIPIDEMIA, Problem 03/19/2020 MEDG EN (St unspecified UNSPECIFIED 12:00:00 Ernesto's AM EDT Medical, PC) I10 Essential (primary) ESSENTIAL (PRIMARY) Problem MEDGEN (St hypertension HYPERTENSION 12:00:00 Ernesto's AM EDT Medical, PC) E11.69 Type 2 diabetes TYPE 2 DIABETES Problem 03/19/2020 MEDG EN (St mellitus with other MELLITUS WITH OTHER 12:00:0 0 Ernesto's specified complication SPECIFIED COMPLICATION A EDT Medical, PC) Z00.00 Encounter for general ENCOUNTER FOR GENERAL Problem MEDGEN (St adult medical ADULT MEDICAL 12:00:00 Ernesto's examination without EXAMINATION WITHOUT AM EDT Medical, abnormal findings ABNORMAL FINDINGS PC) Z12.11 Encounter for ENCOUNTER FOR Problem 02/13/2020 MEDGEN ( St screening for SCREENING FOR 12:00:00 Ernesto's malignant neoplasm of MALIGNANT NEOPLASM OF AM EDT Medical, colon COLON PC) R19.7 Diarrhea, unspecified DIARRHEA, UNSPECIFIED Problem MEDGEN (St 12:00:00 Ernesto's EDT Medical, ) R11.2 Nausea with vomiting, NAUSEA WITH VOMITING, Problem MEDGEN (St unspecified UNSPECIFIED 12:00:00 [facility]'s EDT [facility], ) R01.1 Cardiac murmur, CARDIAC MURMUR, Problem 02/13/2020 MEDG EN (St unspecified UNSPECIFIED 12:00:00 [facility] ) Z12.11 Encounter for ENCOUNTER FOR Problem 02/13/2020 MEDGEN ( St screening for SCREENING FOR 12:00:00 Ernesto's malignant neoplasm of MALIGNANT NEOPLASM OF EDT Medical, colon COLON PC) R19.7 Diarrhea, unspecified DIARRHEA, UNSPECIFIED Problem MEDGEN (St 12:00:00 [facility]'s EDT Medical, ) R11.2 Nausea with vomiting, NAUSEA WITH VOMITING, Problem MEDGEN (St unspecified UNSPECIFIED 12:00:00 [facility]'s EDT Medical, ) R01.1 Cardiac murmur, CARDIAC MURMUR, Problem 02/13/2020 MEDG EN (St unspecified UNSPECIFIED 12:00:00 [facility]'s EDT Medical, ) Z12.11 Encounter for ENCOUNTER FOR Problem 02/13/2020 MEDGEN ( St screening for SCREENING FOR 12:00:00 Ernesto's malignant neoplasm of [facility]NT [facility], colon COLON PC) R19.7 Diarrhea, unspecified DIARRHEA, UNSPECIFIED Problem MEDGEN (St 12:00:00 [facility]'s EDT Medical, ) R11.2 Nausea with vomiting, NAUSEA WITH VOMITING, Problem MEDGEN (St unspecified UNSPECIFIED 12:00:00 [facility]'s EDT Medical, ) R01.1 Cardiac murmur, CARDIAC MURMUR, Problem 02/13/2020 MEDG EN (St unspecified UNSPECIFIED 12:00:00 Ernesto's EDT [facility], ) Z12.11 Encounter for ENCOUNTER FOR Problem 02/13/2020 MEDGEN ( St screening for SCREENING FOR 12:00:00 Ernesto's malignant neoplasm of MALIGNANT NEOPLASM OF AM EDT Medical, colon COLON PC) R19.7 Diarrhea, unspecified DIARRHEA, UNSPECIFIED Problem MEDGEN (St 12:00:00 Ernesto's EDT Medical, ) R11.2 Nausea with vomiting, NAUSEA WITH VOMITING, Problem MEDGEN (St unspecified UNSPECIFIED 12:00:00 [facility], ) R01.1 Cardiac murmur, CARDIAC MURMUR, Problem 02/13/2020 MEDG EN (St unspecified UNSPECIFIED 12:00:00 [facility], ) Z12.11 Encounter for ENCOUNTER FOR Problem 02/13/2020 MEDGEN ( St screening for SCREENING FOR 12:00:00 Ernesto's malignant neoplasm of [facility]IGNANT NEOPLASM OF [facility], colon COLON PC) R19.7 Diarrhea, unspecified DIARRHEA, UNSPECIFIED Problem MEDGEN (St 12:00:00 [facility], ) R11.2 Nausea with vomiting, NAUSEA WITH VOMITING, Problem MEDGEN (St unspecified UNSPECIFIED 12:00:00 [facility], ) R01.1 Cardiac murmur, CARDIAC MURMUR, Problem 02/13/2020 MEDG EN (St unspecified UNSPECIFIED 12:00:00 [facility], ) Z12.11 Encounter for ENCOUNTER FOR Problem 02/13/2020 MEDGEN ( St screening for SCREENING FOR 12:00:00 Ernesto's malignant neoplasm of [facility]IGNANT NE[facility]M OF [facility], colon COLON PC) R19.7 Diarrhea, unspecified DIARRHEA, UNSPECIFIED Problem MEDGEN (St 12:00:00 Ernesto's EDT Medical, ) R11.2 Nausea with vomiting, NAUSEA WITH VOMITING, Problem MEDGEN (St unspecified UNSPECIFIED 12:00:00 [facility]'s EDT Medical, ) R01.1 Cardiac murmur, CARDIAC MURMUR, Problem 02/13/2020 MEDG EN (St unspecified UNSPECIFIED 12:00:00 [facility]'s EDT [facility], ) R13.10 Dysphagia, unspecified DYSPHAGIA, UNSPECIFIED Problem 0 09/26/2019 MED[facility] (St 12:00:00 [facility]'s [facility], PC) R13.10 Dysphagia, unspecified DYSPHAGIA, UNSPECIFIED Problem 0 09/26/2019 MEDGEN (St 12:00:00 Ernesto's AM EST Medical, PC) R13.10 Dysphagia, unspecified DYSPHAGIA, UNSPECIFIED Problem 0 09/26/2019 MEDGEN (St 12:00:00 Ernesto's AM EST Medical, PC) R13.10 Dysphagia, unspecified DYSPHAGIA, UNSPECIFIED Problem 0 09/26/2019 MEDGEN (St 12:00:00 Ernesto's AM EST Medical, PC) R13.10 Dysphagia, unspecified DYSPHAGIA, UNSPECIFIED Problem 0 09/26/2019 MEDGEN (St 12:00:00 Ernesto's AM EST Medical, PC) R13.10 Dysphagia, unspecified DYSPHAGIA, UNSPECIFIED Problem 0 09/26/2019 MEDGEN (St 12:00:00 Ernesto's AM EST Medical, PC) R13.10 Dysphagia, unspecified DYSPHAGIA, UNSPECIFIED Problem 0 09/26/2019 MED[facility] (St 12:00:00 Ernesto's AM EST Medical, PC) Z01.818 Pre-op exam Pre-op exam Problem 09/25/2019 eCW3 12:00:00 ([facility]) J44.9 Chronic obstructive CHRONIC OBSTRUCTIVE Problem 020 MEDGEN (St pulmonary disease, PULMONARY DISEASE, 12:00:00 Ernesto's unspecified UNSPECIFIED AM EST Medical, PC) G47.33 Obstructive sleep OBSTRUCTIVE SLEEP Problem 08/13/2019 MEDGEN (St apnea (adult) APNEA (ADULT) 12:00:00 Ernesto's (pediatric) (PEDIATRIC) AM EST Medical, PC) J44.9 Chronic obstructive CHRONIC OBSTRUCTIVE Problem 020 MEDGEN (St pulmonary disease, PULMONARY DISEASE, 12:00:00 Ernesto's unspecified UNSPECIFIED AM EST Medical, PC) G47.33 Obstructive sleep OBSTRUCTIVE SLEEP Problem 08/13/2019 MEDGEN (St apnea (adult) APNEA (ADULT) 12:00:00 Ernesto's (pediatric) (PEDIATRIC) AM EST Medical, PC) J44.9 Chronic obstructive CHRONIC OBSTRUCTIVE Problem 020 MED[facility] (St pulmonary disease, PULMONARY DISEASE, 12:00:00 Ernesto's unspecified UNSPECIFIED AM EST Medical, PC) G47.33 Obstructive sleep OBSTRUCTIVE SLEEP Problem 08/13/2019 MED[facility] (St apnea (adult) APNEA (ADULT) 12:00:00 Ernesto's (pediatric) (PEDIATRIC) AM EST Medical, PC) J44.9 Chronic obstructive CHRONIC OBSTRUCTIVE Problem 020 MEDGEN (St pulmonary disease, PULMONARY DISEASE, 12:00:00 Ernesto's unspecified UNSPECIFIED AM EST Medical, PC) G47.33 Obstructive sleep OBSTRUCTIVE SLEEP Problem 08/13/2019 MEDGEN (St apnea (adult) APNEA (ADULT) 12:00:00 Ernesto's (pediatric) (PEDIATRIC) AM EST Medical, PC) J44.9 Chronic obstructive CHRONIC OBSTRUCTIVE Problem 020 MEDGEN (St pulmonary disease, PULMONARY DISEASE, 12:00:00 Ernesto's unspecified UNSPECIFIED AM EST Medical, PC) G47.33 Obstructive sleep OBSTRUCTIVE SLEEP Problem 08/13/2019 MEDGEN (St apnea (adult) APNEA (ADULT) 12:00:00 Ernesto's (pediatric) (PEDIATRIC) AM EST Medical, PC) J44.9 Chronic obstructive CHRONIC OBSTRUCTIVE Problem 020 MEDGEN (St pulmonary disease, PULMONARY DISEASE, 12:00:00 Ernesto's unspecified UNSPECIFIED AM EST Medical, PC) G47.33 Obstructive sleep OBSTRUCTIVE SLEEP Problem 08/13/2019 MEDGEN (St apnea (adult) APNEA (ADULT) 12:00:00 Ernesto's (pediatric) (PEDIATRIC) AM EST Medical, PC) J44.9 Chronic obstructive CHRONIC OBSTRUCTIVE Problem 020 MEDGEN (St pulmonary disease, PULMONARY DISEASE, 12:00:00 Ernesto's unspecified UNSPECIFIED AM EST Medical, PC) G47.33 Obstructive sleep OBSTRUCTIVE SLEEP Problem 08/13/2019 MED[facility] (St apnea (adult) APNEA (ADULT) 12:00:00 Ernesto's (pediatric) (PEDIATRIC) AM EST Medical, PC) [id number] Posttraumatic stress Posttraumatic stress Complaint 08/09 NETSMART disorder disorder 09:20:00 ([facility]) [id number] Major depressive Major depressive Complaint 08/09/2019 NE TSMART disorder disorder 06:10:00 ([facility]) [id number] Anxiety disorder Anxiety disorder Complaint 08/09/2019 NE TSMART 06:10:00 ([facility]) [id number] Generalized anxiety Generalized anxiety Complaint 019 NETSMART disorder disorder 03:00:00 ([facility] AM EST - er [facility] 08/09/2019 [facility] 06:05:00 Services) AM EST [id number] Depressive disorder Depressive disorder Complaint 019 NETSMART 03:00:00 ([facility] EST - [facility] 08/09/2019 [facility] 06:10:00 Services) PM EST 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 06/19/2019 eCW3 age-related cataract, age-related cataract, 12: 00:00 ([place] bilateral bilateral [facility]) 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 06/19/2019 eCW3 age-related cataract, age-related cataract, 12: 00:00 ([place] bilateral bilateral [facility]) E66.9 Obesity (BMI 30-39.9) Obesity (BMI 30-39.9) Problem 07/2018 eCW3 12:00:00 ([facility]) J45.30 Mild persistent Mild persistent Problem 05/25/2019 eCW3 asthma, unspecified asthma, unspecified 12:00:0 0 ([place] whether complicated whether complicated [facility]) J45.30 Mild persistent Mild persistent Problem 05/25/2019 eCW3 asthma, unspecified asthma, unspecified 12:00:0 0 ([place] whether complicated whether complicated [facility]) E66.9 Obesity (BMI 30-39.9) Obesity (BMI 30-39.9) Problem 07/2018 eCW3 12:00:00 ([facility]) F32.2 Major depressive Major depressive Problem 03/01/2019 eC W3 disorder, single disorder, single 12:00:00 (H udson episode, severe episode, severe AM EDT Rive r without psychotic without psychotic Health features features Care) F32.2 Major depressive Major depressive Problem 03/01/2019 eC W3 disorder, single disorder, single 12:00:00 (H udson episode, severe episode, severe AM EDT Rive r without psychotic without psychotic Health features features Care) R01.1 Cardiac murmur Cardiac murmur Problem 08/11/2018 eCW3 12:00:00 ([facility]) E55.9 Vitamin D deficiency Vitamin D deficiency Problem 08/11 eCW3 12:00:00 ([facility]) I73.00 Raynaud''s phenomenon Raynaud''s phenomenon Problem eCW3 without gangrene without gangrene 12:00:00 ([facility]) E78.00 Pure Pure Problem 08/11/2018 eCW3 hypercholesterolemia hypercholesterolemia 12:00 :00 ([facility]) E78.00 Pure Pure Problem 08/11/2018 eCW3 hypercholesterolemia hypercholesterolemia 12:00 :00 ([facility]) R01.1 Cardiac murmur Cardiac murmur Problem 08/11/2018 eCW3 12:00:00 ([facility]) E55.9 Vitamin D deficiency Vitamin D deficiency Problem 08/11 eCW3 12:00:00 ([facility]) I73.00 Raynaud''s phenomenon Raynaud''s phenomenon Problem eCW3 without gangrene without gangrene 12:00:00 ([facility]) M15.9 Osteoarthritis Polyosteoarthritis, Problem 11/25/2017 e CW3 unspecified 12:00:00 ([facility]) M15.9 Osteoarthritis Polyosteoarthritis, Problem 11/25/2017 e CW3 unspecified 12:00:00 ([facility]) M19.90 Osteoarthritis, Osteoarthritis, Problem 06/27/2017 eCW3 unspecified unspecified 12:00:00 ([place] osteoarthritis type, osteoarthritis type, AM ES T [place] unspecified site unspecified site alth Care) M19.90 Osteoarthritis, Osteoarthritis, Problem 06/27/2017 eCW3 unspecified unspecified 12:00:00 ([place] osteoarthritis type, osteoarthritis type, AM ES T [place] unspecified site unspecified site [facility] Care) J44.9 COPD (chronic COPD (chronic Problem 02/10/2016 eCW3 obstructive pulmonary obstructive pulmonary 12: 00:00 ([place] disease) disease) [facility]) J44.9 COPD (chronic COPD (chronic Problem 02/10/2016 eCW3 obstructive pulmonary obstructive pulmonary 12: 00:00 ([place] disease) disease) AM [facility]) I10 Hypertension Hypertension Problem 05/12/2015 eCW3 12:00:00 ([facility]) I10 Hypertension Hypertension Problem 05/12/2015 eCW3 12:00:00 ([facility]) E11.9 Type II diabetes Type 2 diabetes Problem 05/12/2015 eCW 3 mellitus without mellitus without 12:00:00 (Clemente shyamroman complication complications [facility]) Surgeries/Procedures Procedure Description Date Indications Data Source(s) OFFICE OUTPATIENT VISIT 03/26/2020 MEDG EN (Daniel's 15 MINUTES 12:00:00 AM [facility], ) OFFICE OUTPATIENT VISIT 03/26/2020 MEDG EN (Daniel's 15 MINUTES 12:00:00 AM [facility], ) OFFICE OUTPATIENT VISIT 03/26/2020 MEDG EN (Daniel's 15 MINUTES 12:00:00 AM [facility], ) Documentation of current 03/19/2020 MED GEN (Daniel's medications (procedure) 12:00:00 AM EDT [facility], ) INITIAL PREVENTIVE 03/19/2020 MEDGEN (S t Ernesto's MEDICINE NEW PATIENT 12:00:00 AM [facility], ) 63YRS&> ECG ROUTINE ECG W/LEAST 03/19/2020 MEDG EN (Daniel's 12 LDS W/I&R 12:00:00 AM [facility], ) GLUC BLD GLUC MNTR DEV 03/19/2020 MEDGE N (Daniel's CLEARED FDA SPEC HOME USE 12:00:00 AM [facility], ) COLLECTION CAPILLARY 03/19/2020 MEDGEN (Daniel's BLOOD SPECIMEN 12:00:00 AM [facility], C) Documentation of current 03/19/2020 MED GEN (Daniel's medications (procedure) 12:00:00 AM EDT [facility], ) INITIAL PREVENTIVE 03/19/2020 MEDGEN (S t Ernesto's MEDICINE NEW PATIENT 12:00:00 AM [facility], ) 63YRS&> ECG ROUTINE ECG W/LEAST 03/19/2020 MEDG EN (Daniel's 12 LDS W/I&R 12:00:00 AM [facility], ) GLUC BLD GLUC MNTR DEV 03/19/2020 MEDGE N (Daniel's CLEARED FDA SPEC HOME USE 12:00:00 AM EDT [facility], ) COLLECTION CAPILLARY 03/19/2020 MEDGEN (Daniel's BLOOD SPECIMEN 12:00:00 AM EDT Medical, P C) Documentation of current 03/19/2020 MED GEN (Daniel's medications (procedure) 12:00:00 AM EDT [facility], ) INITIAL PREVENTIVE 03/19/2020 MEDGEN (S t Ernesto's MEDICINE NEW PATIENT 12:00:00 AM EDT [facility], ) 63YRS&> ECG ROUTINE ECG W/LEAST 03/19/2020 MEDG EN (Daniel's 12 LDS W/I&R 12:00:00 AM EDT [facility], ) GLUC BLD GLUC MNTR DEV 03/19/2020 MEDGE N (Daniel's CLEARED FDA SPEC HOME USE 12:00:00 AM EDT [facility], ) COLLECTION CAPILLARY 03/19/2020 MEDGEN (Daniel's BLOOD SPECIMEN 12:00:00 AM EDT Medical, P C) Documentation of current 03/19/2020 MED GEN (Daniel's medications (procedure) 12:00:00 AM EDT [facility], ) INITIAL PREVENTIVE 03/19/2020 MEDGEN (S t Ernesto's MEDICINE NEW PATIENT 12:00:00 AM EDT [facility], ) 63YRS&> ECG ROUTINE ECG W/LEAST 03/19/2020 MEDG EN (Daniel's 12 LDS W/I&R 12:00:00 AM EDT [facility], ) GLUC BLD GLUC MNTR DEV 03/19/2020 MEDGE N (Daniel's CLEARED FDA SPEC HOME USE 12:00:00 AM EDT [facility], ) COLLECTION CAPILLARY 03/19/2020 MEDGEN (Daniel's BLOOD SPECIMEN 12:00:00 AM EDT Medical, P C) Documentation of current 02/13/2020 MED GEN (Daniel's medications (procedure) 12:00:00 AM EDT [facility], ) Documentation of current 02/13/2020 MED GEN (Daniel's medications (procedure) 12:00:00 AM EDT [facility], ) Documentation of current 02/13/2020 MED GEN (Daniel's medications (procedure) 12:00:00 AM EDT [facility], ) COLLECTION VENOUS BLOOD 02/13/2020 MEDG EN (Daniel's VENIPUNCTURE 12:00:00 AM [facility], ) Documentation of current 02/13/2020 MED GEN (Daniel's medications [facility]procedure) [facility] current 02/13/2020 MED GEN (Daniel's medications (procedure) 12:00:[address] [facility], ) Documentation of current 02/13/2020 MED GEN (Daniel's medications (procedure) 12:00:00 AM EDT [facility], ) COLLECTION VENOUS BLOOD 02/13/2020 MEDG EN (Daniel's VENIPUNCTURE 12:00:00 AM [facility], ) Documentation of current 02/13/2020 MED GEN (Daniel's medications (procedure) [facility] Documentation of current 02/13/2020 MED GEN (Daniel's medications (procedure) 12:00:00 AM EDT al[facility], ) Documentation of current 02/13/2020 MED GEN (Daniel's medications (procedure) 12:00:00 AM EDT [facility], ) COLLECTION VENOUS BLOOD 02/13/2020 MEDG EN (Daniel's VENIPUNCTURE 12:00:00 AM [facility], ) Documentation of current 02/13/2020 MED GEN (Daniel's medications (procedure) 12:00:00 AM EDT [facility], ) Documentation of current 02/13/2020 MED GEN (Daniel's medications (procedure) 12:00:00 AM EDT [facility], PC) Documentation of current 02/13/2020 MED GEN (Daniel's medications (procedure) 12:00:00 AM EDT [facility], PC) COLLECTION VENOUS BLOOD 02/13/2020 MEDG EN (Daniel's VENIPUNCTURE 12:00:00 AM [facility], ) Documentation of current 02/13/2020 MED GEN (Daniel's medications (procedure) [facility]:00:[facility] Documentation of current 02/13/2020 MED GEN (Daniel's medications (procedure) 12:00:00 AM EDT [facility], ) COLLECTION VENOUS BLOOD 02/13/2020 MEDG EN (Daniel's VENIPUNCTURE 12:00:00 AM EDT Medical, ) Documentation of current 02/13/2020 MED GEN ([facility] medications (procedure) 12:00:00 AM EDT [facility]) Documentation of current 02/13/2020 MED GEN ([facility] medications (procedure) 12:00:00 AM EDT alberto, PC) Documentation of current 02/13/2020 MED GEN ([facility] medications (procedure) 12:00:00 AM EDT [facility], [facility]) COLLECTION VENOUS BLOOD 02/13/2020 MEDG EN ([facility] VENIPUNCTURE 12:00:00 AM ED Medical, PC) Documentation of current 09/26/2019 MED GEN ([facility] medications (procedure) 12:00:00 AM EST [facility]) Documentation of current 09/26/2019 MED GEN ([facility] medications (procedure) 12:00:00 AM EST [facility], [facility]) OFFICE OUTPATIENT VISIT 09/26/2019 MEDG EN ([facility] 25 MINUTES 12:00:00 AM EST Medical, PC) Documentation of current 09/26/2019 MED GEN ([facility] medications (procedure) 12:00:00 AM EST [facility]) Documentation of current 09/26/2019 MED GEN ([facility] medications (procedure) 12:00:00 AM EST [facility], [facility]) OFFICE OUTPATIENT VISIT 09/26/2019 MEDG EN ([facility] 25 MINUTES 12:00:00 AM EST Medical, PC) Documentation of current 09/26/2019 MED GEN ([facility] medications (procedure) 12:00:00 AM EST [facility]) Documentation of current 09/26/2019 MED GEN ([facility] medications (procedure) 12:00:00 AM EST [facility]) OFFICE OUTPATIENT VISIT 09/26/2019 MEDG EN ([facility] 25 MINUTES 12:00:00 AM EST Medical, PC) Documentation of current 09/26/2019 MED GEN ([facility] medications (procedure) 12:00:00 AM EST [facility]) Documentation of current 09/26/2019 MED GEN ([facility] medications (procedure) 12:00:00 AM EST [facility]) OFFICE OUTPATIENT VISIT 09/26/2019 MEDG EN ([facility] 25 MINUTES 12:00:00 AM EST Medical, PC) Documentation of current 09/26/2019 MED GEN ([facility] medications (procedure) 12:00:00 AM EST [facility]) Documentation of current 09/26/2019 MED GEN ([facility] medications (procedure) 12:00:00 AM EST [facility], [facility]) OFFICE OUTPATIENT VISIT 09/26/2019 MEDG EN ([facility] 25 MINUTES 12:00:00 AM EST Medical, PC) Documentation of current 09/26/2019 MED GEN ([facility] medications (procedure) 12:00:00 AM EST [facility]) Documentation of current 09/26/2019 MED GEN ([facility] medications (procedure) 12:00:00 AM EST [facility], [facility]) OFFICE OUTPATIENT VISIT 09/26/2019 MEDG EN ([facility] 25 MINUTES 12:00:00 AM EST Medical, PC) Documentation of current 09/26/2019 MED GEN ([facility] medications (procedure) 12:00:00 AM EST [facility]) Documentation of current 09/26/2019 MED GEN ([facility] medications (procedure) 12:00:00 AM EST [facility], [facility]) OFFICE OUTPATIENT VISIT 09/26/2019 MEDG EN ([facility] 25 MINUTES 12:00:00 AM EST Medical, PC) Documentation of current 08/13/2019 MED GEN ([facility] medications (procedure) 12:00:00 AM EST [facility]) Documentation of current 08/13/2019 MED GEN ([facility] medications (procedure) 12:00:00 AM EST [facility], [facility]) Documentation of current 08/13/2019 MED GEN ([facility] medications (procedure) 12:00:00 AM EST [facility], [facility]) Documentation of current 08/13/2019 MED GEN ([facility] medications (procedure) 12:00:00 AM EST [facility], [facility]) Documentation of current 08/13/2019 MED GEN ([facility] medications (procedure) 12:00:00 AM EST [facility], [facility]) Documentation of current 08/13/2019 MED GEN ([facility] medications (procedure) 12:00:00 AM EST [facility], [facility]) Documentation of current 08/13/2019 MED GEN ([facility] medications (procedure) 12:00:00 AM CLIF dominguez, PC) Documentation of current 08/13/2019 MED GEN ([facility] medications (procedure) 12:00:00 AM CLIF dominguez, PC) Documentation of current 08/13/2019 MED GEN ([facility] medications (procedure) 12:00:00 AM CLIF dominguez, PC) Documentation of current 08/13/2019 MED GEN ([facility] medications (procedure) 12:00:00 AM CLIF dominguez, PC) Documentation of current 08/13/2019 MED GEN ([facility] medications (procedure) 12:00:00 AM CLIF dominguez, PC) Documentation of current 08/13/2019 MED GEN ([facility] medications (procedure) 12:00:00 AM CLIF dominguez, PC) Documentation of current 08/13/2019 MED GEN ([facility] medications (procedure) 12:00:00 AM CLIF dominguez, PC) Documentation of current 08/13/2019 MED GEN ([facility]'s medications (procedure) 12:00:00 AM CLIF dominguez, PC) Documentation of current 08/13/2019 MED GEN ([facility]'s medications (procedure) 12:00:00 AM CLIF dominguez, PC) Documentation of current 08/13/2019 MED GEN ([facility]'s medications (procedure) 12:00:00 AM CLIF dominguez, PC) Documentation of current 08/13/2019 MED GEN ([facility]'s medications (procedure) 12:00:00 AM CLIF dominguez, PC) Documentation of current 08/13/2019 MED GEN ([facility] medications (procedure) 12:00:00 AM CLIF dominguez, PC) Documentation of current 08/13/2019 MED GEN ([facility] medications (procedure) 12:00:00 AM CLIF dominguez, PC) Documentation of current 08/13/2019 MED GEN ([facility]'s medications (procedure) 12:00:00 AM CLIF dominguez, PC) Documentation of current 08/13/2019 MED GEN ([facility] medications (procedure) 12:00:00 AM CLIF dominguez, PC) Documentation of current 08/13/2019 MED GEN ([facility]'s medications (procedure) 12:00:00 AM CLIF dominguez, PC) Documentation of current 08/13/2019 MED GEN ([facility]'s medications (procedure) 12:00:00 AM CLIF dominguez, PC) Documentation of current 08/13/2019 MED GEN ([facility]'s medications (procedure) 12:00:00 AM CLIF dominguez PC) Documentation of current 08/13/2019 MED GEN (Daniel's medications (procedure) 12:00:00 AM CLIF dominguez PC) Documentation of current 08/13/2019 MED GEN ([facility]'s medications (procedure) 12:00:00 AM CLIF dominguez PC) Documentation of current 08/13/2019 MED GEN ([facility]'s medications (procedure) 12:00:00 AM CLIF dominguez, PC) Documentation of current 08/13/2019 MED GEN ([facility]'s medications (procedure) 12:00:00 AM CLIF dominguez PC) Results ID Date Data Source [id number] 04/07/2020 09:23:00 AM EDT [facility] Name Value Range Interpretation Description Data Sup porting Code Source(s) Document(s ) SARS [facility] coronavirus 2 RNA This lab was ordered by [facility] and reported by [facility]. ID Date Data Source [id number] 03/19/2020 12:00:00 AM EDT [facility] Name Value Range Interpretation Code Description Data Pat rce(s) Supporting Document(s ) ID Date Data Source [id number] 03/19/2020 12:00:00 AM EDT [facility] ([facility] Name Value Range Interpretation Code Description Data Pat rce(s) Supporting Document(s ) PDF . Normal (applies to [facility] (St non-numeric results) [facility]) ID Date Data Source [id number] 03/19/2020 12:00:00 AM EDT [facility] ([facility] Name Value Range Interpretation Code Description Data Pat rce(s) Supporting Document(s ) TSH 0.880 Normal (applies to [facility] (St uIU/mL non-numeric results) [facility]) ID Date Data Source [id number] 03/19/2020 12:00:00 AM EDT [facility] ([facility] Name Value Range Interpretation Description Data Sup porting Code Source(s) Document(s ) Hemoglobin A1c 6.4 % Above high normal MEDGEN (St in Blood [facility] [place], [place], ) ID Date Data Source [id number] 03/19/2020 12:00:00 AM EDT [facility] ([facility], ) Name Value Range Interpretation Description Data Sup porting Code Source(s) Document(s ) Bilirubin.c 0.09 mg/dL Normal (applies to [facility] ( St onjugated non-numeric [facility] [Mass/volum results) [facility], ) e] in Serum or Plasma ID Date Data Source [id number] 03/19/2020 12:00:00 AM EDT [facility] (St [facility], ) Name Value Range Interpretation Description Data Sup porting Code Source(s) Document(s ) Cholesterol 203 Above high normal [facility] (St [Mass/volume] in mg/dL [facility] Serum or Plasma [facility], ) HDL Cholesterol 61 mg/dL Normal (applies [facility] ( St to non-numeric [facility] results) [facility], ) Triglyceride 193 Above high normal [facility] (S t [Mass/volume] in mg/dL [facility] Serum or Plasma [facility], ) VLDL Cholesterol 39 mg/dL Normal (applies [facility] (St Talha to non-numeric [facility] results) [facility], ) LDL Cholesterol 103 Above high normal [facility] (St Calc mg/dL [facility], ) ID Date Data Source [id number] 03/19/2020 12:00:00 AM EDT [facility] ([facility], ) Name Value Range Interpretation Description Data Sup porting Code Source(s) Document(s ) WBC 0-5 Normal (applies to [facility] (St non-numeric [facility] results) [facility], ) RBC 0-2 Normal (applies to [facility] (St non-numeric [facility] results) [facility], ) Epithelial None seen Normal (applies to [facility] (St Cells (non non-numeric [facility] renal) results) [facility], ) Bacteria Few Normal (applies to [facility] (St [Presence] in non-numeric [facility] Prostatic results) [facility], ) fluid by Light microscopy ID Date Data Source [id number] 03/19/2020 12:00:00 AM EDT [facility] Name Value Range Interpretation Description Data Sup porting Code Source(s) Document(s ) Specific gravity 1.011 Normal (applies [facility] (St of Pericardial to non-numeric [facility] fluid by results) Medical, Refractometry PC) pH of Lower 5.0 Normal (applies [facility] (St respiratory to non-numeric [facility] specimen results) Medical, ) Appearance of Clear Normal (applies [facility] (St Abdomen to non-numeric [facility] results) Medical, PC) Urine-Color Yellow Normal (applies [facility] (St to non-numeric [facility] results) Medical, PC) Protein Negative Normal (applies [facility] (St [Mass/volume] in to non-numeric [facility] Lower results) Medical, respiratory PC) specimen WBC Esterase Trace Abnormal [facility] (St (applies to [facility] non-numeric Medical, results) PC) Ketones Negative Normal (applies [facility] (St [Presence] in to non-numeric [facility] Blood by Tablet results) Medical, ) Glucose Negative Normal (applies [facility] (St [Mass/volume] in to non-numeric [facility] Urine collected results) Medical, for unspecified PC) duration Occult Blood Negative Normal (applies [facility] (St to non-numeric [facility] results) Medical, PC) Bilirubin Negative Normal (applies [facility] (St [Presence] in to non-numeric [facility] Peritoneal fluid results) Medical, PC) Urobilinogen,Jaxon 0.2 mg/dL Normal (applies [facility] (St i-Qn to non-numeric [facility] results) Medical, PC) Nitrite, Urine Negative Normal (applies [facility] (S t to non-numeric [facility] results) Medical, ) Microscopic See below: Normal (applies [facility] (St Examination to non-numeric [facility] results) Medical, ) ID Date Data Source [id number] 03/19/2020 12:00:00 AM EDT [facility] ([facility], ) Name Value Range Interpretation Description Data Sup porting Code Source(s) Document(s ) Glucose 119 Above high [facility] (St [Mass/volume] in mg/dL normal [facility] Urine collected for Medical, unspecified PC) duration Urea nitrogen 49 mg/dL Above high [facility] (St [Mass/volume] in normal [facility] Serum or Plasma Medical, ) Creatinine 1.16 Above high [facility] (St [Interpretation] in mg/dL normal [facility] Urine Medical, ) eGFR If NonAfricn 49 Below low normal MEDGE N (St Am mL/min/1 [facility] [address], ) BUN/Creatinine 42 Above high [facility] (St Ratio normal [facility], ) eGFR If Africn Am 57 Below low normal MEDGE N (St mL/min/1 [facility] [address] [facility], PC) Sodium 140 Normal (applies [facility] (St [Moles/volume] in mmol/L to non-numeric [facility] Serum or Plasma results) Medical, PC) Potassium 4.6 Normal (applies [facility] (St [Mass/volume] in mmol/L to non-numeric [facility] Blood results) Medical, PC) Chloride 101 Normal (applies [facility] (St [Moles/volume] in mmol/L to non-numeric [facility] Serum or Plasma results) Medical, ) Carbon dioxide, 25 Normal (applies [facility] ( St total mmol/L to non-numeric [facility] [Moles/volume] in results) Medical, Serum or Plasma PC) Calcium 9.9 Normal (applies [facility] (St [Moles/volume] in mg/dL to non-numeric [facility] Urine collected for results) Medical, unspecified PC) duration Protein 6.9 g/dL Normal (applies [facility] (St [Mass/volume] in to non-numeric [facility] Serum or Plasma results) Medical, PC) Globulin, Total 2.5 g/dL Normal (applies [facility] ( St to non-numeric [facility] results) Medical, PC) Microalbumin 4.4 g/dL Normal (applies [facility] (St [Mass/time] in to non-numeric [facility] Urine collected for results) Medical, unspecified PC) duration A/G Ratio 1.8 Normal (applies [facility] (St to non-numeric [facility] results) Medical, PC) Alkaline 83 IU/L Normal (applies [facility] (St phosphatase to non-numeric [facility] [Enzymatic results) Medical, activity/volume] in PC) Serum, Plasma or Blood Bilirubin.total 0.2 Normal (applies [facility] ( St [Mass/volume] in mg/dL to non-numeric [facility] Serum or Plasma results) Medical, PC) Aspartate 17 IU/L Normal (applies [facility] (St aminotransferase to non-numeric [facility] [Enzymatic results) Medical, activity/volume] in ) Serum or Plasma Alanine 13 IU/L Normal (applies [facility] (St aminotransferase to non-numeric [facility] [Enzymatic results) Medical, activity/volume] in ) Serum or Plasma ID Date Data Source [id number] 03/19/2020 12:00:00 AM EDT [facility], ) Name Value Range Interpretation Description Data Sup porting Code Source(s) Document(s ) Erythrocytes 4.06 Normal (applies [facility] (St [#/volume] in x10E6/uL to non-numeric [facility] Blood by results) Medical, ) Automated count Leukocytes 8.5 Normal (applies [facility] (St [#/volume] in x10E3/uL to non-numeric [facility] Blood by results) Medical, ) Automated count Hematocrit 36.3 % Normal (applies [facility] (St [Volume to non-numeric [facility] Fraction] of results) Medical, ) Blood by Automated count Hemoglobin 12.1 Normal (applies [facility] (St [Mass/volume] in g/dL to non-numeric [facility] Blood results) Medical, ) MCV 89 fL Normal (applies [facility] (St to non-numeric [facility] results) Medical, ) MCH 29.8 pg Normal (applies [facility] (St to non-numeric [facility] results) [facility], ) MCHC 33.3 Normal (applies [facility]GEN (St g/dL to non-numeric [facility] results) [facility], ) RDW 12.1 % Normal (applies [facility]GEN (St to non-numeric [facility] results) Medical, ) Neutrophils [#] 63 % Normal (applies MEDGEN ( St in Body fluid by to non-numeric [facility] Manual count results) [facility], ) Platelets 393 Normal (applies MEDGEN (St [#/area] in x10E3/uL to non-numeric [facility] Blood by results) [facility], ) Microscopy high power field Lymphs 29 % Normal (applies [facility] (St to non-numeric [facility] results) Medical, ) Monocytes 5 % Normal (applies [facility] (St [#/volume] in to non-numeric [facility] Cord blood results) Medical, ) Eos 2 % Normal (applies [facility] (St to non-numeric [facility] results) Medical, ) Basos 0 % Normal (applies [facility] (St to non-numeric [facility] results) Medical, ) Neutrophils 5.4 Normal (applies [facility] (St (Absolute) x10E3/uL to non-numeric [facility] results) Medical, ) Lymphs 2.4 Normal (applies [facility] (St (Absolute) x10E3/uL to non-numeric [facility] results) Medical, ) Monocytes(Absolu 0.4 Normal (applies [facility] (St te) x10E3/uL to non-numeric [facility] results) Medical, ) Eos (Absolute) 0.2 Normal (applies [facility]GEN (S t x10E3/uL to non-numeric [facility] results) Medical, ) Immature Grans 0.1 Normal (applies [facility] (S t (Abs) x10E3/uL to non-numeric [facility] results) Medical, ) Baso (Absolute) 0.0 Normal (applies [facility] ( St x10E3/uL to non-numeric [facility] results) Medical, ) Immature 1 % Normal (applies [facility] (St Granulocytes to non-numeric [facility] results) [facility], ) ID Date Data Source [id number] 03/19/2020 12:00:00 AM EDT [facility] ([facility], ) Name Value Range Interpretation Description Data Sup porting Code Source(s) Document(s ) Bilirubin.c 0.09 mg/dL Normal (applies to [facility] ( St onjugated non-numeric [facility] [Mass/volum results) Medical, ) e] in Serum or Plasma ID Date Data Source [id number] 03/19/2020 12:00:00 AM EDT [facility] ([facility], ) Name Value Range Interpretation Description Data Sup porting Code Source(s) Document(s ) Cholesterol 203 Above high normal [facility] (St [Mass/volume] in mg/dL [facility] Serum or Plasma Medical, ) Triglyceride 193 Above high normal [facility] (S t [Mass/volume] in mg/dL [facility] Serum or Plasma [facility], ) HDL Cholesterol 61 mg/dL Normal (applies [facility] ( St to non-numeric [facility] results) Medical, ) VLDL Cholesterol 39 mg/dL Normal (applies [facility] (St Talha to non-numeric [facility] results) Medical, ) LDL Cholesterol 103 Above high normal [facility] (St Calc mg/dL [facility], ) ID Date Data Source [id number] 03/19/2020 12:00:00 AM EDT [facility] ([facility], ) Name Value Range Interpretation Description Data Sup porting Code Source(s) Document(s ) WBC 0-5 Normal (applies to [facility] (St non-numeric [facility] results) Medical, PC) RBC 0-2 Normal (applies to [facility] (St non-numeric [facility] results) Medical, PC) Bacteria Few Normal (applies to [facility] (St [Presence] in non-numeric [facility] Prostatic results) Medical, PC) fluid by Light microscopy Epithelial None seen Normal (applies to [facility] (St Cells (non non-numeric [facility] renal) results) Medical, ) ID Date Data Source [id number] 03/19/2020 12:00:00 AM EDT [facility] ([facility], ) Name Value Range Interpretation Description Data Sup porting Code Source(s) Document(s ) pH of Lower 5.0 Normal (applies [facility] (St respiratory to non-numeric [facility] specimen results) Medical, PC) Specific gravity 1.011 Normal (applies [facility] (St of Pericardial to non-numeric [facility] fluid by results) Medical, Refractometry PC) Appearance of Clear Normal (applies [facility] (St Abdomen to non-numeric [facility] results) Medical, PC) Urine-Color Yellow Normal (applies [facility] (St to non-numeric [facility] results) Medical, PC) Protein Negative Normal (applies [facility] (St [Mass/volume] in to non-numeric [facility] Lower results) Medical, respiratory PC) specimen WBC Esterase Trace Abnormal [facility] (St (applies to [facility] non-numeric Medical, results) PC) Glucose Negative Normal (applies [facility] (St [Mass/volume] in to non-numeric [facility] Urine collected results) Medical, for unspecified PC) duration Ketones Negative Normal (applies [facility] (St [Presence] in to non-numeric [facility] Blood by Tablet results) Medical, PC) Occult Blood Negative Normal (applies [facility] (St to non-numeric [facility] results) Medical, PC) Bilirubin Negative Normal (applies [facility] (St [Presence] in to non-numeric [facility] Peritoneal fluid results) Medical, ) Urobilinogen,Jaxon 0.2 mg/dL Normal (applies [facility] (St i-Qn to non-numeric [facility] results) Medical, ) Nitrite, Urine Negative Normal (applies [facility] (S t to non-numeric [facility] results) Medical, ) Microscopic See below: Normal (applies [facility] (St Examination to non-numeric [facility] results) Medical, ) ID Date Data Source [id number] 03/19/2020 12:00:00 AM EDT [facility] ([facility], ) Name Value Range Interpretation Description Data Sup porting Code Source(s) Document(s ) Glucose 119 Above high [facility] (St [Mass/volume] in mg/dL normal [facility] Urine collected for Medical, unspecified PC) duration Urea nitrogen 49 mg/dL Above high [facility] (St [Mass/volume] in normal [facility] Serum or Plasma Medical, ) Creatinine 1.16 Above high [facility] (St [Interpretation] in mg/dL normal [facility] Urine Medical, ) eGFR If NonAfricn 49 Below low normal MEDGE N (St Am mL/min/1 [facility]'s [address] [place] [address], ) eGFR If Africn Am 57 Below low normal MEDGE N (St mL/min/1 [facility]'s .[address] [facility], ) BUN/Creatinine 42 Above high MEDGEN (St Ratio normal [facility], ) Potassium 4.6 Normal (applies [facility] (St [Mass/volume] in mmol/L to non-numeric [facility] Blood results) Medical, ) Sodium 140 Normal (applies [facility] (St [Moles/volume] in mmol/L to non-numeric [facility] Serum or Plasma results) Medical, ) Carbon dioxide, 25 Normal (applies [facility] ( St total mmol/L to non-numeric [facility] [Moles/volume] in results) Medical, Serum or Plasma PC) Chloride 101 Normal (applies [facility] (St [Moles/volume] in mmol/L to non-numeric [facility] Serum or Plasma results) Medical, ) Calcium 9.9 Normal (applies [facility] (St [Moles/volume] in mg/dL to non-numeric [facility] Urine collected for results) Medical, unspecified ) duration Protein 6.9 g/dL Normal (applies [facility] (St [Mass/volume] in to non-numeric [facility] Serum or Plasma results) Medical, ) Globulin, Total 2.5 g/dL Normal (applies [facility]GEN ( St to non-numeric [facility] results) Medical, ) Microalbumin 4.4 g/dL Normal (applies [facility] (St [Mass/time] in to non-numeric [facility] Urine collected for results) [facility], unspecified ) duration Bilirubin.total 0.2 Normal (applies [facility]GEN ( St [Mass/volume] in mg/dL to non-numeric [facility] Serum or Plasma results) Medical, ) A/G Ratio 1.8 Normal (applies [facility] (St to non-numeric [facility] results) [facility], ) Alkaline 83 IU/L Normal (applies [facility]GEN (St phosphatase to non-numeric [facility] [Enzymatic results) Medical, activity/volume] in PC) Serum, Plasma or Blood Aspartate 17 IU/L Normal (applies [facility] (St aminotransferase to non-numeric [facility] [Enzymatic results) Medical, activity/volume] in ) Serum or Plasma Alanine 13 IU/L Normal (applies [facility] (St aminotransferase to non-numeric [facility] [Enzymatic results) Medical, activity/volume] in ) Serum or Plasma ID Date Data Source [id number] 03/19/2020 12:00:00 AM EDT [facility], ) Name Value Range Interpretation Description Data Sup porting Code Source(s) Document(s ) Erythrocytes 4.06 Normal (applies [facility] (St [#/volume] in x10E6/uL to non-numeric [facility] Blood by results) Medical, ) Automated count Leukocytes 8.5 Normal (applies [facility] (St [#/volume] in x10E3/uL to non-numeric [facility] Blood by results) Medical, ) Automated count Hematocrit 36.3 % Normal (applies [facility] (St [Volume to non-numeric [facility] Fraction] of results) [facility], ) Blood by Automated count Hemoglobin 12.1 Normal (applies [facility] (St [Mass/volume] in g/dL to non-numeric [facility] Blood results) Medical, ) MCV 89 fL Normal (applies [facility] (St to non-numeric [facility] results) Medical, ) MCHC 33.3 Normal (applies [facility] (St g/dL to non-numeric [facility] results) [facility], ) MCH 29.8 pg Normal (applies [facility] (St to non-numeric [facility] results) [facility], ) Platelets 393 Normal (applies [facility] (St [#/area] in x10E3/uL to non-numeric [facility] Blood by results) [facility], ) Microscopy high power field RDW 12.1 % Normal (applies [facility] (St to non-numeric [facility] results) [facility], ) Lymphs 29 % Normal (applies [facility] (St to non-numeric [facility] results) [facility], ) Neutrophils [#] 63 % Normal (applies [facility] ( St in Body fluid by to non-numeric [facility] Manual count results) [facility], ) Eos 2 % Normal (applies [facility] (St to non-numeric [facility] results) [facility], ) Monocytes 5 % Normal (applies [facility] (St [#/volume] in to non-numeric [facility] Cord blood results) [facility], ) Neutrophils 5.4 Normal (applies [facility] (St (Absolute) x10E3/uL to non-numeric [facility] results) [facility], ) Basos 0 % Normal (applies [facility] (St to non-numeric [facility] results) [facility], ) Monocytes(Absolu 0.4 Normal (applies [facility]GEN (St te) x10E3/uL to non-numeric [facility] results) [facility], ) Lymphs 2.4 Normal (applies [facility] (St (Absolute) x10E3/uL to non-numeric [facility] results) [facility], ) Baso (Absolute) 0.0 Normal (applies [facility] ( St x10E3/uL to non-numeric [facility] results) [facility], ) Eos (Absolute) 0.2 Normal (applies [facility] (S t x10E3/uL to non-numeric [facility] results) [facility], ) Immature Grans 0.1 Normal (applies [facility] (S t (Abs) x10E3/uL to non-numeric Ernesto's results) [facility], ) Immature 1 % Normal (applies [facility] (St Granulocytes to non-numeric Ernseto's results) [facility], ) ID Date Data Source [id number] 03/19/2020 12:00:00 AM EDT [facility] ([facility] ) Name Value Range Interpretation Code Description Data Pat rce(s) Supporting Document(s ) ID Date Data Source [id number] 03/19/2020 12:00:00 AM EDT [facility] ([facility] ) Name Value Range Interpretation Code Description Data Pat rce(s) Supporting Document(s ) PDF . Normal (applies to [facility] (St non-numeric results) [facility], ) ID Date Data Source [id number] 03/19/2020 12:00:00 AM EDT [facility] ([facility] ) Name Value Range Interpretation Code Description Data Pat rce(s) Supporting Document(s ) TSH 0.880 Normal (applies to [facility] (St uIU/mL non-numeric results) [facility], ) ID Date Data Source [id number] 03/19/2020 12:00:00 AM EDT [facility] ([facility] ) Name Value Range Interpretation Description Data Sup porting Code Source(s) Document(s ) Hemoglobin A1c 6.4 % Above high normal [facility] (St in Blood [facility]'s [facility], ) ID Date Data Source [id number] 03/19/2020 12:00:00 AM EDT [facility] ([facility], ) Name Value Range Interpretation Description Data Sup porting Code Source(s) Document(s ) RBC 0-2 Normal (applies to [facility] (St non-numeric Ernesto's results) Medical, ) Epithelial None seen Normal (applies to [facility] (St Cells (non non-numeric Ernesto's renal) results) Medical, ) WBC 0-5 Normal (applies to [facility] (St non-numeric Ernesto's results) Medical, ) Bacteria Few Normal (applies to [facility] (St [Presence] in non-numeric Ernesto's Prostatic results) Medical, ) fluid by Light microscopy ID Date Data Source [id number] 03/19/2020 12:00:00 AM EDT [facility] ([facility], ) Name Value Range Interpretation Description Data Sup porting Code Source(s) Document(s ) Specific gravity 1.011 Normal (applies [facility] (St of Pericardial to non-numeric Ernesto's fluid by results) Medical, Refractometry ) pH of Lower 5.0 Normal (applies [facility] (St respiratory to non-numeric Ernesto's specimen results) Medical, ) Urine-Color Yellow Normal (applies [facility] (St to non-numeric Ernesto's results) Medical, ) WBC Esterase Trace Abnormal [facility] (St (applies to Ernesto's non-numeric Medical, results) ) Protein Negative Normal (applies [facility] (St [Mass/volume] in to non-numeric Ernesto's Lower results) Medical, respiratory PC) specimen Appearance of Clear Normal (applies [facility] (St Abdomen to non-numeric Ernesto's results) Medical, ) Glucose Negative Normal (applies [facility] (St [Mass/volume] in to non-numeric Ernesto's Urine collected results) [facility], for unspecified PC) duration Ketones Negative Normal (applies [facility] (St [Presence] in to non-numeric Ernesto's Blood by Tablet results) Medical, ) Bilirubin Negative Normal (applies [facility] (St [Presence] in to non-numeric Ernesto's Peritoneal fluid results) Medical, ) Occult Blood Negative Normal (applies [facility] (St to non-numeric Ernesto's results) Medical, ) Urobilinogen,Jaxon 0.2 mg/dL Normal (applies [facility] (St i-Qn to non-numeric Ernesto's results) Medical, ) Nitrite, Urine Negative Normal (applies [facility] (S t to non-numeric Ernesto's results) Medical, ) Microscopic See below: Normal (applies [facility] (St Examination to non-numeric Ernesto's results) Medical, ) ID Date Data Source [id number] 03/19/2020 12:00:00 AM EDT [facility] ([facility], ) Name Value Range Interpretation Description Data Sup porting Code Source(s) Document(s ) Glucose 119 Above high MEDGEN (St [Mass/volume] in mg/dL normal Ernesto's Urine collected for Medical, unspecified PC) duration Urea nitrogen 49 mg/dL Above high [facility] (St [Mass/volume] in normal Ernesto's Serum or Plasma Medical, ) Creatinine 1.16 Above high [facility] (St [Interpretation] in mg/dL normal Ernesto's Urine [facility], ) eGFR If Africn Am 57 Below low normal MEDGE N (St mL/min/1 Ernesto's .73 Medical, ) BUN/Creatinine 42 Above high [facility] (St Ratio normal [facility], ) eGFR If NonAfricn 49 Below low normal MEDGE N (St Am mL/min/1 Ernesto's .73 Medical, PC) Potassium 4.6 Normal (applies [facility] (St [Mass/volume] in mmol/L to non-numeric Ernesto's Blood results) Medical, PC) Sodium 140 Normal (applies [facility] (St [Moles/volume] in mmol/L to non-numeric Ernesto's Serum or Plasma results) Medical, ) Chloride 101 Normal (applies [facility] (St [Moles/volume] in mmol/L to non-numeric Ernesto's Serum or Plasma results) Medical, ) Carbon dioxide, 25 Normal (applies [facility] ( St total mmol/L to non-numeric Ernesto's [Moles/volume] in results) Medical, Serum or Plasma PC) Calcium 9.9 Normal (applies [facility] (St [Moles/volume] in mg/dL to non-numeric Ernesto's Urine collected for results) Medical, unspecified PC) duration Protein 6.9 g/dL Normal (applies [facility] (St [Mass/volume] in to non-numeric Ernesto's Serum or Plasma results) Medical, ) Microalbumin 4.4 g/dL Normal (applies [facility] (St [Mass/time] in to non-numeric Ernesto's Urine collected for results) Medical, unspecified PC) duration Globulin, Total 2.5 g/dL Normal (applies [facility] ( St to non-numeric Ernesto's results) Medical, PC) A/G Ratio 1.8 Normal (applies [facility] (St to non-numeric Ernesto's results) Medical, PC) Bilirubin.total 0.2 Normal (applies [facility] ( St [Mass/volume] in mg/dL to non-numeric Ernesto's Serum or Plasma results) Medical, ) Aspartate 17 IU/L Normal (applies [facility] (St aminotransferase to non-numeric Ernesto's [Enzymatic results) Medical, activity/volume] in PC) Serum or Plasma Alkaline 83 IU/L Normal (applies [facility] (St phosphatase to non-numeric Ernesto's [Enzymatic results) Medical, activity/volume] in PC) Serum, Plasma or Blood Alanine 13 IU/L Normal (applies [facility] (St aminotransferase to non-numeric Ernesto's [Enzymatic results) Medical, activity/volume] in PC) Serum or Plasma ID Date Data Source [id number] 03/19/2020 12:00:00 AM EDT [facility] ([facility], ) Name Value Range Interpretation Description Data Sup porting Code Source(s) Document(s ) Erythrocytes 4.06 Normal (applies [facility] (St [#/volume] in x10E6/uL to non-numeric Ernesto's Blood by results) Medical, ) Automated count Leukocytes 8.5 Normal (applies [facility] (St [#/volume] in x10E3/uL to non-numeric Ernesto's Blood by results) Medical, ) Automated count Hematocrit 36.3 % Normal (applies [facility] (St [Volume to non-numeric Ernesto's Fraction] of results) Medical, ) Blood by Automated count Hemoglobin 12.1 Normal (applies [facility] (St [Mass/volume] in g/dL to non-numeric Ernesto's Blood results) Medical, ) MCH 29.8 pg Normal (applies [facility] (St to non-numeric Ernesto's results) Medical, ) MCV 89 fL Normal (applies [facility] (St to non-numeric Ernesto's results) Medical, ) MCHC 33.3 Normal (applies [facility] (St g/dL to non-numeric Ernesto's results) Medical, ) RDW 12.1 % Normal (applies [facility] (St to non-numeric Ernesto's results) Medical, ) Lymphs 29 % Normal (applies [facility] (St to non-numeric Ernesto's results) Medical, ) Platelets 393 Normal (applies [facility] (St [#/area] in x10E3/uL to non-numeric Ernesto's Blood by results) Medical, ) Microscopy high power field Neutrophils [#] 63 % Normal (applies [facility] ( St in Body fluid by to non-numeric Ernesto's Manual count results) Medical, ) Monocytes 5 % Normal (applies [facility] (St [#/volume] in to non-numeric Ernesto's Cord blood results) Medical, ) Eos 2 % Normal (applies [facility] (St to non-numeric Ernesto's results) Medical, ) Neutrophils 5.4 Normal (applies [facility] (St (Absolute) x10E3/uL to non-numeric Ernesto's results) Medical, ) Basos 0 % Normal (applies [facility] (St to non-numeric Ernesto's results) Medical, ) Monocytes(Absolu 0.4 Normal (applies [facility] (St te) x10E3/uL to non-numeric Ernesto's results) Medical, ) Lymphs 2.4 Normal (applies [facility] (St (Absolute) x10E3/uL to non-numeric Ernesto's results) Medical, ) Baso (Absolute) 0.0 Normal (applies [facility] ( St x10E3/uL to non-numeric Ernesto's results) Medical, ) Eos (Absolute) 0.2 Normal (applies [facility] (S t x10E3/uL to non-numeric Ernesto's results) Medical, ) Immature 1 % Normal (applies [facility] (St Granulocytes to non-numeric Ernesto's results) Medical, ) Immature Grans 0.1 Normal (applies [facility] (S t (Abs) x10E3/uL to non-numeric Ernesto's results) Medical, ) ID Date Data Source [id number] 03/19/2020 12:00:00 AM EDT [facility] ([facility], ) Name Value Range Interpretation Code Description Data Pat rce(s) Supporting Document(s ) ID Date Data Source [id number] 03/19/2020 12:00:00 AM EDT [facility] ([facility], ) Name Value Range Interpretation Code Description Data Pat rce(s) Supporting Document(s ) PDF . Normal (applies to [facility] (St non-numeric results) [facility]ne, ) ID Date Data Source [id number] 03/19/2020 12:00:00 AM EDT [facility] ([facility], ) Name Value Range Interpretation Code Description Data Pat rce(s) Supporting Document(s ) TSH 0.880 Normal (applies to [facility] (St uIU/mL non-numeric results) [facility]ical, ) ID Date Data Source [id number] 03/19/2020 12:00:00 AM EDT [facility] ([facility]) Name Value Range Interpretation Description Data Sup porting Code Source(s) Document(s ) Hemoglobin A1c 6.4 % Above high normal [facility] (St in Blood [facility], ) ID Date Data Source [id number] 02/16/2020 11:14:00 AM EDT [facility] Name Value Range Interpretation Description Data Sup porting Code Source(s) Document(s ) SARS [facility] coronavirus 2 RNA This lab was ordered by [facility] and reported by [facility]. ID Date Data Source [id number] 02/14/2020 12:00:00 AM EDT [facility] Name Value Range Interpretation Code Description Data Pat rce(s) Supporting Document(s ) Result 1 Normal (applies to [facility] (St non-numeric results) [facility] Me dical, PC) ID Date Data Source [id number] 02/14/2020 12:00:00 AM EDT [facility] Name Value Range Interpretation Description Data Sup porting Code Source(s) Document(s ) Ova + Final Normal (applies to [facility] (St Parasite report non-numeric Ernesto's Exam results) Medical, ) ID Date Data Source [id number] 02/14/2020 12:00:00 AM EDT [facility] Name Value Range Interpretation Description Data Sup porting Code Source(s) Document(s ) C difficile Negative Normal (applies to [facility] (S t Toxins A+B, non-numeric Ernesto's EIA results) Medical, ) ID Date Data Source [id number] 02/14/2020 12:00:00 AM EDT [facility] ([facility] Name Value Range Interpretation Description Data Sup porting Code Source(s) Document(s ) Salmonella/Shige Final Normal (applies [facility] (St lla Screen report to non-numeric Ernesto's results) Medical, ) Campylobacter sp Final Normal (applies [facility] (St identified in report to non-numeric Ernesto's Stool by results) Medical, [facility]) specific culture E coli Shiga Negative Normal (applies [facility] (St Toxin EIA to non-numeric Ernesto's results) Medical, ) ID Date Data Source [id number] 02/14/2020 12:00:00 AM EDT [facility] Name Value Range Interpretation Code Description Data Pat rce(s) Supporting Document(s ) Result 1 Normal (applies to [facility] (St non-numeric results) [facility] Me dical, PC) ID Date Data Source [id number] 02/14/2020 12:00:00 AM EDT [facility] Name Value Range Interpretation Code Description Data Pat rce(s) Supporting Document(s ) Result 1 Normal (applies to [facility] (St non-numeric results) [facility] Me dical, PC) ID Date Data Source [id number] 02/14/2020 12:00:00 AM EDT [facility] ([facility], ) Name Value Range Interpretation Code Description Data Pat rce(s) Supporting Document(s ) Result 1 Normal (applies to [facility] (St non-numeric results) Ernesto[facility] Id dicne, PC) ID Date Data Source [id number] 02/14/2020 12:00:00 AM EDT [facility] ([facility], ) Name Value Range Interpretation Description Data Sup porting Code Source(s) Document(s ) Ova + Final Normal (applies to [facility] (St Parasite report non-numeric Ernesto's Exam results) Medical, ) ID Date Data Source [id number] 02/14/2020 12:00:00 AM EDT [facility] ([facility], ) Name Value Range Interpretation Description Data Sup porting Code Source(s) Document(s ) Triglyceride 193 mg/dL Above high normal [facility] (S t [Mass/volume] Ernesto's in Serum or Medical, ) Plasma HDL Cholesterol 61 mg/dL Normal (applies [facility] ( St to non-numeric Ernesto's results) Medical, ) VLDL 39 mg/dL Normal (applies [facility] (St Cholesterol Talha to non-numeric Ernesto's results) Medical, ) LDL Cholesterol 103 mg/dL Above high normal [facility] (St Calc [facility] Medical, ) C difficile Negative Normal (applies [facility] (St Toxins A+B, EIA to non-numeric Ernesto's results) Medical, ) ID Date Data Source [id number] 02/14/2020 12:00:00 AM EDT [facility] ([facility], ) Name Value Range Interpretation Description Data Sup porting Code Source(s) Document(s ) Salmonella/Shige Final Normal (applies [facility] (St lla Screen report to non-numeric Ernesto's results) Medical, ) Campylobacter sp Final Normal (applies [facility] (St identified in report to non-numeric Ernesto's Stool by results) Medical, [facility]) specific culture E coli Shiga Negative Normal (applies [facility] (St Toxin EIA to non-numeric Ernesto's results) Medical, ) ID Date Data Source [id number] 02/14/2020 12:00:00 AM EDT [facility] Name Value Range Interpretation Code Description Data Pat rce(s) Supporting Document(s ) Result 1 Normal (applies to [facility] (St non-numeric results) [facility] Me dical, PC) ID Date Data Source [id number] 02/14/2020 12:00:00 AM EDT [facility] Name Value Range Interpretation Code Description Data Pat rce(s) Supporting Document(s ) Result 1 Normal (applies to [facility] (St non-numeric results) Ernesto[facility] Me dical, PC) ID Date Data Source [id number] 02/14/2020 12:00:00 AM EDT [facility] Name Value Range Interpretation Description Data Sup porting Code Source(s) Document(s ) Ova + Final Normal (applies to [facility] (St Parasite report non-numeric Ernesto's Exam results) Medical, PC) ID Date Data Source [id number] 02/14/2020 12:00:00 AM EDT [facility] Name Value Range Interpretation Description Data Sup porting Code Source(s) Document(s ) C difficile Negative Normal (applies to [facility] (S t Toxins A+B, non-numeric Ernesto's EIA results) Medical, ) ID Date Data Source [id number] 02/14/2020 12:00:00 AM EDT [facility] ([facility] Name Value Range Interpretation Description Data Sup porting Code Source(s) Document(s ) Salmonella/Shige Final Normal (applies [facility] (St lla Screen report to non-numeric Ernesto's results) Medical, ) E coli Shiga Negative Normal (applies [facility] (St Toxin EIA to non-numeric Ernetso's results) Medical, ) Campylobacter sp Final Normal (applies [facility] (St identified in report to non-numeric Ernesto's Stool by results) Medical, [facility]) specific culture ID Date Data Source [id number] 02/14/2020 12:00:00 AM EDT [facility] Name Value Range Interpretation Code Description Data Pat rce(s) Supporting Document(s ) Result 1 Normal (applies to [facility] (St non-numeric results) [facility]esto[facility] Me dical, PC) ID Date Data Source [id number] 02/14/2020 12:00:00 AM EDT [facility] Name Value Range Interpretation Code Description Data Pat rce(s) Supporting Document(s ) Result 1 Normal (applies to [facility] (St non-numeric results) [facility] Me dical, PC) ID Date Data Source [id number] 02/14/2020 12:00:00 AM EDT [facility] Name Value Range Interpretation Code Description Data Pat rce(s) Supporting Document(s ) Result 1 Normal (applies to [facility] (St non-numeric results) [facility] Me dical, PC) ID Date Data Source [id number] 02/14/2020 12:00:00 AM EDT [facility] ([facility] Name Value Range Interpretation Description Data Sup porting Code Source(s) Document(s ) Ova + Final Normal (applies to [facility] (St Parasite report non-numeric Ernesto's Exam results) Medical, PC) ID Date Data Source [id number] 02/14/2020 12:00:00 AM EDT [facility] Name Value Range Interpretation Description Data Sup porting Code Source(s) Document(s ) C difficile Negative Normal (applies to [facility] (S t Toxins A+B, non-numeric Ernesto's EIA results) Medical, ) ID Date Data Source [id number] 02/14/2020 12:00:00 AM EDT [facility] Name Value Range Interpretation Description Data Sup porting Code Source(s) Document(s ) Salmonella/Shige Final Normal (applies [facility] (St lla Screen report to non-numeric Ernesto's results) Medical, PC) Campylobacter sp Final Normal (applies [facility] (St identified in report to non-numeric Ernesto's Stool by results) Medical, [facility]) specific culture E coli Shiga Negative Normal (applies [facility] (St Toxin EIA to non-numeric Ernesto's results) Medical, ) ID Date Data Source [id number] 02/14/2020 12:00:00 AM EDT [facility] Name Value Range Interpretation Code Description Data Pat rce(s) Supporting Document(s ) Result 1 Normal (applies to [facility] (St non-numeric results) [facility] Id dical, PC) ID Date Data Source [id number] 02/14/2020 12:00:00 AM EDT [facility] ([facility], ) Name Value Range Interpretation Code Description Data Pat rce(s) Supporting Document(s ) Result 1 Normal (applies to [facility] (St non-numeric results) Ernesto[facility] Id dicne, PC) ID Date Data Source [id number] 02/14/2020 12:00:00 AM EDT [facility] ([facility], ) Name Value Range Interpretation Code Description Data Pat rce(s) Supporting Document(s ) Result 1 Normal (applies to [facility] (St non-numeric results) Ernesto[facility] Id dical, PC) ID Date Data Source [id number] 02/13/2020 12:00:00 AM EDT [facility] ([facility], ) Name Value Range Interpretation Description Data Sup porting Code Source(s) Document(s ) Deamidated 3 units Normal (applies [facility] (St Gliadin Abs, IgA to non-numeric Ernesto's results) [facility], ) t-Transglutaminas <2 Normal (applies [facility] (St e (tTG) IgA to non-numeric Ernesto's results) [facility], ) Immunoglobulin A, 148 Normal (applies [facility] (St Qn, Serum mg/dL to non-numeric Ernesto's results) [facility], ) ID Date Data Source [id number] 02/13/2020 12:00:00 AM EDT [facility] ([facility], ) Name Value Range Interpretation Description Data Sup porting Code Source(s) Document(s ) Leukocytes 6.5 Normal (applies [facility] (St [#/volume] in x10E3/uL to non-numeric Ernesto's Blood by results) [facility], ) Automated count Erythrocytes 4.00 Normal (applies [facility] (St [#/volume] in x10E6/uL to non-numeric Ernesto's Blood by results) [facility], ) Automated count Hematocrit 36.3 % Normal (applies [facility] (St [Volume to non-numeric Ernesto's Fraction] of results) [facility], ) Blood by Automated count Hemoglobin 12.0 Normal (applies [facility]GEN (St [Mass/volume] in g/dL to non-numeric Ernesto's Blood results) [facility], ) MCH 30.0 pg Normal (applies MEDGEN (St to non-numeric Ernesto's results) [facility], ) MCV 91 fL Normal (applies MEDGEN (St to non-numeric Ernesto's results) [facility], ) RDW 12.3 % Normal (applies MEDGEN (St to non-numeric Ernesto's results) [facility], ) MCHC 33.1 Normal (applies [facility] (St g/dL to non-numeric Ernesto's results) [facility], ) Platelets 446 Normal (applies [facility]GEN (St [#/area] in x10E3/uL to non-numeric Ernesto's Blood by results) [facility], ) Microscopy high power field Neutrophils [#] 54 % Normal (applies [facility] ( St in Body fluid by to non-numeric Ernesto's Manual count results) [facility], ) Lymphs 36 % Normal (applies [facility]GEN (St to non-numeric Ernesto's results) [facility], ) Eos 2 % Normal (applies [facility]GEN (St to non-numeric Ernesto's results) [facility], ) Monocytes 6 % Normal (applies [facility]GEN (St [#/volume] in to non-numeric Ernesto's Cord blood results) [facility], ) Neutrophils 3.6 Normal (applies MEDGEN (St (Absolute) x10E3/uL to non-numeric Ernesto's results) [facility], ) Basos 1 % Normal (applies [facility]GEN (St to non-numeric Ernesto's results) [facility], ) Monocytes(Absolu 0.4 Normal (applies MEDGEN (St te) x10E3/uL to non-numeric Ernesto's results) [facility], ) Lymphs 2.4 Normal (applies [facility]GEN (St (Absolute) x10E3/uL to non-numeric Ernesto's results) [facility], ) Baso (Absolute) 0.0 Normal (applies MEDGEN ( St x10E3/uL to non-numeric Ernesto's results) [facility], ) Eos (Absolute) 0.1 Normal (applies MEDGEN (S t x10E3/uL to non-numeric Ernesto's results) [facility], ) Immature 1 % Normal (applies [facility] (St Granulocytes to non-numeric Ernesto's results) [facility], PC) Immature Grans 0.0 Normal (applies MEDGEN (S t (Abs) x10E3/uL to non-numeric Ernesto's results) Medical, PC) ID Date Data Source [id number] 02/13/2020 12:00:00 AM EDT [facility] Name Value Range Interpretation Description Data Sup porting Code Source(s) Document(s ) Glucose 121 Above high [facility] (St [Mass/volume] in mg/dL normal Ernesto's Urine collected for Medical, unspecified PC) duration Urea nitrogen 28 mg/dL Above high [facility]GEN (St [Mass/volume] in normal Ernesto's Serum or Plasma Medical, PC) Creatinine 0.82 Normal (applies [facility]GEN (St [Interpretation] in mg/dL to non-numeric Ernesto' s Urine results) Medical, PC) eGFR If NonAfricn 75 Normal (applies MEDGEN (St Am mL/min/1 to non-numeric Ernesto's .73 results) Medical, PC) Sodium 144 Normal (applies [facility]GEN (St [Moles/volume] in mmol/L to non-numeric Ernesto's Serum or Plasma results) Medical, PC) BUN/Creatinine 34 Above high [facility]GEN (St Ratio normal Ernesto[facility] Medical, ) eGFR If Africn Am 86 Normal (applies [facility]GEN (St mL/min/1 to non-numeric Ernesto's .73 results) Medical, PC) Potassium 4.0 Normal (applies [facility] (St [Mass/volume] in mmol/L to non-numeric Ernesto's Blood results) Medical, PC) Carbon dioxide, 25 Normal (applies [facility]GEN ( St total mmol/L to non-numeric Ernesto's [Moles/volume] in results) Medical, Serum or Plasma PC) Chloride 101 Normal (applies [facility]GEN (St [Moles/volume] in mmol/L to non-numeric Ernesto's Serum or Plasma results) Medical, PC) Calcium 9.6 Normal (applies [facility] (St [Moles/volume] in mg/dL to non-numeric Ernesto's Urine collected for results) Medical, unspecified PC) duration Microalbumin 4.5 g/dL Normal (applies [facility] (St [Mass/time] in to non-numeric Ernesto's Urine collected for results) Medical, unspecified PC) duration Protein 6.3 g/dL Normal (applies [facility]GEN (St [Mass/volume] in to non-numeric Ernesto's Serum or Plasma results) [facility], ) A/G Ratio 2.5 Above high MEDGEN (St normal Ernesto's [facility], ) Globulin, Total 1.8 g/dL Normal (applies [facility]GEN ( St to non-numeric Ernesto's results) [facility]) Bilirubin.total 0.2 Normal (applies MEDGEN ( St [Mass/volume] in mg/dL to non-numeric Ernesto's Serum or Plasma results) [facility], ) Aspartate 17 IU/L Normal (applies [facility]GEN (St aminotransferase to non-numeric Ernesto's [Enzymatic results) Medical, activity/volume] in ) Serum or Plasma Alkaline 83 IU/L Normal (applies [facility]GEN (St phosphatase to non-numeric Ernesto's [Enzymatic results) Medical, activity/volume] in ) Serum, Plasma or Blood Alanine 12 IU/L Normal (applies [facility]GEN (St aminotransferase to non-numeric Ernesto's [Enzymatic results) Medical, activity/volume] in ) Serum or Plasma ID Date Data Source [id number] 02/13/2020 12:00:00 AM EDT [facility] ([facility], ) Name Value Range Interpretation Description Data Sup porting Code Source(s) Document(s ) Deamidated 3 units Normal (applies [facility] (St Gliadin Abs, IgA to non-numeric Ernesto's results) [facility]) t-Transglutaminas <2 Normal (applies MEDGEN (St e (tTG) IgA to non-numeric Ernesto's results) [facility]) Immunoglobulin A, 148 Normal (applies MEDGEN (St Qn, Serum mg/dL to non-numeric Ernesto's results) [facility]) ID Date Data Source [id number] 02/13/2020 12:00:00 AM EDT MEDGEN (St [facility], ) Name Value Range Interpretation Description Data Sup porting Code Source(s) Document(s ) Erythrocytes 4.00 Normal (applies MEDGEN (St [#/volume] in x10E6/uL to non-numeric [facility]'s Blood by results) [facility]) Automated count Leukocytes 6.5 Normal (applies MEDGEN (St [#/volume] in x10E3/uL to non-numeric [facility] Blood by results) [facility]) Automated count Hematocrit 36.3 % Normal (applies MEDGEN (St [Volume to non-numeric Ernesto's Fraction] of results) [facility], ) Blood by Automated count Hemoglobin 12.0 Normal (applies MEDGEN (St [Mass/volume] in g/dL to non-numeric Ernesto's Blood results) [facility], ) MCV 91 fL Normal (applies MEDGEN (St to non-numeric Ernesto's results) [facility], ) MCH 30.0 pg Normal (applies MEDGEN (St to non-numeric Ernesto's results) [facility], ) MCHC 33.1 Normal (applies MEDGEN (St g/dL to non-numeric Ernesto's results) [facility], ) RDW 12.3 % Normal (applies MEDGEN (St to non-numeric Ernesto's results) [facility], ) Neutrophils [#] 54 % Normal (applies MEDGEN ( St in Body fluid by to non-numeric Ernesto's Manual count results) [facility], ) Platelets 446 Normal (applies MEDGEN (St [#/area] in x10E3/uL to non-numeric Ernesto's Blood by results) [facility], ) Microscopy high power field Lymphs 36 % Normal (applies MEDGEN (St to non-numeric Ernesto's results) [facility], ) Monocytes 6 % Normal (applies MEDGEN (St [#/volume] in to non-numeric Ernesto's Cord blood results) [facility], ) Eos 2 % Normal (applies MEDGEN (St to non-numeric Ernesto's results) [facility], ) Basos 1 % Normal (applies MEDGEN (St to non-numeric Ernesto's results) [facility], ) Neutrophils 3.6 Normal (applies MEDGEN (St (Absolute) x10E3/uL to non-numeric Ernesto's results) [facility], ) Lymphs 2.4 Normal (applies MEDGEN (St (Absolute) x10E3/uL to non-numeric Ernesto's results) [facility], ) Monocytes(Absolu 0.4 Normal (applies MEDGEN (St te) x10E3/uL to non-numeric Ernesto's results) [facility], ) Eos (Absolute) 0.1 Normal (applies MEDGEN (S t x10E3/uL to non-numeric Ernesto's results) [facility], ) Baso (Absolute) 0.0 Normal (applies MEDGEN ( St x10E3/uL to non-numeric [facility] results) [facility]) Immature 1 % Normal (applies MEDGEN (St Granulocytes to non-numeric [facility] results) [facility]) Immature Grans 0.0 Normal (applies MEDGEN (S t (Abs) x10E3/uL to non-numeric [facility] results) [facility]) ID Date Data Source [id number] 02/13/2020 12:00:00 AM EDT [facility] ([facility]) Name Value Range Interpretation Description Data Sup porting Code Source(s) Document(s ) Glucose 121 Above high MEDGEN (St [Mass/volume] in mg/dL normal Ernesto's Urine collected for Medical, unspecified PC) duration Urea nitrogen 28 mg/dL Above high MEDGEN (St [Mass/volume] in normal [facility] Serum or Plasma [facility], [facility]) Creatinine 0.82 Normal (applies MEDGEN (St [Interpretation] in mg/dL to non-numeric Ernesto' s Urine results) [facility]) eGFR If NonAfricn 75 Normal (applies MEDGEN (St Am mL/min/1 to non-numeric Ernesto's .73 results) [facility]) eGFR If Africn Am 86 Normal (applies MEDGEN (St mL/min/1 to non-numeric [facility]'s .73 results) [facility]) BUN/Creatinine 34 Above high MEDGEN (St Ratio normal [facility]) Sodium 144 Normal (applies MEDGEN (St [Moles/volume] in mmol/L to non-numeric [facility] Serum or Plasma results) [facility]) Potassium 4.0 Normal (applies MEDGEN (St [Mass/volume] in mmol/L to non-numeric [facility] Blood results) [facility]) Chloride 101 Normal (applies MEDGEN (St [Moles/volume] in mmol/L to non-numeric Ernesto's Serum or Plasma results) [facility]) Carbon dioxide, 25 Normal (applies MEDGEN ( St total mmol/L to non-numeric Ernesto's [Moles/volume] in results) Medical, Serum or Plasma PC) Calcium 9.6 Normal (applies MEDGEN (St [Moles/volume] in mg/dL to non-numeric Ernesto's Urine collected for results) Medical, unspecified PC) duration Microalbumin 4.5 g/dL Normal (applies MEDGEN (St [Mass/time] in to non-numeric Ernesto's Urine collected for results) Medical, unspecified PC) duration Protein 6.3 g/dL Normal (applies MEDGEN (St [Mass/volume] in to non-numeric Ernesto's Serum or Plasma results) Medical, ) Globulin, Total 1.8 g/dL Normal (applies MEDGEN ( St to non-numeric Ernesto's results) [facility], ) A/G Ratio 2.5 Above high MEDGEN (St normal Ernesto's [facility], ) Bilirubin.total 0.2 Normal (applies MEDGEN ( St [Mass/volume] in mg/dL to non-numeric [facility] Serum or Plasma results) Medical, ) Alkaline 83 IU/L Normal (applies MEDGEN (St phosphatase to non-numeric Ernesto's [Enzymatic results) Medical, activity/volume] in ) Serum, Plasma or Blood Alanine 12 IU/L Normal (applies MEDGEN (St aminotransferase to non-numeric Ernesto's [Enzymatic results) Medical, activity/volume] in ) Serum or Plasma Aspartate 17 IU/L Normal (applies MEDGEN (St aminotransferase to non-numeric Ernesto's [Enzymatic results) Medical, activity/volume] in ) Serum or Plasma ID Date Data Source [id number] 02/13/2020 12:00:00 AM EDT MED[facility] ([facility], ) Name Value Range Interpretation Description Data Sup porting Code Source(s) Document(s ) Deamidated 3 units Normal (applies MEDGEN (St Gliadin Abs, IgA to non-numeric Ernesto's results) [facility], ) Immunoglobulin A, 148 Normal (applies MEDGEN (St Qn, Serum mg/dL to non-numeric Ernesto's results) [facility], ) t-Transglutaminas <2 Normal (applies MEDGEN (St e (tTG) IgA to non-numeric Ernesto's results) [facility], ) ID Date Data Source [id number] 02/13/2020 12:00:00 AM EDT MEDGEN ([facility], ) Name Value Range Interpretation Description Data Sup porting Code Source(s) Document(s ) Leukocytes 6.5 Normal (applies MEDGEN (St [#/volume] in x10E3/uL to non-numeric [facility] Blood by results) [facility], ) Automated count Erythrocytes 4.00 Normal (applies MEDGEN (St [#/volume] in x10E6/uL to non-numeric Ernesto's Blood by results) [facility], ) Automated count Hemoglobin 12.0 Normal (applies MEDGEN (St [Mass/volume] in g/dL to non-numeric Ernesto's Blood results) [facility], ) Hematocrit 36.3 % Normal (applies MEDGEN (St [Volume to non-numeric Ernesto's Fraction] of results) [facility], ) Blood by Automated count MCV 91 fL Normal (applies MEDGEN (St to non-numeric Ernesto's results) [facility], ) MCHC 33.1 Normal (applies MEDGEN (St g/dL to non-numeric Ernesto's results) [facility], ) MCH 30.0 pg Normal (applies MEDGEN (St to non-numeric Ernesto's results) [facility], ) Platelets 446 Normal (applies MEDGEN (St [#/area] in x10E3/uL to non-numeric Ernesto's Blood by results) [facility], ) Microscopy high power field RDW 12.3 % Normal (applies MEDGEN (St to non-numeric Ernesto's results) [facility], ) Monocytes 6 % Normal (applies MEDGEN (St [#/volume] in to non-numeric Ernesto's Cord blood results) [facility], ) Lymphs 36 % Normal (applies MEDGEN (St to non-numeric Ernesto's results) [facility], ) Neutrophils [#] 54 % Normal (applies MEDGEN ( St in Body fluid by to non-numeric Ernesto's Manual count results) [facility], ) Eos 2 % Normal (applies MEDGEN (St to non-numeric Ernesto's results) [facility], ) Basos 1 % Normal (applies MEDGEN (St to non-numeric Ernesto's results) [facility], ) Lymphs 2.4 Normal (applies MEDGEN (St (Absolute) x10E3/uL to non-numeric Ernesto's results) [facility], ) Neutrophils 3.6 Normal (applies MEDGEN (St (Absolute) x10E3/uL to non-numeric Ernesto's results) [facility], ) Eos (Absolute) 0.1 Normal (applies MEDGEN (S t x10E3/uL to non-numeric Ernesto's results) [facility], ) Baso (Absolute) 0.0 Normal (applies MEDGEN ( St x10E3/uL to non-numeric Ernesto's results) [facility], ) Monocytes(Absolu 0.4 Normal (applies MEDGEN (St te) x10E3/uL to non-numeric Ernesto's results) [facility], [facility]) Immature Grans 0.0 Normal (applies MEDGEN (S t (Abs) x10E3/uL to non-numeric Ernesto's results) [facility], [facility]) Immature 1 % Normal (applies MEDGEN (St Granulocytes to non-numeric Ernesto's results) [facility]) ID Date Data Source [id number] 02/13/2020 12:00:00 AM EDT [facility] ([facility]) Name Value Range Interpretation Description Data Sup porting Code Source(s) Document(s ) Glucose 121 Above high MEDGEN (St [Mass/volume] in mg/dL normal Ernesto's Urine collected for Medical, unspecified PC) duration Urea nitrogen 28 mg/dL Above high MEDGEN (St [Mass/volume] in normal Ernesto's Serum or Plasma [facility], [facility]) eGFR If NonAfricn 75 Normal (applies MEDGEN (St Am mL/min/1 to non-numeric Ernesto's .73 results) [facility], [facility]) Creatinine 0.82 Normal (applies MEDGEN (St [Interpretation] in mg/dL to non-numeric Ernesto' s Urine results) [facility], [facility]) eGFR If Africn Am 86 Normal (applies MEDGEN (St mL/min/1 to non-numeric Ernesto's .73 results) [facility], [facility]) Sodium 144 Normal (applies MEDGEN (St [Moles/volume] in mmol/L to non-numeric Ernesto's Serum or Plasma results) [facility], [facility]) Potassium 4.0 Normal (applies MEDGEN (St [Mass/volume] in mmol/L to non-numeric Ernesto's Blood results) [facility], [facility]) BUN/Creatinine 34 Above high MEDGEN (St Ratio normal [facility]) Chloride 101 Normal (applies MEDGEN (St [Moles/volume] in mmol/L to non-numeric Ernesto's Serum or Plasma results) [facility], PC) Carbon dioxide, 25 Normal (applies MEDGEN ( St total mmol/L to non-numeric Ernesto's [Moles/volume] in results) Medical, Serum or Plasma PC) Calcium 9.6 Normal (applies MEDGEN (St [Moles/volume] in mg/dL to non-numeric Ernesto's Urine collected for results) Medical, unspecified PC) duration Globulin, Total 1.8 g/dL Normal (applies MEDGEN ( St to non-numeric Ernesto's results) [facility], ) Microalbumin 4.5 g/dL Normal (applies MEDGEN (St [Mass/time] in to non-numeric Ernetso's Urine collected for results) [facility], unspecified ) duration Protein 6.3 g/dL Normal (applies MEDGEN (St [Mass/volume] in to non-numeric Ernesto's Serum or Plasma results) [facility], ) Bilirubin.total 0.2 Normal (applies MEDGEN ( St [Mass/volume] in mg/dL to non-numeric Ernesto's Serum or Plasma results) [facility], ) A/G Ratio 2.5 Above high MEDGEN (St normal [facility], ) Aspartate 17 IU/L Normal (applies MEDGEN (St aminotransferase to non-numeric Ernesto's [Enzymatic results) Medical, activity/volume] in ) Serum or Plasma Alkaline 83 IU/L Normal (applies MEDGEN (St phosphatase to non-numeric Ernesto's [Enzymatic results) [facility], activity/volume] in ) Serum, Plasma or Blood Alanine 12 IU/L Normal (applies MEDGEN (St aminotransferase to non-numeric Ernesto's [Enzymatic results) Medical, activity/volume] in ) Serum or Plasma ID Date Data Source [id number] 02/13/2020 12:00:00 AM EDT MEDGEN ([facility], ) Name Value Range Interpretation Description Data Sup porting Code Source(s) Document(s ) Deamidated 3 units Normal (applies MEDGEN (St Gliadin Abs, IgA to non-numeric Ernesto's results) [facility], ) t-Transglutaminas <2 Normal (applies MEDGEN (St e (tTG) IgA to non-numeric Ernesto's results) [facility], ) Immunoglobulin A, 148 Normal (applies MEDGEN (St Qn, Serum mg/dL to non-numeric Ernesto's results) [facility], ) ID Date Data Source [id number] 02/13/2020 12:00:00 AM EDT MEDGEN ([facility], ) Name Value Range Interpretation Description Data Sup porting Code Source(s) Document(s ) Leukocytes 6.5 Normal (applies MEDGEN (St [#/volume] in x10E3/uL to non-numeric Ernesto's Blood by results) [facility], ) Automated count Hemoglobin 12.0 Normal (applies MEDGEN (St [Mass/volume] in g/dL to non-numeric Ernesto's Blood results) [facility], ) Erythrocytes 4.00 Normal (applies MEDGEN (St [#/volume] in x10E6/uL to non-numeric Ernesto's Blood by results) [facility], ) Automated count MCV 91 fL Normal (applies MEDGEN (St to non-numeric Ernesto's results) [facility], ) Hematocrit 36.3 % Normal (applies MEDGEN (St [Volume to non-numeric Ernesto's Fraction] of results) [facility], ) Blood by Automated count MCHC 33.1 Normal (applies MEDGEN (St g/dL to non-numeric Ernesto's results) [facility], ) MCH 30.0 pg Normal (applies MEDGEN (St to non-numeric Ernesto's results) [facility], ) RDW 12.3 % Normal (applies MEDGEN (St to non-numeric Ernesto's results) [facility], ) Neutrophils [#] 54 % Normal (applies MEDGEN ( St in Body fluid by to non-numeric Ernesto's Manual count results) [facility], ) Platelets 446 Normal (applies MEDGEN (St [#/area] in x10E3/uL to non-numeric Ernesto's Blood by results) [facility], ) Microscopy high power field Monocytes 6 % Normal (applies MEDGEN (St [#/volume] in to non-numeric Ernesto's Cord blood results) [facility], ) Lymphs 36 % Normal (applies MEDGEN (St to non-numeric Ernesto's results) [facility], ) Eos 2 % Normal (applies MEDGEN (St to non-numeric Ernesto's results) [facility], ) Basos 1 % Normal (applies MEDGEN (St to non-numeric Ernesto's results) [facility], ) Lymphs 2.4 Normal (applies MEDGEN (St (Absolute) x10E3/uL to non-numeric Ernesto's results) [facility], ) Neutrophils 3.6 Normal (applies MEDGEN (St (Absolute) x10E3/uL to non-numeric Ernesto's results) [facility], ) Monocytes(Absolu 0.4 Normal (applies MEDGEN (St te) x10E3/uL to non-numeric Ernesto's results) [facility], ) Eos (Absolute) 0.1 Normal (applies MEDGEN (S t x10E3/uL to non-numeric Ernesto's results) Medical, ) Baso (Absolute) 0.0 Normal (applies MEDGEN ( St x10E3/uL to non-numeric Ernesto's results) [facility], [facility]) Immature Grans 0.0 Normal (applies MEDGEN (S t (Abs) x10E3/uL to non-numeric Ernesto's results) [facility], [facility]) Immature 1 % Normal (applies MEDGEN (St Granulocytes to non-numeric Ernesto's results) Medical, ) ID Date Data Source [id number] 02/13/2020 12:00:00 AM EDT [facility] ([facility], ) Name Value Range Interpretation Description Data Sup porting Code Source(s) Document(s ) Glucose 121 Above high MEDGEN (St [Mass/volume] in mg/dL normal Ernesto's Urine collected for Medical, unspecified PC) duration eGFR If NonAfricn 75 Normal (applies MEDGEN (St Am mL/min/1 to non-numeric Ernesto's .73 results) [facility], PC) Urea nitrogen 28 mg/dL Above high MEDGEN (St [Mass/volume] in normal Ernesto's Serum or Plasma Medical, ) Creatinine 0.82 Normal (applies MEDGEN (St [Interpretation] in mg/dL to non-numeric Ernesto' s Urine results) [facility], [facility]) eGFR If Africn Am 86 Normal (applies MEDGEN (St mL/min/1 to non-numeric Ernesto's .73 results) Medical, ) BUN/Creatinine 34 Above high MEDGEN (St Ratio normal [facility], ) Potassium 4.0 Normal (applies MEDGEN (St [Mass/volume] in mmol/L to non-numeric Ernesto's Blood results) [facility], PC) Chloride 101 Normal (applies MEDGEN (St [Moles/volume] in mmol/L to non-numeric Ernesto's Serum or Plasma results) [facility], PC) Sodium 144 Normal (applies MEDGEN (St [Moles/volume] in mmol/L to non-numeric Ernesto's Serum or Plasma results) Medical, PC) Carbon dioxide, 25 Normal (applies MEDGEN ( St total mmol/L to non-numeric Ernesto's [Moles/volume] in results) Medical, Serum or Plasma PC) Calcium 9.6 Normal (applies MEDGEN (St [Moles/volume] in mg/dL to non-numeric Ernesto's Urine collected for results) Medical, unspecified PC) duration Protein 6.3 g/dL Normal (applies MEDGEN (St [Mass/volume] in to non-numeric Ernesto's Serum or Plasma results) Medical, ) Microalbumin 4.5 g/dL Normal (applies MEDGEN (St [Mass/time] in to non-numeric Ernesto's Urine collected for results) Medical, unspecified PC) duration Bilirubin.total 0.2 Normal (applies MEDGEN ( St [Mass/volume] in mg/dL to non-numeric Ernesto's Serum or Plasma results) Medical, PC) Globulin, Total 1.8 g/dL Normal (applies MEDGEN ( St to non-numeric Ernesto's results) Medical, ) A/G Ratio 2.5 Above high MEDGEN (St normal [facility], [facility]) Alkaline 83 IU/L Normal (applies MEDGEN (St phosphatase to non-numeric Ernesto's [Enzymatic results) Medical, activity/volume] in PC) Serum, Plasma or Blood Aspartate 17 IU/L Normal (applies MEDGEN (St aminotransferase to non-numeric Ernesto's [Enzymatic results) Medical, activity/volume] in PC) Serum or Plasma Alanine 12 IU/L Normal (applies MEDGEN (St aminotransferase to non-numeric Ernesto's [Enzymatic results) Medical, activity/volume] in PC) Serum or Plasma Procedure Social History Code Duration Value Status Description Data Source(s ) Smoking 04/01/2020 Born in [facility] completed Born in [facility] (St 12:00:00 AM EDT [place] [facility] [place] [facility]) 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 a pack a day quit day quit in 2004 in 2004 smoked smoked more than more than 20 20 years years Marijuana Marijuana Social Social drinker drinker Smoking 04/01/2020 Unknown if ever completed Unknown if ever MEDG EN (St 12:00:00 AM EDT smoked smoked [facility]) Smoking 03/26/2020 Born in [facility] completed Born in [facility] (St 12:00:00 AM EDT [place] [facility] [place] [facility], in [facility] Partner in 1969 [facility]) 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 a pack a day quit day quit in 2004 in 2004 smoked smoked more than more than 20 20 years years Marijuana Marijuana Social Social drinker drinker Smoking 03/26/2020 Unknown if ever completed Unknown if ever MEDG EN (St 12:00:00 AM EDT smoked smoked [facility]) Smoking 03/26/2020 Born in [facility] completed Born in [facility] (St 12:00:00 AM EDT [place] [facility] [place] [facility], in [facility] Partner in 1970 [facility]) 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 a pack a day quit day quit in 2004 in 2004 smoked smoked more than more than 20 20 years years Marijuana Marijuana Social Social drinker drinker Smoking 03/26/2020 Unknown if ever completed Unknown if ever MEDG EN (St 12:00:00 AM EDT smoked smoked [facility]) Smoking 03/19/2020 Born in [facility] completed Born in [facility] (St 12:00:00 AM EDT [place] [facility], in [facility] Partner in 1970 [facility]) 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 a pack a day quit day quit in 2004 in 2004 smoked smoked more than more than 20 20 years years Marijuana Marijuana Social Social drinker drinker Smoking 03/19/2020 Unknown if ever completed Unknown if ever MEDG EN (St 12:00:00 AM EDT smoked smoked [facility]) Smoking 02/14/2020 Former Smoker completed Former Smoker [email or web address] ([facility] 12:00:00 AM EDT [facility]) Smoking 02/14/2020 Former Smoker completed Former Smoker [email or web address] ([facility] 12:00:00 AM EDT [facility]) Smoking 02/14/2020 Former Smoker completed Former Smoker [email or web address] ([facility] 12:00:00 AM EDT [facility]) Smoking 02/14/2020 Former Smoker completed Former Smoker [email or web address] ([facility] 12:00:00 AM EDT [facility]) Smoking 02/13/2020 Born in [facility] completed Born in [facility] (St 12:00:00 AM EDT [place] [facility], in [facility] Partner in 1970 [facility]) 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 a pack a day quit day quit in 2004 in 2004 smoked smoked more than more than 20 20 years years Marijuana Marijuana Social Social drinker drinker Smoking 02/13/2020 Unknown if ever completed Unknown if ever MEDG EN (St 12:00:00 AM EDT smoked smoked [facility]) Smoking 02/13/2020 Born in [facility] completed Born in [facility] (St 12:00:00 AM EDT [place] [facility], in [facility] Partner in 1970 [facility]) 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 a pack a day quit day quit in 2004 in 2004 smoked smoked more than more than 20 20 years years Marijuana Marijuana Social Social drinker drinker Smoking 02/13/2020 Unknown if ever completed Unknown if ever MEDG EN (St 12:00:00 AM EDT smoked smoked [facility]) Smoking 02/13/2020 Born in [facility] completed Born in [facility] (St 12:00:00 AM EDT [place] [facility], in [facility] Partner in 1970 [facility]) 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 a pack a day quit day quit in 2004 in 2004 smoked smoked more than more than 20 20 years years Marijuana Marijuana Social Social drinker drinker Smoking 02/13/2020 Unknown if ever completed Unknown if ever MEDG EN (St 12:00:00 AM EDT smoked smoked [facility]) Smoking 11/20/2019 Former Smoker completed Former Smoker [email or web address] ([facility] 12:00:00 AM EDT [facility]) Smoking 06/19/2019 Former Smoker completed Former Smoker [email or web address] ([facility] 12:00:00 AM EST [facility]) Former Smoker completed Former Smoker eCW3 ([facility]) Former Smoker completed Former Smoker eCW3 ([facility]) Former Smoker completed Former Smoker eCW3 ([facility]) Former Smoker completed Former Smoker eCW3 ([facility]) Former Smoker completed Former Smoker eCW3 ([facility]) Former Smoker completed Former Smoker eCW3 ([facility]) Vital Signs ID Date Data Source UNK Name Value Range Interpretation Code Description Data Source(s) Heart rate 80 /min 80 /min [facility] ([facility] , ) Respiratory rate 16 /min 16 /min MEDGEN ( [facility] , ) Inhaled oxygen 98 % 98 % MEDGEN ([facility], ) Body mass index 27.6 kg/m2 27.6 kg/m2 MEDGEN (S t (BMI) [Ratio] [facility] [place], ) Diastolic blood 62 mm[Hg] 62 mm[Hg] MEDGEN (S t pressure [facility] [place] [place] , ) Systolic blood 100 mm[Hg] 100 mm[Hg] MEDGEN (St [facility] , ) Body weight 151 lb 151 lb MEDGEN ([facility] , ) Body height 62 in 62 in MEDGEN ([facility] , ) Heart rate 86 /min 86 /min [facility] ([facility]) Respiratory rate 16 /min 16 /min MEDGEN ( [facility] , ) Body mass index 27.6 kg/m2 27.6 kg/m2 MEDGEN (S t (BMI) [Ratio] [facility] [facility], ) Diastolic blood 62 mm[Hg] 62 mm[Hg] MEDGEN (S t pressure [facility] , ) Systolic blood 116 mm[Hg] 116 mm[Hg] MEDGEN ([facility] , ) Body weight 151 lb 151 lb MEDGEN ([facility] , ) Body height 62 in 62 in MEDGEN ([facility] , ) Heart rate 86 /min 86 /min MEDGEN ([facility] , ) Respiratory rate 16 /min 16 /min MEDGEN ( [facility] , ) Body mass index 27.6 kg/m2 27.6 kg/m2 MEDGEN (S t (BMI) [Ratio] [facility] [place], ) Diastolic blood 62 mm[Hg] 62 mm[Hg] MEDGEN (S t pressure [facility] [place] [place] , ) Systolic blood 116 mm[Hg] 116 mm[Hg] MEDGEN ([facility]) Body weight 151 lb 151 lb MEDGEN ([facility]) Body height 62 in 62 in MEDGEN ([facility]) Heart rate 86 /min 86 /min MEDGEN ([facility]) Respiratory rate 16 /min 16 /min MEDGEN ( [facility]) Body mass index 27.6 kg/m2 27.6 kg/m2 MEDGEN (S t (BMI) [Ratio] [facility] [place], ) Diastolic blood 62 mm[Hg] 62 mm[Hg] MEDGEN (S t pressure [facility]) Systolic blood 116 mm[Hg] 116 mm[Hg] MEDGEN ([facility]) Body weight 151 lb 151 lb MEDGEN ([facility]) Body height 62 in 62 in MEDGEN ([facility]) Body temperature 98.1 F 98.1 F MEDGEN ( [facility]) Body mass index 27.2 kg/m2 27.2 kg/m2 MEDGEN (S t (BMI) [Ratio] [facility] [place], ) Diastolic blood 60 mm[Hg] 60 mm[Hg] MEDGEN (S t pressure [facility]) Systolic blood 126 mm[Hg] 126 mm[Hg] MEDGEN ([facility]) Body weight 144 lb 144 lb MEDGEN ([facility]) Body height 61 in 61 in MEDGEN ([facility]) Body temperature 98.1 F 98.1 F MEDGEN ( [facility]) Body mass index 27.2 kg/m2 27.2 kg/m2 MEDGEN (S t (BMI) [Ratio] [facility] [place], ) Diastolic blood 60 mm[Hg] 60 mm[Hg] MEDGEN (S t pressure [facility]) Systolic blood 126 mm[Hg] 126 mm[Hg] MEDGEN ([facility] [place]) Body weight 144 lb 144 lb MEDGEN ([facility]) Body height 61 in 61 in MEDGEN ([facility]) Body temperature 98.1 F 98.1 F MEDGEN ( [facility]) Body mass index 27.2 kg/m2 27.2 kg/m2 MEDGEN (S t (BMI) [Ratio] [facility]) Diastolic blood 60 mm[Hg] 60 mm[Hg] MEDGEN (S t pressure [facility]) Systolic blood 126 mm[Hg] 126 mm[Hg] MEDGEN ([facility]) Body weight 144 lb 144 lb MEDGEN ([facility]) Body height 61 in 61 in MEDGEN ([facility]) Body temperature 98.1 F 98.1 F MEDGEN ( [facility]) Body mass index 27.2 kg/m2 27.2 kg/m2 MEDGEN (S t (BMI) [Ratio] [facility] [place], ) Diastolic blood 60 mm[Hg] 60 mm[Hg] MEDGEN (S t pressure [facility]) Systolic blood 126 mm[Hg] 126 mm[Hg] MEDGEN ([facility]) Body weight 144 lb 144 lb MEDGEN ([facility]) Body height 61 in 61 in MEDGEN ([facility]) Heart rate 83 /min 83 /min MEDGEN ([facility]) Inhaled oxygen 98 % 98 % MEDGEN ([facility]) Body mass index 28.3 kg/m2 28.3 kg/m2 MEDGEN (S t (BMI) [Ratio] [facility] [place], ) Diastolic blood 72 mm[Hg] 72 mm[Hg] MEDGEN (S t pressure [facility]) Systolic blood 126 mm[Hg] 126 mm[Hg] MEDGEN ([facility]) Body weight 150 lb 150 lb MEDGEN ([facility]) Body height 61 in 61 in MEDGEN ([facility]) Heart rate 83 /min 83 /min MEDGEN ([facility]) Inhaled oxygen 98 % 98 % MEDGEN ([facility]) Body mass index 28.3 kg/m2 28.3 kg/m2 MEDGEN (S t (BMI) [Ratio] [facility]) Heart rate 83 /min 83 /min MEDGEN ([facility]) Inhaled oxygen 98 % 98 % MEDGEN ([facility]) Body mass index 28.3 kg/m2 28.3 kg/m2 MEDGEN (S t (BMI) [Ratio] [facility]) Diastolic blood 72 mm[Hg] 72 mm[Hg] MEDGEN (S t pressure [facility]) Systolic blood 126 mm[Hg] 126 mm[Hg] MEDGEN ([facility]) Body weight 150 lb 150 lb MEDGEN ([facility]) Body height 61 in 61 in MEDGEN ([facility]) Diastolic blood 72 mm[Hg] 72 mm[Hg] MEDGEN ([facility]) Systolic blood 126 mm[Hg] 126 mm[Hg] MEDGEN ([facility]) Body weight 150 lb 150 lb MEDGEN ([facility]) Body height 61 in 61 in MEDGEN ([facility]) Heart rate 83 /min 83 /min MEDGEN ([facility]) Inhaled oxygen 98 % 98 % MEDGEN ([facility]) Body mass index 28.3 kg/m2 28.3 kg/m2 MEDGEN (S t (BMI) [Ratio] [facility]) Diastolic blood 72 mm[Hg] 72 mm[Hg] MEDGEN ([facility]) Systolic blood 126 mm[Hg] 126 mm[Hg] MEDGEN ([facility]) Body weight 150 lb 150 lb MEDGEN ([facility]) Body height 61 in 61 in MEDGEN ([facility]) Heart rate 83 /min 83 /min MEDGEN ([facility]) Inhaled oxygen 98 % 98 % MEDGEN ([facility]) Body mass index 28.3 kg/m2 28.3 kg/m2 MEDGEN (S t (BMI) [Ratio] [facility]) Diastolic blood 72 mm[Hg] 72 mm[Hg] MEDGEN (S t pressure [facility]) Systolic blood 126 mm[Hg] 126 mm[Hg] MEDGEN ([facility] Body weight 150 lb 150 lb MEDGEN ([facility]) Body height 61 in 61 in MEDGEN ([facility]) Heart rate 83 /min 83 /min MEDGEN ([facility]) Inhaled oxygen 98 % 98 % MEDGEN ([facility]) Body mass index 28.3 kg/m2 28.3 kg/m2 MEDGEN (S t (BMI) [Ratio] [facility] [place], ) Diastolic blood 72 mm[Hg] 72 mm[Hg] MEDGEN (S t pressure [facility]) Systolic blood 126 mm[Hg] 126 mm[Hg] MEDGEN ([facility]) Body weight 150 lb 150 lb MEDGEN ([facility]) Body height 61 in 61 in MEDGEN ([facility]) Heart rate 83 /min 83 /min MEDGEN ([facility]) Inhaled oxygen 98 % 98 % MEDGEN ([facility], ) Body mass index 28.3 kg/m2 28.3 kg/m2 MEDGEN (S t (BMI) [Ratio] [facility] [place], ) Diastolic blood 72 mm[Hg] 72 mm[Hg] MEDGEN ([facility]) Systolic blood 126 mm[Hg] 126 mm[Hg] MEDGEN ([facility]) Body weight 150 lb 150 lb MEDGEN ([facility]) Body height 61 in 61 in MEDGEN ([facility]) Body mass index 29.5 kg/m2 29.5 kg/m2 MEDGEN (S t (BMI) [Ratio] [facility] [place], ) Diastolic blood 52 mm[Hg] 52 mm[Hg] MEDGEN ([facility]) Systolic blood 110 mm[Hg] 110 mm[Hg] MEDGEN ([facility]) Body weight 156 lb 156 lb MEDGEN ([facility]) Body height 61 in 61 in MEDGEN ([facility]) Body mass index 29.5 kg/m2 29.5 kg/m2 MEDGEN (S t (BMI) [Ratio] [facility] [place], ) Diastolic blood 52 mm[Hg] 52 mm[Hg] MEDGEN (S t pressure [facility]) Systolic blood 110 mm[Hg] 110 mm[Hg] MEDGEN ([facility]) Body weight 156 lb 156 lb MEDGEN ([facility]) Body height 61 in 61 in [facility] ([facility]) Body mass index 29.5 kg/m2 29.5 kg/m2 MEDGEN (S t (BMI) [Ratio] [facility] [place], ) Diastolic blood 52 mm[Hg] 52 mm[Hg] MEDGEN (S t pressure [facility]) Systolic blood 110 mm[Hg] 110 mm[Hg] MEDGEN ([facility]) Body weight 156 lb 156 lb MEDGEN ([facility]) [facility] Body mass index 29.5 kg/m2 29.5 kg/m2 MEDGEN (S t (BMI) [Ratio] [facility] [place], ) Diastolic blood 52 mm[Hg] 52 mm[Hg] MEDGEN (S t pressure [facility]) Systolic blood 110 mm[Hg] 110 mm[Hg] MEDGEN ([facility]) Body weight 156 lb 156 lb MEDGEN ([facility]) Body height 61 in 61 in MEDGEN ([facility]) Body mass index 29.5 kg/m2 29.5 kg/m2 MEDGEN (S t (BMI) [Ratio] [facility] [place], ) Diastolic blood 52 mm[Hg] 52 mm[Hg] MEDGEN (S t pressure [facility]) Systolic blood 110 mm[Hg] 110 mm[Hg] MEDGEN ([facility]) Body weight 156 lb 156 lb MEDGEN ([facility]) Body height 61 in 61 in MEDGEN ([facility]) Body mass index 29.5 kg/m2 29.5 kg/m2 MEDGEN (S t (BMI) [Ratio] [facility] [place], ) Diastolic blood 52 mm[Hg] 52 mm[Hg] MEDGEN (S t pressure [facility]) Systolic blood 110 mm[Hg] 110 mm[Hg] MEDGEN ([facility]) Body weight 156 lb 156 lb MEDGEN ([facility]) Body height 61 in 61 in MEDGEN ([facility]) Body mass index 29.5 kg/m2 29.5 kg/m2 MEDGEN (S t (BMI) [Ratio] [facility] [place], ) Diastolic blood 52 mm[Hg] 52 mm[Hg] MEDGEN (S t pressure [facility]) Systolic blood 110 mm[Hg] 110 mm[Hg] MEDGEN ([facility]) Body weight 156 lb 156 lb MEDGEN ([facility]) Body height 61 in 61 in MEDGEN ([facility]) Heart rate 86 /min 86 /min MEDGEN ([facility]) Respiratory rate 12 /min 12 /min MEDGEN ( [facility]) Inhaled oxygen 97 % 97 % MEDGEN ([facility], ) Body mass index 28.5 kg/m2 28.5 kg/m2 MEDGEN (S t (BMI) [Ratio] [facility] [place], ) Diastolic blood 90 mm[Hg] 90 mm[Hg] MEDGEN ([facility]) Systolic blood 170 mm[Hg] 170 mm[Hg] MEDGEN ([facility]) Body weight 151 lb 151 lb MEDGEN ([facility]) Body height 61 in 61 in MEDGEN ([facility]) Heart rate 86 /min 86 /min MEDGEN ([facility]) Respiratory rate 12 /min 12 /min MEDGEN ( [facility]) Inhaled oxygen 97 % 97 % MEDGEN ([facility], ) Body mass index 28.5 kg/m2 28.5 kg/m2 MEDGEN (S t (BMI) [Ratio] [facility] [place], ) Diastolic blood 90 mm[Hg] 90 mm[Hg] MEDGEN (S t pressure [facility]) Systolic blood 170 mm[Hg] 170 mm[Hg] MEDGEN ([facility]) Body weight 151 lb 151 lb MEDGEN ([facility]) Body height 61 in 61 in MEDGEN ([facility]) Heart rate 86 /min 86 /min MEDGEN ([facility]) Respiratory rate 12 /min 12 /min MEDGEN ( [facility]) Inhaled oxygen 97 % 97 % MEDGEN ([facility], ) Body mass index 28.5 kg/m2 28.5 kg/m2 MEDGEN (S t (BMI) [Ratio] [facility] [place], ) Diastolic blood 90 mm[Hg] 90 mm[Hg] MEDGEN (S t pressure [facility]) Systolic blood 170 mm[Hg] 170 mm[Hg] MEDGEN ([facility] , ) Body weight 151 lb 151 lb MEDGEN ([facility]) Body height 61 in 61 in MEDGEN ([facility]) Respiratory rate 12 /min 12 /min MEDGEN ( [facility] , ) Inhaled oxygen 97 % 97 % MEDGEN ([facility], ) Body mass index 28.5 kg/m2 28.5 kg/m2 MEDGEN (S t (BMI) [Ratio] [facility] [place], ) Diastolic blood 90 mm[Hg] 90 mm[Hg] MEDGEN (S t pressure [facility] [place] [place] , ) Systolic blood 170 mm[Hg] 170 mm[Hg] MEDGEN ([facility]) Body weight 151 lb 151 lb MEDGEN ([facility]) Body height 61 in 61 in MEDGEN ([facility]) Heart rate 86 /min 86 /min MEDGEN ([facility]) Respiratory rate 12 /min 12 /min MEDGEN ( [facility]) Inhaled oxygen 97 % 97 % MEDGEN ([facility], ) Body mass index 28.5 kg/m2 28.5 kg/m2 MEDGEN (S t (BMI) [Ratio] [facility] [place], ) Diastolic blood 90 mm[Hg] 90 mm[Hg] MEDGEN (S t pressure [facility] [place] [place] , ) Systolic blood 170 mm[Hg] 170 mm[Hg] MEDGEN ([facility] , ) Body weight 151 lb 151 lb MEDGEN ([facility]) Body height 61 in 61 in MEDGEN ([facility]) Heart rate 86 /min 86 /min MEDGEN ([facility]) Respiratory rate 12 /min 12 /min MEDGEN ( [facility]) Inhaled oxygen 97 % 97 % MEDGEN ([facility]) Body mass index 28.5 kg/m2 28.5 kg/m2 MEDGEN (S t (BMI) [Ratio] [facility] [place], ) Diastolic blood 90 mm[Hg] 90 mm[Hg] MEDGEN ([facility]) Systolic blood 170 mm[Hg] 170 mm[Hg] MEDGEN ([facility]) Body weight 151 lb 151 lb MEDGEN ([facility]) Body height 61 in 61 in MEDGEN ([facility]) Heart rate 86 /min 86 /min MEDGEN ([facility]) Respiratory rate 12 /min 12 /min MEDGEN ( [facility]) Inhaled oxygen 97 % 97 % MEDGEN ([facility], ) Body mass index 28.5 kg/m2 28.5 kg/m2 MEDGEN (S t (BMI) [Ratio] [facility] [place], ) Diastolic blood 90 mm[Hg] 90 mm[Hg] MEDGEN ([facility]) Systolic blood 170 mm[Hg] 170 mm[Hg] MEDGEN ([facility]) Body weight 151 lb 151 lb MEDGEN ([facility]) Body height 61 in 61 in MEDGEN ([facility]) Heart rate 86 /min 86 /min MEDGEN ([facility]) Diastolic blood 85 mm[Hg] 85 mm[Hg] eCW3 ([facility]) Systolic blood 170 mm[Hg] 170 mm[Hg] eCW3 ([facility]) Body temperature 98.0 [degF] 98.0 [degF] eCW3 ( [facility]) Heart rate 20 /min 20 /min eCW3 ([facility]) Body mass index 32.55 kg/m2 32.55 kg/m2 eCW3 (Clemente kumar (BMI) [Ratio] [facility]) Body weight 178 [lb_av] 178 [lb_av] eCW3 ([facility]) Body height 62 [in_i] 62 [in_i] eCW3 ([facility]) Diastolic blood 73 mm[Hg] 73 mm[Hg] eCW3 ([facility]) Systolic blood 160 mm[Hg] 160 mm[Hg] eCW3 ([facility]) Body temperature 98.5 [degF] 98.5 [degF] eCW3 ( [facility]) Heart rate 20 /min 20 /min eCW3 ([facility]) Body mass index 32.74 kg/m2 32.74 kg/m2 eCW3 (Clemente kuamr (BMI) [Ratio] [facility]) Body weight 179 [lb_av] 179 [lb_av] eCW3 ([facility]) Body height 62 [in_i] 62 [in_i] eCW3 ([facility]) Patient Treatment Plan of Care Planned Activity Planned Date Details Description Data Source (s) Hydrochlorothiazide 25 MG / 07/26/2019 eCW3 ([facility] Lisinopril 20 MG Oral Tablet 12:00:00 AM [facility]) montelukast 10 MG Oral Tablet 08/12/2018 eCW3 ([facility] [Singulair] 12:00:00 AM [facility]) atorvastatin 20 MG Oral 12/10/2014 eCW3 ([facility] Tablet [Lipitor] 12:00:00 AM [facility]) Metformin hydrochloride 1000 10/30/2013 eCW3 ([place] MG Oral Tablet 12:00:00 AM [facility] e)
--- NOTE | 2020-04-11 08:35 | PROC ---
Procedure Note Procedure: Pre procedure Diagnosis: Cervical Spondylosis Post Procedure Diagnosis: same Anesthesia: local Procedure Performed: Right C3 C4 C5 C6 medial branch block under fluorocopic guidance After the risks and benefits were explained, informed consent was obtained. The patient was then taken to the procedure room and positioned prone on the procedure table. Time out was performed. The region overlying the appropriate vertebral bodies was identified using fluoroscopy. The skin was prepped and draped in the usual sterile fashion. Using fluoroscopic guidance, 25 gauge 2.5 inch spinal needles were then introduced to the fossa at the center of the waists of the articular pillars where the BILATERAL C3, C4, C5, C6 medial branches are located. Omnipaque 180 confirmed appropriate needle placement. There was no epidural or vascular flow observed. .25 % bupivacaine was drawn into a syringe. 0.5cc of this solution was then injected at each level. The patient tolerated the procedure well and there were no complications. The patient was taken to the post procedure recovery area in good condition. Vital signs remained stable before, during, and after the procedure. The patient was given oral and written follow-up instructions. The patient was given a follow up appointment with me in the near future. Augustine Owen DO
[2020-04-11] MEDS ORDERED: LIDOCAINE HCL/PF 1% SDV 5ML VIAL ONE (08:45)
[2020-04-11] MEDS ORDERED: IOHEXOL 180 MG/1 ML ML IJ ONE (08:58)
[2020-04-11] MEDS ORDERED: BUPIVACAINE HCL/PF 0.5% (5 MG/ML) 30 ML VIAL IJ ONE (09:03)
[2020-04-11] MEDS ORDERED: BUPIVACAINE HCL/PF 0.75% 10 ML VIAL ONE (10:27)
[2020-04-11] MEDS ORDERED: LIDOCAINE HCL 1%, 10 MG/ML (20ML VIAL) ONE (10:27)
[2020-04-11 11:07] VITALS: BP 127/95; PULSE 76; TEMP 97.5
== END 2020-04-11 09:50 | disposition home or self-care (01) ==
LOC: JASU-SURG 04:54
PROVIDERS: ATTEND Pain Medicine Pain Medicine
PROC: 3E0T33Z Introduction of Anti-inflammatory into Peripheral Nerves and Plexi, Percutaneous Approach (ICD-10-PCS; 2020-04-11)
PROC: 3E0T3BZ Introduction of Anesthetic Agent into Peripheral Nerves and Plexi, Percutaneous Approach (ICD-10-PCS; principal; 2020-04-11 08:30)
DX: M47.812 Spondylosis without myelopathy or radiculopathy, cervical region (principal)
CPT/HCPCS: 76000-TC-FY

== ENCOUNTER 2020-08-27 04:38 | Day surgery (SDC) | payer OTHER ==
[2020-08-26 09:54] VITALS: BMI 25.6
[2020-08-27] MEDS ORDERED: DEXAMETHASONE SOD PHOSPHATE/PF 10 MG/ML SDV ONE (07:34)
[2020-08-27] MEDS ORDERED: LIDOCAINE HCL 1%, 10 MG/ML (20ML VIAL) ONE (07:43)
[2020-08-27] MEDS ORDERED: BUPIVACAINE HCL/PF 0.75% 10 ML VIAL ONE (07:44)
[2020-08-27] MEDS ORDERED: LIDOCAINE HCL 1%, 10 MG/ML (20ML VIAL) PNB ONE (08:27)
[2020-08-27] MEDS ORDERED: IOHEXOL 180 MG/1 ML ML IJ ONE (08:27)
[2020-08-27] MEDS ORDERED: BUPIVACAINE HCL/PF 0.75% 10 ML VIAL PNB ONE (08:27)
[2020-08-27 08:54] VITALS: TEMP 98
[2020-08-27] MEDS ORDERED: ACETAMINOPHEN 325 MG TABLET (FP) ONE (08:58)
[2020-08-27] MEDS ORDERED: ACETAMINOPHEN 325 MG TABLET (FP) PO ONE (09:04)
[2020-08-27 10:45] VITALS: BP 120/70; PULSE 80
== END 2020-08-27 10:10 | disposition home or self-care (01) ==
LOC: JASU-SURG 04:38
PROVIDERS: ATTEND Pain Medicine Pain Medicine
PROC: 3E0R3BZ Introduction of Anesthetic Agent into Spinal Canal, Percutaneous Approach (ICD-10-PCS; 2020-08-27)
PROC: 3E0R33Z Introduction of Anti-inflammatory into Spinal Canal, Percutaneous Approach (ICD-10-PCS; principal; 2020-08-27 08:00)
DX: M47.816 Spondylosis without myelopathy or radiculopathy, lumbar region (principal)
CPT/HCPCS: 76000-TC-FY

== ENCOUNTER 2020-08-30 19:54 | Observation (INO) | payer OTHER ==
[2020-08-30 20:58] LABS: BASO % 0.3 % (0-2.0); EOS % 1.1 % (0-4.5); HEMATOCRIT 34.9 % (32.4-45.2); HEMOGLOBIN 11.4 GM/dL (10.7-15.3); LYMPH % 23.1 % (8-40); MCH 30.1 pg (25.7-33.7); MCHC 32.7 g/dl (32.0-36.0); MEAN CELL VOLUME 92.2 fl (80-96); MEAN PLT VOLUME 7.3 fl (7.5-11.1); MONO % 4.8 % (3.8-10.2); NEUT % 70.7 % (42.8-82.8); PLATELET COUNT 340 K/MM3 (134-434); RBC 3.79 M/mm3 (3.60-5.2); RDW 13.1 % (11.6-15.6); WHITE BLOOD COUNT 10.9 K/mm3 (4.0-10.0)
[2020-08-30] MEDS ORDERED: LACTATED RINGERS SOLUTION 1000 ML INFUS.BAG IV ONE (21:07)
[2020-08-30 21:32] LABS: CHLORIDE 103 mmol/L (98-107); POTASSIUM 3.8 mmol/L (3.5-5.1); SODIUM 140 mmol/L (136-145)
[2020-08-30 21:34] LABS: ALBUMIN 3.1 g/dl (3.4-5.0); ANION GAP 4 MMOL/L (8-16); BLOOD UREA NITROGEN 25.8 mg/dL (7-18); CALCIUM 8.5 mg/dL (8.5-10.1); CO2 33 mmol/L (21-32)
[2020-08-30 21:35] LABS: GLUCOSE,RANDOM 171 mg/dL (74-106)
[2020-08-30 21:37] LABS: SGOT/AST 14 U/L (15-37); SGPT/ALT 20 U/L (13-61)
[2020-08-30 21:38] LABS: CREATININE 1.2 mg/dL (0.55-1.3)
[2020-08-30 21:39] LABS: BILIRUBIN,TOTAL 0.2 mg/dL (0.2-1); TOT PROT 5.8 g/dl (6.4-8.2)
[2020-08-30 21:40] LABS: ALK PHOS 68 U/L (45-117)
[2020-08-30] MEDS ORDERED: ACETAMINOPHEN 1000 MG/100 ML VIAL (NON FORMULARY) IVPB ONE (23:37)
[2020-08-30] MEDS ORDERED: FAMOTIDINE 20 MG/50 ML IVPB 20 MG/50 ML MG IVPB ONE ×2 (23:38→23:42)
[2020-08-30] MEDS ORDERED: ACETAMINOPHEN INJECTION 100 ML IVPB ONE (23:41)
[2020-08-30 23:56] LABS: PH,URINE 5.5 (5.0-8.0); URINE APPEARANCE CLEAR; URINE BILIRUBIN NEGATIVE (NEGATIVE); URINE COLOR YELLOW; URINE GLUCOSE (UA) NEGATIVE (NEGATIVE); URINE KETONE NEGATIVE (NEGATIVE); URINE LEUK ESTERASE NEGATIVE (NEGATIVE); URINE NITRITE NEGATIVE (NEGATIVE); URINE PROTEIN NEGATIVE (NEGATIVE); URINE UROBILINOGEN 0.2 mg/dL (0.2-1.0)
[2020-08-31] MEDS ORDERED: ASPIRIN 81 MG CHEWABLE TABLETS PO ONE (01:19)
[2020-08-31] MEDS ORDERED: ONDANSETRON 4 MG/2 ML VIAL IVPUSH PRN (03:24)
[2020-08-31] MEDS: LACTATED RINGERS SOLUTION 1,000 ML/1,000 ML INFUS.BAG IV SCH (03:40)
[2020-08-31] MEDS: INSULIN SLIDING SCALE (NOVOLOG) 1 VIAL SQ SCH ×4 (06:14→21:22)
[2020-08-31] MEDS ORDERED: ALBUTEROL SO4 HFA INHALER IH PRN ×2 (06:57→12:19)
[2020-08-31 07:11] VITALS: BMI 27.1
[2020-08-31] MEDS: ENOXAPARIN NA (PORCINE) 40 MG/0.4 ML DISP.SYRIN SQ SCH (11:03)
[2020-08-31] MEDS ORDERED: FAMOTIDINE 20 MG/50 ML IVPB 20 MG/50 ML MG IVPB ONE (12:45)
[2020-08-31] MEDS: BUDESONIDE/FORMETEROL FUMARATE 80/4.5 mcg INHALER IH SCH ×2 (14:13→21:27)
[2020-08-31] MEDS: PANTOPRAZOLE SODIUM 40 MG VIAL IVPUSH SCH (21:27)
[2020-08-31] MEDS ORDERED: PANTOPRAZOLE SODIUM 40 MG in SODIUM CHLORIDE 100 ML IVPB SCH (22:00)
[2020-09-01] MEDS ORDERED: ACETAMINOPHEN 1000 MG/100 ML VIAL (NON FORMULARY) IVPB ONE (03:20)
[2020-09-01] MEDS: LACTATED RINGERS SOLUTION 1,000 ML/1,000 ML INFUS.BAG IV SCH ×2 (03:27→09:58)
[2020-09-01] MEDS: INSULIN SLIDING SCALE (NOVOLOG) 1 VIAL SQ SCH ×4 (06:44→21:57)
[2020-09-01 08:03] LABS: BASO % 0.5 % (0-2.0); HEMATOCRIT 36.8 % (32.4-45.2); HEMOGLOBIN 12.4 GM/dL (10.7-15.3); LYMPH % 29.1 % (8-40); MCH 30.6 pg (25.7-33.7); MCHC 33.6 g/dl (32.0-36.0); MEAN PLT VOLUME 7.6 fl (7.5-11.1); MONO % 4.9 % (3.8-10.2); NEUT % 64.5 % (42.8-82.8); PLATELET COUNT 347 K/MM3 (134-434); RBC 4.04 M/mm3 (3.60-5.2); RDW 13.4 % (11.6-15.6); WHITE BLOOD COUNT 11.8 K/mm3 (4.0-10.0)
[2020-09-01 08:40] LABS: ALBUMIN 3.2 g/dl (3.4-5.0); BILIRUBIN,TOTAL 0.4 mg/dL (0.2-1); BLOOD UREA NITROGEN 12.1 mg/dL (7-18); MAGNESIUM 1.6 mg/dL (1.8-2.4); TOT PROT 6.3 g/dl (6.4-8.2)
[2020-09-01] MEDS: PANTOPRAZOLE SODIUM 40 MG VIAL IVPUSH SCH ×2 (09:50→21:57)
[2020-09-01] MEDS: ENOXAPARIN NA (PORCINE) 40 MG/0.4 ML DISP.SYRIN SQ SCH (09:50)
[2020-09-01] MEDS: BUDESONIDE/FORMETEROL FUMARATE 80/4.5 mcg INHALER IH SCH ×2 (10:00→21:57)
[2020-09-01] MEDS ORDERED: MULTIVIT INJ. ADULT COMBO WITH VIT K 1 COMBO 10 ML VIAL IV SCH (10:00)
[2020-09-01] MEDS ORDERED: MAGNESIUM SULF 50% (8.12 MEQ/2 ML-1 GM VIAL) IVPB ONE (12:07)
[2020-09-02] MEDS: LACTATED RINGERS SOLUTION 1,000 ML/1,000 ML INFUS.BAG IV SCH (06:45)
[2020-09-02] MEDS: INSULIN SLIDING SCALE (NOVOLOG) 1 VIAL SQ SCH ×2 (06:46→12:24)
[2020-09-02 08:24] LABS: BASO % 0.6 % (0-2.0); EOS % 2.6 % (0-4.5); HEMATOCRIT 31.5 % (32.4-45.2); HEMOGLOBIN 10.7 GM/dL (10.7-15.3); LYMPH % 29.8 % (8-40); MCH 30.8 pg (25.7-33.7); MEAN CELL VOLUME 90.5 fl (80-96); MEAN PLT VOLUME 7.6 fl (7.5-11.1); MONO % 6.2 % (3.8-10.2); NEUT % 60.8 % (42.8-82.8); PLATELET COUNT 307 K/MM3 (134-434); RBC 3.49 M/mm3 (3.60-5.2); RDW 13.2 % (11.6-15.6); WHITE BLOOD COUNT 7.6 K/mm3 (4.0-10.0)
[2020-09-02 08:29] LABS: POTASSIUM 4.2 mmol/L (3.5-5.1)
[2020-09-02 08:31] LABS: CALCIUM 8.8 mg/dL (8.5-10.1)
[2020-09-02 08:32] LABS: ALBUMIN 2.7 g/dl (3.4-5.0); BLOOD UREA NITROGEN 9.6 mg/dL (7-18); MAGNESIUM 1.9 mg/dL (1.8-2.4)
[2020-09-02 08:36] LABS: BILIRUBIN,TOTAL 0.3 mg/dL (0.2-1); CREATININE 0.9 mg/dL (0.55-1.3)
[2020-09-02 08:37] LABS: TOT PROT 5.3 g/dl (6.4-8.2)
[2020-09-02] MEDS ORDERED: LISINOPRIL 20 MG TABLET PO SCH (10:00)
[2020-09-02] MEDS ORDERED: ACETAMINOPHEN 1000 MG/100 ML VIAL (NON FORMULARY) IVPB PRN (10:03)
[2020-09-02] MEDS: ENOXAPARIN NA (PORCINE) 40 MG/0.4 ML DISP.SYRIN SQ SCH (12:23)
[2020-09-02] MEDS: BUDESONIDE/FORMETEROL FUMARATE 80/4.5 mcg INHALER IH SCH (12:24)
[2020-09-02] MEDS: PANTOPRAZOLE SODIUM 40 MG VIAL IVPUSH SCH (12:24)
[2020-09-02 13:19] VITALS: BP 126/66; PULSE 86; TEMP 97.9
== END 2020-09-02 15:00 | disposition home or self-care (01) ==
LOC: JER 19:54 → INTOOBSV 08-31 01:18 → JERBED 08-31 01:18 → UNDOADMOB 08-31 01:18 → J4S 08-31 05:07 → JERBED 08-31 05:07 → J4S 09-01 16:14
PROVIDERS: ADMIT Hospitalist; ATTEND Nurse Practitioner Acute Care
PROC: 3E023GC Introduction of Other Therapeutic Substance into Muscle, Percutaneous Approach (ICD-10-PCS; principal; 2020-09-01)
PROC: 3E033GC Introduction of Other Therapeutic Substance into Peripheral Vein, Percutaneous Approach (ICD-10-PCS; 2020-09-01)
PROC: 3E033NZ Introduction of Analgesics, Hypnotics, Sedatives into Peripheral Vein, Percutaneous Approach (ICD-10-PCS; 2020-09-01)
DX: K22.2 Esophageal obstruction (principal); R07.89 Other chest pain; K21.9 Gastro-esophageal reflux disease without esophagitis; I10 Essential (primary) hypertension; E78.5 Hyperlipidemia, unspecified; R55 Syncope and collapse; R10.84 Generalized abdominal pain; E78.00 Pure hypercholesterolemia, unspecified; E11.9 Type 2 diabetes mellitus without complications; J45.909 Unspecified asthma, uncomplicated; Z87.891 Personal history of nicotine dependence; R42 Dizziness and giddiness; R11.0 Nausea; J44.9 Chronic obstructive pulmonary disease, unspecified; R10.13 Epigastric pain; Z96.60 Presence of unspecified orthopedic joint implant; Z87.19 Personal history of other diseases of the digestive system; A04.8 Other specified bacterial intestinal infections
CPT/HCPCS: 36415; 70450-TC; 71045-TC-FY; 74220-TC-FY; 74230-TC-FY; 80053; 81003; 82550; 82962; 83036; 83735; 84484; 85025; 87086; 92611-GN; 93005; 93010; 93306-TC; 93880-TC; 96365; 96372; 96375; 97116-GP; 97161-GP; 99285-25; C9803; G0378; J0131; U0003

== ENCOUNTER 2020-09-12 04:25 | Day surgery (SDC) | payer OTHER ==
[2020-09-10 09:02] VITALS: BMI 25.7
[2020-09-12] MEDS ORDERED: BUPIVACAINE HCL/PF 0.75% 10 ML VIAL ONE (12:37)
[2020-09-12] MEDS ORDERED: IOHEXOL 180 MG/1 ML ML IJ ONE (12:46)
[2020-09-12] MEDS ORDERED: LIDOCAINE 1% P/F 10 MG/ML VIAL INF ONE ×2 (12:47)
[2020-09-12] MEDS ORDERED: BUPIVACAINE HCL/PF 0.75% 10 ML VIAL CAUD ONE (12:47)
[2020-09-12 13:50] VITALS: BP 141/70; PULSE 85
[2020-09-12 13:52] VITALS: TEMP 98
== END 2020-09-12 13:53 | disposition home or self-care (01) ==
LOC: JASU-SURG 04:25
PROVIDERS: ATTEND Pain Medicine Pain Medicine
PROC: BR16YZZ Fluoroscopy of Lumbar Facet Joint(s) using Other Contrast (ICD-10-PCS; 2020-09-12)
PROC: 3E0T33Z Introduction of Anti-inflammatory into Peripheral Nerves and Plexi, Percutaneous Approach (ICD-10-PCS; principal; 2020-09-12 11:30)
DX: M47.816 Spondylosis without myelopathy or radiculopathy, lumbar region (principal)
CPT/HCPCS: 76000-TC-FY

== ENCOUNTER 2020-10-17 05:32 | Day surgery (SDC) | payer OTHER ==
[2020-10-15 16:59] VITALS: BMI 28.3
[~2020-10-17 05:32] MED LIST: LIDOCAINE HCL 1% PRESERVATIVE FREE - 30ML VIAL IJ ONE
[2020-10-17] MEDS ORDERED: LIDOCAINE HCL 1% PRESERVATIVE FREE - 30ML VIAL IJ ONE (11:29)
[2020-10-17] MEDS ORDERED: LIDOCAINE HCL 1%, 10 MG/ML (20ML VIAL) ONE (12:10)
[2020-10-17 12:43] VITALS: TEMP 98.3
[2020-10-17 13:08] VITALS: BP 115/69; PULSE 70
== END 2020-10-17 13:08 | disposition home or self-care (01) ==
LOC: JASU-SURG 05:32
PROVIDERS: ATTEND Pain Medicine Pain Medicine
PROC: 01HY3MZ Insertion of Neurostimulator Lead into Peripheral Nerve, Percutaneous Approach (ICD-10-PCS; principal; 2020-10-17 11:00)
DX: G89.4 Chronic pain syndrome (principal); M54.5 Low back pain
CPT/HCPCS: 64555; C1778; 76000-TC-FY

== ENCOUNTER 2020-11-07 04:24 | Day surgery (SDC) | payer OTHER ==
[2020-11-06 13:23] VITALS: BMI 27.2
[2020-11-07] MEDS ORDERED: LIDOCAINE HCL/PF 1% SDV 5ML VIAL ONE (11:07)
[2020-11-07] MEDS ORDERED: BUPIVACAINE HCL/PF 0.75% 10 ML VIAL ONE (11:07)
[2020-11-07 15:09] VITALS: BP 113/60; PULSE 76; TEMP 98.3
== END 2020-11-07 15:05 | disposition home or self-care (01) ==
LOC: JASU-SURG 04:24
PROVIDERS: ATTEND Pain Medicine Pain Medicine
PROC: 01HY3MZ Insertion of Neurostimulator Lead into Peripheral Nerve, Percutaneous Approach (ICD-10-PCS; principal; 2020-11-07 13:36)
DX: G89.4 Chronic pain syndrome (principal)
CPT/HCPCS: 64555; C1778; 76000-TC-FY

== ENCOUNTER 2021-02-13 04:24 | Day surgery (SDC) | payer OTHER ==
[2021-02-13] MEDS ORDERED: LIDOCAINE HCL/PF 1% SDV 5ML VIAL ONE (07:17)
[2021-02-13] MEDS ORDERED: BUPIVACAINE HCL/PF 0.75% 10 ML VIAL ONE (07:17)
[2021-02-13 10:35] VITALS: BMI 27.4
[2021-02-13] MEDS ORDERED: LIDOCAINE HCL/PF 2% SDV 5ML VIAL ONE (12:48)
[2021-02-13] MEDS ORDERED: DEXAMETHASONE SOD PHOSPHATE 10 MG/1 ML VIAL ONE (12:52)
[2021-02-13 13:29] VITALS: BP 116/74; PULSE 82; TEMP 98.2
== END 2021-02-13 13:40 | disposition home or self-care (01) ==
LOC: JASU-SURG 04:24
PROVIDERS: ATTEND Pain Medicine Pain Medicine
PROC: 3E0T3TZ Introduction of Destructive Agent into Peripheral Nerves and Plexi, Percutaneous Approach (ICD-10-PCS; principal; 2021-02-13 12:52)
PROC: BR16YZZ Fluoroscopy of Lumbar Facet Joint(s) using Other Contrast (ICD-10-PCS; 2021-02-13 12:52)
DX: M47.816 Spondylosis without myelopathy or radiculopathy, lumbar region (principal)
CPT/HCPCS: 76000-TC-FY; J1100

== ENCOUNTER 2021-03-13 04:43 | Day surgery (SDC) | payer OTHER ==
[2021-03-11 15:16] VITALS: BMI 27.4
[2021-03-13] MEDS ORDERED: LIDOCAINE HCL/PF 2% SDV 5ML VIAL ONE (13:35)
[2021-03-13] MEDS ORDERED: LIDOCAINE HCL/PF 1% SDV 5ML VIAL ONE (13:35)
[2021-03-13] MEDS ORDERED: LIDOCAINE 1% P/F 10 MG/ML VIAL INF ONE (14:04)
[2021-03-13] MEDS ORDERED: LIDOCAINE HCL/PF 2% SDV 5ML VIAL INF ONE ×2 (14:07)
[2021-03-13] MEDS ORDERED: DEXAMETHASONE SOD PHOSPHATE 10 MG/1 ML VIAL IVPUSH ONE (14:08)
[2021-03-13] MEDS ORDERED: IOHEXOL 180 MG/1 ML ML IJ ONE (14:08)
[2021-03-13] MEDS ORDERED: BUPIVACAINE HCL/PF 0.75% 10 ML VIAL NR ONE ×2 (14:08)
[2021-03-13 15:05] VITALS: BP 143/68; PULSE 82; TEMP 97.2
== END 2021-03-13 14:50 | disposition home or self-care (01) ==
LOC: JASU-SURG 04:43
PROVIDERS: ATTEND Pain Medicine Pain Medicine
PROC: 3E0T3TZ Introduction of Destructive Agent into Peripheral Nerves and Plexi, Percutaneous Approach (ICD-10-PCS; principal; 2021-03-13 14:15)
PROC: BR16YZZ Fluoroscopy of Lumbar Facet Joint(s) using Other Contrast (ICD-10-PCS; 2021-03-13 14:15)
DX: M47.816 Spondylosis without myelopathy or radiculopathy, lumbar region (principal)
CPT/HCPCS: 76000-TC-FY; J1100

== ENCOUNTER 2021-04-02 12:44 | Emergency (ER) | payer OTHER ==
[2021-04-02 13:01] VITALS: BP 148/80; PULSE 91; TEMP 97.9; BMI 27.4
[2021-04-02] MEDS ORDERED: METHOCARBAMOL 500 MG TABLET PO ONE (13:15)
[2021-04-02] MEDS ORDERED: KETOROLAC TROMETHAMINE 30 MG/1 ML VIAL IM ONE (13:15)
[2021-04-02] MEDS ORDERED: METHOCARBAMOL 500 MG TABLET ONE (13:18)
[2021-04-02] MEDS ORDERED: KETOROLAC TROMETHAMINE 30 MG/1 ML VIAL ONE (13:18)
== END 2021-04-02 15:13 | disposition home or self-care (01) ==
LOC: JERFT 12:44
PROC: 3E023GC Introduction of Other Therapeutic Substance into Muscle, Percutaneous Approach (ICD-10-PCS; principal; 2021-04-02)
DX: M54.41 Lumbago with sciatica, right side (principal); M47.816 Spondylosis without myelopathy or radiculopathy, lumbar region
CPT/HCPCS: 93971-TC; 96372; 99284-25

== ENCOUNTER 2021-04-24 04:16 | Day surgery (SDC) | payer OTHER ==
[2021-04-23 12:54] VITALS: BMI 27.4
[2021-04-24] MEDS ORDERED: DEXAMETHASONE SOD PHOSPHATE 10 MG/1 ML VIAL IVPUSH ONE (09:51)
[2021-04-24] MEDS ORDERED: LIDOCAINE 1% P/F 10 MG/ML VIAL PNB ONE (09:51)
[2021-04-24] MEDS ORDERED: IOHEXOL 180 MG/1 ML ML IJ ONE (09:51)
[2021-04-24 10:14] VITALS: TEMP 98.4
[2021-04-24 10:44] VITALS: BP 127/81; PULSE 77
== END 2021-04-24 10:40 | disposition home or self-care (01) ==
LOC: JASU-SURG 04:16
PROVIDERS: ATTEND Pain Medicine Pain Medicine
PROC: 3E0R33Z Introduction of Anti-inflammatory into Spinal Canal, Percutaneous Approach (ICD-10-PCS; 2021-04-24)
PROC: B01BYZZ Fluoroscopy of Spinal Cord using Other Contrast (ICD-10-PCS; 2021-04-24)
PROC: 3E0R3BZ Introduction of Anesthetic Agent into Spinal Canal, Percutaneous Approach (ICD-10-PCS; principal; 2021-04-24 09:00)
DX: M54.16 Radiculopathy, lumbar region (principal); M48.061 Spinal stenosis, lumbar region without neurogenic claudication
CPT/HCPCS: 76000-TC-FY; J1100

== ENCOUNTER 2021-05-26 04:31 | Day surgery (SDC) | payer OTHER ==
[2021-05-25 15:44] VITALS: BMI 27.4
[2021-05-26] MEDS ORDERED: LIDOCAINE HCL/PF 1% SDV 5ML VIAL ONE (07:05)
[2021-05-26] MEDS ORDERED: BUPIVACAINE HCL/PF 0.5% (5MG/ML) 10 ML VIAL ONE (07:05)
[2021-05-26] MEDS ORDERED: DEXAMETHASONE SOD PHOSPHATE 10 MG/1 ML VIAL ONE ×2 (07:05→09:38)
[2021-05-26] MEDS ORDERED: BUPIVACAINE HCL/PF 0.25% (2.5MG/ML) 10 ML VIAL ONE (07:05)
[2021-05-26] MEDS ORDERED: SODIUM CHLORIDE 0.9% P/F 10 ML VIAL IJ ONE (07:21)
[2021-05-26] MEDS ORDERED: LIDOCAINE HCL/PF 2% SDV 5ML VIAL ONE (07:21)
[2021-05-26] MEDS ORDERED: DEXAMETHASONE SOD PHOSPHATE 10 MG/1 ML VIAL IVPUSH ONE (09:01)
[2021-05-26] MEDS ORDERED: IOHEXOL 180 MG/1 ML ML IJ ONE (09:01)
[2021-05-26] MEDS ORDERED: LIDOCAINE HCL 1% PRESERVATIVE FREE - 30ML VIAL IJ ONE (09:02)
[2021-05-26 10:26] VITALS: BP 130/80
[2021-05-26 10:36] VITALS: PULSE 80; TEMP 98
== END 2021-05-26 10:00 | disposition home or self-care (01) ==
LOC: JASU-SURG 04:31
PROVIDERS: ATTEND Pain Medicine Pain Medicine
PROC: 3E0R33Z Introduction of Anti-inflammatory into Spinal Canal, Percutaneous Approach (ICD-10-PCS; 2021-05-26)
PROC: 3E0R3BZ Introduction of Anesthetic Agent into Spinal Canal, Percutaneous Approach (ICD-10-PCS; principal; 2021-05-26 08:30)
DX: M54.16 Radiculopathy, lumbar region (principal)
CPT/HCPCS: 76000-TC-FY; J1100

== ENCOUNTER 2021-06-26 04:30 | Day surgery (SDC) | payer OTHER ==
[2021-06-25 13:11] VITALS: BMI 27.3
[2021-06-26] MEDS ORDERED: LIDOCAINE HCL 1% PRESERVATIVE FREE - 30ML VIAL IJ ONE (13:51)
[2021-06-26 15:13] VITALS: BP 144/67; PULSE 90; TEMP 99
== END 2021-06-26 14:40 | disposition home or self-care (01) ==
LOC: JASU-SURG 04:30
PROVIDERS: ATTEND Pain Medicine Pain Medicine
PROC: 01HY3MZ Insertion of Neurostimulator Lead into Peripheral Nerve, Percutaneous Approach (ICD-10-PCS; principal; 2021-06-26 11:00)
DX: G89.4 Chronic pain syndrome (principal); M25.512 Pain in left shoulder
CPT/HCPCS: 64555; C1778

== ENCOUNTER 2021-07-08 15:16 | Inpatient (IN) | payer OTHER ==
[2021-07-08] MEDS ORDERED: ALBUTEROL SO4 2.5/IPRATROPIUM 0.5 INH SOL 3 ML VIAL.NEB. NEB ONE ×3 (16:01→16:14)
[2021-07-08] MEDS ORDERED: predniSONE 20 MG TABLET (UD) PO ONE (16:01)
[2021-07-08] MEDS ORDERED: predniSONE 20 MG TABLET (UD) ONE (16:03)
[2021-07-08] MEDS ORDERED: ACETAMINOPHEN 500 MG TABLET (FP) PO ONE (18:39)
[2021-07-08] MEDS ORDERED: ACETAMINOPHEN 500 MG TABLET (FP) ONE (19:05)
[2021-07-08] MEDS ORDERED: methylPREDNISolone NA SUCC 125 MG/2 ML VIAL IVPB ONE (19:56)
[2021-07-08] MEDS ORDERED: MAGNESIUM SULF 50% (8.12 MEQ/2 ML-1 GM VIAL) IVPB ONE (19:56)
[2021-07-08] MEDS ORDERED: methylPREDNISolone NA SUCC 125 MG/2 ML VIAL ONE (20:19)
[2021-07-08] MEDS ORDERED: MAGNESIUM SULFATE IN WATER 2 GM/50 ML IVPB IVPB ONE (20:19)
[2021-07-08 20:27] LABS: BASO % 0.3 % (0-2.0); EOS % 0.2 % (0-4.5); HEMATOCRIT 37.5 % (32.4-45.2); HEMOGLOBIN 12.3 GM/dL (10.7-15.3); LYMPH % 10.1 % (8-40); MCH 29.6 pg (25.7-33.7); MCHC 32.9 g/dl (32.0-36.0); MEAN PLT VOLUME 7.2 fl (7.5-11.1); MONO % 1.1 % (3.8-10.2); NEUT % 88.3 % (42.8-82.8); PLATELET COUNT 383 10^3/uL (134-434); RBC 4.17 M/mm3 (3.60-5.2); RDW 13.6 % (11.6-15.6); WHITE BLOOD COUNT 9.1 K/mm3 (4.0-10.0)
[2021-07-08 20:46] LABS: ALBUMIN 3.8 g/dl (3.4-5.0); BLOOD UREA NITROGEN 24.9 mg/dL (7-18); CALCIUM 9.5 mg/dL (8.5-10.1)
[2021-07-08 20:49] LABS: CREATININE 1.3 mg/dL (0.55-1.3)
[2021-07-08 20:51] LABS: BILIRUBIN,TOTAL 0.3 mg/dL (0.2-1); TOT PROT 7.6 g/dl (6.4-8.2)
[2021-07-08] MEDS ORDERED: methylPREDNISolone NA SUCC 125 MG/2 ML VIAL IVPUSH ONE (22:25)
[2021-07-09] MEDS ORDERED: HEPARIN NA (PORCINE) 5,000 UNITS/ML 1ML VIAL ONE (00:33)
[2021-07-09] MEDS: ALBUTEROL SO4 2.5/IPRATROPIUM 0.5 INH SOL 3 ML VIAL.NEB. NEB SCH ×4 (00:44→15:11)
[2021-07-09] MEDS: HEPARIN NA (PORCINE) 5,000 UNITS/ML 1ML VIAL SQ SCH ×3 (00:44→22:14)
[2021-07-09 01:33] LABS: ARTERIAL BLD GAS O2 SATURATION 95.7 % (95-98); ARTERIAL BLOOD GAS BASE EXCESS -2.4 mmol/L (-2-2); ARTERIAL BLOOD GAS PO2 84.6 mmHg (80-100); ARTERIAL BLOOD GAS pH 7.335 (7.350-7.450)
[2021-07-09 01:34] LABS: ALLENS TEST POSITIVE
[2021-07-09] MEDS ORDERED: methylPREDNISolone NA SUCC 40 MG/1 ML VIAL IVPUSH SCH (02:00)
[2021-07-09] MEDS ORDERED: ACETAMINOPHEN 325 MG TABLET (FP) PO PRN (02:50)
[2021-07-09] MEDS: methylPREDNISolone NA SUCC 40 MG/1 ML VIAL IVPUSH SCH ×3 (03:15→17:55)
[2021-07-09 03:52] VITALS: BMI 29.5
[2021-07-09] MEDS: INSULIN SLIDING SCALE (NOVOLOG) 1 VIAL SQ SCH ×4 (06:13→22:16)
[2021-07-09 09:25] LABS: BASO % 0.1 % (0-2.0); EOS % 0.1 % (0-4.5); HEMATOCRIT 35.1 % (32.4-45.2); HEMOGLOBIN 11.7 GM/dL (10.7-15.3); LYMPH % 15.7 % (8-40); MCH 30.4 pg (25.7-33.7); MCHC 33.2 g/dl (32.0-36.0); MEAN CELL VOLUME 91.4 fl (80-96); MEAN PLT VOLUME 7.7 fl (7.5-11.1); MONO % 1.2 % (3.8-10.2); NEUT % 82.9 % (42.8-82.8); PLATELET COUNT 377 10^3/uL (134-434); RBC 3.84 M/mm3 (3.60-5.2); RDW 13.7 % (11.6-15.6); WHITE BLOOD COUNT 6.4 K/mm3 (4.0-10.0)
[2021-07-09] MEDS ORDERED: PT OWN MED DRAWER 7, Y5N ONE (09:38)
[2021-07-09] MEDS ORDERED: ALBUTEROL SO4 2.5/IPRATROPIUM 0.5 INH SOL 3 ML VIAL.NEB. NEB SCH (09:45)
[2021-07-09] MEDS: HYDROCHLOROTHIAZIDE 25 MG TABLET (FP) PO SCH (09:45)
[2021-07-09] MEDS: ATORVASTATIN CA 40 MG TABLET (FP) PO SCH (09:45)
[2021-07-09] MEDS: LISINOPRIL 20 MG TABLET PO SCH (09:46)
[2021-07-09 10:34] LABS: ALBUMIN 3.5 g/dl (3.4-5.0); BILIRUBIN,TOTAL 0.2 mg/dL (0.2-1); BLOOD UREA NITROGEN 37.8 mg/dL (7-18); CALCIUM 9.4 mg/dL (8.5-10.1); CREATININE 1.5 mg/dL (0.55-1.3); MAGNESIUM 2.7 mg/dL (1.8-2.4); TOT PROT 6.8 g/dl (6.4-8.2)
[2021-07-09] MEDS: BUDESONIDE/FORMETEROL FUMARATE 80/4.5 mcg INHALER IH SCH ×2 (11:05→22:15)
[2021-07-09] MEDS: GABAPENTIN 300 MG CAPSULE PO SCH ×2 (14:12→22:15)
[2021-07-09] MEDS ORDERED: MAGNESIUM HYDROX 2400MG/30ML ORAL SUSPENSION 30 ML CUP PO PRN (19:08)
[2021-07-09] MEDS: FAMOTIDINE 10 MG TABLET PO SCH (22:15)
[2021-07-09] MEDS: MONTELUKAST NA 10 MG TABLET PO SCH (22:15)
[2021-07-10] MEDS: methylPREDNISolone NA SUCC 40 MG/1 ML VIAL IVPUSH SCH ×3 (02:35→17:21)
[2021-07-10] MEDS: ALBUTEROL SO4 0.083% IH SOL 2.5 MG/3 ML VIAL.NEB. NEB PRN ×4 (05:25→20:35)
[2021-07-10] MEDS: INSULIN SLIDING SCALE (NOVOLOG) 1 VIAL SQ SCH ×4 (06:03→21:31)
[2021-07-10] MEDS: GABAPENTIN 300 MG CAPSULE PO SCH ×3 (06:16→21:29)
[2021-07-10 09:09] LABS: HEMATOCRIT 35.6 % (32.4-45.2); HEMOGLOBIN 11.8 GM/dL (10.7-15.3); MCHC 33.3 g/dl (32.0-36.0); MEAN CELL VOLUME 90.1 fl (80-96); MEAN PLT VOLUME 7.5 fl (7.5-11.1); PLATELET COUNT 450 10^3/uL (134-434); RBC 3.95 M/mm3 (3.60-5.2); RDW 13.4 % (11.6-15.6); WHITE BLOOD COUNT 13.7 K/mm3 (4.0-10.0)
[2021-07-10 09:33] LABS: BLOOD UREA NITROGEN 45.2 mg/dL (7-18); CALCIUM 9.5 mg/dL (8.5-10.1)
[2021-07-10 09:37] LABS: CREATININE 1.3 mg/dL (0.55-1.3)
[2021-07-10] MEDS ORDERED: guaiFENesin 200 MG/10 ML 10 ML UNIT-DOSE CUPS PO PRN (10:01)
[2021-07-10] MEDS: HEPARIN NA (PORCINE) 5,000 UNITS/ML 1ML VIAL SQ SCH ×2 (10:56→21:29)
[2021-07-10] MEDS: HYDROCHLOROTHIAZIDE 25 MG TABLET (FP) PO SCH (10:56)
[2021-07-10] MEDS: LISINOPRIL 20 MG TABLET PO SCH (10:56)
[2021-07-10] MEDS: FAMOTIDINE 10 MG TABLET PO SCH ×2 (10:56→21:29)
[2021-07-10] MEDS: BUDESONIDE/FORMETEROL FUMARATE 80/4.5 mcg INHALER IH SCH ×2 (10:58→21:29)
[2021-07-10] MEDS: ATORVASTATIN CA 40 MG TABLET (FP) PO SCH ×2 (11:27→21:29)
[2021-07-10] MEDS: SODIUM CHLORIDE NASAL SPRAY 44 ML BOTTLE NS PRN ×2 (17:22→21:29)
[2021-07-10] MEDS ORDERED: PT OWN MED DRAWER 7, Y5N ONE (18:20)
[2021-07-10] MEDS: MONTELUKAST NA 10 MG TABLET PO SCH (21:29)
[2021-07-11] MEDS: methylPREDNISolone NA SUCC 40 MG/1 ML VIAL IVPUSH SCH ×3 (01:13→17:13)
[2021-07-11] MEDS: ALBUTEROL SO4 0.083% IH SOL 2.5 MG/3 ML VIAL.NEB. NEB PRN (01:35)
[2021-07-11] MEDS: ACETAMINOPHEN 325 MG TABLET (FP) PO PRN (02:06)
[2021-07-11] MEDS: GABAPENTIN 300 MG CAPSULE PO SCH ×3 (06:20→21:25)
[2021-07-11] MEDS: INSULIN SLIDING SCALE (NOVOLOG) 1 VIAL SQ SCH ×4 (06:20→21:24)
[2021-07-11] MEDS ORDERED: FLUTICASONE PROP 0.05% 16 GM NASAL SPRAY NS ONE (09:26)
[2021-07-11 10:33] LABS: HEMATOCRIT 35.9 % (32.4-45.2); MCH 30.1 pg (25.7-33.7); MCHC 33.4 g/dl (32.0-36.0); MEAN CELL VOLUME 90.2 fl (80-96); MEAN PLT VOLUME 7.4 fl (7.5-11.1); PLATELET COUNT 464 10^3/uL (134-434); RBC 3.98 M/mm3 (3.60-5.2); RDW 13.8 % (11.6-15.6)
[2021-07-11] MEDS: LISINOPRIL 20 MG TABLET PO SCH (10:51)
[2021-07-11] MEDS: HYDROCHLOROTHIAZIDE 25 MG TABLET (FP) PO SCH (10:51)
[2021-07-11] MEDS: FAMOTIDINE 10 MG TABLET PO SCH ×2 (10:51→21:25)
[2021-07-11] MEDS: BUDESONIDE/FORMETEROL FUMARATE 80/4.5 mcg INHALER IH SCH ×2 (10:53→22:02)
[2021-07-11 10:56] LABS: CALCIUM 9.4 mg/dL (8.5-10.1)
[2021-07-11 10:57] LABS: BLOOD UREA NITROGEN 50.7 mg/dL (7-18)
[2021-07-11 11:00] LABS: CREATININE 1.4 mg/dL (0.55-1.3)
[2021-07-11] MEDS: HEPARIN NA (PORCINE) 5,000 UNITS/ML 1ML VIAL SQ SCH ×2 (11:04→21:25)
[2021-07-11] MEDS: PSEUDOEPHEDRINE HCL 30 MG TABLET PO SCH ×2 (15:52→21:25)
[2021-07-11] MEDS: MONTELUKAST NA 10 MG TABLET PO SCH (21:25)
[2021-07-11] MEDS: ATORVASTATIN CA 40 MG TABLET (FP) PO SCH (21:25)
[2021-07-12] MEDS: methylPREDNISolone NA SUCC 40 MG/1 ML VIAL IVPUSH SCH ×3 (01:30→21:09)
[2021-07-12] MEDS: LEVALBUTEROL HCL 0.31 MG/3 ML VIAL.NEB IH PRN ×2 (04:18→13:00)
[2021-07-12] MEDS: GABAPENTIN 300 MG CAPSULE PO SCH ×3 (06:18→21:09)
[2021-07-12] MEDS: INSULIN SLIDING SCALE (NOVOLOG) 1 VIAL SQ SCH ×4 (06:36→21:09)
[2021-07-12 10:16] LABS: HEMATOCRIT 36.1 % (32.4-45.2); HEMOGLOBIN 12.3 GM/dL (10.7-15.3); MCH 30.3 pg (25.7-33.7); MEAN CELL VOLUME 89.2 fl (80-96); MEAN PLT VOLUME 7.2 fl (7.5-11.1); PLATELET COUNT 468 10^3/uL (134-434); RBC 4.05 M/mm3 (3.60-5.2); RDW 13.2 % (11.6-15.6)
[2021-07-12 10:43] LABS: CALCIUM 9.2 mg/dL (8.5-10.1)
[2021-07-12 10:47] LABS: CREATININE 1.2 mg/dL (0.55-1.3)
[2021-07-12] MEDS: HYDROCHLOROTHIAZIDE 25 MG TABLET (FP) PO SCH (10:50)
[2021-07-12] MEDS: LISINOPRIL 20 MG TABLET PO SCH (10:50)
[2021-07-12] MEDS: HEPARIN NA (PORCINE) 5,000 UNITS/ML 1ML VIAL SQ SCH ×2 (10:50→21:09)
[2021-07-12] MEDS: BUDESONIDE/FORMETEROL FUMARATE 80/4.5 mcg INHALER IH SCH ×2 (10:51→21:22)
[2021-07-12] MEDS: FAMOTIDINE 10 MG TABLET PO SCH ×2 (10:57→21:09)
[2021-07-12] MEDS: ACETAMINOPHEN 325 MG TABLET (FP) PO PRN (18:34)
[2021-07-12] MEDS: ATORVASTATIN CA 40 MG TABLET (FP) PO SCH (21:09)
[2021-07-12] MEDS: MONTELUKAST NA 10 MG TABLET PO SCH (21:09)
[2021-07-13] MEDS: LEVALBUTEROL HCL 0.31 MG/3 ML VIAL.NEB IH PRN ×2 (01:45→08:30)
[2021-07-13] MEDS: GABAPENTIN 300 MG CAPSULE PO SCH ×3 (06:09→21:28)
[2021-07-13] MEDS: INSULIN SLIDING SCALE (NOVOLOG) 1 VIAL SQ SCH ×4 (06:09→21:29)
[2021-07-13 09:28] LABS: HEMATOCRIT 37.5 % (32.4-45.2); HEMOGLOBIN 12.4 GM/dL (10.7-15.3); MCH 29.9 pg (25.7-33.7); MEAN CELL VOLUME 90.5 fl (80-96); PLATELET COUNT 430 10^3/uL (134-434); RBC 4.14 M/mm3 (3.60-5.2); RDW 13.3 % (11.6-15.6); WHITE BLOOD COUNT 12.6 K/mm3 (4.0-10.0)
[2021-07-13] MEDS: HYDROCHLOROTHIAZIDE 25 MG TABLET (FP) PO SCH (09:47)
[2021-07-13] MEDS: FAMOTIDINE 10 MG TABLET PO SCH ×2 (09:47→21:28)
[2021-07-13] MEDS: LISINOPRIL 20 MG TABLET PO SCH (09:47)
[2021-07-13] MEDS: HEPARIN NA (PORCINE) 5,000 UNITS/ML 1ML VIAL SQ SCH ×2 (09:48→21:28)
[2021-07-13] MEDS: BUDESONIDE/FORMETEROL FUMARATE 80/4.5 mcg INHALER IH SCH ×2 (09:48→21:29)
[2021-07-13] MEDS: methylPREDNISolone NA SUCC 40 MG/1 ML VIAL IVPUSH SCH ×2 (09:48→17:28)
[2021-07-13 09:55] LABS: BLOOD UREA NITROGEN 39.7 mg/dL (7-18); CALCIUM 9.1 mg/dL (8.5-10.1)
[2021-07-13 09:59] LABS: CREATININE 1.2 mg/dL (0.55-1.3)
[2021-07-13] MEDS: LEVALBUTEROL HCL 0.31 MG/3 ML VIAL.NEB IH SCH ×2 (14:54→20:36)
[2021-07-13] MEDS: AZITHROMYCIN IVPB 500 MG/250 ML BAG IVPB SCH (16:05)
[2021-07-13] MEDS: Insulin (LOG) Aspart 100 UNITS/ML VIAL SQ SCH (17:28)
[2021-07-13] MEDS ORDERED: MELATONIN 5 MG TABLETS PO PRN (18:11)
[2021-07-13] MEDS: MONTELUKAST NA 10 MG TABLET PO SCH (21:28)
[2021-07-13] MEDS: ATORVASTATIN CA 40 MG TABLET (FP) PO SCH (21:28)
[2021-07-13] MEDS: INSULIN (LEVEMIR) 100 UNITS/ML UNITS SQ SCH (21:30)
[2021-07-13] MEDS ORDERED: PT OWN MED DRAWER 7, Y5N ONE (21:49)
[2021-07-14] MEDS: methylPREDNISolone NA SUCC 40 MG/1 ML VIAL IVPUSH SCH ×3 (01:41→17:56)
[2021-07-14] MEDS: GABAPENTIN 300 MG CAPSULE PO SCH ×2 (06:31→13:46)
[2021-07-14] MEDS: Insulin (LOG) Aspart 100 UNITS/ML VIAL SQ SCH ×3 (06:32→17:57)
[2021-07-14] MEDS: INSULIN (LEVEMIR) 100 UNITS/ML UNITS SQ SCH (06:32)
[2021-07-14] MEDS: INSULIN SLIDING SCALE (NOVOLOG) 1 VIAL SQ SCH ×3 (06:33→17:56)
[2021-07-14] MEDS: LEVALBUTEROL HCL 0.31 MG/3 ML VIAL.NEB IH SCH ×2 (08:22→14:45)
[2021-07-14 10:03] LABS: CALCIUM 9.6 mg/dL (8.5-10.1)
[2021-07-14 10:07] LABS: CREATININE 1.2 mg/dL (0.55-1.3)
[2021-07-14 10:24] LABS: HEMATOCRIT 37.6 % (32.4-45.2); HEMOGLOBIN 12.3 GM/dL (10.7-15.3); MCH 29.6 pg (25.7-33.7); MCHC 32.6 g/dl (32.0-36.0); MEAN CELL VOLUME 90.6 fl (80-96); MEAN PLT VOLUME 7.4 fl (7.5-11.1); PLATELET COUNT 511 10^3/uL (134-434); RBC 4.15 M/mm3 (3.60-5.2); RDW 13.1 % (11.6-15.6); WHITE BLOOD COUNT 13.7 K/mm3 (4.0-10.0)
[2021-07-14] MEDS: FAMOTIDINE 10 MG TABLET PO SCH (10:37)
[2021-07-14] MEDS: LISINOPRIL 20 MG TABLET PO SCH (10:37)
[2021-07-14] MEDS: HYDROCHLOROTHIAZIDE 25 MG TABLET (FP) PO SCH (10:37)
[2021-07-14] MEDS: ACETAMINOPHEN 325 MG TABLET (FP) PO PRN (10:38)
[2021-07-14] MEDS: HEPARIN NA (PORCINE) 5,000 UNITS/ML 1ML VIAL SQ SCH (10:38)
[2021-07-14] MEDS: BUDESONIDE/FORMETEROL FUMARATE 80/4.5 mcg INHALER IH SCH (10:39)
[2021-07-14] MEDS: AZITHROMYCIN IVPB 500 MG/250 ML BAG IVPB SCH (10:39)
[2021-07-14 19:42] VITALS: BP 136/86; PULSE 92; TEMP 98.3
== END 2021-07-14 19:35 | disposition home or self-care (01) | DRG 202 ==
LOC: JER 15:16 → INTOOBSV 21:49 → JERBED 21:49 → UNDOADMOB 21:49 → JERBED 07-09 02:38 → J5S 07-09 02:38 → JERBED 07-09 09:29 → OBSVTOIN 07-13 14:50
PROVIDERS: ATTEND Internal Medicine
DX: J45.41 Moderate persistent asthma with (acute) exacerbation (principal); N17.9 Acute kidney failure, unspecified; J06.9 Acute upper respiratory infection, unspecified; E11.40 Type 2 diabetes mellitus with diabetic neuropathy, unspecified; E78.5 Hyperlipidemia, unspecified; I10 Essential (primary) hypertension; D72.829 Elevated white blood cell count, unspecified
CPT/HCPCS: 36415; 36600; 71045-TC-FY; 71046-TC-FY; 80048; 80053; 82803; 82962; 83735; 85025; 85027; 94010; 94150; 94640; 94761; 99285-25; C9803; G0378; J1644; U0003; U0005

== ENCOUNTER 2021-08-13 04:43 | Day surgery (SDC) | payer OTHER ==
[2021-08-07 16:26] VITALS: BMI 30.7
[2021-08-13 09:51] VITALS: TEMP 98
[2021-08-13 10:27] VITALS: BP 116/53; PULSE 85
== END 2021-08-13 10:37 | disposition home or self-care (01) ==
LOC: JASU-ENDO 04:43
PROVIDERS: ATTEND Internal Medicine Gastroenterology
PROC: 0DBP8ZX Excision of Rectum, Via Natural or Artificial Opening Endoscopic, Diagnostic (ICD-10-PCS; 2021-08-13)
PROC: 0DBN8ZX Excision of Sigmoid Colon, Via Natural or Artificial Opening Endoscopic, Diagnostic (ICD-10-PCS; 2021-08-13)
PROC: 0DBN8ZX Excision of Sigmoid Colon, Via Natural or Artificial Opening Endoscopic, Diagnostic (ICD-10-PCS; principal; 2021-08-13 08:45)
DX: Z12.11 Encounter for screening for malignant neoplasm of colon (principal); K62.1 Rectal polyp; K57.30 Diverticulosis of large intestine without perforation or abscess without bleeding; K64.8 Other hemorrhoids; D12.5 Benign neoplasm of sigmoid colon; A63.0 Anogenital (venereal) warts; E11.9 Type 2 diabetes mellitus without complications; I10 Essential (primary) hypertension
CPT/HCPCS: 82962; 88305-TC

== ENCOUNTER 2021-09-18 04:12 | Day surgery (SDC) | payer OTHER ==
[2021-09-16 12:19] VITALS: BMI 29.2
[2021-09-18] MEDS ORDERED: LIDOCAINE HCL/PF 1% SDV 5ML VIAL ONE (07:31)
[2021-09-18] MEDS ORDERED: LIDOCAINE HCL/PF 2% SDV 5ML VIAL ONE (07:33)
[2021-09-18] MEDS ORDERED: LIDOCAINE HCL 1% PRESERVATIVE FREE - 30ML VIAL NR ONE ×2 (13:33)
[2021-09-18 14:53] VITALS: TEMP 97.5
[2021-09-18 15:00] VITALS: BP 160/85; PULSE 80
== END 2021-09-18 14:35 | disposition home or self-care (01) ==
LOC: JASU-SURG 04:12
PROVIDERS: ATTEND Pain Medicine Pain Medicine
PROC: 01HY3MZ Insertion of Neurostimulator Lead into Peripheral Nerve, Percutaneous Approach (ICD-10-PCS; principal; 2021-09-18 13:20)
DX: G89.4 Chronic pain syndrome (principal); M25.512 Pain in left shoulder
CPT/HCPCS: 64555; C1778

== ENCOUNTER 2021-10-20 04:28 | Day surgery (SDC) | payer OTHER ==
[2021-10-06 16:09] VITALS: BMI 29.2
[2021-10-20] MEDS ORDERED: LIDOCAINE HCL/PF 1% SDV 5ML VIAL ONE (07:11)
[2021-10-20] MEDS ORDERED: LIDOCAINE HCL 1% PRESERVATIVE FREE - 30ML VIAL IJ ONE ×3 (09:39)
[2021-10-20 10:28] VITALS: BP 129/69; PULSE 92; TEMP 98.8
== END 2021-10-20 10:40 | disposition home or self-care (01) ==
LOC: JASU-SURG 04:28
PROVIDERS: ATTEND Pain Medicine Pain Medicine
PROC: 01HY3MZ Insertion of Neurostimulator Lead into Peripheral Nerve, Percutaneous Approach (ICD-10-PCS; principal; 2021-10-20 09:00)
DX: G89.4 Chronic pain syndrome (principal); M25.511 Pain in right shoulder
CPT/HCPCS: 64555; C1897

== ENCOUNTER 2022-04-20 18:03 | Emergency (ER) | payer OTHER ==
[2022-04-20 18:09] VITALS: BP 146/95; PULSE 82; RESP 18; TEMP 98; BMI 33.2
[2022-04-20] MEDS ORDERED: LIDOCAINE 5% TOPICAL PATCH TP ONE (19:15)
[2022-04-20] MEDS ORDERED: METHOCARBAMOL 500 MG TABLET PO ONE (19:16)
[2022-04-20] MEDS ORDERED: METHOCARBAMOL 500 MG TABLET ONE (19:17)
[2022-04-20] MEDS ORDERED: LIDOCAINE 5% TOPICAL PATCH ONE (19:17)
[2022-04-20] MEDS ORDERED: LIDOCAINE PATCH REMOVAL MC SCH (22:00)
== END 2022-04-20 19:58 | disposition home or self-care (01) ==
LOC: JERFT 18:03 → JER 18:03 → JERFT 19:58
DX: M54.50 Low back pain, unspecified (principal); W18.49XA Other slipping, tripping and stumbling without falling, initial encounter
CPT/HCPCS: 99283-25

== ENCOUNTER 2022-05-11 04:43 | Day surgery (SDC) | payer OTHER ==
[2022-05-07 18:02] VITALS: BMI 29.2
[2022-05-11] MEDS ORDERED: LIDOCAINE HCL/PF 1% SDV 5ML VIAL ONE (13:27)
[2022-05-11] MEDS ORDERED: BUPIVACAINE HCL/PF 0.5% (5MG/ML) 10 ML VIAL ONE (13:27)
[2022-05-11] MEDS ORDERED: TRIAMCINOLONE ACET 40MG/1ML VIAL ONE (13:27)
[2022-05-11] MEDS ORDERED: TRIAMCINOLONE ACET 40MG/1ML VIAL IM ONE (15:40)
[2022-05-11] MEDS ORDERED: LIDOCAINE 1% P/F 10 MG/ML VIAL SNB ONE (15:40)
[2022-05-11] MEDS ORDERED: BUPIVACAINE HCL/PF 0.5% (5 MG/ML) 30 ML VIAL IJ ONE (15:40)
[2022-05-11 16:04] VITALS: RESP 18
[2022-05-11 16:35] VITALS: BP 129/76; PULSE 81; TEMP 98
== END 2022-05-11 16:20 | disposition home or self-care (01) ==
LOC: JASU-SURG 04:43 → MERGE 16:30
PROVIDERS: ATTEND Pain Medicine Pain Medicine
PROC: 3E0U3BZ Introduction of Anesthetic Agent into Joints, Percutaneous Approach (ICD-10-PCS; 2022-05-11)
PROC: 3E0U33Z Introduction of Anti-inflammatory into Joints, Percutaneous Approach (ICD-10-PCS; principal; 2022-05-11 15:30)
DX: M53.3 Sacrococcygeal disorders, not elsewhere classified (principal)
CPT/HCPCS: 76000-TC-FY

== ENCOUNTER 2022-06-22 04:54 | Day surgery (SDC) | payer OTHER ==
[2022-06-21 10:30] VITALS: BMI 29.2
[2022-06-22] MEDS ORDERED: LIDOCAINE HCL/PF 1% SDV 5ML VIAL ONE (07:22)
[2022-06-22] MEDS ORDERED: DEXAMETHASONE SOD PHOSPHATE 10 MG/1 ML VIAL ONE (07:22)
[2022-06-22] MEDS ORDERED: BUPIVACAINE HCL/PF 0.75% 10 ML VIAL ONE (07:22)
[2022-06-22 11:21] VITALS: BP 138/55; PULSE 86; RESP 18; TEMP 97.1
== END 2022-06-22 11:30 | disposition home or self-care (01) ==
LOC: JASU-SURG 04:54
PROVIDERS: ATTEND Pain Medicine Pain Medicine
DX: Z53.8 Procedure and treatment not carried out for other reasons (principal)
CPT/HCPCS: J1100

== ENCOUNTER 2022-06-22 11:55 | Emergency (ER) | payer OTHER ==
[2022-06-22 12:53] VITALS: RESP 18; TEMP 97.9; BMI 33.2
[2022-06-22] MEDS ORDERED: LACTATED RINGERS SOLUTION 1000 ML INFUS.BAG IV ONE ×2 (16:16→17:31)
[2022-06-22] MEDS ORDERED: ACETAMINOPHEN 325 MG TABLET (FP) PO ONE (16:16)
[2022-06-22 16:37] LABS: BASO % 0.5 % (0-2.0); EOS % 0.5 % (0-4.5); HEMATOCRIT 38.1 % (32.4-45.2); HEMOGLOBIN 12.3 GM/dL (10.7-15.3); LYMPH % 34.5 % (8-40); MCH 27.9 pg (25.7-33.7); MCHC 32.2 g/dl (32.0-36.0); MEAN CELL VOLUME 86.5 fl (80-96); MEAN PLT VOLUME 7.3 fl (7.5-11.1); MONO % 6.2 % (3.8-10.2); NEUT % 58.3 % (42.8-82.8); PLATELET COUNT 489 10^3/uL (134-434); RDW 15.3 % (11.6-15.6); WHITE BLOOD COUNT 6.5 K/mm3 (4.0-10.0)
[2022-06-22 16:46] LABS: INR 0.98 (0.83-1.09); PROTHROMBIN TIME (PATIENT) 11.3 SEC (9.7-13.0)
[2022-06-22 16:48] LABS: ACTIVATED PTT 27.1 SECONDS (25.2-36.5)
[2022-06-22 17:01] LABS: ALBUMIN 3.6 g/dl (3.4-5.0); BLOOD UREA NITROGEN 20.2 mg/dL (7-18); CALCIUM 9.7 mg/dL (8.5-10.1)
[2022-06-22] MEDS ORDERED: ACETAMINOPHEN 325 MG TABLET (FP) ONE (17:01)
[2022-06-22 17:04] LABS: CREATININE 0.9 mg/dL (0.55-1.3)
[2022-06-22 17:06] LABS: TOT PROT 7.2 g/dl (6.4-8.2)
[2022-06-22 17:11] LABS: BILIRUBIN,TOTAL 0.6 mg/dL (0.2-1)
[2022-06-22] MEDS ORDERED: MECLIZINE HCL 25 MG TABLET (FP) PO ONE (17:25)
[2022-06-22 18:05] LABS: EPI CELLS 25 /uL (0-25.1); HYALINE CASTS 1 /uL (0-3.1); PH,URINE 5.5 (5.0-8.0); URINE APPEARANCE CLEAR; URINE BACTERIA 42 /uL (0-1359); URINE BILIRUBIN NEGATIVE (NEGATIVE); URINE COLOR YELLOW; URINE GLUCOSE (UA) NEGATIVE (NEGATIVE); URINE KETONE NEGATIVE (NEGATIVE); URINE LEUK ESTERASE 3+ (NEGATIVE); URINE NITRITE NEGATIVE (NEGATIVE); URINE PROTEIN NEGATIVE (NEGATIVE); URINE RBC 13 /uL (0-23.9); URINE UROBILINOGEN 0.2 mg/dL (0.2-1.0); URINE WBC 349 /uL (0-25.8)
[2022-06-22] MEDS ORDERED: CEPHALEXIN MONOHYDRATE 500 MG CAPSULE (UD) PO ONE (18:18)
[2022-06-22] MEDS ORDERED: ONDANSETRON 4 MG TABLET PO ONE (18:18)
[2022-06-22] MEDS ORDERED: ONDANSETRON *ODT* 4 MG TABLET ONE (18:25)
[2022-06-22] MEDS ORDERED: CEPHALEXIN MONOHYDRATE 500 MG CAPSULE (UD) ONE (18:25)
[2022-06-22 19:40] VITALS: BP 150/76; PULSE 83
== END 2022-06-22 19:57 | disposition home or self-care (01) ==
LOC: JER 11:55
DX: R42 Dizziness and giddiness (principal)
CPT/HCPCS: 0241U-QW; 36415; 71046-TC-FY; 80053; 81003; 82962; 83690; 84484; 85025; 85610; 85730; 87086; 87186; 93005; 93010; 99285-25

== ENCOUNTER 2022-07-06 04:54 | Day surgery (SDC) | payer OTHER ==
[2022-07-02 15:31] VITALS: BMI 29.2
[2022-07-06] MEDS ORDERED: LIDOCAINE HCL/PF 1% SDV 5ML VIAL ONE (07:29)
[2022-07-06] MEDS ORDERED: DEXAMETHASONE SOD PHOSPHATE 10 MG/1 ML VIAL ONE (07:29)
[2022-07-06] MEDS ORDERED: LIDOCAINE HCL/PF 2% SDV 5ML VIAL ONE (07:29)
[2022-07-06] MEDS ORDERED: BUPIVACAINE HCL/PF 0.75% 10 ML VIAL ONE (07:29)
[2022-07-06 08:33] VITALS: RESP 18
[2022-07-06 14:22] VITALS: TEMP 98.8
[2022-07-06 14:26] VITALS: BP 160/70; PULSE 70
== END 2022-07-06 10:00 | disposition home or self-care (01) ==
LOC: JASU-SURG 04:54
PROVIDERS: ATTEND Pain Medicine Pain Medicine
PROC: 3E0T3TZ Introduction of Destructive Agent into Peripheral Nerves and Plexi, Percutaneous Approach (ICD-10-PCS; principal; 2022-07-06 09:09)
DX: M47.816 Spondylosis without myelopathy or radiculopathy, lumbar region (principal)
CPT/HCPCS: 76000-TC-FY; J1100

== ENCOUNTER 2022-08-03 04:54 | Day surgery (SDC) | payer OTHER ==
[2022-07-29 15:45] VITALS: BMI 29.2
[~2022-08-03 04:54] MED LIST changes: +BUPIVACAINE HCL/PF 0.75% 10 ML VIAL NR ONE; +DEXAMETHASONE SOD PHOSPHATE 10 MG/1 ML VIAL IM ONE; +LIDOCAINE HCL/PF 2% SDV 5ML VIAL INF ONE
[2022-08-03] MEDS ORDERED: BUPIVACAINE HCL/PF 0.75% 10 ML VIAL ONE (07:18)
[2022-08-03] MEDS ORDERED: LIDOCAINE HCL/PF 2% SDV 5ML VIAL ONE (07:18)
[2022-08-03] MEDS ORDERED: LIDOCAINE HCL/PF 1% SDV 5ML VIAL ONE (07:18)
[2022-08-03] MEDS ORDERED: DEXAMETHASONE SOD PHOSPHATE 10 MG/1 ML VIAL ONE (07:35)
[2022-08-03 09:54] VITALS: PULSE 87; RESP 18
[2022-08-03] MEDS ORDERED: LIDOCAINE HCL 1% PRESERVATIVE FREE - 30ML VIAL IJ ONE (12:23)
[2022-08-03] MEDS ORDERED: LIDOCAINE HCL/PF 2% SDV 5ML VIAL INF ONE (12:35)
[2022-08-03] MEDS ORDERED: BUPIVACAINE HCL/PF 0.75% 10 ML VIAL NR ONE (12:40)
[2022-08-03] MEDS ORDERED: DEXAMETHASONE SOD PHOSPHATE 10 MG/1 ML VIAL IM ONE (12:40)
[2022-08-03 13:21] VITALS: BP 140/72; TEMP 98.7
== END 2022-08-03 13:05 | disposition home or self-care (01) ==
LOC: JASU-SURG 04:54
PROVIDERS: ATTEND Pain Medicine Pain Medicine
PROC: 005Y3ZZ Destruction of Lumbar Spinal Cord, Percutaneous Approach (ICD-10-PCS; principal; 2022-08-03 11:30)
DX: M47.816 Spondylosis without myelopathy or radiculopathy, lumbar region (principal)
CPT/HCPCS: 76000-TC-FY; J1100

== ENCOUNTER 2022-09-03 04:01 | Day surgery (SDC) | payer OTHER ==
[2022-09-01 14:35] VITALS: BMI 29.2
[~2022-09-03 04:01] MED LIST changes: -BUPIVACAINE HCL/PF 0.75% 10 ML VIAL NR ONE; -DEXAMETHASONE SOD PHOSPHATE 10 MG/1 ML VIAL IM ONE; +LIDOCAINE 1% P/F 10 MG/ML VIAL INF ONE; -LIDOCAINE HCL 1% PRESERVATIVE FREE - 30ML VIAL IJ ONE; -LIDOCAINE HCL/PF 2% SDV 5ML VIAL INF ONE
[2022-09-03 06:51] VITALS: RESP 18
[2022-09-03] MEDS ORDERED: LIDOCAINE HCL/PF 1% SDV 5ML VIAL ONE ×2 (07:21→07:31)
[2022-09-03] MEDS ORDERED: LIDOCAINE 1% P/F 10 MG/ML VIAL INF ONE ×2 (08:26)
[2022-09-03 10:32] VITALS: BP 142/68; PULSE 72; TEMP 97.9
== END 2022-09-03 09:35 | disposition home or self-care (01) ==
LOC: JASU-SURG 04:01
PROVIDERS: ATTEND Pain Medicine Pain Medicine
PROC: 01HY3MZ Insertion of Neurostimulator Lead into Peripheral Nerve, Percutaneous Approach (ICD-10-PCS; principal; 2022-09-03 08:00)
DX: G89.4 Chronic pain syndrome (principal)
CPT/HCPCS: 64555; C1778; 76000-TC-FY

== ENCOUNTER 2022-09-28 04:10 | Day surgery (SDC) | payer OTHER ==
[2022-09-23 11:50] VITALS: BMI 29.2
[~2022-09-28 04:10] MED LIST changes: -LIDOCAINE 1% P/F 10 MG/ML VIAL INF ONE; +LIDOCAINE 1% P/F 10 MG/ML VIAL PNB ONE; +LIDOCAINE HCL 2% (50ML VIAL) NR ONE
[2022-09-28 07:01] VITALS: RESP 18
[2022-09-28] MEDS ORDERED: LIDOCAINE HCL/PF 2% SDV 5ML VIAL ONE (07:23)
[2022-09-28] MEDS ORDERED: BUPIVACAINE HCL/PF 0.25% (2.5MG/ML) 10 ML VIAL ONE (07:24)
[2022-09-28] MEDS ORDERED: LIDOCAINE HCL/PF 1% SDV 5ML VIAL ONE (07:25)
[2022-09-28] MEDS ORDERED: LIDOCAINE 1% P/F 10 MG/ML VIAL PNB ONE (08:31)
[2022-09-28] MEDS ORDERED: LIDOCAINE HCL/PF 2% SDV 5ML VIAL INF ONE (08:33)
[2022-09-28 09:42] VITALS: BP 133/82; PULSE 77; TEMP 98
== END 2022-09-28 09:20 | disposition home or self-care (01) ==
LOC: JASU-SURG 04:10
PROVIDERS: ATTEND Pain Medicine Pain Medicine
PROC: 01HY3MZ Insertion of Neurostimulator Lead into Peripheral Nerve, Percutaneous Approach (ICD-10-PCS; principal; 2022-09-28 08:00)
DX: G89.4 Chronic pain syndrome (principal)
CPT/HCPCS: 64555; C1778; 76000-TC-FY

== ENCOUNTER 2023-04-01 05:24 | Day surgery (SDC) | payer OTHER ==
[2023-03-30 10:15] VITALS: BMI 33.2
[2023-04-01] MEDS ORDERED: ACETAMINOPHEN 500 MG TABLET (FP) PO PRN (12:51)
[2023-04-01 13:00] VITALS: RESP 20
[2023-04-01] MEDS ORDERED: MIDAZOLAM HCL 2 MG/2 ML SINGLE DOSE VIAL ONE ×2 (14:52)
[2023-04-01] MEDS ORDERED: ACETAMINOPHEN 325 MG TABLET (FP) ONE (16:27)
[2023-04-01 16:49] VITALS: TEMP 97.1
[2023-04-01 17:08] VITALS: BP 129/67; PULSE 75
== END 2023-04-01 17:14 | disposition home or self-care (01) ==
LOC: JASU-SURG 05:24
PROVIDERS: ATTEND Pain Medicine Pain Medicine
PROC: 0JH73BZ Insertion of Single Array Stimulator Generator into Back Subcutaneous Tissue and Fascia, Percutaneous Approach (ICD-10-PCS; principal; 2023-04-01 15:45)
DX: M54.16 Radiculopathy, lumbar region (principal); M96.1 Postlaminectomy syndrome, not elsewhere classified
CPT/HCPCS: 63650; C1778; 76000-TC-FY; C1889; C1897

== ENCOUNTER 2024-03-09 04:07 | Day surgery (SDC) | payer OTHER ==
[2024-03-06 17:23] VITALS: BMI 34.0
[2024-03-09] MEDS: BUPIVACAINE HCL/PF 0.75% 10 ML VIAL PNB ONE
[2024-03-09] MEDS: LIDOCAINE 1% P/F 10 MG/ML VIAL PNB ONE
[2024-03-09] MEDS: DEXAMETHASONE SOD PHOSPHATE 4 MG/1 ML VIAL IVPUSH ONE
[2024-03-09] MEDS ORDERED: BUPIVACAINE HCL/PF 0.75% 10 ML VIAL ONE (07:43)
[2024-03-09] MEDS ORDERED: LIDOCAINE HCL/PF 1% SDV 5ML VIAL ONE (07:43)
[2024-03-09] MEDS ORDERED: LIDOCAINE HCL/PF 2% SDV 5ML VIAL ONE ×2 (07:43→09:50)
[2024-03-09] MEDS ORDERED: DEXAMETHASONE SOD PHOSPHATE 10 MG/1 ML VIAL ONE (07:44)
[2024-03-09] MEDS: LIDOCAINE HCL/PF 2% SDV 5ML VIAL PNB ONE ×2 (09:56)
[2024-03-09] MEDS ORDERED: ACETAMINOPHEN 500 MG TABLET (FP) ONE (10:43)
[2024-03-09] MEDS: ACETAMINOPHEN 500 MG TABLET (FP) PO PRN (10:47)
[2024-03-09 12:07] VITALS: RESP 18
[2024-03-09 12:16] VITALS: BP 149/70; PULSE 80; TEMP 97.8
== END 2024-03-09 11:20 | disposition home or self-care (01) ==
LOC: JASU-SURG 04:07
PROVIDERS: ATTEND Pain Medicine Pain Medicine
PROC: 015D3ZZ Destruction of Femoral Nerve, Percutaneous Approach (ICD-10-PCS; principal; 2024-03-09 09:00)
DX: M25.561 Pain in right knee (principal)
CPT/HCPCS: J1100

== ENCOUNTER 2024-05-01 05:59 | Day surgery (SDC) | payer OTHER ==
[2024-04-23 13:49] VITALS: BMI 34.0
[2024-05-01] MEDS ORDERED: PROPOFOL 20 ML ONE (07:08)
[2024-05-01] MEDS ORDERED: MIDAZOLAM HCL 2 MG/2 ML SINGLE DOSE VIAL ONE ×2 (07:09→08:57)
[2024-05-01] MEDS ORDERED: BUPIVACAINE LIPOSOME/PF (EXPAREL) 266 MG/20 ML VIAL ONE (07:27)
[2024-05-01] MEDS ORDERED: BUPIVACAINE HCL/PF 0.5% (5MG/ML) 10 ML VIAL ONE (07:28)
[2024-05-01] MEDS ORDERED: ACETAMINOPHEN INJECTION 100 ML ONE (07:28)
[2024-05-01] MEDS ORDERED: VANCOMYCIN 1,000 MG VIAL (RESTRICTED TO ID ONLY) ONE (07:36)
[2024-05-01] MEDS ORDERED: TRANEXAMIC ACID 1000 MG/10 ML VIAL ONE (09:13)
[2024-05-01] MEDS ORDERED: BUPIVICAINE 0.25%/MORPH PF/KETOROLAC - 51ML DISP.SYRINGE IA ONE (09:19)
[2024-05-01] MEDS: VANCOMYCIN 1,000 MG VIAL (RESTRICTED TO ID ONLY) IVPB ONE (09:26)
[2024-05-01] MEDS: KETOROLAC TROMETHAMINE 30 MG/1 ML VIAL IM ONE (09:39)
[2024-05-01] MEDS: morphine SULFATE/PF 1 MG/2 ML (2cc Syringe - QUVA) IV ONE (09:39)
[2024-05-01] MEDS: BUPIVACAINE HCL/PF 0.25% (2.5MG/ML) 10 ML VIAL IJ ONE (09:39)
[2024-05-01] MEDS ORDERED: MAG HYDROX/AL HYDROX/SIMETH 30 ML UNIT-DOSE CUP PO PRN (10:19)
[2024-05-01] MEDS ORDERED: LACTATED RINGERS SOLUTION 1,000 ML IV SCH (10:45)
[2024-05-01 14:31] VITALS: RESP 18
[2024-05-01] MEDS: oxyCODONE HCL 5 MG TABLET PO PRN ×2 (15:14→19:42)
[2024-05-01] MEDS: metFORMIN HCL 500 MG TABLET (FP) PO SCH (16:51)
[2024-05-01] MEDS: CEFAZOLIN SODIUM 2 GM in DEXTROSE 5%-WATER 100 ML IVPB SCH (16:51)
[2024-05-01] MEDS: ASPIRIN COATED 81 MG TABLET.EC PO SCH (19:42)
[2024-05-01] MEDS: LACTATED RINGERS SOLUTION 1,000 ML IV SCH (19:43)
[2024-05-01] MEDS: GABAPENTIN 300 MG CAPSULE PO SCH (21:47)
[2024-05-01] MEDS: SENNOSIDES/DOCUSATE COMBO (SENNA PLUS) TABLET (UD) PO SCH (21:47)
[2024-05-01] MEDS: MONTELUKAST NA 10 MG TABLET PO SCH (21:47)
[2024-05-01] MEDS: ATORVASTATIN CA 20 MG TABLET (FP) PO SCH (21:48)
[2024-05-01] MEDS: ACETAMINOPHEN 500 MG TABLET (FP) PO SCH (21:48)
[2024-05-01] MEDS ORDERED: ALBUTEROL SO4 HFA INHALER IH PRN (22:00)
[2024-05-01] MEDS ORDERED: PATIENT'S OWN MEDICATION (NON-FORMULARY) (Fluticasone Propion/Salmeterol [Advair 250-50 Di IH SCH (22:00)
[2024-05-01] MEDS ORDERED: GABAPENTIN 300 MG CAPSULE PO SCH (22:00)
[2024-05-01] MEDS: BUDESONIDE/FORMETEROL FUMARATE 80/4.5 mcg INHALER IH SCH (22:47)
[2024-05-02] MEDS: ONDANSETRON 4 MG/2 ML VIAL IVPUSH PRN (06:50)
[2024-05-02 08:00] LABS: HEMOGLOBIN 9.9 G/dL (10.7-15.3); MCH 27.9 pg (25.7-33.7); MEAN PLT VOLUME 7.7 fl (7.5-11.1); PLATELET COUNT 370.2 10^3/uL (134-434); RBC 3.55 10^6/uL (3.60-5.2); RDW 14.5 % (11.6-15.6); WHITE BLOOD COUNT 8.7 10^3/uL (4.0-10.8)
[2024-05-02 08:36] LABS: CALCIUM 9.2 mg/dl (8.5-10.1); CREATININE 1.4 mg/dl (0.6-1.3); POTASSIUM 4.8 mmol/L (3.5-5.1)
[2024-05-02] MEDS: LISINOPRIL 20 MG TABLET PO SCH (09:39)
[2024-05-02] MEDS: MULTIVITAMINS (DAILY MVI) TABLET (FP) PO SCH (09:39)
[2024-05-02] MEDS: FAMOTIDINE 20 MG TABLET PO SCH (09:39)
[2024-05-02] MEDS ORDERED: PANTOPRAZOLE 40 MG TABLET PO SCH (10:00)
[2024-05-02 10:19] VITALS: TEMP 97.7
[2024-05-02 15:35] VITALS: BP 108/82; PULSE 84
== END 2024-05-02 18:11 ==
LOC: FASUSAT 05:59 → SUATTDRO 05:59 → FM/S 13:54 → FASUSAT 05-02 18:11
PROC: 8E0Y0CZ Robotic Assisted Procedure of Lower Extremity, Open Approach (ICD-10-PCS; 2024-05-01)
PROC: 0SRC0JZ Replacement of Right Knee Joint with Synthetic Substitute, Open Approach (ICD-10-PCS; principal; 2024-05-01 08:36)
DX: M17.11 Unilateral primary osteoarthritis, right knee (principal)
CPT/HCPCS: 20985; 27447; C1776; S2900; 36415; 73560-TC-RT-FY; 80048; 82962; 85027; 94760; 97010-GP; 97116-GP; J0131

== ENCOUNTER 2024-09-11 06:04 | Day surgery (SDC) | payer OTHER ==
[2024-09-03 15:33] VITALS: BMI 34.0
[2024-09-11] MEDS ORDERED: PROPOFOL 40 ML ONE (07:33)
[2024-09-11] MEDS ORDERED: SUCCINYLCHOLINE CHLORIDE 200 MG/10 ML SYRINGE ONE (07:33)
[2024-09-11] MEDS ORDERED: ACETAMINOPHEN INJECTION 100 ML ONE (07:49)
[2024-09-11] MEDS ORDERED: FENTANYL CITRATE/PF 50 MCG/ML VIAL ONE ×2 (07:52→08:24)
[2024-09-11] MEDS ORDERED: ONDANSETRON 4 MG/2 ML VIAL ONE (07:52)
[2024-09-11] MEDS: ACETAMINOPHEN 1000 MG/100 ML BAG IVPB ONE (07:53)
[2024-09-11] MEDS: ONDANSETRON 4 MG/2 ML VIAL IVPUSH ONE (08:27)
[2024-09-11] MEDS ORDERED: oxyCODONE HCL 5 MG TABLET PO PRN (09:00)
[2024-09-11 09:07] VITALS: TEMP 97.5
[2024-09-11 13:02] VITALS: BP 135/70; PULSE 81; RESP 18
== END 2024-09-11 09:51 | disposition home or self-care (01) ==
LOC: FASUSAT 06:04
PROVIDERS: ATTEND Orthopaedic Surgery Sports Medicine
PROC: 9WB6XLZ Chiropractic Manipulation of Lower Extremities, Other Method (ICD-10-PCS; principal; 2024-09-11 07:38)
DX: M24.661 Ankylosis, right knee (principal)
CPT/HCPCS: 82962; 94760; J0131

== ENCOUNTER 2024-11-02 14:29 | Inpatient (IN) | payer OTHER ==
[2024-11-02 15:22] LABS: ABSOLUTE IMMATURE GRANULOCYTES 0.03 x10^3/uL (0.0-0.031); BASOPHILS # 0.02 x10^3/uL (0.01-0.08); EOSINOPHIL % 0.2 % (0.7-5.8); EOSINOPHILS # 0.02 x10^3/uL (0.04-0.36); HEMATOCRIT 36.5 % (34.1-44.9); HEMOGLOBIN 11.1 g/dL (11.2-15.7); MCHC 30.4 g/dl (32.2-35.5); MEAN CELL VOLUME 88.2 fl (79.4-94.8); MEAN PLT VOLUME 9.2 fl (9.4-12.3); MONOCYTE # 0.72 x10^3/uL (0.24-0.86); MONOCYTE % 7.2 % (4.7-12.5); PLATELET COUNT 386 x10^3/uL (182-369); RDW 14.5 % (12.4-16.4)
[2024-11-02] MEDS: SODIUM CHLORIDE 0.9% 1000 ML INFUS.BAG IV SCH (15:28)
[2024-11-02 15:29] LABS: ALBUMIN 4.2 g/dl (3.4-5.0); BILIRUBIN,TOTAL 0.5 mg/dl (0.2-1); CALCIUM 9.3 mg/dl (8.5-10.1); CREATININE 1.1 mg/dl (0.6-1.3); POTASSIUM 4.6 mmol/L (3.5-5.1); TOT PROT 6.7 g/dl (6.4-8.2)
[2024-11-02 15:36] LABS: INR 1.09 (0.83-1.09); PROTHROMBIN TIME (PATIENT) 12.1 SEC (9.7-13.0)
[2024-11-02 15:38] LABS: ACTIVATED PTT 27.5 SECONDS (25.2-36.5)
[2024-11-02] MEDS ORDERED: morphine SULFATE 4 MG/ML VIAL ONE (15:39)
[2024-11-02] MEDS ORDERED: KETOROLAC TROMETHAMINE 30 MG/1 ML VIAL ONE (15:39)
[2024-11-02] MEDS: morphine CARPU-JECT 4 MG/1 ML DISP.SYRIN IVPUSH ONE (15:46)
[2024-11-02] MEDS: KETOROLAC TROMETHAMINE 15 MG/ML VIAL IVPUSH ONE (15:47)
[2024-11-02] MEDS ORDERED: ONDANSETRON *ODT* 4 MG TABLET ONE ×2 (15:49→19:17)
[2024-11-02] MEDS: ONDANSETRON *ODT* 4 MG TABLET SL ONE ×2 (15:51→19:19)
[2024-11-02] MEDS ORDERED: ACETAMINOPHEN INJECTION 100 ML ONE (16:22)
[2024-11-02 16:41] LABS: VENOUS BASE EXCESS 4.3 mmol/L (-2-2); VENOUS O2 SATURATION 58.4 % (70-80); VENOUS PCO2 53.2 mmHg (38-52); VENOUS PH 7.384 (7.310-7.410)
[2024-11-02] MEDS: ACETAMINOPHEN 1000 MG/100 ML BAG IVPB ONE (16:42)
[2024-11-02] MEDS: DEXTROSE 5%-NORMAL SALINE 1,000 ML IV SCH (18:54)
[2024-11-02] MEDS ORDERED: SODIUM CHLORIDE 1,000 ML IV SCH (23:30)
[2024-11-02] MEDS: ONDANSETRON 4 MG/2 ML VIAL IVPUSH PRN (23:59)
[2024-11-03] MEDS: SODIUM CHLORIDE 1,000 ML IV SCH (00:13)
[2024-11-03] MEDS: ACETAMINOPHEN 1000 MG/100 ML BAG IVPB ONE (01:12)
[2024-11-03] MEDS: INSULIN ASPART SLIDING SCALE (NOVOLOG) 1 VIAL SQ SCH (06:43)
[2024-11-03] MEDS: metFORMIN HCL 500 MG TABLET (FP) PO SCH (06:43)
[2024-11-03 06:54] VITALS: RESP 18
[2024-11-03 08:56] LABS: HEMATOCRIT 32.9 % (34.1-44.9); HEMOGLOBIN 9.5 g/dL (11.2-15.7); MCHC 28.9 g/dl (32.2-35.5); MEAN CELL VOLUME 91.4 fl (79.4-94.8); MEAN PLT VOLUME 9.5 fl (9.4-12.3); PLATELET COUNT 321 x10^3/uL (182-369); RDW 14.8 % (12.4-16.4)
[2024-11-03 09:14] LABS: POTASSIUM 4.2 mmol/L (3.5-5.1)
[2024-11-03 09:17] LABS: CALCIUM 8.6 mg/dL (8.5-10.1)
[2024-11-03 09:18] LABS: MAGNESIUM 1.8 mg/dL (1.8-2.4)
[2024-11-03 09:22] LABS: BILIRUBIN,TOTAL 0.5 mg/dL (0.2-1)
[2024-11-03 09:23] LABS: PHOSPHOROUS 4.3 mg/dL (2.5-4.9)
[2024-11-03 09:25] LABS: TOT PROT 5.4 g/dl (6.4-8.2)
[2024-11-03 09:27] LABS: ALBUMIN 2.7 g/dl (3.4-5.0)
[2024-11-03] MEDS: FAMOTIDINE 20 MG TABLET PO SCH (09:34)
[2024-11-03] MEDS: LISINOPRIL 20 MG TABLET PO SCH (09:34)
[2024-11-03] MEDS: ENOXAPARIN NA (PORCINE) 40 MG/0.4 ML DISP.SYRIN SQ SCH (09:35)
[2024-11-03] MEDS: ALBUTEROL SO4 HFA INHALER IH PRN (09:35)
[2024-11-03] MEDS ORDERED: ENOXAPARIN NA (PORCINE) 40 MG/0.4 ML DISP.SYRIN SQ SCH (10:00)
[2024-11-03] MEDS ORDERED: ACETAMINOPHEN 500 MG TABLET (FP) PO SCH (10:00)
[2024-11-03 13:34] VITALS: BMI 33.5
[2024-11-03] MEDS: POLYETHYLENE GLYCOL (HEALTHYLAX) 3350 17 GM PACKET PO SCH (17:48)
[2024-11-03] MEDS: MONTELUKAST NA 10 MG TABLET PO SCH (22:26)
[2024-11-03] MEDS: BUDESONIDE/FORMETEROL FUMARATE 80/4.5 mcg INHALER IH SCH (22:26)
[2024-11-03] MEDS: ATORVASTATIN CA 40 MG TABLET (FP) PO SCH (22:26)
[2024-11-03] MEDS: GABAPENTIN 300 MG CAPSULE PO SCH (22:27)
[2024-11-04] MEDS: ACETAMINOPHEN 1000 MG/100 ML BAG IVPB PRN (00:42)
[2024-11-04 09:29] LABS: HEMOGLOBIN 10.4 g/dL (11.2-15.7); MCHC 28.9 g/dl (32.2-35.5); MEAN CELL VOLUME 91.8 fl (79.4-94.8); MEAN PLT VOLUME 9.7 fl (9.4-12.3); PLATELET COUNT 395 x10^3/uL (182-369); RDW 14.7 % (12.4-16.4)
[2024-11-04 09:32] LABS: CALCIUM 9.2 mg/dL (8.5-10.1)
[2024-11-04 09:35] LABS: CREATININE 1.1 mg/dL (0.55-1.3)
[2024-11-04] MEDS: ACETAMINOPHEN 325 MG TABLET (FP) PO PRN (21:16)
[2024-11-05 09:09] VITALS: BP 154/73; PULSE 89; TEMP 98.2
[2024-11-05] MEDS: metroNIDAZOLE 250 MG TABLET PO ONE (10:53)
== END 2024-11-05 11:27 | disposition home or self-care (01) | DRG 392 ==
LOC: FER 14:29 → J8W 22:58
PROVIDERS: ADMIT Internal Medicine; ATTEND Nurse Practitioner Family
DX: K57.32 Diverticulitis of large intestine without perforation or abscess without bleeding (principal); E11.9 Type 2 diabetes mellitus without complications; E78.5 Hyperlipidemia, unspecified; J45.909 Unspecified asthma, uncomplicated; I10 Essential (primary) hypertension; K21.9 Gastro-esophageal reflux disease without esophagitis; E66.9 Obesity, unspecified; Z68.33 Body mass index [BMI] 33.0-33.9, adult
CPT/HCPCS: 36415; 71045-TC-FY; 74177-TC; 76830-TC; 80048; 80053; 81003; 82803; 82962; 83036; 83605; 83735; 84100; 84484; 85025; 85027; 85610; 85730; 86140; 87040; 87086; 93005; 99291; J0131; Q0162; Q9967